=== PATIENT | female | born 1940 | race Caucasian/White ===

== ENCOUNTER 2017-10-04 12:47 | Observation (INO) ==
[2017-10-04] MEDS ORDERED: *HR* Dextrose 50 % in Water (Syg) 50 ML SYRINGE ONE (12:53)
[2017-10-04] MEDS ORDERED: D5% in 0.9% NACL 1,000 ML IVC ONE (13:00)
--- NOTE | 2017-10-04 13:10 | Emergency Department Note ---
Disposition Clinical Impression: Hypoglycemia, Hyponatremia Acute exacerbation of CHF (congestive heart failure) Qualifiers: Congestive heart failure type: unspecified congestive heart failure type Qualified Code(s): I50.9 - Heart failure, unspecified Pneumonia Qualifiers: Pneumonia type: due to unspecified organism Laterality: right Lung location: lower lobe of lung Qualified Code(s): J18.1 - Lobar pneumonia, unspecified organism Disposition: Admitted As Inpatient Condition: Undetermined Time of Disposition: 14:50 Neuro HPI - General Chief Complaint: ED Neuro Symptoms/Deficit Stated Complaint: Neuro Sx Time Seen by Provider: 10/04/17 12:50 Source: EMS Mode of arrival: EMS Limitations: altered mental status Nursing Notes Reviewed: Yes Vital Signs Reviewed: Yes - History of Present Illness HPI Narrative: 77-year-old female with unknown medical history arrives to the emergency department with concern for alteration in mentation and a facial droop. The last known well was 8:30 this morning. The patient was unable to answer any questions. On glucose check from EMS was noted the patient's glucose was 83. In addition the patient was noted to be hypertensive. Upon arrival to the emergency department the patient's glucose was noted to be 32. It was at that time an IV was placed and the patient was given an amp of D50. She immediately woke up and was answer all questions appropriately with a NIH of 0 at that time. The patient denies any complaints at this time and is resting comfortably in the room. Onset of Symptoms Date: 10/04/17 Onset of Symptoms Time: 08:30 Symptom Onset Unknown: No Timing confirmed by: family member Location: right face, altered History of same: No Severity: mild Symptoms Improving: Yes (After D50) Improves with: medication Context: sudden onset On Anticoagulants: No Associated symptoms: Reports: confusion Treatments Prior to Arrival: none - Related Data Home Medications: Home Medications Medication Instructions Recorded Confirmed ALPRAZolam [Xanax 0.25 MG Tablet] 0.25 mg PO TID PRN 10/13/16 10/04/17 Furosemide [Lasix] 40 mg PO DAILY 10/13/16 10/04/17 Glimepiride [Amaryl] 2 mg PO DAILY 10/13/16 10/04/17 Ipratropium/Albuterol Neb [Duoneb] 3 ml PO Q4H PRN 10/13/16 10/04/17 Amlodipine Besylate 10 mg PO DAILY 01/19/17 10/04/17 Fluticasone/Salmeterol [Advair 1 each IH BID 01/19/17 10/04/17 500-50 Diskus] Loratadine [Allergy Relief] 10 mg PO DAILY 01/19/17 10/04/17 Amiodarone [Cordarone] 200 mg PO DAILY 10/04/17 10/04/17 Aspirin [Lo-Dose Aspirin EC] 81 mg PO DAILY 10/04/17 10/04/17 Lisinopril [Zestril] 2.5 mg PO DAILY 10/04/17 10/04/17 Metformin HCl [Metformin HCl ER] 1,000 mg PO BID 10/04/17 10/04/17 Metoprolol XL (24 HR) Succ [Toprol 100 mg PO DAILY 10/04/17 10/04/17 XL] Rivaroxaban [Xarelto] 20 mg PO DAILY 10/04/17 10/04/17 Allergies/Adverse Reactions: Allergies Allergy/AdvReac Type Severity Reaction Status Date / Time No Known Allergies Allergy Verified 01/19/17 09:41 All systems ED: reviewed and negative except as stated. Constitutional: Denies: fever, chills, weakness Eyes: Denies: vision change ENT ED: Denies: dental pain, congestion Cardiovascular: Denies: chest pain Respiratory: Denies: dyspnea Gastrointestinal: Denies: abdominal pain Genitourinary: Denies: urgency Musculoskeletal: Denies: neck pain Integumentary: Denies: rash Neurological: Reports: weakness, confusion (resolved with glucose). Denies: headache, numbness, paresthesias Past Medical History - Past Medical History Attestation: Yes The following information was validated with the patient. Source: patient, old records reviewed, obtained from family Medical history: Reports: asthma, atrial fibrillation, COPD, diabetes, hyperlipidemia, hypertension Surgical history: Reports: hysterectomy Psychiatric history: Reports: anxiety, depression - Social History Smoking Status: Former smoker Smokeless Tobacco Status: No Alcohol use: Reports: none Drug use: Reports: none Physical Exam - General Limitations: altered mental status (initially but resolved) General appearance: alert, in no apparent distress - Head Head exam: atraumatic, normocephalic, normal inspection - Eye Eye exam: Present: normal appearance, PERRL, EOMI - ENT ENT exam: normal exam - Neck Neck exam: Present: normal inspection, full ROM, trachea midline - Chest Chest inspection: Present: normal inspection, symmetric chest wall rise - Respiratory Respiratory exam: Present: normal lung sounds bilaterally - Cardiovascular Cardiovascular exam: Present: regular rate, normal rhythm, normal heart sounds - Abdominal Exam Abdominal exam: Present: soft, Non-Tender. Absent: tenderness, distention, guarding, rebound, rigidity - Extremities Exam Extremities exam: Present: normal inspection, full ROM. Absent: tenderness, pedal edema - Neurological Exam Neurological exam: Present: alert, oriented X3, CN II-XII intact - Expanded Neurological Exam Patient oriented to: Present: person, place Speech: Present: fluid speech Cranial nerves: EOM function (II, III, IV, ): Normal, facial sensation (V): Normal, facial palsy (VII): Normal Motor strength - LUE: 4/5 Motor strength - RUE: 4/5 Motor strength - LLE: 4/5 Motor strength - RLE: 4/5 Sensory exam upper extremity: light touch: Normal Sensory exam lower extremity: light touch: Normal Coma Scale Eye Opening: Spontaneous Coma Scale Motor Response: Obeys Commands Coma Scale Verbal Response: Oriented Coma Scale Total: 15 Course - Reevaluation(s) Reevaluation #1: Patient is eating without difficulty. Denies any complaints at this time. The patient's family states the patient is on Xarelto and she had a fall this morning. The patient was noted to have repeat glucose at 140's. Time: 14:12 Vital Signs Temperature 97.5 F L 10/04/17 12:48 Pulse Rate 66 10/04/17 12:48 Respiratory Rate 26 10/04/17 12:48 Blood Pressure 195/107 10/04/17 12:48 O2 Sat by Pulse Oximetry 91 10/04/17 12:48 Temperature 97.5 F L 10/04/17 12:48 Pulse Rate 68 10/04/17 14:53 Respiratory Rate 20 10/04/17 14:53 Blood Pressure 178/96 10/04/17 14:53 O2 Sat by Pulse Oximetry 98 10/04/17 14:53 Oxygen Delivery Oxygen Delivery Nasal Cannula Neuro Symptoms/Deficit - MDM Narrative Medical decision making narrative: Workup in the emergency department demonstrates multiple findings. The patient was noted to be in a CHF exacerbation. Chest x-ray also demonstrates concern for possible pneumonia. Given the patient's leukocytosis which is likely reactive due to the patient's hypoglycemia, we will go ahead and treat the patient with clindamycin with concern for aspiration pneumonia given the patient 's prolonged downtime. The patient was noted to be hyponatremic most likely associated with the patient's fluid overload. The patient responded to the glucose appropriately and is alert and oriented and answering all questions at this time area the patient was started on a nitroglycerin drip with intention to reduce preload and improve the patient's respiratory status as well as lower her blood pressure. The patient will be admitted to the hospitalist at this time and was accepted by the hospitalist, Dr. Clark. - Lab Data Lab results reviewed: Yes I reviewed the patient's lab results. Result diagrams: 10/04/17 13:49 10/04/17 13:49 Lab Results 10/04/17 10/04/17 10/04/17 Range/Units 13:15 13:25 13:46 WBC (4.3-11.1) K/mcL RBC (3.82-4.97) M/mcL Hgb (11.5-15.4) g/dL Hct (35.3-44.9) % MCV (83.0-100.0) fL MCH (28.0-33.3) pg MCHC (31.6-35.5) g/dL RDW (11.5-14.5) % Plt Count (140-400) K/mcL MPV (9.4-12.4) fL Immature Gran % (0-4) % Seg Neutrophils % % Lymphocytes % % Monocytes % % Eosinophils % % Basophils % % Neutrophils # (1.6-8.9) K/mcL Lymphocytes # (0.6-4.6) K/mcL Monocytes # (0.0-1.3) K/mcL Eosinophils # (0.0-0.6) K/mcL Basophils # (0.0-0.2) K/mcL PT (9.4-12.1) Seconds INR APTT (26.0-36.0) Seconds Sodium (136-145) mEq/L Potassium (3.5-4.5) mEq/L Chloride (98-109) mEq/L Carbon Dioxide (19-29) mEq/L BUN (7-20) mg/dL Creatinine (0.57-1.11) mg/dL Est GFR ( Amer) (> 60) Est GFR (Non-Af Amer) (> 60) BUN/Creatinine Ratio (6-26) Glucose (70-99) mg/dL POC Glucose 121 H 143 H (58-89) Calculated Osmolality (280-300) Calcium (8.6-10.8) mg/dL Troponin I (0-0.03) ng/mL B-Natriuretic Peptide (0-100) pg/mL Urine Color Yellow (Yellow) Urine Clarity Cloudy A (Clear) Urine pH 8.0 (5.0-8.0) pH Units Ur Specific [place] 1.015 (1.010-1.025) Urine Protein 100 H (Neg-Trace) mg/dL Urine Glucose (UA) 100 H (Normal) mg/dL Urine Ketones Negative (Negative) mg/dL Urine Blood Trace H (Negative) Urine Nitrite Negative (Negative) Urine Bilirubin Negative (Negative) Urine Urobilinogen Normal (Normal) mg/dL Ur Leukocyte Esterase Negative (Negative) Urine Microscopic RBC 3-5 H (0-3) per hpf Urine Microscopic WBC 3-5 H (0-3) per hpf Ur Squamous Epith Cells Many H (None-Few) per lpf Urine Bacteria Few (None-Few) per hpf Hyaline Casts None Seen (None-Few) per lpf Ur Culture Indicated? NO (NO) 10/04/17 10/04/17 10/04/17 Range/Units 13:49 13:49 13:49 WBC 22.8 H (4.3-11.1) K/mcL RBC 4.67 (3.82-4.97) M/mcL Hgb 10.7 L (11.5-15.4) g/dL Hct 33.5 L (35.3-44.9) % MCV 71.7 L (83.0-100.0) fL MCH 22.9 L (28.0-33.3) pg MCHC 31.9 (31.6-35.5) g/dL RDW 18.1 H (11.5-14.5) % Plt Count 387 (140-400) K/mcL MPV 9.8 (9.4-12.4) fL Immature Gran % 1.0 (0-4) % Seg Neutrophils % 91.1 % Lymphocytes % 3.3 % Monocytes % 4.4 % Eosinophils % 0.0 % Basophils % 0.2 % Neutrophils # 20.8 H (1.6-8.9) K/mcL Lymphocytes # 0.8 (0.6-4.6) K/mcL Monocytes # 1.0 (0.0-1.3) K/mcL Eosinophils # 0.0 (0.0-0.6) K/mcL Basophils # 0.1 (0.0-0.2) K/mcL PT 13.1 H (9.4-12.1) Seconds INR 1.2 APTT 30.7 (26.0-36.0) Seconds Sodium 126 L (136-145) mEq/L Potassium 3.4 L (3.5-4.5) mEq/L Chloride 88 L (98-109) mEq/L Carbon Dioxide 24 (19-29) mEq/L BUN 11 (7-20) mg/dL Creatinine 0.81 (0.57-1.11) mg/dL Est GFR ( Amer) > 60 (> 60) Est GFR (Non-Af Amer) > 60 (> 60) BUN/Creatinine Ratio 14 (6-26) Glucose 137 H (70-99) mg/dL POC Glucose (58-89) Calculated Osmolality 264 L (280-300) Calcium 9.1 (8.6-10.8) mg/dL Troponin I (0-0.03) ng/mL B-Natriuretic Peptide (0-100) pg/mL Urine Color (Yellow) Urine Clarity (Clear) Urine pH (5.0-8.0) pH Units Ur Specific [place] (1.010-1.025) Urine Protein (Neg-Trace) mg/dL Urine Glucose (UA) (Normal) mg/dL Urine Ketones (Negative) mg/dL Urine Blood (Negative) Urine Nitrite (Negative) Urine Bilirubin (Negative) Urine Urobilinogen (Normal) mg/dL Ur Leukocyte Esterase (Negative) Urine Microscopic RBC (0-3) per hpf Urine Microscopic WBC (0-3) per hpf Ur Squamous Epith Cells (None-Few) per lpf Urine Bacteria (None-Few) per hpf Hyaline Casts (None-Few) per lpf Ur Culture Indicated? (NO) 10/04/17 10/04/1717 Range/Units 13:49 13:49 15:00 WBC (4.3-11.1) K/mcL RBC (3.82-4.97) M/mcL Hgb (11.5-15.4) g/dL Hct (35.3-44.9) % MCV (83.0-100.0) fL MCH (28.0-33.3) pg MCHC (31.6-35.5) g/dL RDW (11.5-14.5) % Plt Count (140-400) K/mcL MPV (9.4-12.4) fL Immature Gran % (0-4) % Seg Neutrophils % % Lymphocytes % % Monocytes % % Eosinophils % % Basophils % % Neutrophils # (1.6-8.9) K/mcL Lymphocytes # (0.6-4.6) K/mcL Monocytes # (0.0-1.3) K/mcL Eosinophils # (0.0-0.6) K/mcL Basophils # (0.0-0.2) K/mcL PT (9.4-12.1) Seconds INR APTT (26.0-36.0) Seconds Sodium (136-145) mEq/L Potassium (3.5-4.5) mEq/L Chloride (98-109) mEq/L Carbon Dioxide (19-29) mEq/L BUN (7-20) mg/dL Creatinine (0.57-1.11) mg/dL Est GFR ( Amer) (> 60) Est GFR (Non-Af Amer) (> 60) BUN/Creatinine Ratio (6-26) Glucose (70-99) mg/dL POC Glucose 134 H (58-89) Calculated Osmolality (280-300) Calcium (8.6-10.8) mg/dL Troponin I 0.02 (0-0.03) ng/mL B-Natriuretic Peptide 995 H (0-100) pg/mL Urine Color (Yellow) Urine Clarity (Clear) Urine pH (5.0-8.0) pH Units Ur Specific [place] (1.010-1.025) Urine Protein (Neg-Trace) mg/dL Urine Glucose (UA) (Normal) mg/dL Urine Ketones (Negative) mg/dL Urine Blood (Negative) Urine Nitrite (Negative) Urine Bilirubin (Negative) Urine Urobilinogen (Normal) mg/dL Ur Leukocyte Esterase (Negative) Urine Microscopic RBC (0-3) per hpf Urine Microscopic WBC (0-3) per hpf Ur Squamous Epith Cells (None-Few) per lpf Urine Bacteria (None-Few) per hpf Hyaline Casts (None-Few) per lpf Ur Culture Indicated? (NO) - Radiology Data Radiology results reviewed: Yes I reviewed the patient's radiology results. - EKG Data EKG attestation: Yes I reviewed and interpreted this EKG. EKG results narrative: Heart rate 63 bpm. A LA interval 211 ms. QTc 445 ms. Electronic ventricular pacemaker. No ST elevation or ST depression noted. Attestation Statement - Attestation Attestation: I examined this patient and my medical decision-making was reviewed with the Resident Physician, Dr. Leroy. I agree with the documented findings, disposition and treatment plan as described except to the extent set forth below. Patient is a 77-year-old white female who is brought to us by EMS and they had called ahead indicating she was a stroke alert. Patient apparently lives at home with family and after breakfast this morning at approximately 8 AM she had sudden alteration of consciousness and was having decreased responsiveness facial droop and slurred speech. On arrival by EMS patient was confused, mumbling her words and no focal deficits appreciated just decreased level of responsiveness. She was quite hypertensive on arrival. Medics had reported an Accu-Chek in the 80s. We repeated that on arrival and patient's Accu-Chek rest was 32. Initially a stroke alert had been called on her arrival and initial assessment. We held off on taking the patient CT given an amp of D50. Patient immediately came more responsive, conversant and was quickly up talking with no slurred speech, no facial droop, no focal neurologic deficits. Patient returned to baseline. Family upon arrival did say that she is on Xarelto and had fallen and they thought she hit her head. We proceeded with ongoing evaluation. I agree with patient's physical exam findings as documented. Patient was hypertensive on arrival. Patient's EKG shows paced rhythm. Patient had a chest x-ray which showed pulmonary edema versus pneumonia with prominence of pulmonary changes on the right side. Patient's room air sats were stable. No increased work of breathing. Unclear if since she had been down for such a long period of time that this could be secondary to an aspiration versus infection versus exacerbation of her CHF. Patient did have significant lower extremity edema on arrival. We are going to cover the patient for both at this time and started on her on antibiotics as well as nitroglycerin and Lasix. Patient with an elevated white count at 22.8 with a left shift. Which points more towards an infectious etiology. Patient's head CT was unremarkable. Patient's blood sugar has stabilized and she is currently on a D5 0.9 normal saline. Case was discussed with the hospitalist who accepted the patient for admission for further evaluation and management.
[2017-10-04 13:31] LABS: Bilirubin,Urine Negative (Negative); Blood,Urine Trace (Negative); Clarity,Urine Cloudy (Clear); Color,Urine Yellow (Yellow); Glucose,Urine (UA) 100 mg/dL (Normal); Ketones,Urine Negative (Negative); Leukocyte Esterase,Urine Negative (Negative); Nitrite,Urine Negative (Negative); Protein,Urine 100 mg/dL (Neg-Trace); Specific Gravity,Urine 1.015 (1.010-1.025); Urobilinogen,Urine Normal (Normal)
[2017-10-04 13:34] LABS: Bacteria,Urine Few per hpf (None-Few); Hyaline Casts,Urine None Seen per lpf (None-Few); Squamous Epithelial Cell,Urine Many per lpf (None-Few)
[2017-10-04 14:02] LABS: Basophils % 0.2 %; Hematocrit 33.5 % (35.3-44.9); Hemoglobin 10.7 g/dL (11.5-15.4); Lymphocytes # 0.8 K/mcL (0.6-4.6); Lymphocytes % 3.3 %; Mean Corpuscular HGB Conc 31.9 g/dL (31.6-35.5); Mean Corpuscular Hemoglobin 22.9 pg (28.0-33.3); Mean Corpuscular Volume 71.7 fL (83.0-100.0); Mean Platelet Volume 9.8 fL (9.4-12.4); Monocytes % 4.4 %; Neutrophils # 20.8 K/mcL (1.6-8.9); Platelet Count 387 K/mcL (140-400); Red Blood Count 4.67 M/mcL (3.82-4.97); Red Cell Distribution Width 18.1 % (11.5-14.5); Segmented Neutrophils % 91.1 %
[2017-10-04 14:06] LABS: INR 1.2; Prothrombin Time 13.1 Seconds (9.4-12.1)
[2017-10-04 14:09] LABS: Activated Partial Thrombo Time 30.7 Seconds (26.0-36.0)
[2017-10-04 14:10] LABS: Basophils # 0.1 K/mcL (0.0-0.2)
[2017-10-04 14:20] LABS: BUN/Creatinine Ratio 14 (6-26); Blood Urea Nitrogen 11 mg/dL (7-20); Calcium 9.1 mg/dL (8.6-10.8); Carbon Dioxide 24 mEq/L (19-29); Chloride 88 mEq/L (98-109); Glucose 137 mg/dL (70-99); Osmolality,Calculated 264 (280-300); Potassium 3.4 mEq/L (3.5-4.5); Sodium 126 mEq/L (136-145); eGFR For African Americans > 60 (> 60); eGFR For Non-African Americans > 60 (> 60)
[2017-10-04] MEDS ORDERED: Levofloxacin 750 MG/150 ML 750 MG/150 ML BAG IVPB ONE (14:24)
[2017-10-04] MEDS ORDERED: Clindamycin 600 MG/50 ML 600 MG/50 ML IV.SOLN IVPB ONE (14:34)
[2017-10-04] MEDS ORDERED: *HR* Labetalol 20 MG/4 ML SYRINGE IVP ONE (14:35)
[2017-10-04] MEDS ORDERED: Nitroglycerin 25 MG/250 ML INFUS..BTL IVC SCH (14:45)
--- NOTE | 2017-10-04 15:24 | Internal Med History&Physical ---
Date of Encounter: 10/04/17 Time of Encounter: 15:17 Assessment and Plan (1) COPD (chronic obstructive pulmonary disease) Current visit: Yes Status: Chronic Acute exacerbation due to pneumonia was started on Solu-Medrol and DuoNeb Qualifiers: COPD type: COPD with acute exacerbation Qualified Code(s): J44.1 - Chronic obstructive pulmonary disease with (acute) exacerbation (2) Diabetes Current visit: Yes Status: Chronic Chronic resume home medication and place on sliding scale Qualifiers: Diabetes mellitus type: type 2 Diabetes mellitus complication status: with unspecified complications Diabetes mellitus detention insulin use: unspecified detention insulin use status Qualified Code(s): E11.8 - Type 2 diabetes mellitus with unspecified complications (3) Hyperlipidemia Current visit: Yes Status: Chronic Chronic check profile and a Qualifiers: Hyperlipidemia type: pure hypercholesterolemia Qualified Code(s): E78.00 - Pure hypercholesterolemia, unspecified; E78.0 - Pure hypercholesterolemia (4) HTN (hypertension) Current visit: Yes Status: Chronic Hypertensive urgency with contribution to her congestive heart failure Qualifiers: Hypertension type: essential hypertension Qualified Code(s): I10 - Essential (primary) hypertension (5) Atrial fibrillation Current visit: Yes Status: Acute Patient currently in sinus rhythm with left bundle branch block Qualifiers: Atrial fibrillation type: unspecified Qualified Code(s): I48.91 - Unspecified atrial fibrillation (6) Acute exacerbation of CHF (congestive heart failure) Current visit: Yes Status: Acute Most recent echocardiogram in December EF was 60% likely diastolic heart failure will obtain echo to reassess LV function and aortic valve Qualifiers: Congestive heart failure type: unspecified congestive heart failure type Qualified Code(s): I50.9 - Heart failure, unspecified (7) Hypoglycemia Current visit: Yes Status: Acute Patient was given D amp of D50 with resolution monitor glucose and place on sliding scale with hypoglycemic protocol (8) Hyponatremia Current visit: Yes Status: Acute (9) Pneumonia Current visit: Yes Status: Acute Community-acquired pneumonia start on Zithromax and Rocephin Qualifiers: Pneumonia type: due to unspecified organism Laterality: right Lung location: lower lobe of lung Qualified Code(s): J18.1 - Lobar pneumonia, unspecified organism Internal Medicine - H&P: HPI Chief complaint: transient facial droop, sob Admitted From: Emergency Dept Plans for Post Hospital Care: Home History of present illness: Ms. Esteves is a 77 year old female Patient with history of hypertension, COPD, atrial fibrillation , diabetes, high cholesterol, left bundle branch block, patient had aortic valve replacement at [facility] also has a pacemaker. Patient had developed a right sided facial droop and confusion and brought in by family In the ER noted to have glucose of 32 given amp of D50 and she woke up and returned back to normal mentally and facial droop resolved as well On exam she was obviously short of breath . family and patient noted patient had been very short of breath within not able to give me how long she has been short of breath says she is always sob but worse today and denies any chest pain, no palpitatio n further evaluation shows congestive heart failure right lower lobe pneumonia with a white count of 22, 000 bnp 995 . Presented being admitted have been given IV Lasix in the ER and antibiotic for pneumonia.. ekg shows sinus with LBBB Past Med Surg Social Fam HX - Past Medical History Medical history: asthma, atrial fibrillation, COPD, diabetes, hyperlipidemia, hypertension Psychiatric history: anxiety, depression - Past Surgical History Surgical History: heart valve replacement, hysterectomy - Social History Smoking Status: Former smoker Smokeless Tobacco Status: No Alcohol use: none Drug use: none Internal Medicine - H&P: Meds ALPRAZolam [Xanax 0.25 MG Tablet] 0.25 mg PO TID PRN 10/13/16 [History] Furosemide [Lasix] 40 mg PO DAILY 10/13/16 [History] Glimepiride [Amaryl] 2 mg PO DAILY 10/13/16 [History] Ipratropium/Albuterol Neb [Duoneb] 3 ml PO Q4H PRN 10/13/16 [History] Amlodipine Besylate 10 mg PO DAILY 01/19/17 [History] Fluticasone/Salmeterol [Advair 500-50 Diskus] 1 each IH BID 01/19/17 [History] Loratadine [Allergy Relief] 10 mg PO DAILY 01/19/17 [History] Amiodarone [Cordarone] 200 mg PO DAILY 10/04/17 [History] Aspirin [Lo-Dose Aspirin EC] 81 mg PO DAILY 10/04/17 [History] Lisinopril [Zestril] 2.5 mg PO DAILY 10/04/17 [History] Metformin HCl [Metformin HCl ER] 1,000 mg PO BID 10/04/17 [History] Metoprolol XL (24 HR) Succ [Toprol XL] 100 mg PO DAILY 10/04/17 [History] Rivaroxaban [Xarelto] 20 mg PO DAILY 10/04/17 [History] 3 Allergy/AdvReac Type Severity Reaction Status Date / Time No Known Allergies Allergy Verified 01/19/17 09:41 All Systems PM: A 10-system review of systems was performed and is negative for pertinent findings except as documented above in the HPI. - Constitutional Constitutional: fatigue, weakness - EENT Eyes: no change in vision, no discharge, no pain, no photophobia Ears: no ear discharge, no ear pain, no tinnitus Nose, mouth and throat: no dysphagia, no nasal discharge, no neck pain, no sore throat - Cardiovascular Cardiovascular ROS IM: dyspnea, dyspnea on exertion - Respiratory Respiratory: dyspnea, dyspnea on exertion, chest congestion - Gastrointestinal Gastrointestinal: no abdominal pain, no diarrhea, no hematemesis, no hematochezia, no melena, no nausea, no vomiting - Genitourinary Genitourinary: no change in urinary stream, no dysuria, no flank pain, no hematuria - Constitutional Vitals: Temp Pulse Resp BP Pulse Ox 97.5 F L 68 20 178/96 98 10/04/17 12:48 10/04/17 14:53 10/04/17 14:53 10/04/17 14:53 10/04/17 14:53 Internal Med - H&P Results - Labs CBC & Chem 7: 10/04/17 13:49 10/04/17 13:49 Labs: Short CBC 10/04/17 Range/Units 13:49 WBC 22.8 H (4.3-11.1) K/mcL Hgb 10.7 L (11.5-15.4) g/dL Hct 33.5 L (35.3-44.9) % Plt Count 387 (140-400) K/mcL Neutrophils # 20.8 H (1.6-8.9) K/mcL BMP 10/04/17 13:49 Sodium 126 L Potassium 3.4 L Chloride 88 L Carbon Dioxide 24 BUN 11 Creatinine 0.81 Glucose 137 H Calcium 9.1 Cardiac Enzymes 12/17/17 Range/Units 13:49 Troponin I 0.02 (0-0.03) ng/mL Urine 10/04/17 Range/Units 13:15 Urine Color Yellow (Yellow) Urine Clarity Cloudy A (Clear) Urine pH 8.0 (5.0-8.0) pH Units Ur Specific [place] 1.015 (1.010-1.025) Urine Protein 100 H (Neg-Trace) mg/dL Urine Glucose (UA) 100 H (Normal) mg/dL - Impressions ITS Impressions Chest X-Ray 10/04/17 13:02 IMPRESSION: 1. New bilateral airspace disease. Considerations include pneumonia and edema. Radiographic follow-up is suggested. 2. A pacemaker and aortic valve replacement are new since the prior exam. D/ / 10/04/2017 14:01:02 Gerson Parr MD / johnson Interpreting Provider: Gerson Parr MD Head CT 10/04/17 13:03 IMPRESSION: No acute intracranial abnormality. D/ / Tanya Bryant Cha, MD / Tanya Bryant Cha, MD Interpreting Provider: Tanya Bryant Cha, MD
[2017-10-04] MEDS ORDERED: Naloxone 0.4 MG/ML INJ IVP PRN (15:31)
[2017-10-04] MEDS ORDERED: Acetaminophen 325 MG TABLET PO PRN (15:31)
[2017-10-04] MEDS ORDERED: Mag Hydrox/Al Hydrox/Simeth 30 ML UDC PO PRN (15:31)
[2017-10-04] MEDS ORDERED: Ondansetron 4 MG/2 ML VIAL IVP PRN (15:31)
[2017-10-04] MEDS ORDERED: Dextrose Gel 15 GM PO PRN ×2 (15:40)
[2017-10-04] MEDS ORDERED: *HR* Dextrose 50 % in Water (Syg) 50 ML SYRINGE IVP PRN (15:40)
[2017-10-04] MEDS ORDERED: D5% in Water 1,000 ML IVC PRN (15:40)
[2017-10-04] MEDS ORDERED: Ipratropium/Albuterol Neb 3 ML IH ONE (16:14)
[2017-10-04] MEDS ORDERED: Bumetanide 1 MG/4 ML VIAL IVP ONE (16:37)
[2017-10-04] MEDS: Furosemide 40 MG/4 ML VIAL IVP SCH (17:05)
[2017-10-04] MEDS: Metoprolol XL (24 HR) Succ 50 MG TAB.ER.24H PO SCH (18:20)
[2017-10-04] MEDS: Lisinopril 20 MG TABLET PO SCH (18:20)
[2017-10-04] MEDS: Azithromycin 500 MG in D5% in Water 250 ML IVPB SCH (18:20)
[2017-10-04] MEDS: Insulin LISPRO 300 UNITS/3 ML VIAL SQ SCH ×2 (18:21→21:15)
[2017-10-04] MEDS: MethylPREDNISolone 40 MG/ML VIAL IVP SCH (18:21)
[2017-10-04] MEDS ORDERED: Ipratropium/Albuterol Neb 3 ML IH PRN (20:02)
[2017-10-04] MEDS ORDERED: *HR* Heparin 5,000 UNIT/ML VIAL IVP PRN ×2 (20:14)
[2017-10-04] MEDS ORDERED: *HR* Heparin 5,000 UNIT/ML VIAL IVP ONE (20:14)
[2017-10-04] MEDS ORDERED: Heparin 25,000 UNIT/500 ML D5W 25,000 UNIT/500 ML BAG IVC SCH (20:15)
[2017-10-04] MEDS: ALPRAZolam 0.25 MG TABLET PO PRN (20:17)
[2017-10-04 20:41] LABS: Hematocrit 30.8 % (35.3-44.9); Hemoglobin 9.6 g/dL (11.5-15.4); Mean Corpuscular HGB Conc 31.2 g/dL (31.6-35.5); Mean Corpuscular Hemoglobin 23.1 pg (28.0-33.3); Mean Platelet Volume 9.5 fL (9.4-12.4); Platelet Count 371 K/mcL (140-400); Red Blood Count 4.16 M/mcL (3.82-4.97); Red Cell Distribution Width 17.8 % (11.5-14.5)
[2017-10-04 20:47] LABS: INR 1.3; Prothrombin Time 13.7 Seconds (9.4-12.1)
[2017-10-04 20:50] LABS: Activated Partial Thrombo Time 29.2 Seconds (26.0-36.0)
[2017-10-05] MEDS: MethylPREDNISolone 40 MG/ML VIAL IVP SCH ×3 (00:16→16:24)
[2017-10-05 04:15] LABS: Hematocrit 32.5 % (35.3-44.9); Hemoglobin 9.7 g/dL (11.5-15.4); Mean Corpuscular HGB Conc 29.8 g/dL (31.6-35.5); Mean Corpuscular Hemoglobin 22.8 pg (28.0-33.3); Mean Corpuscular Volume 76.5 fL (83.0-100.0); Mean Platelet Volume 11.1 fL (9.4-12.4); Platelet Count 252 K/mcL (140-400); Red Blood Count 4.25 M/mcL (3.82-4.97); Red Cell Distribution Width 18.4 % (11.5-14.5)
[2017-10-05 04:27] LABS: Alanine Aminotransferase 14 Units/L (0-55); Albumin/Globulin Ratio 0.7 (1.1-2.2); Alkaline Phosphatase 64 Units/L (38-126); Aspartate Amino Transferase 17 Units/L (5-34); BUN/Creatinine Ratio 10 (6-26); Bilirubin,Total 0.7 mg/dL (0.2-1.2); Blood Urea Nitrogen 8 mg/dL (7-20); Calcium 8.6 mg/dL (8.6-10.8); Carbon Dioxide 28 mEq/L (19-29); Chloride 89 mEq/L (98-109); Chol/HDL Ratio 3.8 (0-4.9); Cholesterol 135 mg/dL (< 200); Globulin 4.2 g/dL (2.4-3.5); Glucose 251 mg/dL (70-99); HDL Cholesterol 36 mg/dL (40-59); LDL Cholesterol,Calculated 85 mg/dL (0-99); Magnesium 1.6 mg/dL (1.6-2.6); Osmolality,Calculated 271 (280-300); Potassium 3.2 mEq/L (3.5-4.5); Sodium 127 mEq/L (136-145); Total Protein 7.2 g/dL (6.0-8.3); Triglycerides 71 mg/dL (< 150); eGFR For African Americans > 60 (> 60); eGFR For Non-African Americans > 60 (> 60)
[2017-10-05] MEDS ORDERED: *HR* Enoxaparin 40 MG/0.4 ML SYRINGE SQ SCH (06:00)
--- NOTE | 2017-10-05 07:57 | Internal Med Progress Note ---
<Winston Scott - Last Filed: 10/05/17 11:13> Date of Encounter: 10/05/17 Time of Encounter: 07:55 - Assessment and plan (1) Acute on chronic respiratory failure with hypoxemia Current Visit: Yes Status: Acute (2) Pulmonary edema with congestive heart failure with preserved left ventricular function Current Visit: Yes Status: Acute Assessment and plan: Continue lasix (3) Dyspnea Current Visit: Yes Status: Chronic Assessment and plan: CHF vs COPD vs PNA vs pulmonary edema Patient states that she is at baseline dyspnea at this point. Qualifiers: Dyspnea type: shortness of breath Qualified Code(s): R06.02 - Shortness of breath; R06.00 - Dyspnea, unspecified; R06.01 - Orthopnea (4) Acute exacerbation of CHF (congestive heart failure) Current Visit: Yes Status: Acute Assessment and plan: Echo ordered BNP 995 on admission Qualifiers: Congestive heart failure type: unspecified congestive heart failure type Qualified Code(s): I50.9 - Heart failure, unspecified (5) Pneumonia Current Visit: Yes Status: Acute Assessment and plan: CAP WBC decreased 22.8 > 16.5 > 11.5 Continue zithromax and rocephin Qualifiers: Pneumonia type: due to unspecified organism Laterality: right Lung location: lower lobe of lung Qualified Code(s): J18.1 - Lobar pneumonia, unspecified organism (6) COPD (chronic obstructive pulmonary disease) Current Visit: Yes Status: Chronic Assessment and plan: Exacerbation secondary to pneumonia Continue duoneb and solumedrol Qualifiers: COPD type: COPD with acute exacerbation Qualified Code(s): J44.1 - Chronic obstructive pulmonary disease with (acute) exacerbation (7) Diabetes Current Visit: Yes Status: Chronic Assessment and plan: Continue home medications and sliding scale Qualifiers: Diabetes mellitus type: type 2 Diabetes mellitus complication status: with unspecified complications Diabetes mellitus snf insulin use: unspecified snf insulin use status Qualified Code(s): E11.8 - Type 2 diabetes mellitus with unspecified complications (8) Hyperlipidemia Current Visit: Yes Status: Chronic Assessment and plan: HDL 36, otherwise good control Qualifiers: Hyperlipidemia type: pure hypercholesterolemia Qualified Code(s): E78.00 - Pure hypercholesterolemia, unspecified; E78.0 - Pure hypercholesterolemia (9) HTN (hypertension) Current Visit: Yes Status: Chronic Assessment and plan: Pressures improved into the 140s-150s/70s-80s Continue metoprolol 100 mg daily, lisinopril 20 mg daily, lasix 40 mg, and amlodipine 10 mg Qualifiers: Hypertension type: essential hypertension Qualified Code(s): I10 - Essential (primary) hypertension (10) Atrial fibrillation Current Visit: Yes Status: Chronic Assessment and plan: Rate controlled, Bigeminy Qualifiers: Atrial fibrillation type: persistent Qualified Code(s): I48.1 - Persistent atrial fibrillation (11) Hypoglycemia Current Visit: Yes Status: Acute Assessment and plan: Glucose at 251 this morning Continue trending Continue low dose ISS (12) Hyponatremia Current Visit: Yes Status: Acute (13) DVT prophylaxis Current Visit: Yes Status: Acute Assessment and plan: Continue heparin - Subjective Interval history: Patient reports feeling better. SHortness of breath has improved since admission. - Constitutional Vitals: Temp Pulse Resp BP Pulse Ox 97.9 F 60 15 158/80 99 10/05/17 04:35 10/05/17 04:35 10/05/17 04:35 10/05/17 04:35 10/05/17 04:35 General appearance: Present: pleasant, answers questions appropriately - Head Head exam: Present: atraumatic, normal inspection, normocephalic - ENT ENT exam: Present: mucous membranes moist - Respiratory Respiratory exam: Present: decreased breath sounds - Cardiovascular Cardiovascular exam: Present: +S1, +S2 Additional comments: Bigeminy - GI/Abdominal GI/Abdominal exam: Present: normal bowel sounds, soft. Absent: tenderness - Neurological Exam Neurological exam: Present: alert. Absent: facial droop - Psychiatric Psychiatric exam: Present: normal affect, normal mood - Skin Skin exam: Present: dry, warm Internal Medicine: Result - Labs CBC & Chem 7: 10/05/17 03:38 10/05/17 03:38 Labs: Short CBC 10/04/17 10/05/17 Range/Units 20:31 03:38 WBC 16.5 H 11.5 H (4.3-11.1) K/mcL Hgb 9.6 L 9.7 L (11.5-15.4) g/dL Hct 30.8 L 32.5 L (35.3-44.9) % Plt Count 371 252 (140-400) K/mcL BMP 10/05/17 03:38 Sodium 127 L Potassium 3.2 L Chloride 89 L Carbon Dioxide 28 BUN 8 Creatinine 0.84 Glucose 251 H Calcium 8.6 Cardiac Enzymes 10/04/17 10/04/17 10/05/17 Range/Units 19:27 20:21 03:38 Troponin I 0.16 H* 0.15 H* 0.10 H* (0-0.03) ng/mL Liver Function 10/05/17 Range/Units 03:38 Total Bilirubin 0.7 (0.2-1.2) mg/dL AST 17 (5-34) Units/L ALT 14 (0-55) Units/L Alkaline Phosphatase 64 (38-126) Units/L Albumin 3.0 L (3.5-5.0) g/dL - ABG Interpretation ABG results: PT/INR, D-dimer PT 13.7 Seconds (9.4-12.1) H 10/04/17 20:31 Consult Discharge Plan - Plan Referrals: Casandra Evans MD [Primary Care Provider] - 10/15/17 10:00 am <Shahzad Alicea H - Last Filed: 10/05/17 11:21> Date of Encounter: 10/05/17 - Constitutional Vitals: Temp Pulse Resp BP Pulse Ox 98.0 F 68 16 151/81 98 10/05/17 07:56 10/05/17 07:56 10/05/17 10:48 10/05/17 07:56 10/05/17 10:48 Internal Medicine: Result - Labs CBC & Chem 7: 10/05/17 03:38 10/05/17 03:38 Labs: Short CBC 10/04/17 10/05/17 Range/Units 20:31 03:38 WBC 16.5 H 11.5 H (4.3-11.1) K/mcL Hgb 9.6 L 9.7 L (11.5-15.4) g/dL Hct 30.8 L 32.5 L (35.3-44.9) % Plt Count 371 252 (140-400) K/mcL [facility] 10/05/17 03:38 Sodium 127 L Potassium 3.2 L Chloride 89 L Carbon Dioxide 28 BUN 8 Creatinine 0.84 Glucose 251 H Calcium 8.6 Cardiac Enzymes 10/04/17 10/04/17 10/05/17 Range/Units 19:27 20:21 03:38 Troponin I 0.16 H* 0.15 H* 0.10 H* (0-0.03) ng/mL Liver Function 10/05/17 Range/Units 03:38 Total Bilirubin 0.7 (0.2-1.2) mg/dL AST 17 (5-34) Units/L ALT 14 (0-55) Units/L Alkaline Phosphatase 64 (38-126) Units/L Albumin 3.0 L (3.5-5.0) g/dL - ABG Interpretation ABG results: PT/INR, D-dimer PT 13.7 Seconds (9.4-12.1) H 10/04/17 20:31 - Attending Attestation Acute on chronic hypoxic respiratory failure secondary to the combination of acute COPD exacerbation due to community-acquired pneumonia, unknown agent in combination with acute diastolic CHF exacerbation/acute pulmonary edema Continue IV Lasix, Solu-Medrol, Rocephin and azithromycin Oxygen therapy Elevated troponins likely secondary to demand ischemia Continue Xarelto I examined this patient and my medical decision-making was reviewed with the Resident Physician. I agree with the documented findings, disposition and treatment plan as described except to the extent set forth below.
[2017-10-05] MEDS: Aspirin Enteric Coated 81 MG Tablet PO SCH (08:43)
[2017-10-05] MEDS: amLODIPine 5 MG TABLET PO SCH (08:43)
[2017-10-05] MEDS: Loratadine 10 MG TABLET PO SCH (08:43)
[2017-10-05] MEDS: Metoprolol XL (24 HR) Succ 50 MG TAB.ER.24H PO SCH (08:44)
[2017-10-05] MEDS: *HR* Amiodarone 200 MG TABLET PO SCH (08:44)
[2017-10-05] MEDS: Furosemide 40 MG/4 ML VIAL IVP SCH ×2 (08:44→16:24)
[2017-10-05] MEDS: Lisinopril 20 MG TABLET PO SCH (08:44)
[2017-10-05] MEDS: cefTRIAXone 1,000 MG in Water for inj. (sterile) 10 ML IVP SCH (08:44)
[2017-10-05] MEDS: Insulin LISPRO 300 UNITS/3 ML VIAL SQ SCH ×4 (08:57→21:20)
[2017-10-05] MEDS ORDERED: Lisinopril 20 MG TABLET PO SCH (09:00)
[2017-10-05] MEDS ORDERED: Metoprolol XL (24 HR) Succ 50 MG TAB.ER.24H PO SCH (09:00)
--- NOTE | 2017-10-05 09:43 | Cardiology Consult Note ---
<Jami Braga - Last Filed: 10/05/17 09:59> Date of Encounter: 10/05/17 Time of Encounter: 08:45 Assessment and Plan (1) Elevated troponin Current Visit: Yes Status: Acute Mild troponin elevation in the setting of hypoglycemia, acute PNA, and severely elevated BP. This likely represents demand ischemia. Patient denies chest pain or discomfort. ECG shows paced rhythm. [facility] [place] January 2017 demonstrated non-obstructive CAD. TTE ordered per primary team and results are pending. Most recent TTE shows preserved LVEF (completed prior to TAVR). Continue asa, statin, and betablocker. If no significant findings on TTE, anticipate sign-off. (2) HTN (hypertension) Current Visit: Yes Status: Chronic Poorly controlled upon admission. Wean off NTG gtt, blood pressure improved. Continue norvasc, lisinopril, and toprol XL. May need to increase [id number], will continue to monitor for now. Qualifiers: Hypertension type: essential hypertension Qualified Code(s): I10 - Essential (primary) hypertension (3) Atrial fibrillation Current Visit: Yes Status: Chronic Hx of persistent atrial fibrillation on amiodarone & betablockade for rate control. Avg HR=77 paced, continue current medications. Anticoagulated on Xarelto. Stop heparin gtt. Qualifiers: Atrial fibrillation type: persistent Qualified Code(s): I48.1 - Persistent atrial fibrillation (4) Dyspnea Current Visit: Yes Status: Chronic Likely secondary to COPD exacerbation and PNA. Patient/family report hypoxia at home >1 month prior to admit. Hx of TAVR March 2017. Most recent TTE shows preserved LVEF. Echo pending. Qualifiers: Dyspnea type: shortness of breath Qualified Code(s): R06.02 - Shortness of breath; R06.00 - Dyspnea, unspecified; R06.01 - Orthopnea Discussion w patient/family: The assessment and plan as outlined above was discussed with the patient and/or family members who expressed understanding and agreement. All questions were answered. Thank you for involving us in the care of your patient. Please call with any questions. The patient will be discussed and reviewed with Dr. Shultz; changes to be made accordingly. History of Present Illness Consult date: 10/05/17 Requesting physician: Janneth Clark Consult reason: Elevated troponin Chief complaint: AMS History of present illness: Ms. Esteves is a 77 year old female with PMHx significant for DMII, HTN, s/p AVR, Afib (Xarelto), COPD on home O2, and PPM who presented to the ED via EMS due to AMS. Family states patient was disoriented yesterday morning with noticeable facial droop which prompted them to call EMS. Upon arrival to the ED , blood glucose was noted to be 32 and blood pressure was severely elevated. Patient denies cough, fever, chills, or flu-like symptoms. Her daughter states that patient has01/2017: had difficulty maintaining oxygen >92% over the past month with readings as low as 79% at times. Upon exam today patient states symptoms have improved, however remains fatigued. TAVR/PPM this past summer (2016) at [facility]. Prior CV testing includes: [facility] [place] 02/15/17: EF 55%, moderate non-obstructive CAD. Past Med Surg Social Fam HX - Past Medical History Attestation: Yes The following information was validated with the patient. Source: patient, old records reviewed Medical history: asthma, atrial fibrillation, COPD, diabetes, hyperlipidemia, hypertension Psychiatric history: anxiety, depression - Past Surgical History Surgical History: heart valve replacement, hysterectomy, pacemaker - Social History Smoking Status: Former smoker Smokeless Tobacco Status: No Alcohol use: none Drug use: none - Family History Mother Hx Family Endocrine Disorder: Yes Father Hx Family Cardiac Disorders: Yes Hx Family Respiratory Disorders: Yes Medications and Allergies ALPRAZolam [Xanax 0.25 MG Tablet] 0.25 mg PO TID PRN 10/13/16 [History] Furosemide [Lasix] 40 mg PO DAILY 10/13/16 [History] Glimepiride [Amaryl] 2 mg PO DAILY 10/13/16 [History] Ipratropium/Albuterol Neb [Duoneb] 3 ml PO Q4H PRN 10/13/16 [History] Amlodipine Besylate 10 mg PO DAILY 01/19/17 [History] Fluticasone/Salmeterol [Advair 500-50 Diskus] 1 each IH BID 01/19/17 [History] Loratadine [Allergy Relief] 10 mg PO DAILY 01/19/17 [History] Amiodarone [Cordarone] 200 mg PO DAILY 10/04/17 [History] Aspirin [Lo-Dose Aspirin EC] 81 mg PO DAILY 10/04/17 [History] Lisinopril [Zestril] 2.5 mg PO DAILY 10/04/17 [History] Metformin HCl [Metformin HCl ER] 1,000 mg PO BID 10/04/17 [History] Metoprolol XL (24 HR) Succ [Toprol XL] 100 mg PO DAILY 10/04/17 [History] Rivaroxaban [Xarelto] 20 mg PO DAILY 10/04/17 [History] 3 Allergy/AdvReac Type Severity Reaction Status Date / Time No Known Allergies Allergy Verified 01/19/17 09:41 All Systems Review: A 10-system review of systems was performed and is negative for pertinent findings except as documented above in the HPI. - Cardiovascular Cardiovascular: as per HPI Physical Examination Vital Signs, Last 4 Hours Temp Pulse Resp BP Pulse Ox 10/05/17 07:56 98.0 F 68 15 151/81 98 General: Conversant, No Apparent Distress HEENT: Atraumatic, Normocephaly, Mucus Membranes Moist Cardiac: Other (irregularly irregular) Lungs: Other (diminshed, coarse breath sounds bilaterally) Neuro: Alert and responsive Abdomen: Soft Skin: No rashes noted on visualized skin Extremities: Other (+1 BLE pitting edema. ) Results 10/05/17 03:38 10/05/17 03:38 Lab Results 10/04/17 10/04/17 10/04/17 19:27 20:21 20:31 WBC 16.5 H Hgb 9.6 L Hct 30.8 L Plt Count 371 INR APTT Sodium Potassium Chloride Carbon Dioxide BUN Creatinine Glucose Calcium Magnesium Total Bilirubin AST ALT Alkaline Phosphatase Troponin I 0.16 H* 0.15 H* 10/04/17 10/05/17 10/05/17 20:31 03:38 03:38 WBC 11.5 H Hgb 9.7 L Hct 32.5 L Plt Count 252 INR 1.3 APTT 29.2 Sodium Potassium Chloride Carbon Dioxide BUN Creatinine Glucose Calcium Magnesium Total Bilirubin AST ALT Alkaline Phosphatase Troponin I 0.10 H* 10/05/17 10/05/17 03:38 03:38 WBC Hgb Hct Plt Count INR APTT 78.5 H D Sodium 127 L Potassium 3.2 L Chloride 89 L Carbon Dioxide 28 BUN 8 Creatinine 0.84 Glucose 251 H Calcium 8.6 Magnesium 1.6 Total Bilirubin 0.7 AST 17 ALT 14 Alkaline Phosphatase 64 Troponin I Active Medications Acetaminophen (Tylenol) 650 mg PO Q6HR PRN PRN Reason: Mild Pain (1-3) Stop: 04/05/18 15:32 Al Hydrox/Mg Hydrox/Simethicone (Maalox) 15 ml PO Q6HR PRN PRN Reason: Dyspepsia Stop: 04/05/18 15:32 Albuterol/Ipratropium (Duoneb) 3 ml IH [id number] ITZEL Stop: 04/06/18 10:01 Alprazolam (Xanax) 0.25 mg PO TID PRN; Protocol PRN Reason: Anxiety Stop: 04/05/18 15:36 Last Admin: 10/04/17 20:17 Dose: 0.25 mg Amiodarone HCl (Cordarone) 200 mg PO DAILY ITZEL Stop: 04/06/18 09:01 Last Admin: 10/05/17 08:44 Dose: 200 mg Amlodipine Besylate (Norvasc) 10 mg PO DAILY ITZEL Stop: 04/06/18 09:01 Last Admin: 10/05/17 08:43 Dose: 10 mg Aspirin (Aspirin Ec) 81 mg PO DAILY ITZEL Stop: 04/06/18 09:01 Last Admin: 10/05/17 08:43 Dose: 81 mg Dextrose/Water (Dextrose 50% (Syg)) 25 ml IVP AD PRN PRN Reason: Hypoglycemia Stop: 04/05/18 15:41 Docusate Sodium (Colace) 100 mg PO BID PRN PRN Reason: Constipation Stop: 04/05/18 15:32 Furosemide (Lasix) 40 mg IVP BIDDIURETIC ITZEL Stop: 04/05/18 17:01 Last Admin: 10/05/17 08:44 Dose: 40 mg Nitroglycerin (Nitroglycerin Premix 25 Mg/250 Ml) 25 mg in 250 mls @ 6 mls/hr IVC .Q24H ITZEL; 10 MCG/MIN PRN Reason: Protocol Stop: 04/05/18 14:46 Last Titration: 10/05/17 04:55 Dose: 7 mcg/min, 4.2 mls/hr Azithromycin 500 mg/ Dextrose 250 mls @ 252 mls/hr IVPB Q24H ITZEL Stop: 04/05/18 16:01 Last Admin: 10/04/17 18:20 Dose: 252 mls/hr Dextrose (Dextrose 5%) 1,000 mls @ 100 mls/hr IVC .Q10H PRN PRN Reason: HYPOGLYCEMIA Stop: 04/05/18 15:41 Ceftriaxone Sodium 1,000 mg/ (Sterile Water) 10 mls @ 300 mls/hr IVP DAILY ITZEL Stop: 04/06/18 09:01 Last Admin: 10/05/17 08:44 Dose: 300 mls/hr Heparin Sodium/Dextrose (Heparin 25,000 Unit/500 Ml D5w) 25,000 unit in 500 mls @ 20.715 mls/hr IVC .Q24H ITZEL; 14 UNIT/KG/HR PRN Reason: Protocol Stop: 04/05/18 20:16 Last Titration: 10/05/17 04:57 Dose: 14 unit/kg/hr, 20.715 mls/hr Insulin Human Lispro (Humalog) 0 units SQ TIDAC ITZEL PRN Reason: Protocol Stop: 04/05/18 16:31 Last Admin: 10/05/17 08:57 Dose: 8 units Insulin Human Lispro (Humalog) 0 units SQ HS ITZEL PRN Reason: Protocol Stop: 04/05/18 21:01 Last Admin: 10/04/17 21:15 Dose: Not Given Lisinopril (Zestril) 20 mg PO DAILY ITZEL PRN Reason: Protocol Stop: 04/05/18 16:16 Last Admin: 10/05/17 08:44 Dose: 20 mg Loratadine (Claritin) 10 mg PO DAILY ITZEL PRN Reason: Protocol Stop: 04/06/18 09:01 Last Admin: 10/05/17 08:43 Dose: 10 mg Methylprednisolone (Solu-Medrol) 40 mg IVP Q8HR [facility] Stop: 04/05/18 16:01 Last Admin: 10/05/17 08:44 Dose: 40 mg Metoprolol Succinate (Toprol Xl) 100 mg PO DAILY [facility] Stop: 04/05/18 16:18 Last Admin: 10/05/17 08:44 Dose: 100 mg Naloxone HCl (Narcan) 0.4 mg IVP Q2MIN PRN PRN Reason: Opioid Reversal Stop: 04/05/18 15:32 Ondansetron HCl (Zofran) 4 mg IVP Q8HR PRN PRN Reason: Nausea And Vomiting Stop: 04/05/18 15:32 - Imaging and Cardiology Echo: pending Cardiac cath: report reviewed Other Results: 12 hour tele: avg HR=71 paced. - EKG Interpretation EKG results cardiology: personally reviewed Consult Discharge Plan - Plan Referrals: Casandra Evans MD [Primary Care Provider] - 10/15/17 10:00 am <Marcia Shultz - Last Filed: 10/05/17 11:31> Date of Encounter: 10/05/17 - Attending Attestation I have personally performed a face to face evaluation on this patient. I have reviewed and agree with the history, exam and care plan done by WORK ORDER DETAILER. Ms. Esteves has mild troponin elevation in setting of developing pneumonia and significantly elevated blood pressure. [facility] in January 2017 demonstrated non- obstructive CAD. Suspect presenting symptoms are from demand ischemia. TTE ordered by primary team is pending - will review when resulted. Continue asa, statin, BB. She is on xarelto for atrial fibrillation. Recommend blood pressure management. Agree with diuresis. Assessment and Plan Discussion w patient/family: The assessment and plan as outlined above was discussed with the patient and/or family members who expressed understanding and agreement. All questions were answered. Thank you for involving us in the care of your patient. Please call with any questions. History of Present Illness History of present illness: Ms. Esteves is a 77 year old female All Systems Review: A 10-system review of systems was performed and is negative for pertinent findings except as documented above in the HPI. Physical Examination Vital Signs, Last 4 Hours Temp Pulse Resp BP Pulse Ox 10/05/17 10:48 16 98 10/05/17 07:56 98.0 F 68 15 151/81 98 Results 10/05/17 03:38 10/05/17 03:38 Lab Results 10/04/17 10/04/17 10/04/17 19:27 20:21 20:31 WBC 16.5 H Hgb 9.6 L Hct 30.8 L Plt Count 371 INR APTT Sodium Potassium Chloride Carbon Dioxide BUN Creatinine Glucose Calcium Magnesium Total Bilirubin AST ALT Alkaline Phosphatase Troponin I 0.16 H* 0.15 H* 10/04/17 10/05/17 10/05/17 20:31 03:38 03:38 WBC 11.5 H Hgb 9.7 L Hct 32.5 L Plt Count 252 INR 1.3 APTT 29.2 Sodium Potassium Chloride Carbon Dioxide BUN Creatinine Glucose Calcium Magnesium Total Bilirubin AST ALT Alkaline Phosphatase Troponin I 0.10 H* 10/05/17 10/05/17 10/05/17 03:38 03:38 10:46 WBC Hgb Hct Plt Count INR APTT 78.5 H D 39.0 H D Sodium 127 L Potassium 3.2 L Chloride 89 L Carbon Dioxide 28 BUN 8 Creatinine 0.84 Glucose 251 H Calcium 8.6 Magnesium 1.6 Total Bilirubin 0.7 AST 17 ALT 14 Alkaline Phosphatase 64 Troponin I
[2017-10-05] MEDS: Ipratropium/Albuterol Neb 3 ML IH SCH ×3 (10:48→22:23)
--- NOTE | 2017-10-05 15:12 | Event Note ---
Date of Encounter: 10/05/17 Time of Encounter: 15:00 - Cardiology Event Note Reviewed results of TTE with patient and family, EF 45% with wall motion abnormality. Previous TTE in December 2016 shows preserved LVEF and normal wall motion. Peak troponin 0.16 with downward trend in the setting of severely elevated BP, hypoglycemia, and PNA. Given reduced LVEF and wall motion abnormality, ischemic evaluation can be considered. Will start long-acting nitrate. Continue supportive care for PNA and diuresis. Discussed with patient who elects to proceed with a trial of medical management with close outpatient follow-up with Dr. Aponte. Continue asa, statin, betablocker. Cardiology will sign-off, please call with questions. Echocardiogram 10/05/17 16:37 Impressions: LVEF 45%. Mild concentric left ventricular hypertrophy. Atypical septal motion consistent with paced rhythm. Normal right ventricular structure and function. Bioprosthetic aortic valve appears well seated. Leaflets not well visualized. No aortic regurgitation. No aortic stenosis. Mean gradient 12 mmHg. Moderate mitral stenosis. Mean gradient 7 mmHg. Mild tricuspid regurgitation. Moderate pulmonary hypertension. Estimated RVSP is 50 mmHg. A device lead was visualized in the right atrium and right ventricle. Left Ventricular Wall Motion: Rest Echo Findings The apex, apical anterior and apical septal frausto were hypokinetic. All other wall segments showed normal motion.
[2017-10-05] MEDS: Isosorbide MONOnitrate (24 HR) 30 MG TAB.ER.24H PO SCH (16:23)
[2017-10-05] MEDS: Azithromycin 500 MG in D5% in Water 250 ML IVPB SCH (16:24)
[2017-10-05] MEDS: *HR* Rivaroxaban 15 MG TABLET PO SCH (16:24)
[2017-10-05] MEDS ORDERED: *HR* Rivaroxaban 10 MG TABLET PO SCH (17:00)
--- NOTE | 2017-10-05 17:34 | Electrocardiograph Report ---
[address] [place] [address] Test Date: 2017-10-05 Pat Name: Umm Esteves Department: 112 Room: 2A26 Gender: F Laboratory Chemical Assistant: SHAYY : 1940 Requested By: Shahzad Alicea Order Number: [id number] Reading MD: Marcia Shultz Measurements Intervals [place] Rate: 74 P: WI: 0 QRS: 263 QRSD: 170 T: -25 QT: 496 QTc: 523 Interpretive Statements ELECTRONIC VENTRICULAR PACEMAKER ELECTRONIC ATRIAL PACEMAKER VENTRICULAR PREMATURE COMPLEXES INFERIOR MYOCARDIAL INFARCTION, INDETERMINATE AGE ANTEROLATERAL MYOCARDIAL INFARCTION, MAY BE RECENT Electronically Signed On 10-05-2017 17:32:13 EST by Marcia Shultz
[2017-10-06] MEDS: MethylPREDNISolone 40 MG/ML VIAL IVP SCH ×4 (00:45→23:44)
[2017-10-06 03:41] LABS: Hematocrit 28.8 % (35.3-44.9); Mean Corpuscular HGB Conc 31.3 g/dL (31.6-35.5); Mean Corpuscular Hemoglobin 23.1 pg (28.0-33.3); Mean Corpuscular Volume 73.8 fL (83.0-100.0); Mean Platelet Volume 9.6 fL (9.4-12.4); Platelet Count 372 K/mcL (140-400); Red Cell Distribution Width 17.9 % (11.5-14.5)
[2017-10-06 03:55] LABS: BUN/Creatinine Ratio 18 (6-26); Calcium 9.2 mg/dL (8.6-10.8); Carbon Dioxide 25 mEq/L (19-29); Chloride 92 mEq/L (98-109); Glucose 210 mg/dL (70-99); Osmolality,Calculated 274 (280-300); Sodium 128 mEq/L (136-145); eGFR For African Americans > 60 (> 60); eGFR For Non-African Americans 51 (> 60)
[2017-10-06] MEDS: ALPRAZolam 0.25 MG TABLET PO PRN ×2 (03:56→23:44)
[2017-10-06 04:02] LABS: Blood Urea Nitrogen 19 mg/dL (7-20); Potassium 4.5 mEq/L (3.5-4.5)
[2017-10-06] MEDS: Ipratropium/Albuterol Neb 3 ML IH SCH ×4 (04:21→22:37)
[2017-10-06] MEDS: Aspirin Enteric Coated 81 MG Tablet PO SCH (08:29)
[2017-10-06] MEDS: amLODIPine 5 MG TABLET PO SCH (08:29)
[2017-10-06] MEDS: Lisinopril 20 MG TABLET PO SCH (08:29)
[2017-10-06] MEDS: *HR* Amiodarone 200 MG TABLET PO SCH (08:29)
[2017-10-06] MEDS: Metoprolol XL (24 HR) Succ 50 MG TAB.ER.24H PO SCH (08:29)
[2017-10-06] MEDS: Loratadine 10 MG TABLET PO SCH (08:29)
[2017-10-06] MEDS: Isosorbide MONOnitrate (24 HR) 30 MG TAB.ER.24H PO SCH (08:29)
[2017-10-06] MEDS: Furosemide 40 MG/4 ML VIAL IVP SCH ×2 (08:30→16:49)
[2017-10-06] MEDS: cefTRIAXone 1,000 MG in Water for inj. (sterile) 10 ML IVP SCH (08:30)
[2017-10-06] MEDS: Insulin LISPRO 300 UNITS/3 ML VIAL SQ SCH ×4 (08:31→22:01)
--- NOTE | 2017-10-06 10:03 | Electrocardiograph Report ---
[place] [address] Test Date: 2017-10-04 Pat Name: Umm Esteves Department: 104 Room: 2A26 Gender: F Biological Science Technician: VERITO : 1940 Requested By: Shahzad Alicea Order Number: [id number] Reading MD: David Serna DO Measurements Intervals [place] Rate: 63 P: 84 ID: [id number] QRS: -81 QRSD: 176 T: 91 QT: 437 QTc: 445 Interpretive Statements ELECTRONIC ATRIAL PACEMAKER ELECTRONIC VENTRICULAR PACEMAKER ABNORMAL RHYTHM ECG Electronically Signed On 10-06-2017 10:01:58 EST by David Serna DO
--- NOTE | 2017-10-06 13:58 | Internal Med Progress Note ---
<Winston Scott - Last Filed: 10/06/17 13:52> Date of Encounter: 10/06/17 Time of Encounter: 08:00 - Assessment and plan (1) Acute on chronic respiratory failure with hypoxemia Current Visit: Yes Status: Acute Assessment and plan: Multifactorial - CHF, COPD, PNA, pulm edema Currently saturating well on 2 L of O2, which is her home dose If she continues to do well, anticipate discharge tomorrow. (2) Pulmonary edema with congestive heart failure with preserved left ventricular function Current Visit: Yes Status: Acute Assessment and plan: Continue lasix (3) Acute exacerbation of CHF (congestive heart failure) Current Visit: Yes Status: Acute Assessment and plan: Echo showed EF of 45%, down from 55%. Continue lasix. Qualifiers: Congestive heart failure type: unspecified congestive heart failure type Qualified Code(s): I50.9 - Heart failure, unspecified (4) Pneumonia Current Visit: Yes Status: Acute Assessment and plan: CAP WBC 14.1 Continue zithromax and rocephin Qualifiers: Pneumonia type: due to unspecified organism Laterality: right Lung location: lower lobe of lung Qualified Code(s): J18.1 - Lobar pneumonia, unspecified organism (5) COPD (chronic obstructive pulmonary disease) Current Visit: Yes Status: Chronic Assessment and plan: Exacerbation secondary to pneumonia Continue duoneb and solumedrol Plan to switch solumedrol to prednisone tomorrow Qualifiers: COPD type: COPD with acute exacerbation Qualified Code(s): J44.1 - Chronic obstructive pulmonary disease with (acute) exacerbation (6) Elevated troponin Current Visit: Yes Status: Acute Assessment and plan: LVEF dcreased from 55 to 45% between december 2016 and now, also new wall motion abnormality Plan per cardiology is for medical management and close outpatient follow up with Dr. Aponte Long acting nitrate started Continue asa, and beta danii. Started lipitor 40 mg. (7) Diabetes Current Visit: Yes Status: Chronic Assessment and plan: Continue home medications and sliding scale Qualifiers: Diabetes mellitus type: type 2 Diabetes mellitus complication status: with unspecified complications Diabetes mellitus care home insulin use: unspecified emt intermediate insulin use status Qualified Code(s): E11.8 - Type 2 diabetes mellitus with unspecified complications (8) Hyperlipidemia Current Visit: Yes Status: Chronic Assessment and plan: Started lipitor 40 mg Qualifiers: Hyperlipidemia type: pure hypercholesterolemia Qualified Code(s): E78.00 - Pure hypercholesterolemia, unspecified; E78.0 - Pure hypercholesterolemia (9) HTN (hypertension) Current Visit: Yes Status: Chronic Assessment and plan: Pressures improved into the 140s-150s/70s-80s Continue metoprolol 100 mg daily, lisinopril 20 mg daily, lasix 40 mg, and amlodipine 10 mg Qualifiers: Hypertension type: essential hypertension Qualified Code(s): I10 - Essential (primary) hypertension (10) Atrial fibrillation Current Visit: Yes Status: Chronic Assessment and plan: Rate controlled, anticoagulation with xarelto Qualifiers: Atrial fibrillation type: persistent Qualified Code(s): I48.1 - Persistent atrial fibrillation (11) Hypoglycemia Current Visit: Yes Status: Acute Assessment and plan: Glucose at 210 Continue trending Continue low dose ISS (12) Hyponatremia Current Visit: Yes Status: Acute Assessment and plan: Slowly improving (13) DVT prophylaxis Current Visit: Yes Status: Acute Assessment and plan: Continue xarelto - Subjective Interval history: Patient continues to improve. SOB has decreased, as have oxygen requirements Denies CP, nausea, abdominal pain. - Constitutional Vitals: Temp Pulse Resp BP Pulse Ox 97.5 F L 60 16 134/75 96 10/06/17 11:19 10/06/17 11:19 10/06/17 11:19 10/06/17 11:19 10/06/17 11:19 General appearance: Present: cooperative, A&O X 3, pleasant, answers questions appropriately - Head Head exam: Present: atraumatic, normal inspection, normocephalic - ENT ENT exam: Present: mucous membranes moist - Neck Neck exam general surgery: Present: trachea midline - Respiratory Respiratory exam: Present: CTAB. Absent: accessory muscle use, respiratory distress - Cardiovascular Cardiovascular exam: Present: RRR, +S1, +S2 - GI/Abdominal GI/Abdominal exam: Present: normal bowel sounds, soft, no peritoneal signs. Absent: tenderness - Neurological Exam Neurological exam: Present: alert, oriented X3 - Psychiatric Psychiatric exam: Present: normal affect, normal mood - Skin Skin exam: Present: dry, warm Internal Medicine: Result - Labs CBC & Chem 7: 10/06/17 03:30 10/06/17 03:30 Labs: Short CBC 12/19/17 Range/Units 03:30 WBC 14.1 H (4.3-11.1) K/mcL Hgb 9.0 L (11.5-15.4) g/dL Hct 28.8 L (35.3-44.9) % Plt Count 372 (140-400) K/mcL [facility] 10/06/17 03:30 Sodium 128 L Potassium 4.5 D Chloride 92 L Carbon Dioxide 25 BUN 19 D Creatinine 1.05 Glucose 210 H Calcium 9.2 - ABG Interpretation ABG results: PT/INR, D-dimer PT 13.7 Seconds (9.4-12.1) H 10/04/17 20:31 - Impressions Impressions Echocardiogram 10/05/17 16:37 Impressions: LVEF 45%. Mild concentric left ventricular hypertrophy. Atypical septal motion consistent with paced rhythm. Normal right ventricular structure and function. Bioprosthetic aortic valve appears well seated. Leaflets not well visualized. No aortic regurgitation. No aortic stenosis. Mean gradient 12 mmHg. Moderate mitral stenosis. Mean gradient 7 mmHg. Mild tricuspid regurgitation. Moderate pulmonary hypertension. Estimated RVSP is 50 mmHg. A device lead was visualized in the right atrium and right ventricle. Left Ventricular Wall Motion: Rest Echo Findings The apex, apical anterior and apical septal frausto were hypokinetic. All other wall segments showed normal motion. Findings: Study Quality * Technically adequate exam. ECG Findings * Paced rhythm. Left Ventricle * LVEF 45%. * Normal LV chamber size. * Mild concentric left ventricular hypertrophy. * Atypical septal motion consistent with paced rhythm. Right Ventricle * Normal right ventricular structure and function. Left Atrium * Severely dilated left atrium. Right Atrium * Severely dilated right atrium. Interatrial Septum * Interatrial septum not well evaluated. Aortic Valve * Bioprosthetic aortic valve appears well seated. Leaflets not well visualized. * No aortic regurgitation. * No aortic stenosis. Mean gradient 12 mmHg. Mitral Valve * Mild mitral annular calcification. Thickened mitral valve leaflets. * Trace mitral regurgitation. * Moderate mitral stenosis. Mean gradient 7 mmHg. Tricuspid Valve * Normal tricuspid valve structure. * Mild tricuspid regurgitation. * Moderate pulmonary hypertension. * Estimated RVSP is 50 mmHg. * Estimated RA pressure is 5 mmHg. Pulmonic Valve * Pulmonic valve is not well visualized. Aorta * Normally sized aortic root. Pericardium * The pericardium appears normal. IVC * Normal IVC dimensions and inspiratory collapse. Pulmonary Artery * Normal visualized portions of the main pulmonary artery. Device lead * A device lead was visualized in the right atrium and right ventricle. Consult Discharge Plan - Plan Referrals: Casandra Evans MD [Primary Care Provider] - 10/15/17 10:00 am <Ponce-Maurice Weeks - Last Filed: 10/06/17 15:29> Date of Encounter: 10/06/17 - Constitutional Vitals: Temp Pulse Resp BP Pulse Ox 98.1 F 61 16 133/67 98 10/06/17 15:07 10/06/17 15:07 10/06/17 15:07 10/06/17 15:07 10/06/17 15:07 Internal Medicine: Result - Labs CBC & Chem 7: 10/06/17 03:30 10/06/17 03:30 Labs: Short CBC 10/06/17 Range/Units 03:30 WBC 14.1 H (4.3-11.1) K/mcL Hgb 9.0 L (11.5-15.4) g/dL Hct 28.8 L (35.3-44.9) % Plt Count 372 (140-400) K/mcL [facility] 10/06/17 03:30 Sodium 128 L Potassium 4.5 D Chloride 92 L Carbon Dioxide 25 BUN 19 D Creatinine 1.05 Glucose 210 H Calcium 9.2 - ABG Interpretation ABG results: PT/INR, D-dimer PT 13.7 Seconds (9.4-12.1) H 10/04/17 20:31 - Attending Attestation I examined this patient and my medical decision-making was reviewed with the Resident Physician. I agree with the documented findings, disposition and treatment plan as described except to the extent set forth below. I have seen and examined the patient. Patient is a 77-year-old female with past medical history of COPD, diabetes, hyperlipidemia, hypertension, atrial fibrillation and CHF. Admitted for CHF exacerbation and pneumonia. Patient is currently on azithromycin and Rocephin. She is also on IV Lasix. No acute events or complaints.
[2017-10-06] MEDS: *HR* Rivaroxaban 15 MG TABLET PO SCH (16:48)
[2017-10-06] MEDS: Azithromycin 500 MG in D5% in Water 250 ML IVPB SCH (16:50)
[2017-10-07] MEDS: Ipratropium/Albuterol Neb 3 ML IH SCH ×2 (03:31→10:49)
[2017-10-07 04:16] LABS: Basophils % 0.1 %; Hematocrit 27.3 % (35.3-44.9); Hemoglobin 8.4 g/dL (11.5-15.4); Immature Granulocytes % 1.2 % (0-4); Lymphocytes # 0.6 K/mcL (0.6-4.6); Lymphocytes % 5.4 %; Mean Corpuscular HGB Conc 30.8 g/dL (31.6-35.5); Mean Corpuscular Hemoglobin 22.9 pg (28.0-33.3); Mean Corpuscular Volume 74.4 fL (83.0-100.0); Mean Platelet Volume 9.6 fL (9.4-12.4); Monocytes # 0.3 K/mcL (0.0-1.3); Monocytes % 2.3 %; Neutrophils # 10.6 K/mcL (1.6-8.9); Platelet Count 345 K/mcL (140-400); Red Blood Count 3.67 M/mcL (3.82-4.97); Red Cell Distribution Width 17.8 % (11.5-14.5)
[2017-10-07 04:36] LABS: BUN/Creatinine Ratio 25 (6-26); Blood Urea Nitrogen 25 mg/dL (8-23); Calcium 8.9 mg/dL (8.6-10.3); Carbon Dioxide 33 mEq/L (23-29); Chloride 88 mEq/L (98-107); Glucose 254 mg/dL (70-105); Osmolality,Calculated 279 (280-300); Potassium 3.9 mEq/L (3.5-5.1); Sodium 128 mEq/L (136-145); eGFR For African Americans > 60 (> 60); eGFR For Non-African Americans 54 (> 60)
[2017-10-07 07:45] VITALS: BP 159/75
[2017-10-07] MEDS ORDERED: predniSONE 20 MG TABLET PO SCH (08:00)
[2017-10-07] MEDS: *HR* Amiodarone 200 MG TABLET PO SCH (08:29)
[2017-10-07] MEDS: Aspirin Enteric Coated 81 MG Tablet PO SCH (08:29)
[2017-10-07] MEDS: Insulin LISPRO 300 UNITS/3 ML VIAL SQ SCH ×2 (08:29→12:12)
[2017-10-07] MEDS: Isosorbide MONOnitrate (24 HR) 30 MG TAB.ER.24H PO SCH (08:29)
[2017-10-07] MEDS: Lisinopril 20 MG TABLET PO SCH (08:29)
[2017-10-07] MEDS: amLODIPine 5 MG TABLET PO SCH (08:29)
[2017-10-07] MEDS: Metoprolol XL (24 HR) Succ 50 MG TAB.ER.24H PO SCH (08:29)
[2017-10-07] MEDS: Loratadine 10 MG TABLET PO SCH (08:30)
[2017-10-07] MEDS: cefTRIAXone 1,000 MG in Water for inj. (sterile) 10 ML IVP SCH (08:30)
[2017-10-07] MEDS: Furosemide 40 MG/4 ML VIAL IVP SCH (08:30)
--- NOTE | 2017-10-07 08:58 | Discharge Summary ---
<Sonia,Winston - Last Filed: 10/07/17 08:55> Date of Encounter: 10/07/17 Time of Encounter: 08:56 - Discharge Diagnosis (1) Acute on chronic respiratory failure with hypoxemia Priority: Primary Status: Resolved Comments: Patient's breathing has returned to baseline. (2) Pulmonary edema with congestive heart failure with preserved left ventricular function Priority: Primary Status: Resolved Comments: Resolved. Continue home lasix. (3) Acute exacerbation of CHF (congestive heart failure) Priority: Primary Status: Resolved Comments: Resolved. Continue home lasix. Qualifiers: Congestive heart failure type: unspecified congestive heart failure type Qualified Code(s): I50.9 - Heart failure, unspecified (4) Pneumonia Priority: Primary Status: Acute Comments: Transition Rocephin to cefdinir 300 BID x 4 days (7 days of therapy total) Continue zithromax 500 mg x 2 days (5 days of therapy total) Qualifiers: Pneumonia type: due to unspecified organism Laterality: right Lung location: lower lobe of lung Qualified Code(s): J18.1 - Lobar pneumonia, unspecified organism (5) COPD (chronic obstructive pulmonary disease) Priority: Primary Status: Chronic Comments: Solumedrol transitioned to prednisone taper Qualifiers: COPD type: COPD with acute exacerbation Qualified Code(s): J44.1 - Chronic obstructive pulmonary disease with (acute) exacerbation (6) Elevated troponin Priority: Primary Status: Acute Comments: Close outpatient follow up with Dr Aponte. Continue lipitor, asa, metoprolol (7) Diabetes Priority: Secondary Status: Chronic Comments: Elevation in blood glucose secondary to steroids Continue metformin Qualifiers: Diabetes mellitus type: type 2 Diabetes mellitus complication status: with unspecified complications Diabetes mellitus intermediate insulin use: unspecified intermediate insulin use status Qualified Code(s): E11.8 - Type 2 diabetes mellitus with unspecified complications (8) Hyperlipidemia Priority: Secondary Status: Chronic Comments: Continue lipitor Qualifiers: Hyperlipidemia type: pure hypercholesterolemia Qualified Code(s): E78.00 - Pure hypercholesterolemia, unspecified; E78.0 - Pure hypercholesterolemia (9) HTN (hypertension) Priority: Secondary Status: Chronic Comments: Continue home antihypertensives Qualifiers: Hypertension type: essential hypertension Qualified Code(s): I10 - Essential (primary) hypertension (10) Atrial fibrillation Priority: Secondary Status: Chronic Comments: Continue xarelto Qualifiers: Atrial fibrillation type: persistent Qualified Code(s): I48.1 - Persistent atrial fibrillation (11) Hypoglycemia Priority: Primary Status: Acute Comments: Resolved. (12) Hyponatremia Priority: Secondary Status: Acute Comments: Continues to improve - Discharge Medications Prescriptions: Atorvastatin [Lipitor] 40 mg PO HS #90 tablet Azithromycin [Zithromax] 500 mg PO Q24H 2 Days #4 tablet Cefdinir [Omnicef] 300 mg PO DAILY 4 Days #4 capsule Isosorbide MONOnitrate (24 HR) [Imdur] 30 mg PO DAILY #30 tab.er.24h predniSONE [PredniSONE] See Taper PO DAILY@0800 #13 tablet Home Medications: ALPRAZolam [Xanax 0.25 MG Tablet] 0.25 mg PO TID PRN 10/13/16 [History] Furosemide [Lasix] 40 mg PO DAILY 10/13/16 [History] Glimepiride [Amaryl] 2 mg PO DAILY 10/13/16 [History] Ipratropium/Albuterol Neb [Duoneb] 3 ml PO Q4H PRN 10/13/16 [History] Amlodipine Besylate 10 mg PO DAILY 01/19/17 [History] Fluticasone/Salmeterol [Advair 500-50 Diskus] 1 each IH BID 01/19/17 [History] Loratadine [Allergy Relief] 10 mg PO DAILY 01/19/17 [History] Amiodarone [Cordarone] 200 mg PO DAILY 10/04/17 [History] Aspirin [Lo-Dose Aspirin EC] 81 mg PO DAILY 10/04/17 [History] Lisinopril [Zestril] 2.5 mg PO DAILY 10/04/17 [History] Metformin HCl [Metformin HCl ER] 1,000 mg PO BID 10/04/17 [History] Metoprolol XL (24 HR) Succ [Toprol Xl] 100 mg PO DAILY 10/04/17 [History] Rivaroxaban [Xarelto] 20 mg PO DAILY 10/04/17 [History] Atorvastatin [Lipitor] 40 mg PO HS #90 tablet 10/07/17 [Rx] Azithromycin [Zithromax] 500 mg PO Q24H 2 Days #4 tablet 10/07/17 [Rx] Cefdinir [Omnicef] 300 mg PO DAILY 4 Days #4 capsule 10/07/17 [Rx] Isosorbide MONOnitrate (24 HR) [Imdur] 30 mg PO DAILY #30 tab.er.24h 10/07/17 [ Rx] predniSONE [PredniSONE] See Taper PO DAILY@0800 #13 tablet 10/07/17 [Rx] Allergies/Adverse Reactions: 3 Allergy/AdvReac Type Severity Reaction Status Date / Time No Known Allergies Allergy Verified 01/19/17 09:41 Procedures/tests Complete & Pending: Procedures Performed prior 72 hours Category Date Time Status ECG 12 lead ECG [ECG] Routine Y 10/04/17 13:04 Completed ECG 12 lead ECG [ECG] Routine Y 10/05/17 05:32 Completed EV echocardiogram Routine Y 10/05/17 16:37 Completed Date of admission: 10/04/17 15:11 Primary care physician: Casandra Evans MD Consults: 10/04/17 15:34 Consult to Physician [CONS] Routine Consulting Provider: David Serna Reason for Consult: chf recent avr Time Notified: 15:34 Call Completed: No 10/04/17 18:50 Consult to Nutrition [CONS] Routine Comment: Consulting Provider: NUTRITION Reason for Dietary Consult: MST Score Discharging clinician: Winston Scott Anticipated date of discharge: 10/07/17 - Patient Status Disposition: Home, Self-Care Condition: Fair Functional capacity at discharge: uses cane/walker Overall status at discharge: patient is progressing back to baseline - Discharge Instructions Instructions: Heart Failure (GEN), Chronic Hypertension (DC), Diabetic Hyperglycemia (GEN) Follow Up With: Casandra Evans MD [Primary Care Provider] - 10/15/17 10:00 am - Diet and Activity Activity: increase activity as tolerated, resume usual activities as tolerated Diet: advance to your usual diet Hospital course: Ms. Esteves is a 77 year old female who presented with confusion which resolved with glucose administration when glucose was found to be 32. She additionally complained of shortness of breath, which was found to be multifactorial. She was in acute on chronic respiratory failure. CXR showed pulmonary edema and pneumonia. The pneumonia was treated with rocephin and azithromax and was on treatment day 3 on discharge. The pulmonary edema, secondary to CHF, was treated with lasix. Echo showed new hypokinesis at the apex, with EF decreased from 55 to 45% since December 2016. Cardiology evaluated the patient and decided on medical management with close follow up with Dr. Aponte. She was started on lipitor. Her COPD exacerbation was treated wth duonebs and solumedrol, transitioned to prednisone taper for discharge. Overall, the patient feels that she is back at baseline, and she is using her home O2 dose of 2 LPM and is saturating well. - Time Spent with Patient Total time spent providing and/or coordinating discharge services: - Constitutional Vitals: Temp Pulse Resp BP Pulse Ox 97.7 F 66 17 159/75 99 10/07/17 07:43 10/07/17 07:43 10/07/17 07:43 10/07/17 07:43 10/07/17 07:43 General appearance: Present: cooperative, A&O X 3, pleasant, answers questions appropriately - Head Head exam: Present: atraumatic, normal inspection, normocephalic - Neck Neck exam general surgery: Present: trachea midline - Respiratory Respiratory exam: Present: wheezes (rare). Absent: accessory muscle use, rales , respiratory distress, rhonchi, stridor - Cardiovascular Cardiovascular exam: Present: RRR, +S1, +S2 - GI/Abdominal GI/Abdominal exam: Present: normal bowel sounds, soft, no peritoneal signs. Absent: tenderness - Psychiatric Psychiatric exam: Present: normal affect, normal mood - Skin Skin exam: Present: dry, warm <Serra-Bezwada,Maurice - Last Filed: 10/07/17 13:43> Date of Encounter: 10/07/17 Procedures/tests Complete & Pending: Procedures Performed prior 72 hours Category Date Time Status ECG 12 lead ECG [ECG] Routine Y 10/04/17 13:04 Completed ECG 12 lead ECG [ECG] Routine Y 10/05/17 05:32 Completed EV echocardiogram Routine Y 10/05/17 16:37 Completed Date of admission: 10/04/17 15:11 Primary care physician: Casandra Evans MD Consults: 10/04/17 15:34 Consult to Physician [CONS] Routine Consulting Provider: David Serna Reason for Consult: chf recent avr Time Notified: 15:34 Call Completed: No 10/04/17 18:50 Consult to Nutrition [CONS] Routine Comment: Consulting Provider: NUTRITION Reason for Dietary Consult: MST Score Hospital course: Ms. Esteves is a 77 year old female - Time Spent with Patient Total time spent providing and/or coordinating discharge services: - Constitutional Vitals: Temp Pulse Resp BP Pulse Ox 97.7 F 66 17 159/75 99 10/07/17 07:43 10/07/17 07:43 10/07/17 10:49 10/07/17 07:43 10/07/17 10:49 - Attending Attestation I examined this patient and my medical decision-making was reviewed with the Resident Physician. I agree with the documented findings, disposition and treatment plan as described except to the extent set forth below.
[2017-10-07] MEDS ORDERED: FLUARIX QUAD 2017-18 36MOS UP/PF 0.5 ML SYRINGE IM ONE (13:08)
[2017-10-07] MEDS ORDERED: Azithromycin 250 MG TABLET PO SCH (16:00)
== END 2017-10-07 14:26 | disposition home or self-care (01) ==
LOC: 2ANU 12:47 → EMEROO 12:47 → 2ANU 16:01
PROVIDERS: ADMIT Internal Medicine Cardiovascular Disease; ATTEND Internal Medicine

== ENCOUNTER 2017-10-20 14:00 | Observation (INO) ==
--- NOTE | 2017-10-20 15:28 | Emergency Department Note ---
START Narrative - START START: I examined this patient and my medical decision-making was reviewed with the Resident Physician. I agree with the documented findings, disposition and treatment plan as described except to the extent set forth below. Patient presents to the ED with a chief complaint of leg pain. Patient has had increasing knee pain since a fall a few days ago. She is now unable to walk. Is taking 2 people to assist her to transfer to the restroom. No fever. No shortness of breath. She did not hit her head when she fell. On examination she is in no acute distress. Awake alert. Oriented. She is ecchymotic areas to both anterior knees. Symmetric pitting edema to the lower legs. Plan. Altered mental status workup with imaging of her legs. Patient with leukocytosis, hypokalemia, generalized weakness. Her potassium is replaced and she is admitted to medicine. Aspirin for elevated troponin.
--- NOTE | 2017-10-20 15:36 | Emergency Department Note ---
Disposition Clinical Impression: Weakness, Frequent falls, Hypokalemia Disposition: Admitted As Inpatient Condition: Good Time of Disposition: 17:30 General Adult HPI - General Chief complaint: ED Fall Stated complaint: Fall Time Seen by Provider: 10/20/17 14:08 Source: patient, EMS Mode of arrival: EMS Limitations: no limitations Nursing Notes Reviewed: Yes Vital Signs Reviewed: Yes - History of Present Illness HPI Narrative: Patient is a 77-year-old female with a past medical history A. fib currently on Coumadin presenting to the emergency department for a fall that occurred 3 days ago. The patient states that she was at home and she fell for a reason that she does not remember, however she states that she did not lose consciousness and she had no symptoms of lightheadedness, dizziness or chest pain prior to the fall. She states the only pain she has is in her bilateral lower legs otherwise she states that she feels fine. Eventually the patient's family arrived including her 2 daughters and granddaughter and they state that they are concerned with the patient's ability to ambulate recently. They state that initially was thought that she is going hypoglycemic considering on her fall on Thursday she was registered to have a glucose of 40 in which the family physician recommended stopping her metformin and has been in the 100s to 200 since then. They state that the patient has not been able to and doing well on her own and this morning she was a difficult time even getting out of bed and they are concerned that she may have injured herself in the think that it is time that the patient has more help at home or placement for more help. Pain Scale: 5 - Related Data Home Medications Medication Instructions Recorded Confirmed ALPRAZolam [Xanax 0.25 MG Tablet] 0.25 mg PO TID PRN 10/13/16 10/20/17 Furosemide [Lasix] 40 mg PO DAILY 10/13/16 10/20/17 Glimepiride [Amaryl] 2 mg PO DAILY 10/13/16 10/20/17 Ipratropium/Albuterol Neb [Duoneb] 3 ml PO Q4H PRN 10/13/16 10/20/17 Amlodipine Besylate 10 mg PO DAILY 01/19/17 10/20/17 Fluticasone/Salmeterol [Advair 1 each IH BID 01/19/17 10/20/17 500-50 Diskus] Loratadine [Allergy Relief] 10 mg PO DAILY 01/19/17 10/20/17 Amiodarone [Cordarone] 200 mg PO DAILY 10/04/17 10/20/17 Lisinopril [Zestril] 2.5 mg PO DAILY 10/04/17 10/20/17 Metoprolol XL (24 HR) Succ [Toprol 100 mg PO DAILY 10/04/17 10/20/17 Xl] Rivaroxaban [Xarelto] 20 mg PO DAILY 10/04/17 10/20/17 Previous Rx's Medication Instructions Recorded Atorvastatin [Lipitor] 40 mg PO HS #90 tablet 10/07/17 Isosorbide MONOnitrate (24 HR) 30 mg PO DAILY #30 tab.er.24h 10/07/17 [Imdur] Allergies Allergy/AdvReac Type Severity Reaction Status Date / Time No Known Allergies Allergy Verified 10/20/17 17:50 All systems ED: reviewed and negative except as stated. Review of Systems: As Per HPI Constitutional: Denies: fever, chills ENT ED: Denies: ear pain, dental pain, hearing loss, congestion Cardiovascular: Reports: edema. Denies: chest pain, palpitations, dyspnea on exertion, syncope, paroxysmal nocturnal dyspnea Respiratory: Denies: cough, dyspnea, wheezes, hemoptysis Gastrointestinal: Denies: abdominal pain, nausea, vomiting, diarrhea Genitourinary: Denies: dysuria Musculoskeletal: Reports: arthralgia (bilateral knees and ankles ). Denies: back pain, neck pain Integumentary: Reports: abrasion (left knee and left right lateral eye socket). Denies: rash Neurological: Denies: headache, weakness, numbness, paresthesias Past Medical History - Past Medical History Attestation: Yes The following information was validated with the patient. Medical history: Reports: asthma, atrial fibrillation, COPD, diabetes, hyperlipidemia, hypertension Surgical history: Reports: heart valve replacement, hysterectomy, pacemaker Psychiatric history: Reports: anxiety, depression - Social History Smoking Status: Former smoker Smokeless Tobacco Status: No Alcohol use: Reports: none Drug use: Reports: none Physical Exam - General Limitations: no limitations General appearance: alert, other (Patient is alert and she answers my questions for the most part, however she is only oriented 2. She thinks the month is March in reality it is October.) - Head Head exam: other (Patient has an area of ecchymosis over the right lateral orbit of her right eye with no crepitance and no involvement of the globe.) - Eye Eye exam: Present: PERRL, EOMI, other (Patient's left eye is closed however she states that she does this cousin helps her vision is normal for her. Family states this is normal as well.) - ENT ENT exam: normal exam, normal oropharynx, mucous membranes moist, TM's normal bilaterally - Neck Neck exam: Present: normal inspection, full ROM, trachea midline, other ( Patient has no cervical tenderness, no midline cervical tenderness and no spinal tenderness in the cervicals.). Absent: tenderness - Chest Chest inspection: Present: normal inspection, symmetric chest wall rise. Absent : tenderness, rash - Respiratory Respiratory exam: Present: normal lung sounds bilaterally. Absent: respiratory distress, wheezes - Cardiovascular Cardiovascular exam: Present: regular rate, normal rhythm, normal heart sounds, +S1, +S2 - Abdominal Exam Abdominal exam: Present: soft, Non-Tender, normal bowel sounds. Absent: guarding, rebound - Extremities Exam Extremities exam: Present: normal inspection, full ROM, normal capillary refill , pedal edema (Bilateral 1+ pitting edema.). Absent: tenderness - Expanded Lower Extremity Exam Hip/Pelvis exam: Present: normal inspection, full ROM. Absent: tenderness Upper leg exam: Present: normal inspection, full ROM. Absent: tenderness Knee exam: Present: tenderness (Tenderness over palpation mostly with range of motion of both knees bilaterally.), ecchymosis (Area of ecchymosis over the left anterior knee.). Absent: erythema, effusion, anterior drawer sign, posterior draw sign Lower leg exam: Present: normal inspection, full ROM. Absent: tenderness Ankle exam: Present: tenderness (Tenderness to the lower external raise bilaterally is difficult to localize this tenderness could be due to R Li arthritic changes or could be due to the patient's fall.) Neurovascular/Tendon exam: Present: normal capillary refill. Absent: pulse deficit, motor deficit - Back Exam Back exam: Present: normal inspection, full ROM. Absent: tenderness, CVA tenderness (L), paraspinal tenderness, vertebral tenderness - Neurological Exam Neurological exam: Present: alert, oriented X3, CN II-XII intact - Expanded Neurological Exam Patient oriented to: Present: person, place Speech: Present: fluid speech Cranial nerves: EOM function (II, III, IV, ): Normal, facial sensation (V): Normal, facial palsy (VII): Normal, gag reflex (IX): Normal, spinal accessory function (XI): Normal, tongue deviation (XII): Normal Cerebellar function: finger to nose: Normal, heel to jesus: Normal Motor strength - LUE: 5/5 Motor strength - RUE: 5/5 Motor strength - LLE: 5/5 Motor strength - RLE: 5/5 Sensory exam upper extremity: light touch: Normal Sensory exam lower extremity: light touch: Normal Coma Scale Eye Opening: Spontaneous Coma Scale Motor Response: Obeys Commands Coma Scale Verbal Response: Oriented Coma Scale Total: 15 - Psychiatric Psychiatric exam: Present: normal affect, normal mood - Skin Skin exam: Present: warm, dry, intact, normal color (Except as noted in exam) Course Course Narrative: Patient is a 77-year-old female presenting from home for a fall that occurred 3 days ago at the request of the family. The family states that she is unsteady at home and I do not feel she is safe in her residence that also like to have her evaluated for her frequent falls and she is also had this recent decrease in blood sugar and she is not as sharp as she used to be. Let us do an altered mental status workup of the patient. Patient is complaining of pain in her bilateral lower extremities and she also has ecchymosis over her right eye so plan is order imaging of her head and neck and her lower extremities and will also check labs on the patient agrees with this plan. - Reevaluation(s) Reevaluation #1: Patient does have a mild leukocytosis with neutrophils however according to her other labs and imaging such as her x-rayed her urine I do not see obvious sign of infection at this time. Patient's metabolic panel came back with a critical potassium of 2.5. Oral and IV potassium supplementation was ordered immediately. The patient's imaging was unremarkable for any intracranial process or acute fractures. Patient's troponin was elevated at 0.05 however this is improved compared to her troponin in mid September 2017 which was 0.1. Plan is to admit the patient to the hospital for weakness, frequent falls and her hyperkalemia. I discussed this with Dr. Forrester, he agrees to accept the patient at this time. Time: 17:40 Vital Signs Temperature 98.0 F 10/20/17 14:02 Pulse Rate 90 10/20/17 14:02 Respiratory Rate 14 10/20/17 14:02 Blood Pressure 125/72 10/20/17 14:02 O2 Sat by Pulse Oximetry 93 10/20/17 14:02 Temperature 97.2 F L 10/22/17 10:22 Pulse Rate 65 10/22/17 10:22 Respiratory Rate 16 10/22/17 10:43 Blood Pressure 118/69 10/22/17 10:22 O2 Sat by Pulse Oximetry 99 10/22/17 10:43 Oxygen Delivery Oxygen Delivery Room Air Medical Decision Making - Medical Records Medical records reviewed: Yes I reviewed the patient's medical records. - Lab Data Lab results reviewed: Yes I reviewed the patient's lab results. Result diagrams: 10/22/17 05:08 10/22/17 05:08 Lab Results 10/20/17 10/20/17 10/20/17 Range/Units 16:12 16:12 16:12 WBC 15.7 H (4.3-11.1) K/mcL RBC 4.91 (3.82-4.97) M/mcL Hgb 11.3 L (11.5-15.4) g/dL Hct 35.8 (35.3-44.9) % MCV 72.9 L (83.0-100.0) fL MCH 23.0 L (28.0-33.3) pg MCHC 31.6 (31.6-35.5) g/dL RDW 18.6 H (11.5-14.5) % Plt Count 244 (140-400) K/mcL MPV 9.8 (9.4-12.4) fL Immature Gran % 0.7 (0-4) % Seg Neutrophils % 82.9 % Lymphocytes % 6.6 % Monocytes % 9.6 % Eosinophils % 0.1 % Basophils % 0.1 % Neutrophils # 13.0 H (1.6-8.9) K/mcL Lymphocytes # 1.0 (0.6-4.6) K/mcL Monocytes # 1.5 H (0.0-1.3) K/mcL Eosinophils # 0.0 (0.0-0.6) K/mcL Basophils # 0.0 (0.0-0.2) K/mcL PT 17.7 H (9.4-12.1) Seconds INR 1.6 APTT 30.8 (26.0-36.0) Seconds Sodium 126 L (136-145) mEq/L Potassium 2.5 L* (3.5-5.1) mEq/L Chloride 85 L (98-107) mEq/L Carbon Dioxide 32 H (23-29) mEq/L BUN 9 (8-23) mg/dL Creatinine 0.90 (0.60-1.20) mg/dL Est GFR ( Amer) > 60 (> 60) Est GFR (Non-Af Amer) > 60 (> 60) BUN/Creatinine Ratio 10 (6-26) Glucose 146 H (70-105) mg/dL Calculated Osmolality 263 L (280-300) Calcium 9.0 (8.6-10.3) mg/dL Total Bilirubin 1.2 H (0.3-1.0) mg/dL Direct Bilirubin 0.4 H (0.0-0.2) mg/dL Indirect Bilirubin 0.8 (0.0-1.2) mg/dL AST 21 (13-39) Units/L ALT 19 (7-52) Units/L Alkaline Phosphatase 85 (34-104) Units/L Creatine Kinase 112 (30-223) Units/L Troponin I (< 0.04) ng/mL Serum Total Protein 7.1 (6.4-8.9) g/dL Albumin 3.7 (3.5-5.7) g/dL Globulin 3.4 (2.4-3.5) g/dL Albumin/Globulin Ratio 1.1 (1.1-2.2) TSH 1.482 (0.340-5.600) mcIU/mL Urine Color (Yellow) Urine Clarity (Clear) Urine pH (5.0-8.0) pH Units Ur Specific [place] (1.010-1.025) Urine Protein (Neg-Trace) mg/dL Urine Glucose (UA) (Normal) mg/dL Urine Ketones (Negative) mg/dL Urine Blood (Negative) Urine Nitrite (Negative) Urine Bilirubin (Negative) Urine Urobilinogen (Normal) mg/dL Ur Leukocyte Esterase (Negative) Urine Microscopic RBC (0-3) per hpf Urine Microscopic WBC (0-3) per hpf Ur Squamous Epith Cells (None-Few) per lpf Urine Bacteria (None-Few) per hpf Hyaline Casts (None-Few) per lpf Ur Culture Indicated? (NO) 10/20/17 10/20/17 Range/Units 16:12 16:30 WBC (4.3-11.1) K/mcL RBC (3.82-4.97) M/mcL Hgb (11.5-15.4) g/dL Hct (35.3-44.9) % MCV (83.0-100.0) fL MCH (28.0-33.3) pg MCHC (31.6-35.5) g/dL RDW (11.5-14.5) % Plt Count (140-400) K/mcL MPV (9.4-12.4) fL Immature Gran % (0-4) % Seg Neutrophils % % Lymphocytes % % Monocytes % % Eosinophils % % Basophils % % Neutrophils # (1.6-8.9) K/mcL Lymphocytes # (0.6-4.6) K/mcL Monocytes # (0.0-1.3) K/mcL Eosinophils # (0.0-0.6) K/mcL Basophils # (0.0-0.2) K/mcL PT (9.4-12.1) Seconds INR APTT (26.0-36.0) Seconds Sodium (136-145) mEq/L Potassium (3.5-5.1) mEq/L Chloride (98-107) mEq/L Carbon Dioxide (23-29) mEq/L BUN (8-23) mg/dL Creatinine (0.60-1.20) mg/dL Est GFR ( Amer) (> 60) Est GFR (Non-Af Amer) (> 60) BUN/Creatinine Ratio (6-26) Glucose (70-105) mg/dL Calculated Osmolality (280-300) Calcium (8.6-10.3) mg/dL Total Bilirubin (0.3-1.0) mg/dL Direct Bilirubin (0.0-0.2) mg/dL Indirect Bilirubin (0.0-1.2) mg/dL AST (13-39) Units/L ALT (7-52) Units/L Alkaline Phosphatase (34-104) Units/L Creatine Kinase (30-223) Units/L Troponin I 0.05 H* (< 0.04) ng/mL Serum Total Protein (6.4-8.9) g/dL Albumin (3.5-5.7) g/dL Globulin (2.4-3.5) g/dL Albumin/Globulin Ratio (1.1-2.2) TSH (0.340-5.600) mcIU/mL Urine Color Yellow (Yellow) Urine Clarity Clear (Clear) Urine pH 7.0 (5.0-8.0) pH Units Ur Specific [place] 1.012 (1.010-1.025) Urine Protein Trace (Neg-Trace) mg/dL Urine Glucose (UA) Normal (Normal) mg/dL Urine Ketones Negative (Negative) mg/dL Urine Blood Trace H (Negative) Urine Nitrite Negative (Negative) Urine Bilirubin Negative (Negative) Urine Urobilinogen Normal (Normal) mg/dL Ur Leukocyte Esterase Negative (Negative) Urine Microscopic RBC 0-3 (0-3) per hpf Urine Microscopic WBC 0-3 (0-3) per hpf Ur Squamous Epith Cells Moderate H (None-Few) per lpf Urine Bacteria None Seen (None-Few) per hpf Hyaline Casts None Seen (None-Few) per lpf Ur Culture Indicated? NO (NO) - Radiology Data Radiology results reviewed: Yes I reviewed the patient's radiology results. Chest X-Ray 10/20/17 14:31 IMPRESSION: Significant decrease in bilateral airspace disease. Otherwise, stable chest D/ / Srini Neal MD / Srini Neal MD Interpreting Provider: Srini Neal MD Head CT 10/20/17 14:31 IMPRESSION: 1. No acute intracranial abnormality. 2. Diffuse parenchymal volume loss with mild chronic white matter microvascular ischemic changes. D/ / Andrew Mcguire / Andrew Mcguire Interpreting Provider: Andrew Mcguire Ankle X-Ray 10/20/17 14:32 IMPRESSION: Diffuse osteopenia limits detection of subtle abnormalities. No definite acute displaced fracture noted. D/ / 10/20/2017 16:13:15 Josh Kirkland MD / earnold Interpreting Provider: Josh Kirkland MD Hip/Pelvis X-Ray 10/20/17 14:32 IMPRESSION: No acute osseous abnormality in the pelvis or hips bilaterally. Osteopenia. D/ / Larry Villa MD / Larry Villa MD Interpreting Provider: Larry Villa MD Knee X-Ray 10/20/17 14:32 IMPRESSION: Moderate medial compartment osteoarthrosis and mild lateral/patellofemoral compartment osteoarthrosis bilaterally. Small left patellofemoral joint effusion. No acute fracture or dislocation. D/ / Tyrell Bonilla MD / Tyrell Bonilla MD Interpreting Provider: Tyrell Bonilla MD Cervical Spine CT 10/20/17 14:34 IMPRESSION: No acute abnormality of the cervical spine. D/ / Magan Wheeler / Magan Wheeler Interpreting Provider: Magan Wheeler - EKG Data EKG #1 EKG attestation: Yes I reviewed and interpreted this EKG. EKG results narrative: EKG done at 15:08 shows A. fib at a rate of 89 bpm. QRS is 154, QT is 354 and QTC is 411 these are within normal limits. Left axis deviation. No signs of ST elevation, depression or q-waves present. EKG overall is abnormal.
[2017-10-20 16:25] LABS: Basophils % 0.1 %; Eosinophils % 0.1 %; Hematocrit 35.8 % (35.3-44.9); Hemoglobin 11.3 g/dL (11.5-15.4); Immature Granulocytes % 0.7 % (0-4); Lymphocytes % 6.6 %; Mean Corpuscular HGB Conc 31.6 g/dL (31.6-35.5); Mean Corpuscular Volume 72.9 fL (83.0-100.0); Mean Platelet Volume 9.8 fL (9.4-12.4); Monocytes # 1.5 K/mcL (0.0-1.3); Monocytes % 9.6 %; Platelet Count 244 K/mcL (140-400); Red Blood Count 4.91 M/mcL (3.82-4.97); Red Cell Distribution Width 18.6 % (11.5-14.5); Segmented Neutrophils % 82.9 %
[2017-10-20 16:32] LABS: INR 1.6; Prothrombin Time 17.7 Seconds (9.4-12.1)
[2017-10-20 16:34] LABS: Activated Partial Thrombo Time 30.8 Seconds (26.0-36.0)
[2017-10-20 16:55] LABS: Bilirubin,Urine Negative (Negative); Blood,Urine Trace (Negative); Clarity,Urine Clear (Clear); Color,Urine Yellow (Yellow); Glucose,Urine (UA) Normal (Normal); Ketones,Urine Negative (Negative); Leukocyte Esterase,Urine Negative (Negative); Nitrite,Urine Negative (Negative); Protein,Urine Trace mg/dL (Neg-Trace); Specific Gravity,Urine 1.012 (1.010-1.025); Urobilinogen,Urine Normal (Normal)
[2017-10-20 16:57] LABS: Bacteria,Urine None Seen per hpf (None-Few); Hyaline Casts,Urine None Seen per lpf (None-Few); RBC,Urine 0-3 per hpf (0-3); Squamous Epithelial Cell,Urine Moderate per lpf (None-Few); WBC,Urine 0-3 per hpf (0-3)
[2017-10-20 17:23] LABS: Alanine Aminotransferase 19 Units/L (7-52); Albumin 3.7 g/dL (3.5-5.7); Albumin/Globulin Ratio 1.1 (1.1-2.2); Alkaline Phosphatase 85 Units/L (34-104); Aspartate Amino Transferase 21 Units/L (13-39); BUN/Creatinine Ratio 10 (6-26); Bilirubin,Direct 0.4 mg/dL (0.0-0.2); Bilirubin,Indirect 0.8 mg/dL (0.0-1.2); Bilirubin,Total 1.2 mg/dL (0.3-1.0); Blood Urea Nitrogen 9 mg/dL (8-23); Carbon Dioxide 32 mEq/L (23-29); Chloride 85 mEq/L (98-107); Creatine Kinase 112 Units/L (30-223); Globulin 3.4 g/dL (2.4-3.5); Glucose 146 mg/dL (70-105); Osmolality,Calculated 263 (280-300); Potassium 2.5 mEq/L (3.5-5.1); Sodium 126 mEq/L (136-145); Thyroid Stimulating Hormone 1.482 mcIU/mL (0.340-5.600); Total Protein 7.1 g/dL (6.4-8.9); eGFR For African Americans > 60 (> 60); eGFR For Non-African Americans > 60 (> 60)
[2017-10-20] MEDS ORDERED: Aspirin 325 MG TABLET PO ONE (18:28)
[2017-10-20] MEDS ORDERED: 0.9 % Sodium Chloride 250 ML ONE (19:44)
[2017-10-20] MEDS ORDERED: *HR* HYDROcodone/Acet 5/325 mg TABLET PO ONE (20:40)
[2017-10-20] MEDS ORDERED: Ipratropium/Albuterol Neb 3 ML IH PRN (21:03)
[2017-10-20] MEDS ORDERED: ALPRAZolam 0.25 MG TABLET PO PRN (21:03)
[2017-10-20] MEDS ORDERED: Acetaminophen 325 MG TABLET PO PRN (21:06)
[2017-10-20] MEDS ORDERED: *HR* HYDROcodone/Acet 5/325 mg TABLET PO PRN (21:06)
[2017-10-20] MEDS ORDERED: Ondansetron 4 MG/2 ML VIAL IVP PRN (21:06)
[2017-10-20] MEDS ORDERED: Naloxone 0.4 MG/ML INJ IVP PRN (21:06)
[2017-10-20] MEDS ORDERED: D5% in Water 1,000 ML IVC PRN (21:17)
[2017-10-20] MEDS ORDERED: *HR* Dextrose 50 % in Water (Syg) 50 ML SYRINGE IVP PRN (21:17)
[2017-10-20] MEDS ORDERED: Dextrose Gel 15 GM/37.5 ML TUBE PO PRN ×2 (21:17)
--- NOTE | 2017-10-20 21:28 | Internal Med History&Physical ---
<Jerman Rowley - Last Filed: 10/20/17 22:10> Date of Encounter: 10/20/17 Time of Encounter: 20:00 Assessment and Plan (1) Frequent falls Current visit: Yes Status: Acute Acute on chronic falls. Hx of chronic falls at home with most recent 3 days ago. Pt. reports use of walker at home. Falls/safety precautions. PT/OT consults ordered to assess patient's ambulation strength, stability, and safety. Pt. reports bilateral pain in LEs. Head CT shows no acute intracranial abnormality. Left and right ankle x-rays show no acute displaced fractures. Hip/pelvis x-ray shows no acute osseous abnormalities pelvis or hips bilaterally. Bilateral knee x-rays show moderate medial compartment are seen or necrosis and mild lateral/patellofemoral compartment osteoarthrosis bilaterally. Small left patellofemoral joint effusion. No acute fracture or dislocation. Cervical spine CT shows no acute abnormality of the cervical spine. Stair-step pain medications for pain management. Pt. discussed w/Dr. Hall who is in agreement w/plan of care. Pt. is high risk for further morbidity and decline based on mild confusion, hx of acute on chronic falls, current sx, hx, and risk factors. Observation. (2) Leukocytosis Current visit: Yes Status: Acute Acute leukocytosis w/WBC of 15.7 on admission. Pt. has hx of chronically elevated WBC. Pt. is currently afebrile and asymptomatic for infection. Initial U/A not indicative for UTI. Blood cultures x 2 ordered. Will monitor pt. and f/ u labs. Qualifiers: Leukocytosis type: unspecified Qualified Code(s): D72.829 - Elevated white blood cell count, unspecified (3) Hyponatremia Current visit: Yes Status: Acute Acute hyponatremia w/sodium level of 126 on admission. 1 gm of PO sodium BID ordered. Monitor pt. and f/u labs. Continuous cardiac telemetry. (4) Weakness Current visit: Yes Status: Acute Acute weakness in bilateral LEs. Pt. reports pain and pedal edema in LEs w/ difficulty in ambulation. Falls/safety precautions. PT/OT consults ordered to assess pt. for ambulation strength, safety, and stability. (5) Hypokalemia Current visit: Yes Status: Acute Acute hypokalemia on admission w/potassium level of 2.5. Pt. received 10 mEq IVPB of potassium and 40 mEq PO in ED. Timed potassiums ordered. Continuous cardiac telemetry. (6) HTN (hypertension) Current visit: Yes Status: Chronic Hx of chronic HTN. Monitor pt. and VS. Continue pts. Amlodipine, Imdur, lisinopril, and metoprolol. Qualifiers: Hypertension type: essential hypertension Qualified Code(s): I10 - Essential (primary) hypertension (7) HLD (hyperlipidemia) Current visit: Yes Status: Chronic Hx of chronic HLD. Lipid panel in a.m. labs. Continue pts. Lipitor. Qualifiers: Hyperlipidemia type: pure hypercholesterolemia Qualified Code(s): E78.00 - Pure hypercholesterolemia, unspecified; E78.0 - Pure hypercholesterolemia (8) Elevated troponin Current visit: Yes Status: Chronic Hx of chronically elevated troponin. Initial troponin 0.05 on admission. Pt. denies chest pain or cardiac sx on exam. Will trend x2. Continuous cardiac telemetry. (9) Atrial fibrillation Current visit: Yes Status: Chronic Hx of chronic atrial fibrillation. Continue patient's Xarelto and amiodarone. Continuous cardiac telemetry. Qualifiers: Atrial fibrillation type: chronic Qualified Code(s): I48.2 - Chronic atrial fibrillation (10) COPD (chronic obstructive pulmonary disease) Current visit: Yes Status: Chronic Hx of chronic COPD. Stable. Supplemental O2 w/titration and SpO2 monitoring. Continue pts. DuoNebs. Qualifiers: COPD type: COPD with acute exacerbation Qualified Code(s): J44.1 - Chronic obstructive pulmonary disease with (acute) exacerbation (11) Diabetes Current visit: Yes Status: Chronic Hx of chronic diabetes controlled by oral anti-hyperglycemic medications. Will hold oral meds and administer low-dose correction insulin sliding scale w/ hypoglycemic protocol. A1c in a.m. labs. BG checks ACHS. 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 Xarelto for DVT prophylaxis. Monitor patient for signs of bleeding. Internal Medicine - H&P: HPI Chief complaint: Fall/Weakness Admitted From: Emergency Dept Plans for Post Hospital Care: Home History of present illness: Ms. Esteves is a 77 year old female with medical hx of asthma, atrial fibrillation , COPD, diabetes controlled with insulin, HLD, and HTN presents from the ED with chief complaint of fall that occurred 3 days ago while at home. She does not remember the fall but states she did not lose consciousness and had no sx of dizziness, lightheadedness, or chest pain. Patient states she has pain in bilateral lower extremities. Patient states she has history of falls at home. Patient is alert and oriented 2. Pt. reports hx of atrial fibrillation but denies recent illness, fever, chills, nausea, vomiting, headache, change in vision, chest pain, palpitations, numbness, tingling, SOB, cough, abdominal pain , diarrhea, constipation, dizziness, lightheadedness, pre-syncope, or syncope. Past Med Surg Social Fam HX - Past Medical History Source: patient, old records reviewed Medical history: asthma, atrial fibrillation, COPD, diabetes, hyperlipidemia, hypertension Psychiatric history: anxiety, depression - Past Surgical History Surgical History: heart valve replacement, hysterectomy (Total), pacemaker - Social History Smoking Status: Former smoker Packs per day: 2 PPD - Reports quitting >20 years ago Smokeless Tobacco Status: No Alcohol use: none Drug use: none Current living situation: Home Activity Level: Uses cane/walker Recent Out of Country Travel Within the Last 8 Weeks: No Exposure or Possible Exposure to Illness During Travel: No - Family History Mother Race: Family Member Ethnicity: Non- Living Status: Age at : 80 Cause of : Old age Father Race: Family Member Ethnicity: Non- Living Status: Age at : 70 Cause of : CHF Hx Family Cardiac Disorders: Yes (CHF) Hx Family Respiratory Disorders: Yes (Emphysema) Brother Race: Family Member Ethnicity: Non- Living Status: Cause of : Unknown Hx Family Respiratory Disorders: Yes (COPD, Emphysema) Sister Race: Family Member Ethnicity: Non- Living Status: Still Living Hx Family Medical Disorders: No Internal Medicine - H&P: Meds ALPRAZolam [Xanax 0.25 MG Tablet] 0.25 mg PO TID PRN 10/13/16 [History] Furosemide [Lasix] 40 mg PO DAILY 10/13/16 [History] Glimepiride [Amaryl] 2 mg PO DAILY 10/13/16 [History] Ipratropium/Albuterol Neb [Duoneb] 3 ml PO Q4H PRN 10/13/16 [History] Amlodipine Besylate 10 mg PO DAILY 01/19/17 [History] Fluticasone/Salmeterol [Advair 500-50 Diskus] 1 each IH BID 01/19/17 [History] Loratadine [Allergy Relief] 10 mg PO DAILY 01/19/17 [History] Amiodarone [Cordarone] 200 mg PO DAILY 10/04/17 [History] Lisinopril [Zestril] 2.5 mg PO DAILY 10/04/17 [History] Metoprolol XL (24 HR) Succ [Toprol Xl] 100 mg PO DAILY 10/04/17 [History] Rivaroxaban [Xarelto] 20 mg PO DAILY 10/04/17 [History] Atorvastatin [Lipitor] 40 mg PO HS #90 tablet 10/07/17 [Rx] Isosorbide MONOnitrate (24 HR) [Imdur] 30 mg PO DAILY #30 tab.er.24h 10/07/17 [ Rx] 3 Allergy/AdvReac Type Severity Reaction Status Date / Time No Known Allergies Allergy Verified 10/20/17 17:50 All Systems PM: A 10-system review of systems was performed and is negative for pertinent findings except as documented above in the HPI. - Constitutional Constitutional: as per HPI, falls, weakness, no chills, no fever(s), no night sweats - EENT Eyes: no change in vision, no discharge, no pain, no photophobia Ears: no ear discharge, no ear pain, no tinnitus Nose, mouth and throat: no dysphagia, no nasal discharge, no neck pain, no sore throat - Breasts Breasts: as per HPI - Cardiovascular Cardiovascular ROS IM: as per HPI, edema (Bilateral 1+ pitting of LEs), irregular heart rhythm (Atrial fibrillation), no chest pain, no diaphoresis, no dyspnea, no lightheadedness, no palpitations, no syncope - Respiratory Respiratory: no cough, no dyspnea, no wheezing, no excessive phlegm production - Gastrointestinal Gastrointestinal: no abdominal pain, no diarrhea, no hematemesis, no hematochezia, no melena, no nausea, no vomiting - Genitourinary Genitourinary: no change in urinary stream, no dysuria, no flank pain, no hematuria Menstruation: as per HPI, post hysterectomy - Musculoskeletal Musculoskeletal ROS IM: no numbness, no tingling - Integumentary Integumentary IM: no rash, no unusual bruising - Neurological Neurological ROS: as per HPI, confusion (Mild), frequent falls, weakness, no convulsions, no focal weakness, no numbness, no tingling, no tremor(s) - Psychiatric Psychiatric: as per HPI, anxiety, depression - Endocrine Endocrine IM: as per HPI - Hematologic/Lymphatic Hematologic/Lymphatic: no easy bruising - Allergic/Immunologic Allergic/Immunologic: as per HPI - Constitutional Vitals: Temp Pulse Resp BP Pulse Ox 98.9 F 79 16 136/73 93 10/20/17 18:59 10/20/17 18:59 10/20/17 18:59 10/20/17 18:59 10/20/17 20:29 General appearance: Present: cooperative, A&O X 2 (Name and address/), mild distress (D/t pain in bilateral LEs), A&O X 3, pleasant, obese - Head Head exam: Present: normocephalic Additional comments: Area above right eyelid hurts according to pt. on exam. Possible contact point during fall. - Eye Eye exam: Present: PERRL, conjuntiva pink, sclera anicteric Pupils: Present: PERRL - ENT ENT exam: Present: normal exam - Neck Neck exam general surgery: Present: normal inspection - Respiratory Respiratory exam: Present: CTAB. Absent: accessory muscle use, rales, rhonchi, wheezes - Cardiovascular Cardiovascular exam: Present: irregular rhythm - GI/Abdominal GI/Abdominal exam: Present: normal bowel sounds, soft, no peritoneal signs. Absent: distended, tenderness - Rectal Rectal exam: Present: deferred - Additional comments: exam deferred. - Extremities Exam Extremities exam: Present: pedal edema (1+ bilateral pitting in LEs), warm, radial pulses palpable and symmetrical. Absent: calf tenderness, cyanotic - Back Exam Back exam: Present: normal inspection - Neurological Exam Neurological exam: Present: altered (Mildly confused), CN II-XII intact, no focal deficits. Absent: pronater drift, facial droop, speech deficit - Psychiatric Psychiatric exam: Present: normal affect, normal mood - Skin Skin exam: Present: dry, intact Internal Med - H&P Results - Labs CBC & Chem 7: 10/20/17 16:12 10/20/17 16:12 - EKG Data Prior EKG available for review: yes EKG comments: 10/20/17 21:38 EKG dated 10/05/17 shows electronic ventricular pacemaker, electronic atrial pacemaker, ventricular premature complexes, inferior myocardial infarction of indeterminate age, and anterolateral myocardial infarction which may be recent. EKG dated 10/20/17 shows atrial fibrillation with marked left axis deviation and intraventricular conduction delay. - Diagnostic Studies Chest x-ray Additional comments: Impressions Chest X-Ray 10/20/17 14:31 IMPRESSION: Significant decrease in bilateral airspace disease. Otherwise, stable chest D/ / Srini Neal MD / Srini Neal MD Interpreting Provider: Srini Neal MD CT scan - head Additional comments: Impressions Head CT 10/20/17 14:31 IMPRESSION: 1. No acute intracranial abnormality. 2. Diffuse parenchymal volume loss with mild chronic white matter microvascular ischemic changes. D/ / Andrew Mcguire / Andrew Mcguire Interpreting Provider: Andrew Mcguire Other Images Additional comments: Impressions Ankle X-Ray 10/20/17 14:32 IMPRESSION: Diffuse osteopenia limits detection of subtle abnormalities. No definite acute displaced fracture noted. D/ / 10/20/2017 16:13:15 Josh Kirkland MD / earnold Interpreting Provider: Josh Kirkland MD Ankle X-Ray 10/20/17 14:32 IMPRESSION: Negative D/ / Tray Jacobs MD / Tray Jacobs MD Interpreting Provider: Tray Jacobs MD Hip/Pelvis X-Ray 10/20/17 14:32 IMPRESSION: No acute osseous abnormality in the pelvis or hips bilaterally. Osteopenia. D/ / Larry Villa MD / Larry Villa MD Interpreting Provider: Larry Villa MD Knee X-Ray 10/20/17 14:32 IMPRESSION: Moderate medial compartment osteoarthrosis and mild lateral/patellofemoral compartment osteoarthrosis bilaterally. Small left patellofemoral joint effusion. No acute fracture or dislocation. D/ / Tyrell Bonilla MD / Tyrell Bonilla MD Interpreting Provider: Tyrell Bonilla MD Cervical Spine CT 10/20/17 14:34 IMPRESSION: No acute abnormality of the cervical spine. D/ / Magan Wheeler / Magan Wheeler Interpreting Provider: Magan Wheeler <Ravindra Hall - Last Filed: 10/21/17 03:08> Date of Encounter: 10/21/17 Internal Medicine - H&P: HPI History of present illness: Ms. Esteves is a 77 year old female All Systems PM: A 10-system review of systems was performed and is negative for pertinent findings except as documented above in the HPI. - Constitutional Vitals: Temp Pulse Resp BP Pulse Ox 98.2 F 71 17 115/71 93 10/20/17 22:53 10/20/17 22:53 10/20/17 22:53 10/20/17 22:53 10/20/17 22:53 Internal Med - H&P Results - Labs CBC & Chem 7: 10/20/17 16:12 10/20/17 21:51 Labs: BMP 10/20/17 21:51 Potassium 2.8 L Cardiac Enzymes 10/20/17 Range/Units 21:51 Troponin I 0.06 H* (< 0.04) ng/mL - Attending Attestation I have seen and examined pt independently. I have discussed with [facility] Mr Rowley regarding the management plan. Agree with the documentation.
[2017-10-20] MEDS: Insulin LISPRO 300 UNITS/3 ML VIAL SQ SCH (21:50)
[2017-10-21 05:52] LABS: Basophils % 0.1 %; Eosinophils % 0.2 %; Hematocrit 28.1 % (35.3-44.9); Immature Granulocytes % 0.6 % (0-4); Lymphocytes % 8.2 %; Mean Corpuscular Hemoglobin 23.3 pg (28.0-33.3); Mean Corpuscular Volume 72.8 fL (83.0-100.0); Mean Platelet Volume 10.3 fL (9.4-12.4); Monocytes # 1.6 K/mcL (0.0-1.3); Monocytes % 12.7 %; Neutrophils # 9.8 K/mcL (1.6-8.9); Platelet Count 220 K/mcL (140-400); Red Blood Count 3.86 M/mcL (3.82-4.97); Red Cell Distribution Width 18.5 % (11.5-14.5); Segmented Neutrophils % 78.2 %
[2017-10-21 05:57] LABS: Activated Partial Thrombo Time 30.8 Seconds (26.0-36.0)
[2017-10-21 06:03] LABS: Hemoglobin A1C 5.4 %
[2017-10-21 06:04] LABS: Alanine Aminotransferase 18 Units/L (7-52); Albumin 2.9 g/dL (3.5-5.7); Alkaline Phosphatase 72 Units/L (34-104); Aspartate Amino Transferase 17 Units/L (13-39); BUN/Creatinine Ratio 13 (6-26); Blood Urea Nitrogen 11 mg/dL (8-23); Calcium 8.6 mg/dL (8.6-10.3); Carbon Dioxide 31 mEq/L (23-29); Chloride 91 mEq/L (98-107); Cholesterol 107 mg/dL (< 200); Glucose 97 mg/dL (70-105); HDL Cholesterol 36 mg/dL (40-59); LDL Cholesterol,Calculated 59 mg/dL (0-99); Magnesium 1.9 mg/dL (1.6-2.6); Osmolality,Calculated 269 (280-300); Sodium 130 mEq/L (136-145); Total Protein 5.9 g/dL (6.4-8.9); Triglycerides 60 mg/dL (< 150); eGFR For African Americans > 60 (> 60); eGFR For Non-African Americans > 60 (> 60)
[2017-10-21 06:05] LABS: INR 1.6; Prothrombin Time 17.3 Seconds (9.4-12.1)
[2017-10-21] MEDS: Budesonide/Formoterol 160/4.5 MDI IH SCH ×3 (07:34→20:09)
[2017-10-21] MEDS ORDERED: Potassium Chloride 40 MEQ, Lidocaine 1% 2 ML in D5% in Water 500 ML IVPB ONE (07:48)
[2017-10-21] MEDS: Metoprolol XL (24 HR) Succ 50 MG TAB.ER.24H PO SCH (08:41)
[2017-10-21] MEDS: *HR* Amiodarone 200 MG TABLET PO SCH (08:41)
[2017-10-21] MEDS: Isosorbide MONOnitrate (24 HR) 30 MG TAB.ER.24H PO SCH (08:41)
[2017-10-21] MEDS: amLODIPine 5 MG TABLET PO SCH (08:41)
[2017-10-21] MEDS: Furosemide 40 MG TABLET PO SCH (08:41)
[2017-10-21] MEDS: Loratadine 10 MG TABLET PO SCH (08:41)
[2017-10-21] MEDS: Insulin LISPRO 300 UNITS/3 ML VIAL SQ SCH ×4 (08:54→20:28)
[2017-10-21] MEDS ORDERED: *HR* Rivaroxaban 10 MG TABLET PO SCH (09:00)
--- NOTE | 2017-10-21 09:19 | Internal Med Progress Note ---
Date of Encounter: 10/21/17 Time of Encounter: 09:01 - Assessment and plan (1) Electrolyte abnormality Current Visit: Yes Status: Acute Assessment and plan: Hypokalemia, Hyponatremia Improved from previous day K supplemented continue Nacl tabs will closely monitor electrolytes and replace as needed (2) Weakness Current Visit: Yes Status: Acute Assessment and plan: PT/OT evaluation requested Fall precautions (3) Leukocytosis Current Visit: Yes Status: Acute Assessment and plan: likely reactive secondary to the fall improving from previous day no clinical signs of infectious etiology present,will continue to closely monitor Qualifiers: Leukocytosis type: unspecified Qualified Code(s): D72.829 - Elevated white blood cell count, unspecified (4) HTN (hypertension) Current Visit: No Status: Chronic Assessment and plan: BP within acceptable range continue home meds Qualifiers: Hypertension type: essential hypertension Qualified Code(s): I10 - Essential (primary) hypertension (5) Frequent falls Current Visit: Yes Status: Acute Assessment and plan: PT/OT evaluation requested (6) DVT prophylaxis Current Visit: Yes Status: Acute Assessment and plan: On Xarelto (7) Diabetes Current Visit: Yes Status: Chronic Assessment and plan: Sliding scale insulin algorithm monitor FS And BG ADA diet Qualifiers: Diabetes mellitus type: type 2 Diabetes mellitus complication status: with unspecified complications Diabetes mellitus switcher insulin use: without shelter use Qualified Code(s): E11.8 - Type 2 diabetes mellitus with unspecified complications (8) COPD (chronic obstructive pulmonary disease) Current Visit: Yes Status: Chronic Assessment and plan: not in exacerbation continue home meds Qualifiers: COPD type: COPD with acute exacerbation Qualified Code(s): J44.1 - Chronic obstructive pulmonary disease with (acute) exacerbation (9) Atrial fibrillation Current Visit: Yes Status: Chronic Assessment and plan: rate controlled with Metoprolol anticoagulated with Xarelto Qualifiers: Atrial fibrillation type: chronic Qualified Code(s): I48.2 - Chronic atrial fibrillation (10) Hematuria Current Visit: Yes Status: Acute Assessment and plan: noted to have hematuria after movement with the louis cath discontinue louis will closely monitor H&H Qualifiers: Hematuria type: unspecified type Qualified Code(s): R31.9 - Hematuria, unspecified - Subjective Interval history: Patient seen and examined with family present at bedside. Pt reports of having multiple falls in the last few weeks. Does not recall the preceding events prior to the falls, however daughter states that there were no syncopal episodes or LOC prior or after the falls. Her current presentation appears to be consistent with mechanical falls. Pt denies any other symptoms other than the weakness secondary to the fall. reports of b/l LE pain. She is noted to have straw color urine which was noted shortly after she moved with the louis catheter. Will d/c louis catheter PT/OT evaluation requested. - Constitutional Vitals: Temp Pulse Resp BP Pulse Ox 98.3 F 87 16 144/75 98 10/21/17 07:19 10/21/17 07:19 10/21/17 07:35 10/21/17 07:19 10/21/17 07:35 General appearance: Present: cooperative, A&O X 3 (frail appearing elderly female), pleasant, no acute distress - Head Head exam: Present: atraumatic, normocephalic - Eye Eye exam: Present: conjuntiva pink, sclera anicteric - Respiratory Respiratory exam: Present: CTAB. Absent: accessory muscle use, rales, rhonchi, wheezes - Cardiovascular Cardiovascular exam: Present: RRR, +S1, +S2. Absent: diastolic murmur, gallop, rubs, systolic murmur - GI/Abdominal GI/Abdominal exam: Present: normal bowel sounds, soft, no peritoneal signs. Absent: distended, tenderness - Extremities Exam Extremities exam: Present: pedal edema (trace pedal edema bilaterally), warm, radial pulses palpable and symmetrical. Absent: calf tenderness - Neurological Exam Neurological exam: Present: alert, oriented X3 Internal Medicine: Result - Labs CBC & Chem 7: 10/21/17 04:34 10/21/17 04:34 Labs: Short CBC 10/21/17 Range/Units 04:34 WBC 12.5 H (4.3-11.1) K/mcL Hgb 9.0 L D (11.5-15.4) g/dL Hct 28.1 L (35.3-44.9) % Plt Count 220 (140-400) K/mcL Neutrophils # 9.8 H (1.6-8.9) K/mcL BMP 10/20/17 10/21/17 21:51 04:34 Sodium 130 L Potassium 2.8 L 3.0 L Chloride 91 L Carbon Dioxide 31 H BUN 11 Creatinine 0.88 Glucose 97 Calcium 8.6 Cardiac Enzymes 10/20/17 10/21/17 Range/Units 21:51 04:34 Troponin I 0.06 H* 0.05 H* (< 0.04) ng/mL Liver Function 10/21/17 Range/Units 04:34 Total Bilirubin 1.0 (0.3-1.0) mg/dL AST 17 (13-39) Units/L ALT 18 (7-52) Units/L Alkaline Phosphatase 72 (34-104) Units/L Albumin 2.9 L (3.5-5.7) g/dL - ABG Interpretation ABG results: PT/INR, D-dimer PT 17.3 Seconds (9.4-12.1) H 10/21/17 04:34 Consult Discharge Plan - Plan Referrals: Casandra Evans MD [Primary Care Provider] -
[2017-10-21] MEDS ORDERED: *HR* HYDROcodone/Acet 5/325 mg TABLET PO PRN (09:28)
--- NOTE | 2017-10-21 16:37 | Electrocardiograph Report ---
[place] [id number] Test Date: 2017-10-20 Pat Name: Umm Esteves Department: [id number] Room: 3B21 Gender: F Eligibility Counselor: NOEMÍ : 1940 Requested By: Minor Chapa Order Number: [id number] Reading MD: Marcia Shultz Measurements Intervals [place] Rate: 89 P: DE: 0 QRS: -72 QRSD: 154 T: 219 QT: 354 QTc: 401 Interpretive Statements POSSIBLY SINUS RHYTHM WITH FIRST DEGREE AVB MARKED LEFT AXIS DEVIATION [QRS AXIS < -30] INTRAVENTRICULAR CONDUCTION DELAY [130+ ms QRS DURATION] Electronically Signed On 10-21-2017 16:35:06 EST by Marcia Shultz
[2017-10-21 18:17] LABS: Hematocrit 26.1 % (35.3-44.9); Hemoglobin 8.3 g/dL (11.5-15.4)
[2017-10-22 05:39] LABS: Magnesium 1.8 mg/dL (1.6-2.6); Phosphorous 3.1 mg/dL (2.7-4.5)
[2017-10-22 05:40] LABS: Alanine Aminotransferase 23 Units/L (7-52); Albumin 2.9 g/dL (3.5-5.7); Alkaline Phosphatase 89 Units/L (34-104); Aspartate Amino Transferase 21 Units/L (13-39); BUN/Creatinine Ratio 17 (6-26); Bilirubin,Total 0.9 mg/dL (0.3-1.0); Blood Urea Nitrogen 18 mg/dL (8-23); Calcium 8.7 mg/dL (8.6-10.3); Carbon Dioxide 30 mEq/L (23-29); Chloride 93 mEq/L (98-107); Globulin 2.8 g/dL (2.4-3.5); Glucose 112 mg/dL (70-105); Osmolality,Calculated 273 (280-300); Potassium 3.6 mEq/L (3.5-5.1); Sodium 130 mEq/L (136-145); Total Protein 5.7 g/dL (6.4-8.9); eGFR For African Americans > 60 (> 60); eGFR For Non-African Americans 50 (> 60)
[2017-10-22 05:41] LABS: Basophils % 0.1 %; Eosinophils # 0.1 K/mcL (0.0-0.6); Eosinophils % 0.6 %; Hematocrit 29.4 % (35.3-44.9); Hemoglobin 9.2 g/dL (11.5-15.4); Immature Granulocytes % 0.3 % (0-4); Lymphocytes # 0.6 K/mcL (0.6-4.6); Lymphocytes % 6.1 %; Mean Corpuscular HGB Conc 31.3 g/dL (31.6-35.5); Mean Corpuscular Hemoglobin 23.2 pg (28.0-33.3); Mean Corpuscular Volume 74.2 fL (83.0-100.0); Mean Platelet Volume 10.2 fL (9.4-12.4); Monocytes % 9.7 %; Neutrophils # 8.7 K/mcL (1.6-8.9); Platelet Count 244 K/mcL (140-400); Red Blood Count 3.96 M/mcL (3.82-4.97); Red Cell Distribution Width 18.5 % (11.5-14.5); Segmented Neutrophils % 83.2 %
--- NOTE | 2017-10-22 08:06 | Pain Management Consultation ---
Date of Encounter: 10/22/17 Time of Encounter: 16:30 Assessment and Plan (1) Compression fracture of L3 lumbar vertebra Current Visit: Yes Status: Acute Acute L3 compression fracture. 1. recommend oral pain medication; stop any IV pain medication. 2. Recommend course of conservative care involving LSO bracing, physical therapy, and rehabilitation. If the patient is able to undergo rehabilitation and physical therapy and do basic movements such as sitting, standing, and walking, no need for advanced therapy. 3. Patient should follow up with me in the clinic in approximately 10-14 days to make sure that she is doing well. If the patient is having intractable pain or unable to participate in physical therapy, kyphoplasty repair is an option. 4. Recommend planning for discharge to inpatient rehabilitation facility as long as any other medical issues are not keeping her in the hospital. Agree with lower extremity Doppler examination to rule out DVT given the fact that physical exam findings of sensitivity and pain in the lower limbs is not attributable to L3 fracture. I discussed the risks and benefits of kyphoplasty repair with both the patient and her daughter and other family members in the room. Patient and family are on board with undergoing conservative care at this point. The assessment and plan as outlined above was discussed with the patient and/or family members who expressed understanding and agreement. All questions were answered. Qualifiers: Encounter type: initial encounter Fracture type: closed Qualified Code(s) : S32.030A - Wedge compression fracture of third lumbar vertebra, initial encounter for closed fracture History of Present Illness Chief complaint: back pain HPI: Ms. Esteves is a 77 year old female who expressed a fall on Thursday which was 5 days ago. She has had chronic back pain for many years, but the pain became more severe after a fall 5 days ago. Pain is located in the center of her lower back. She denies pain radiating into her legs. Pain is tolerable when she is lying down or sitting, but the pain increases with any movement or sitting up or walking. Pain is described as a sharp aching and stabbing sensation. Typical pain score now is 10/10. The patient was recently placed on anticoagulation therapy for a heart issue. She does not have much more information other than this. Past Med Surg Social Fam HX - Past Medical History Medical history: asthma, atrial fibrillation, COPD, diabetes, hyperlipidemia, hypertension Psychiatric history: anxiety, depression - Past Surgical History Surgical History: heart valve replacement, hysterectomy, pacemaker - Social History Smoking Status: Former smoker Packs per day: 2 PPD - Reports quitting >20 years ago Smokeless Tobacco Status: No Alcohol use: none Drug use: none - Family History Mother Race: Family Member Ethnicity: Non- Living Status: Age at : 80 Cause of : Old age Hx Family Endocrine Disorder: Yes Father Race: Family Member Ethnicity: Non- Living Status: Age at : 70 Cause of : CHF Hx Family Cardiac Disorders: Yes (CHF) Hx Family Respiratory Disorders: Yes (Emphysema) Brother Race: Family Member Ethnicity: Non- Living Status: Cause of : Unknown Hx Family Respiratory Disorders: Yes (COPD, Emphysema) Sister Race: Family Member Ethnicity: Non- Living Status: Still Living Hx Family Medical Disorders: No Medications and Allergies ALPRAZolam [Xanax 0.25 MG Tablet] 0.25 mg PO TID PRN 10/13/16 [History] Furosemide [Lasix] 40 mg PO DAILY 10/13/16 [History] Glimepiride [Amaryl] 2 mg PO DAILY 10/13/16 [History] Ipratropium/Albuterol Neb [Duoneb] 3 ml PO Q4H PRN 10/13/16 [History] Amlodipine Besylate 10 mg PO DAILY 01/19/17 [History] Fluticasone/Salmeterol [Advair 500-50 Diskus] 1 each IH BID 01/19/17 [History] Loratadine [Allergy Relief] 10 mg PO DAILY 01/19/17 [History] Amiodarone [Cordarone] 200 mg PO DAILY 10/04/17 [History] Lisinopril [Zestril] 2.5 mg PO DAILY 10/04/17 [History] Metoprolol XL (24 HR) Succ [Toprol Xl] 100 mg PO DAILY 10/04/17 [History] Rivaroxaban [Xarelto] 20 mg PO DAILY 10/04/17 [History] Atorvastatin [Lipitor] 40 mg PO HS #90 tablet 10/07/17 [Rx] Isosorbide MONOnitrate (24 HR) [Imdur] 30 mg PO DAILY #30 tab.er.24h 10/07/17 [ Rx] 3 Allergy/AdvReac Type Severity Reaction Status Date / Time No Known Allergies Allergy Verified 10/20/17 17:50 Review of Systems - Constitutional Constitutional ROS IM: no photophobia, no phonophobia, no daytime sleepiness, no fever(s), no stops breathing during sleep - EENT Nose, mouth and throat: no headache(s), no neck pain, no neck trauma - Cardiovascular Cardiovascular ROS: no chest pain, no leg edema, no lightheadedness - Respiratory Respiratory: no pain on inspiration, no pain with cough - Gastrointestinal Gastrointestinal: no abdominal pain, no constipation, no diarrhea, no heartburn - Genitourinary Genitourinary ROS: no difficulty urinating, no flank pain, no urinary hesitancy - Musculoskeletal Musculoskeletal ROS: as per HPI, no muscle weakness, no numbness, no radiating pain into limb, no tingling - Integumentary Integumentary: no erythema, no lesions, no swelling - Neurological Neurological ROS: no abnormal gait, no behavioral changes, no focal weakness, no radicular pain - Psychiatric Psychiatric general: no anxiety, no confusion, no depression - Hematologic/Lymphatic Hematologic/Lymphatic pediatric: no easy bleeding, no easy bruising Physical Exam Initial Vital Signs Temp Pulse Resp BP Pulse Ox 98.0 F 90 14 125/72 93 10/20/17 14:02 10/20/17 14:02 10/20/17 14:02 10/20/17 14:02 10/20/17 14:02 - Additional Findings EYES:: pupils equal and round, no myosis. SKIN:: no areas of echymoses or petechiae CARDIOVASCULAR:: regular rate and rhythm PULMONARY:: Quiet, normal respiratory pattern. GASTROINTESTINAL:: nontender abdomen MUSCULOSKELETAL INSPECTION:: no surgical scarring in lumbar spine PALPATION:: There is tenderness elicited over the entire thoracic and lumbar neuraxis that is most severe at L3. Spinous process tenderness noted at L3. Palpation of calf musculature left and right is tender. Tops of feet are tender both left and right. Posterior thighs tender. ROM:: Active flexion and extension are reduced in the lumbar area. Active Rotation is reduced in the lumbar area. STRENGTH:: RIGHT hip flexors: 5/5 :: LEFT hip flexors: 5/5 RIGHT hip adduction 5/5 :: LEFT hip adduction 5/5 RIGHT hip abduction 5/5 :: LEFT hip abduction 5/5 RIGHT knee extension 5/5 :: LEFT knee extension 5/5 RIGHT knee flexion 5/5 :: LEFT knee flexion 5/5 RIGHT ankle dorsiflexion 5/5 :: LEFT ankle dorsiflexion 5/5 RIGHT ankle plantarflexion 5/5 :: LEFT ankle plantarflexion 5/5 STRAIGHT LEG RAISE:: LLE is negative at 80 degrees. RLE is negative at 80 degrees. NEUROLOGIC SENSATION:: hypesthesia is not noted in lower extremity dermatomes. SIGNS OF NEUROVASCULAR COMPRESSION Spasticity:: none Atrophy:: not present in UE or LE musculature Fasciculation:: not present in UE or LE musculature PSYCHIATRIC:: ORIENTATION:: awake and alert. INSIGHT:: good awareness of illness. AFFECT:: pleasant. Radiology Images Viewed By Me:: CT scan of lumbar spine from a few days ago shows an L3 compression fracture with anterior wedging. I have reviewed and agree with information documented in the scribed documentation, ROS, patient medications, allergies, medical history, surgical history, social history, and family history. Results - Labs 10/22/17 05:08 10/22/17 05:08 Abnormal lab results Hgb 9.2 g/dL (11.5-15.4) L 10/22/17 05:08 Hct 29.4 % (35.3-44.9) L 10/22/17 05:08 MCV 74.2 fL (83.0-100.0) L 10/22/17 05:08 MCH 23.2 pg (28.0-33.3) L 10/22/17 05:08 MCHC 31.3 g/dL (31.6-35.5) L 10/22/17 05:08 RDW 18.5 % (11.5-14.5) H 10/22/17 05:08 PT 17.3 Seconds (9.4-12.1) H 10/21/17 04:34 Sodium 130 mEq/L (136-145) L 10/22/17 05:08 Chloride 93 mEq/L (98-107) L 10/22/17 05:08 Carbon Dioxide 30 mEq/L (23-29) H 10/22/17 05:08 Est GFR (Non-Af Amer) 50 (> 60) L 10/22/17 05:08 Glucose 112 mg/dL (70-105) H 10/22/17 05:08 POC Glucose 172 (58-89) H 10/21/17 20:25 Calculated Osmolality 273 (280-300) L 10/22/17 05:08 Direct Bilirubin 0.4 mg/dL (0.0-0.2) H 10/20/17 16:12 Troponin I 0.05 ng/mL (< 0.04) H* 10/21/17 04:34 Serum Total Protein 5.7 g/dL (6.4-8.9) L 10/22/17 05:08 Albumin 2.9 g/dL (3.5-5.7) L 10/22/17 05:08 Albumin/Globulin Ratio 1.0 (1.1-2.2) L 10/22/17 05:08 HDL Cholesterol 36 mg/dL (40-59) L 10/21/17 04:34 Urine Blood Trace (Negative) H 10/20/17 16:30 Ur Squamous Epith Cells Moderate per lpf (None-Few) H 10/20/17 16:30 Diabetes panel 10/22/17 Range/Units 05:08 Sodium 130 L (136-145) mEq/L Potassium 3.6 (3.5-5.1) mEq/L Chloride 93 L (98-107) mEq/L Carbon Dioxide 30 H (23-29) mEq/L BUN 18 (8-23) mg/dL Creatinine 1.06 (0.60-1.20) mg/dL Glucose 112 H (70-105) mg/dL Calcium 8.7 (8.6-10.3) mg/dL AST 21 (13-39) Units/L ALT 23 (7-52) Units/L Alkaline Phosphatase 89 (34-104) Units/L Albumin 2.9 L (3.5-5.7) g/dL Calcium panel 10/22/17 10/22/17 Range/Units 05:08 05:08 Calcium 8.7 (8.6-10.3) mg/dL Phosphorus 3.1 (2.7-4.5) mg/dL Albumin 2.9 L (3.5-5.7) g/dL Pituitary panel 10/22/17 Range/Units 05:08 Sodium 130 L (136-145) mEq/L Potassium 3.6 (3.5-5.1) mEq/L Chloride 93 L (98-107) mEq/L Carbon Dioxide 30 H (23-29) mEq/L BUN 18 (8-23) mg/dL Creatinine 1.06 (0.60-1.20) mg/dL Glucose 112 H (70-105) mg/dL Calcium 8.7 (8.6-10.3) mg/dL Adrenal panel 10/22/17 Range/Units 05:08 Sodium 130 L (136-145) mEq/L Potassium 3.6 (3.5-5.1) mEq/L Chloride 93 L (98-107) mEq/L Carbon Dioxide 30 H (23-29) mEq/L BUN 18 (8-23) mg/dL Creatinine 1.06 (0.60-1.20) mg/dL Glucose 112 H (70-105) mg/dL Calcium 8.7 (8.6-10.3) mg/dL Total Bilirubin 0.9 (0.3-1.0) mg/dL AST 21 (13-39) Units/L ALT 23 (7-52) Units/L Alkaline Phosphatase 89 (34-104) Units/L Albumin 2.9 L (3.5-5.7) g/dL All other labs normal. Consult Discharge Plan - Plan Referrals: Casandra Evans MD [Primary Care Provider] -
[2017-10-22] MEDS: Metoprolol XL (24 HR) Succ 50 MG TAB.ER.24H PO SCH (08:37)
[2017-10-22] MEDS: amLODIPine 5 MG TABLET PO SCH (08:37)
[2017-10-22] MEDS: *HR* Amiodarone 200 MG TABLET PO SCH (08:38)
[2017-10-22] MEDS: Isosorbide MONOnitrate (24 HR) 30 MG TAB.ER.24H PO SCH (08:38)
[2017-10-22] MEDS: Insulin LISPRO 300 UNITS/3 ML VIAL SQ SCH ×4 (08:38→20:39)
[2017-10-22] MEDS: Loratadine 10 MG TABLET PO SCH (08:38)
--- NOTE | 2017-10-22 10:15 | Internal Med Progress Note ---
Date of Encounter: 10/22/17 Time of Encounter: 09:15 - Assessment and plan (1) Compression fracture of L3 lumbar vertebra Current Visit: Yes Status: Acute Assessment and plan: CT L spine reported L3 compression fracture Spinal surgery consulted for evaluation aggressive pain control supportive care Qualifiers: Encounter type: initial encounter Fracture type: closed Qualified Code(s) : S32.030A - Wedge compression fracture of third lumbar vertebra, initial encounter for closed fracture (2) Electrolyte abnormality Current Visit: Yes Status: Acute Assessment and plan: Hyponatremia Improved from previous day continue Nacl tabs will closely monitor electrolytes and replace as needed (3) Weakness Current Visit: Yes Status: Acute Assessment and plan: PT/OT evaluation recommended ECF placement Fall precautions (4) Leukocytosis Current Visit: Yes Status: Resolved Assessment and plan: likely reactive secondary to the fall Resolved no clinical signs of infectious etiology present,will continue to closely monitor Qualifiers: Leukocytosis type: unspecified Qualified Code(s): D72.829 - Elevated white blood cell count, unspecified (5) HTN (hypertension) Current Visit: No Status: Chronic Assessment and plan: Noted to be hypertensive this morning, likely secondary to the pain continue home meds added Hydralazine 10mg IV q6h prn SBP>160 closely monitor BP pain control Qualifiers: Hypertension type: essential hypertension Qualified Code(s): I10 - Essential (primary) hypertension (6) Frequent falls Current Visit: Yes Status: Acute Assessment and plan: PT/OT evaluation recommended ECF (7) DVT prophylaxis Current Visit: Yes Status: Acute Assessment and plan: On Xarelto (8) Diabetes Current Visit: Yes Status: Chronic Assessment and plan: Sliding scale insulin algorithm monitor FS And BG ADA diet Qualifiers: Diabetes mellitus type: type 2 Diabetes mellitus complication status: with unspecified complications Diabetes mellitus shelter insulin use: without intermodal dispatcher use Qualified Code(s): E11.8 - Type 2 diabetes mellitus with unspecified complications (9) COPD (chronic obstructive pulmonary disease) Current Visit: Yes Status: Chronic Assessment and plan: not in exacerbation continue home meds Qualifiers: COPD type: COPD with acute exacerbation Qualified Code(s): J44.1 - Chronic obstructive pulmonary disease with (acute) exacerbation (10) Atrial fibrillation Current Visit: Yes Status: Chronic Assessment and plan: rate controlled with Metoprolol anticoagulated with Xarelto Qualifiers: Atrial fibrillation type: chronic Qualified Code(s): I48.2 - Chronic atrial fibrillation (11) Hematuria Current Visit: Yes Status: Resolved Qualifiers: Hematuria type: unspecified type Qualified Code(s): R31.9 - Hematuria, unspecified - Subjective Interval history: Pt seen and examined with family present at bedside. Pt reports of having severe lower extremity pain and lower back pain. As per daughter, pt has had chronic b/l LE pain however it has progressively worsened since the last few months. CT L spine showed acute L3 compression fracture. Spinal surgery consulted for evaluation Pt's pain medications adjusted Pt was evaluated by physical therapy, ECF was recommended - Constitutional Vitals: Temp Pulse Resp BP Pulse Ox 97.9 F 71 16 192/75 98 10/22/17 07:53 10/22/17 07:53 10/22/17 07:53 10/22/17 07:53 10/22/17 07:53 General appearance: Present: cooperative, A&O X 3 (frail appearing elderly female), pleasant, no acute distress - Head Head exam: Present: atraumatic, normocephalic - Eye Eye exam: Present: conjuntiva pink, sclera anicteric - Respiratory Respiratory exam: Present: CTAB. Absent: accessory muscle use, rales, rhonchi, wheezes - Cardiovascular Cardiovascular exam: Present: RRR, +S1, +S2. Absent: diastolic murmur, gallop, rubs, systolic murmur - GI/Abdominal GI/Abdominal exam: Present: normal bowel sounds, soft, no peritoneal signs. Absent: distended, tenderness - Extremities Exam Extremities exam: Present: tenderness (bilateral LE tenderness), warm, radial pulses palpable and symmetrical. Absent: calf tenderness, cyanotic, pedal edema - Neurological Exam Neurological exam: Present: alert, oriented X3 - Psychiatric Psychiatric exam: Present: normal affect, normal mood Internal Medicine: Result - Labs CBC & Chem 7: 10/22/17 05:08 10/22/17 05:08 Labs: Short CBC 10/21/17 10/22/17 Range/Units 17:54 05:08 WBC 10.5 (4.3-11.1) K/mcL Hgb 8.3 L 9.2 L (11.5-15.4) g/dL Hct 26.1 L 29.4 L (35.3-44.9) % Plt Count 244 (140-400) K/mcL Neutrophils # 8.7 (1.6-8.9) K/mcL BMP 10/22/17 05:08 Sodium 130 L Potassium 3.6 Chloride 93 L Carbon Dioxide 30 H BUN 18 Creatinine 1.06 Glucose 112 H Calcium 8.7 Liver Function 10/22/17 Range/Units 05:08 Total Bilirubin 0.9 (0.3-1.0) mg/dL AST 21 (13-39) Units/L ALT 23 (7-52) Units/L Alkaline Phosphatase 89 (34-104) Units/L Albumin 2.9 L (3.5-5.7) g/dL - ABG Interpretation ABG results: PT/INR, D-dimer PT 17.3 Seconds (9.4-12.1) H 10/21/17 04:34 - Impressions Impressions Lumbar Spine CT 10/21/17 15:36 IMPRESSION: 1. Acute L3 superior endplate compression fracture with 10% vertebral body height loss but no posterior cortex retropulsion. 2. Asil-er-[id number] multilevel degenerative changes. 3. Lumbar levoscoliosis. D/ / Andrew Mcguire / Andrew Mcguire Interpreting Provider: Andrew Mcguire Consult Discharge Plan - Plan Referrals: Casandra Evans MD [Primary Care Provider] -
[2017-10-22] MEDS: Budesonide/Formoterol 160/4.5 MDI IH SCH ×2 (10:41→19:55)
[2017-10-22] MEDS: *HR* HYDROcodone/Acet 7.5/325 mg TABLET PO PRN (11:06)
[2017-10-22] MEDS ORDERED: *HR* Rivaroxaban 15 MG TABLET PO SCH (17:00)
[2017-10-22] MEDS ORDERED: *HR* Heparin 5,000 UNIT/ML VIAL IVP ONE (19:08)
[2017-10-22] MEDS ORDERED: *HR* Heparin 5,000 UNIT/ML VIAL IVP PRN (19:08)
[2017-10-22] MEDS: Acetaminophen 325 MG TABLET PO PRN (20:15)
[2017-10-22] MEDS: Heparin 25,000 UNIT/500 ML D5W 25,000 UNIT/500 ML BAG IVC SCH (20:25)
[2017-10-23 03:18] LABS: Basophils % 0.1 %; Eosinophils # 0.1 K/mcL (0.0-0.6); Eosinophils % 1.7 %; Hematocrit 25.7 % (35.3-44.9); Immature Granulocytes % 0.4 % (0-4); Lymphocytes # 0.9 K/mcL (0.6-4.6); Lymphocytes % 11.8 %; Mean Corpuscular HGB Conc 31.1 g/dL (31.6-35.5); Mean Corpuscular Volume 73.9 fL (83.0-100.0); Mean Platelet Volume 10.1 fL (9.4-12.4); Monocytes # 0.8 K/mcL (0.0-1.3); Monocytes % 10.1 %; Neutrophils # 5.9 K/mcL (1.6-8.9); Platelet Count 233 K/mcL (140-400); Red Blood Count 3.48 M/mcL (3.82-4.97); Red Cell Distribution Width 18.4 % (11.5-14.5); Segmented Neutrophils % 75.9 %
[2017-10-23 03:41] LABS: Alanine Aminotransferase 28 Units/L (7-52); Albumin 2.8 g/dL (3.5-5.7); Alkaline Phosphatase 98 Units/L (34-104); Aspartate Amino Transferase 35 Units/L (13-39); BUN/Creatinine Ratio 19 (6-26); Bilirubin,Total 0.7 mg/dL (0.3-1.0); Blood Urea Nitrogen 18 mg/dL (8-23); Calcium 8.4 mg/dL (8.6-10.3); Carbon Dioxide 26 mEq/L (23-29); Chloride 94 mEq/L (98-107); Globulin 2.9 g/dL (2.4-3.5); Glucose 116 mg/dL (70-105); Osmolality,Calculated 271 (280-300); Potassium 3.7 mEq/L (3.5-5.1); Sodium 129 mEq/L (136-145); Total Protein 5.7 g/dL (6.4-8.9); eGFR For African Americans > 60 (> 60); eGFR For Non-African Americans 56 (> 60)
[2017-10-23 03:43] LABS: Magnesium 1.9 mg/dL (1.6-2.6)
[2017-10-23 04:36] LABS: Phosphorous 3.9 mg/dL (2.7-4.5)
[2017-10-23] MEDS: Budesonide/Formoterol 160/4.5 MDI IH SCH ×2 (08:09→22:14)
[2017-10-23] MEDS: Insulin LISPRO 300 UNITS/3 ML VIAL SQ SCH ×4 (09:31→20:03)
[2017-10-23] MEDS: Isosorbide MONOnitrate (24 HR) 30 MG TAB.ER.24H PO SCH (09:33)
[2017-10-23] MEDS: Metoprolol XL (24 HR) Succ 50 MG TAB.ER.24H PO SCH (09:33)
[2017-10-23] MEDS: *HR* HYDROcodone/Acet 7.5/325 mg TABLET PO PRN ×2 (09:34→15:26)
[2017-10-23] MEDS: *HR* Amiodarone 200 MG TABLET PO SCH (09:34)
[2017-10-23] MEDS: amLODIPine 5 MG TABLET PO SCH (09:34)
[2017-10-23] MEDS: Loratadine 10 MG TABLET PO SCH (09:35)
--- NOTE | 2017-10-23 10:01 | Internal Med Progress Note ---
Date of Encounter: 10/23/17 Time of Encounter: 09:10 - Assessment and plan (1) DVT (deep venous thrombosis) Current Visit: Yes Status: Acute Assessment and plan: Bilateral peroneal vein acute thrombus pt started on Heparin gtt yesterday evening(10/22/17) d/c xarelto (it is unclear if the patient failed xarelto therapy vs. non compliance, family to provide information about the number of Xarelto pills she has taken in the last month from her prescription bottle) hematology consultation requested for fpc anticoagulation management Qualifiers: DVT location: lower extremity Affected thrombotic vein of extremity: other lower extremity vein Chronicity: acute Laterality: bilateral Qualified Code(s): I82.493 - Acute embolism and thrombosis of other specified deep vein of lower extremity, bilateral (2) Compression fracture of L3 lumbar vertebra Current Visit: Yes Status: Acute Assessment and plan: CT L spine reported L3 compression fracture Spinal surgery consultation appreciated aggressive pain control supportive care LSO brace to be provided today increase activity as tolerated Qualifiers: Encounter type: initial encounter Fracture type: closed Qualified Code(s) : S32.030A - Wedge compression fracture of third lumbar vertebra, initial encounter for closed fracture (3) Electrolyte abnormality Current Visit: Yes Status: Acute Assessment and plan: Hyponatremia history of chronic hyponatremia, levels around baseline, clinically asymptomatic continue Nacl tabs will closely monitor electrolytes and replace as needed (4) Weakness Current Visit: Yes Status: Acute Assessment and plan: PT/OT evaluation recommended ECF placement Fall precautions (5) Leukocytosis Current Visit: Yes Status: Resolved Qualifiers: Leukocytosis type: unspecified Qualified Code(s): D72.829 - Elevated white blood cell count, unspecified (6) HTN (hypertension) Current Visit: No Status: Chronic Assessment and plan: BP within acceptable range continue home meds Hydralazine 10mg IV q6h prn SBP>160 closely monitor BP Qualifiers: Hypertension type: essential hypertension Qualified Code(s): I10 - Essential (primary) hypertension (7) Frequent falls Current Visit: Yes Status: Acute Assessment and plan: PT/OT evaluation recommended ECF (8) DVT prophylaxis Current Visit: Yes Status: Acute Assessment and plan: on heparin gtt (9) Diabetes Current Visit: Yes Status: Chronic Assessment and plan: Sliding scale insulin algorithm monitor FS And BG ADA diet Qualifiers: Diabetes mellitus type: type 2 Diabetes mellitus complication status: with unspecified complications Diabetes mellitus termite renewal inspector insulin use: without termite renewal inspector use Qualified Code(s): E11.8 - Type 2 diabetes mellitus with unspecified complications (10) COPD (chronic obstructive pulmonary disease) Current Visit: Yes Status: Chronic Assessment and plan: not in exacerbation continue home meds Qualifiers: COPD type: COPD with acute exacerbation Qualified Code(s): J44.1 - Chronic obstructive pulmonary disease with (acute) exacerbation (11) Atrial fibrillation Current Visit: Yes Status: Chronic Assessment and plan: rate controlled with Metoprolol on heparin gtt at this time Qualifiers: Atrial fibrillation type: chronic Qualified Code(s): I48.2 - Chronic atrial fibrillation (12) Hematuria Current Visit: Yes Status: Resolved Qualifiers: Hematuria type: unspecified type Qualified Code(s): R31.9 - Hematuria, unspecified - Subjective Interval history: Pt seen and examined with family present at bedside. Pt reports of pain being appropriately controlled with the pain medications. She was evaluated by spinal surgery and supportive care is recommended. Pt is found to have b/l LE DVT and is currently on heparin gtt. As per daughter, pt is not compliant with her home medications and is unsure about the number of days of Xarelto she may have missed. Daughter is concerned about patient being on coumadin as it is difficult to get the patient out for routine INR check up Hematology consultation requested for termite renewal inspector anticoagulation management. Will continue heparin gtt at this time. Pt was evaluated by physical therapy, ECF was recommended Pt to receive a LSO brace, she is encouraged to get out of bed to chair with assistance and increase activity as tolerated - Constitutional Vitals: Temp Pulse Resp BP Pulse Ox 98.1 F 80 16 149/71 99 10/23/17 07:08 10/23/17 07:08 10/23/17 08:46 10/23/17 08:46 10/23/17 08:46 General appearance: Present: cooperative, A&O X 3 (frail appearing elderly female), pleasant, no acute distress, obese - Head Head exam: Present: atraumatic, normocephalic - Eye Eye exam: Present: conjuntiva pink, sclera anicteric - Respiratory Respiratory exam: Present: CTAB. Absent: accessory muscle use, rales, rhonchi, wheezes - Cardiovascular Cardiovascular exam: Present: RRR, +S1, +S2. Absent: diastolic murmur, gallop, rubs, systolic murmur - GI/Abdominal GI/Abdominal exam: Present: normal bowel sounds, soft, no peritoneal signs. Absent: distended, tenderness - Extremities Exam Extremities exam: Present: warm (bilateral distal LE tenderness to palpation ), radial pulses palpable and symmetrical - Neurological Exam Neurological exam: Present: alert, oriented X3 - Psychiatric Psychiatric exam: Present: normal affect, normal mood Internal Medicine: Result - Labs CBC & Chem 7: 10/23/17 02:32 10/23/17 02:32 Labs: Short CBC 10/23/17 Range/Units 02:32 WBC 7.7 (4.3-11.1) K/mcL Hgb 8.0 L (11.5-15.4) g/dL Hct 25.7 L (35.3-44.9) % Plt Count 233 (140-400) K/mcL Neutrophils # 5.9 (1.6-8.9) K/mcL BMP 10/23/17 02:32 Sodium 129 L Potassium 3.7 Chloride 94 L Carbon Dioxide 26 BUN 18 Creatinine 0.96 Glucose 116 H Calcium 8.4 L Liver Function 10/23/17 Range/Units 02:32 Total Bilirubin 0.7 (0.3-1.0) mg/dL AST 35 (13-39) Units/L ALT 28 (7-52) Units/L Alkaline Phosphatase 98 (34-104) Units/L Albumin 2.8 L (3.5-5.7) g/dL - ABG Interpretation ABG results: PT/INR, D-dimer PT 17.3 Seconds (9.4-12.1) H 10/21/17 04:34 Consult Discharge Plan - Plan Referrals: Casandra Evans MD [Primary Care Provider] -
[2017-10-23] MEDS: *HR* Heparin 5,000 UNIT/ML VIAL IVP PRN (12:46)
[2017-10-23] MEDS ORDERED: Iron Sucrose Complex 250 MG in 0.9 % Sodium Chloride 250 ML IVPB ONE (14:00)
[2017-10-23] MEDS: Acetaminophen 325 MG TABLET PO PRN (14:03)
[2017-10-23 15:50] LABS: Ferritin 189 ng/ml (10-120); Iron < 10 mcg/dL (50-170); Lactate Dehydrogenase 206 Units/L (140-271); Transferrin 159 mg/dL (203-362)
[2017-10-23 16:04] LABS: Thyroid Stimulating Hormone 2.085 mcIU/mL (0.340-5.600)
--- NOTE | 2017-10-23 16:09 | Oncology Inp Consult Note ---
<Laina Becker - Last Filed: 10/23/17 18:14> Date of Encounter: 10/23/17 Time of Encounter: 15:30 Assessment and Plan (1) DVT (deep venous thrombosis) Status: Acute Assessment and plan: Acute bilateral DVT. Discussed doppler findings with patient and patients family. Currently on heparin gtt managed per hospitalist. DVT developed while on Xarelto therapy. She is at high risk for bleed for frequent falls at home. Agree with PT/OT consult. Family do not wish for patient to be placed on coumadin due to multiple lab work and appointments/transportation issues. Recommend Pradaxa 150 mg twice a day for 2 weeks and subsequently may reduce the dose to 75 mg twice a day given her age. Continue Fall precautions. Kidney function normal at this time, continue to monitor Patient and patients family understand main risk with blood thinners is bleeding and that patient is at high risk given her hx falls/age Hgb 8, Microcytic hypochromic iron deficiency anemia with serum iron <10, ferritin 189 which could be elevated due to reactive process and is not highly specific unless low, she is currently receiving Venofer. TSH normal. Awaiting other anemia lab workup. Will need outpatient hematology follow up. May consider GI consult/EGD/Colonoscopy, can be done on outpatient basis following resolution of acute issues Qualifiers: DVT location: lower extremity Affected thrombotic vein of extremity: other lower extremity vein Chronicity: acute Laterality: bilateral Qualified Code(s): I82.493 - Acute embolism and thrombosis of other specified deep vein of lower extremity, bilateral - Data of Consult Requesting Physician: Sandra Lai CNP Primary Care Provider: Casandra Evans MD - Consult Narrative History of present illness: Ms. Esteves is a 77 year old female asthma, atrial fibrillation, COPD, diabetes controlled with insulin, HLD, and HTN and admitted for fall at home with resultant lower extremity pain. She was started on Eliquis following a valve replacement and diagnosis of a-fib in March 2017. She was on Eliquis for an unclear amount of time prior to changing to Xarelto for cost reasoning. The family report that she has not been taking the Xarelto on a regular basis making it difficult to establish whether she has failed Xarelto or not. Following a recent fall on Thursday, she developed BLE pain which prompted her trip to the ER. She denies edema, erythema, SOB or chest pain. Venous doppler reveals bilateral peroneal acute thrombosis. She has no history of prior PE/ DVT. Past Med Surg Social Fam HX - Past Medical History Medical history: asthma, atrial fibrillation, COPD, diabetes, hyperlipidemia, hypertension Psychiatric history: anxiety, depression - Past Surgical History Surgical History: heart valve replacement, hysterectomy, pacemaker - Social History Smoking Status: Former smoker Packs per day: 2 PPD - Reports quitting >20 years ago Smokeless Tobacco Status: No Alcohol use: none Drug use: none - Family History Mother Race: Family Member Ethnicity: Non- Living Status: Age at : 80 Cause of : Old age Hx Family Endocrine Disorder: Yes Father Race: Family Member Ethnicity: Non- Living Status: Age at : 70 Cause of : CHF Hx Family Cardiac Disorders: Yes (CHF) Hx Family Respiratory Disorders: Yes (Emphysema) Brother Race: Family Member Ethnicity: Non- Living Status: Cause of : Unknown Hx Family Respiratory Disorders: Yes (COPD, Emphysema) Sister Race: Family Member Ethnicity: Non- Living Status: Still Living Hx Family Medical Disorders: No Medications and Allergies Furosemide [Lasix] 40 mg PO DAILY 10/13/16 [History] Glimepiride [Amaryl] 2 mg PO DAILY 10/13/16 [History] Ipratropium/Albuterol Neb [Duoneb] 3 ml PO Q4H PRN 10/13/16 [History] Amlodipine Besylate 10 mg PO DAILY 01/19/17 [History] Fluticasone/Salmeterol [Advair 500-50 Diskus] 1 each IH BID 01/19/17 [History] Loratadine [Allergy Relief] 10 mg PO DAILY 01/19/17 [History] Amiodarone [Cordarone] 200 mg PO DAILY 10/04/17 [History] Lisinopril [Zestril] 2.5 mg PO DAILY 10/04/17 [History] Metoprolol XL (24 HR) Succ [Toprol Xl] 100 mg PO DAILY 10/04/17 [History] Atorvastatin [Lipitor] 40 mg PO HS #90 tablet 10/07/17 [Rx] Isosorbide MONOnitrate (24 HR) [Imdur] 30 mg PO DAILY #30 tab.er.24h 10/07/17 [ Rx] ALPRAZolam [Xanax 0.25 MG Tablet] 0.25 mg PO BID PRN #10 tablet 10/24/17 [Rx] Acetaminophen 625 mg PO Q8H PRN #20 capsule 10/24/17 [Rx] Dabigatran [Pradaxa] 150 mg PO BID capsule 10/24/17 [Rx] HYDROcodone/Acet 5/325 mg [[place] 5-325 mg] 1 tab PO Q8H PRN #10 tab 10/24/17 [Rx ] Sodium Chloride 1 gm PO BID #10 tablet 10/24/17 [Rx] 3 Allergy/AdvReac Type Severity Reaction Status Date / Time No Known Allergies Allergy Verified 10/20/17 17:50 Constitutional: Present: fatigue, frequent falls, weakness. Absent: weight loss Cardiovascular: Absent: chest pain, edema, palpitations Respiratory: Absent: cough, dyspnea, pain on inspiration Gastrointestinal: Present: diarrhea, nausea, vomiting. Absent: constipation, hematemesis, hematochezia Genitourinary: Absent: difficulty urinating, hematuria Musculoskeletal: Present: muscle weakness. Absent: numbness, tingling Integumentary: Absent: wounds Neurological: Present: weakness. Absent: dizziness, focal weakness, syncope Additional comments: occasionally forgetful/confused Hematologic/Lymphatic: Present: easy bruising. Absent: lymphadenopathy Oncology - Exam - Constitutional Vitals: Temp Pulse Resp BP Pulse Ox 98.3 F 76 17 133/59 99 10/23/17 10:34 10/23/17 10:34 10/23/17 10:34 10/23/17 10:34 10/23/17 08:46 General appearance: cooperative, no acute distress, no febrile - Head Head exam: Present: atraumatic - Respiratory Respiratory exam: Present: CTAB. Absent: respiratory distress - Cardiovascular Cardiovascular exam: Present: RRR, +S1, +S2 - GI/Abdominal GI/Abdominal exam: Present: normal bowel sounds, soft. Absent: guarding, tenderness - Extremities Exam Extremities exam: Present: calf tenderness, pedal edema, tenderness - Expanded Lower Extremity Exam Lower Leg exam: Present: swelling, tenderness. Absent: erythema - Neurological Exam Neurological exam: Present: alert, oriented X3, strengths equal and symetr throughout. Absent: no focal deficits - Psychiatric Psychiatric exam: Present: normal affect, normal mood - Skin Skin exam: Present: pallor Oncology - Results Labs: Short CBC 10/23/17 Range/Units 02:32 WBC 7.7 (4.3-11.1) K/mcL Hgb 8.0 L (11.5-15.4) g/dL Hct 25.7 L (35.3-44.9) % Plt Count 233 (140-400) K/mcL Neutrophils # 5.9 (1.6-8.9) K/mcL BMP 10/23/17 02:32 Sodium 129 L Potassium 3.7 Chloride 94 L Carbon Dioxide 26 BUN 18 Creatinine 0.96 Glucose 116 H Calcium 8.4 L Liver Function 10/23/17 Range/Units 02:32 Total Bilirubin 0.7 (0.3-1.0) mg/dL AST 35 (13-39) Units/L ALT 28 (7-52) Units/L Alkaline Phosphatase 98 (34-104) Units/L Albumin 2.8 L (3.5-5.7) g/dL Consult Discharge Plan - Plan Additional Instructions: Please follow up with primary care physician within five days after your discharge from the hospital. Please follow up with hematology within five days after your dsicharge from the hospital. Please follow up with Dr. Latham(spinal surgery) within ten days after your discharge from the hospital. Your home dose of Xarelto has been discontinued. Pradaxa 150mg twice a day has been added for two weeks, followed by 75mg twice a day (start date: 10/24/17). Resume all other home medications as prescribed by your primary care physician. You were noted to have low levels of sodium, due to which you were started on sodium chloride 1gm twice a day. Please obtain the prescribed lab work prior to your follow up with your primary care physician and ask your primary care physician about continuation of this medication. Your risk of bleeding increases while on Pradaxa, please seek medical help if you sustain a fall or have an acute bleed. Referrals: Andrew Latham DO [Partnered Physician] - 11/04/17 2:50 pm Favian Erwin Jr, [employer]W TENDER [Advanced Practice Nurse] - (We have requested an appointment with [facility]. Office will call on Thursday10/26/17. ) Casandra Evans MD [Primary Care Provider] - Prescriptions: Acetaminophen 625 mg PO Q8H PRN #20 capsule PRN Reason: Mild To Moderate Pain ALPRAZolam [Xanax 0.25 MG Tablet] 0.25 mg PO BID PRN #10 tablet PRN Reason: Anxiety HYDROcodone/Acet 5/325 mg [[place] 5-325 mg] 1 tab PO Q8H PRN #10 tab PRN Reason: moderate to severe pain <Jessica Mata - Last Filed: 10/26/17 08:36> Date of Encounter: 10/26/17 - Data of Consult Requesting Physician: Sandra Lai CNP Primary Care Provider: Casandra Evans MD - Consult Narrative History of present illness: Ms. Esteves is a 77 year old female Oncology - Exam - Constitutional Vitals: Temp Pulse Resp BP Pulse Ox 97.5 F L 62 17 107/64 98 10/23/17 16:20 10/23/17 16:20 10/23/17 16:20 10/23/17 16:20 10/23/17 16:20 Oncology - Results Labs: Short CBC 10/23/17 Range/Units 02:32 WBC 7.7 (4.3-11.1) K/mcL Hgb 8.0 L (11.5-15.4) g/dL Hct 25.7 L (35.3-44.9) % Plt Count 233 (140-400) K/mcL Neutrophils # 5.9 (1.6-8.9) K/mcL BMP 10/23/17 02:32 Sodium 129 L Potassium 3.7 Chloride 94 L Carbon Dioxide 26 BUN 18 Creatinine 0.96 Glucose 116 H Calcium 8.4 L Liver Function 10/23/17 Range/Units 02:32 Total Bilirubin 0.7 (0.3-1.0) mg/dL AST 35 (13-39) Units/L ALT 28 (7-52) Units/L Alkaline Phosphatase 98 (34-104) Units/L Albumin 2.8 L (3.5-5.7) g/dL - Attending Attestation Examined the patient independently. 1. Acute bilateral lower extremity DVT when she was on Xarelto Patient and family does not prefer Coumadin due to logistical issues Recommend Pradaxa 150 mg twice a day for 2 weeks and subsequently may reduce the dose to 75 mg twice a day given her age. Fall precautions. Current creatinine around 0.96 with creatinine clearance of around 56. We will continue to watch that closely as this is cleared renally Further discussion with her daughter indicated that the patient may have missed more than 2 days of Xarelto and technically may not be Xarelto failure. May consider that also in the future if necessary. 2. She has bioprosthetic aortic valve. Also mild mitral stenosis and atrial fibrillation. She needs anticoagulation for that as well. At this time this is not considered valvular A. fib 3. Iron deficiency anemia. Hemoglobin 8 MCV 73 add Venofer 250 mg IV one dose. Workup showed low iron of 11. Total folate TSH normal. Etiology of iron deficiency not clear. She may benefit from colonoscopy as an outpatient
[2017-10-23 17:34] LABS: Folate 11.5 ng/mL (3.0-16.0)
[2017-10-23 19:40] LABS: Activated Partial Thrombo Time 128.9 Seconds (26.0-36.0)
[2017-10-23 19:58] LABS: Heparin anti-factor XA UFH 0.76 IU/mL (0.30-0.70)
[2017-10-24] MEDS: Heparin 25,000 UNIT/500 ML D5W 25,000 UNIT/500 ML BAG IVC SCH (02:05)
[2017-10-24] MEDS: Acetaminophen 325 MG TABLET PO PRN (05:28)
[2017-10-24] MEDS: *HR* Heparin 5,000 UNIT/ML VIAL IVP PRN (07:10)
[2017-10-24 07:30] VITALS: BP 143/70
[2017-10-24] MEDS: Insulin LISPRO 300 UNITS/3 ML VIAL SQ SCH (08:14)
[2017-10-24] MEDS ORDERED: *HR* Dabigatran 150 MG CAPSULE PO SCH (09:00)
[2017-10-24] MEDS: *HR* Amiodarone 200 MG TABLET PO SCH (09:24)
[2017-10-24] MEDS: Isosorbide MONOnitrate (24 HR) 30 MG TAB.ER.24H PO SCH (09:24)
[2017-10-24] MEDS: Metoprolol XL (24 HR) Succ 50 MG TAB.ER.24H PO SCH (09:24)
[2017-10-24] MEDS: Loratadine 10 MG TABLET PO SCH (09:24)
[2017-10-24] MEDS: amLODIPine 5 MG TABLET PO SCH (09:24)
[2017-10-24] MEDS: Furosemide 40 MG TABLET PO SCH (09:24)
[2017-10-24 09:28] LABS: Basophils % 0.2 %; Eosinophils # 0.1 K/mcL (0.0-0.6); Eosinophils % 1.9 %; Hematocrit 26.6 % (35.3-44.9); Hemoglobin 8.3 g/dL (11.5-15.4); Immature Granulocytes % 0.5 % (0-4); Lymphocytes # 0.9 K/mcL (0.6-4.6); Lymphocytes % 14.6 %; Mean Corpuscular HGB Conc 31.2 g/dL (31.6-35.5); Mean Corpuscular Hemoglobin 23.4 pg (28.0-33.3); Mean Corpuscular Volume 74.9 fL (83.0-100.0); Mean Platelet Volume 9.7 fL (9.4-12.4); Monocytes # 0.5 K/mcL (0.0-1.3); Monocytes % 8.3 %; Neutrophils # 4.7 K/mcL (1.6-8.9); Platelet Count 240 K/mcL (140-400); Red Blood Count 3.55 M/mcL (3.82-4.97); Red Cell Distribution Width 18.1 % (11.5-14.5); Segmented Neutrophils % 74.5 %
[2017-10-24 09:34] LABS: Calcium 8.2 mg/dL (8.6-10.3); Carbon Dioxide 28 mEq/L (23-29); Chloride 94 mEq/L (98-107); Magnesium 1.9 mg/dL (1.6-2.6); Potassium 3.8 mEq/L (3.5-5.1); Sodium 131 mEq/L (136-145)
--- NOTE | 2017-10-24 09:36 | Discharge Summary ---
Date of Encounter: 10/24/17 Time of Encounter: 09:01 - Discharge Diagnosis (1) DVT (deep venous thrombosis) Priority: Secondary Status: Acute Qualifiers: DVT location: lower extremity Affected thrombotic vein of extremity: other lower extremity vein Chronicity: acute Laterality: bilateral Qualified Code(s): I82.493 - Acute embolism and thrombosis of other specified deep vein of lower extremity, bilateral (2) Compression fracture of L3 lumbar vertebra Priority: Primary Status: Acute Qualifiers: Encounter type: initial encounter Fracture type: closed Qualified Code(s) : S32.030A - Wedge compression fracture of third lumbar vertebra, initial encounter for closed fracture (3) Electrolyte abnormality Priority: Secondary Status: Acute (4) Weakness Priority: Primary Status: Acute (5) Leukocytosis Priority: Secondary Status: Resolved Qualifiers: Leukocytosis type: unspecified Qualified Code(s): D72.829 - Elevated white blood cell count, unspecified (6) HTN (hypertension) Priority: Secondary Status: Chronic Qualifiers: Hypertension type: essential hypertension Qualified Code(s): I10 - Essential (primary) hypertension (7) Frequent falls Priority: Secondary Status: Acute (8) DVT prophylaxis Priority: Secondary Status: Acute (9) Diabetes Priority: Secondary Status: Chronic Qualifiers: Diabetes mellitus type: type 2 Diabetes mellitus complication status: with unspecified complications Diabetes mellitus oil heaterman insulin use: without intermediate use Qualified Code(s): E11.8 - Type 2 diabetes mellitus with unspecified complications (10) COPD (chronic obstructive pulmonary disease) Priority: Secondary Status: Chronic Qualifiers: COPD type: COPD with acute exacerbation Qualified Code(s): J44.1 - Chronic obstructive pulmonary disease with (acute) exacerbation (11) Atrial fibrillation Priority: Secondary Status: Chronic Qualifiers: Atrial fibrillation type: chronic Qualified Code(s): I48.2 - Chronic atrial fibrillation (12) Hematuria Priority: Secondary Status: Resolved Qualifiers: Hematuria type: unspecified type Qualified Code(s): R31.9 - Hematuria, unspecified - Discharge Medications Prescriptions: Acetaminophen 625 mg PO Q8H PRN #20 capsule PRN Reason: Mild To Moderate Pain ALPRAZolam [Xanax 0.25 MG Tablet] 0.25 mg PO BID PRN #10 tablet PRN Reason: Anxiety HYDROcodone/Acet 5/325 mg [[place] 5-325 mg] 1 tab PO Q8H PRN #10 tab PRN Reason: moderate to severe pain Home Medications: Furosemide [Lasix] 40 mg PO DAILY 10/13/16 [History] Glimepiride [Amaryl] 2 mg PO DAILY 10/13/16 [History] Ipratropium/Albuterol Neb [Duoneb] 3 ml PO Q4H PRN 10/13/16 [History] Amlodipine Besylate 10 mg PO DAILY 01/19/17 [History] Fluticasone/Salmeterol [Advair 500-50 Diskus] 1 each IH BID 01/19/17 [History] Loratadine [Allergy Relief] 10 mg PO DAILY 01/19/17 [History] Amiodarone [Cordarone] 200 mg PO DAILY 10/04/17 [History] Lisinopril [Zestril] 2.5 mg PO DAILY 10/04/17 [History] Metoprolol XL (24 HR) Succ [Toprol Xl] 100 mg PO DAILY 10/04/17 [History] Atorvastatin [Lipitor] 40 mg PO HS #90 tablet 10/07/17 [Rx] Isosorbide MONOnitrate (24 HR) [Imdur] 30 mg PO DAILY #30 tab.er.24h 10/07/17 [ Rx] ALPRAZolam [Xanax 0.25 MG Tablet] 0.25 mg PO BID PRN #10 tablet 10/24/17 [Rx] Acetaminophen 625 mg PO Q8H PRN #20 capsule 10/24/17 [Rx] Dabigatran [Pradaxa] 150 mg PO BID capsule 10/24/17 [Rx] HYDROcodone/Acet 5/325 mg [[place] 5-325 mg] 1 tab PO Q8H PRN #10 tab 10/24/17 [Rx ] Sodium Chloride 1 gm PO BID #10 tablet 10/24/17 [Rx] Allergies/Adverse Reactions: 3 Allergy/AdvReac Type Severity Reaction Status Date / Time No Known Allergies Allergy Verified 10/20/17 17:50 Procedures/tests Complete & Pending: Procedures Performed prior 72 hours Category Date Time Status CT lumbar spine wo con [CT] Stat Cat Scan 10/21/17 15:36 Completed Venous Doppler [EV venous imaging LE BI] Stat Y 10/22/17 10:15 Completed Date of admission: 10/20/17 17:49 Primary care physician: Casandra Evans MD Consults: 10/20/17 19:11 Consult to Nutrition [CONS] Routine Comment: Consulting Provider: NUTRITION Reason for Dietary Consult: MST Score 10/20/17 21:10 Consult to Occupational Therapy [CONS] Routine Comment: Evaluate, develop and implement POC Reason for Consult: Patient has hx of falls at home and is unsure of the cause d/t mild confusion. Please assess patient for ambulation strength, stability, safety, and possible home assistive needs for post-discharge planning. Consult to Athletic Monitor [CONS] Routine Reason for SW Consult: Please assess pt. for possible home needs for post- discharge planning. 10/20/17 21:11 Consult to Physical Therapy [CONS] Routine Comment: Evaluate, develop and implement POC Reason for Consult: Patient has hx of falls at home and is unsure of the cause d/t mild confusion. Please assess patient for ambulation strength, stability, safety, and possible home assistive needs for post-discharge planning. 10/22/17 07:36 Consult to Physician [CONS] Routine Consulting Provider: Magan Lozano Jr Reason for Consult: acute L3 compression fracture Call Completed: Yes 10/23/17 09:06 Consult to Oncology Hematology [CONS] Routine Consulting Provider: Laina Becker Reason for Consult: bilateral DVT while being on Xarelto Call Completed: Yes Discharging clinician: Ana Muir Anticipated date of discharge: 10/24/17 - Patient Status Disposition: Transfer SNF Condition: Good Functional capacity at discharge: uses cane/walker Overall status at discharge: patient is progressing back to baseline - Ambulatory Orders Ambulatory Orders: Basic Metabolic Panel [CHEM] Time Frame: 1 Week, Facility: [facility], Location: Lab - Discharge Instructions Follow Up With: Andrew Latham DO [Partnered Physician] - 11/04/17 2:50 pm Casandra Evans MD [Primary Care Provider] - Additional Instructions: Please follow up with primary care physician within five days after your discharge from the hospital. Please follow up with hematology within five days after your dsicharge from the hospital. Please follow up with Dr. Latham(spinal surgery) within ten days after your discharge from the hospital. Your home dose of Xarelto has been discontinued. Pradaxa 150mg twice a day has been added for two weeks, followed by 75mg twice a day (start date: 10/24/17). Resume all other home medications as prescribed by your primary care physician. You were noted to have low levels of sodium, due to which you were started on sodium chloride 1gm twice a day. Please obtain the prescribed lab work prior to your follow up with your primary care physician and ask your primary care physician about continuation of this medication. Your risk of bleeding increases while on Pradaxa, please seek medical help if you sustain a fall or have an acute bleed. - Diet and Activity Activity: as per physical therapy Diet: diabetic diet (advanced soft diet chopped meat), low fat, low cholesterol , low salt diet Hospital course: Ms. Esteves is a 77 year old female with PMH of Afib, COPD on LTOT, DM, HLD, HTN, asthma who was admitted for generalized weakness s/p fall. She was found to have acute L3 compression fracture and bilateral lower extremity DVT. She was started on heparin gtt and xarelto was discontinued. It was unclear if patient had failed Xarelto therapy or was non compliant with it. She was evaluated by hematology(Dr. Mata) and was started on Pradaxa 150mg twice a day for two weeks followed by 75mg twice a day. She was evaluated by Dr. Latham(spinal surgery) and conservative treatment was recommended. She was evaluated by physical therapy and ECF placement was recommended. At this time pt is stable for discharge to ECF. Pt and family in agreement to discharge care and plan. - Time Spent with Patient Total time spent providing and/or coordinating discharge services: Greater than 30 minutes - Constitutional Vitals: Temp Pulse Resp BP Pulse Ox 97.6 F 63 15 143/70 98 10/24/17 07:29 10/24/17 07:29 10/24/17 07:29 10/24/17 07:29 10/24/17 07:29 General appearance: Present: cooperative, A&O X 3 (frail appearing elderly female), pleasant, no acute distress, obese - Head Head exam: Present: atraumatic, normocephalic - Eye Eye exam: Present: conjuntiva pink, sclera anicteric - Respiratory Respiratory exam: Present: CTAB. Absent: accessory muscle use, rales, rhonchi, wheezes - Cardiovascular Cardiovascular exam: Present: RRR, +S1, +S2. Absent: diastolic murmur, gallop, rubs, systolic murmur - GI/Abdominal GI/Abdominal exam: Present: normal bowel sounds, soft, no peritoneal signs. Absent: distended, tenderness - Extremities Exam Extremities exam: Present: warm, radial pulses palpable and symmetrical. Absent : calf tenderness
[2017-10-24 09:40] LABS: BUN/Creatinine Ratio 15 (6-26); Blood Urea Nitrogen 12 mg/dL (8-23); Glucose 145 mg/dL (70-105); Osmolality,Calculated 274 (280-300); Phosphorous 3.6 mg/dL (2.7-4.5); eGFR For African Americans > 60 (> 60); eGFR For Non-African Americans > 60 (> 60)
--- NOTE | 2017-10-24 09:48 | Physician Discharge Referral ---
ExtendedCare Referral Info Transfer To: ECF Provider in Charge after Transfer: PCP Institutional Level of Care: Skilled - Diagnosis (1) DVT (deep venous thrombosis) Priority: Secondary Status: Acute (2) Compression fracture of L3 lumbar vertebra Priority: Primary Status: Acute (3) Electrolyte abnormality Priority: Secondary Status: Acute (4) Weakness Priority: Primary Status: Acute (5) Leukocytosis Priority: Secondary Status: Resolved (6) HTN (hypertension) Priority: Secondary Status: Chronic (7) Frequent falls Priority: Secondary Status: Acute (8) DVT prophylaxis Priority: Secondary Status: Acute (9) Diabetes Priority: Secondary Status: Chronic (10) COPD (chronic obstructive pulmonary disease) Priority: Secondary Status: Chronic (11) Atrial fibrillation Priority: Secondary Status: Chronic (12) Hematuria Priority: Secondary Status: Resolved - Transfer Medications Prescriptions: Acetaminophen 625 mg PO Q8H PRN #20 capsule PRN Reason: Mild To Moderate Pain ALPRAZolam [Xanax 0.25 MG Tablet] 0.25 mg PO BID PRN #10 tablet PRN Reason: Anxiety HYDROcodone/Acet 5/325 mg [[place] 5-325 mg] 1 tab PO Q8H PRN #10 tab PRN Reason: moderate to severe pain Home Medications: Furosemide [Lasix] 40 mg PO DAILY 10/13/16 [History] Glimepiride [Amaryl] 2 mg PO DAILY 10/13/16 [History] Ipratropium/Albuterol Neb [Duoneb] 3 ml PO Q4H PRN 10/13/16 [History] Amlodipine Besylate 10 mg PO DAILY 01/19/17 [History] Fluticasone/Salmeterol [Advair 500-50 Diskus] 1 each IH BID 01/19/17 [History] Loratadine [Allergy Relief] 10 mg PO DAILY 01/19/17 [History] Amiodarone [Cordarone] 200 mg PO DAILY 10/04/17 [History] Lisinopril [Zestril] 2.5 mg PO DAILY 10/04/17 [History] Metoprolol XL (24 HR) Succ [Toprol Xl] 100 mg PO DAILY 10/04/17 [History] Atorvastatin [Lipitor] 40 mg PO HS #90 tablet 10/07/17 [Rx] Isosorbide MONOnitrate (24 HR) [Imdur] 30 mg PO DAILY #30 tab.er.24h 10/07/17 [ Rx] ALPRAZolam [Xanax 0.25 MG Tablet] 0.25 mg PO BID PRN #10 tablet 10/24/17 [Rx] Acetaminophen 625 mg PO Q8H PRN #20 capsule 10/24/17 [Rx] Dabigatran [Pradaxa] 150 mg PO BID capsule 10/24/17 [Rx] HYDROcodone/Acet 5/325 mg [[place] 5-325 mg] 1 tab PO Q8H PRN #10 tab 10/24/17 [Rx ] Sodium Chloride 1 gm PO BID #10 tablet 10/24/17 [Rx] Allergies/Adverse Reactions: 3 Allergy/AdvReac Type Severity Reaction Status Date / Time No Known Allergies Allergy Verified 10/20/17 17:50 - Respiratory Orders Smoking Cessation: Smoking cessation has been advised. For more information, call the [employer] Quit Line at 0-512-QPAV-NOW. - Lab Orders Lab Orders: Other (include drug levels w/frequency) (bmp q weekly to monitor Na levels) - Treatments List/Other: Please follow up with primary care physician within five days after your discharge from the hospital. Please follow up with hematology within five days after your dsicharge from the hospital. Please follow up with Dr. Latham(spinal surgery) within ten days after your discharge from the hospital. Your home dose of Xarelto has been discontinued. Pradaxa 150mg twice a day has been added for two weeks, followed by 75mg twice a day (start date: 10/24/17). Resume all other home medications as prescribed by your primary care physician. You were noted to have low levels of sodium, due to which you were started on sodium chloride 1gm twice a day. Please obtain the prescribed lab work prior to your follow up with your primary care physician and ask your primary care physician about continuation of this medication. Your risk of bleeding increases while on Pradaxa, please seek medical help if you sustain a fall or have an acute bleed. CERTIFICATION: I certify that the transfer of the above named patient to an Extended Care Facility is necessary for the continuing treatment of the diagnosis listed. The above information is true and accurate reflection of patient's current condition. Confidential - Redisclosure prohibited without a patient's written consent.
[2017-10-24] MEDS: Budesonide/Formoterol 160/4.5 MDI IH SCH (11:03)
[2017-10-24] MEDS: *HR* HYDROcodone/Acet 7.5/325 mg TABLET PO PRN (11:29)
[2017-10-26 01:27] LABS: Kappa Qnt Free Light Chains 4.41 mg/dL (0.33-1.94); Lambda Qnt Free Light Chains 3.07 mg/dL (0.57-2.63)
[2017-10-26 15:17] LABS: Alpha 2 Globulin (PEP) 0.84 g/dL (0.48-1.05); Beta Globulin (PEP) 0.64 g/dL (0.48-1.10)
[2017-10-27 07:16] LABS: IFE Reflexed NOT DONE
== END 2017-10-24 12:46 ==
LOC: 3BNU 14:00 → EMEROO 14:00 → SUATTDRO 17:49 → 3BNU 18:29
PROVIDERS: ADMIT Internal Medicine; ATTEND Internal Medicine

== ENCOUNTER 2018-01-27 16:10 | Inpatient (IN) ==
[2018-01-27] MEDS ORDERED: Aspirin 81 MG TAB.CHEW PO STA (16:50)
--- NOTE | 2018-01-27 16:54 | Emergency Department Note ---
Disposition Clinical Impression: COPD exacerbation, Elevated troponin I level, NSTEMI (non-ST elevated myocardial infarction) Acute exacerbation of CHF (congestive heart failure) Qualifiers: Heart failure type: unspecified Qualified Code(s): I50.9 - Heart failure, unspecified Disposition: Admitted As Inpatient Condition: Good Referrals: Casandra Evans MD [Primary Care Provider] - Forms: ED Satisfaction Letter, Work/School Release General Adult HPI - General Chief complaint: ED General Medical Stated complaint: swelling in legs Time Seen by Provider: 01/27/18 16:36 Source: patient, family Limitations: no limitations Nursing Notes Reviewed: Yes Vital Signs Reviewed: Yes - History of Present Illness Pain Scale: 6 - Related Data Home Medications Medication Instructions Recorded Confirmed Furosemide [Lasix] 40 mg PO BID 10/13/16 01/27/18 Ipratropium/Albuterol Neb [Duoneb] 3 ml PO Q4H PRN 10/13/16 01/27/18 Amlodipine Besylate 10 mg PO DAILY 01/19/17 01/27/18 Fluticasone/Salmeterol [Advair 1 each IH BID 01/19/17 01/27/18 500-50 Diskus] Loratadine [Allergy Relief] 10 mg PO DAILY PRN 01/19/17 01/27/18 Amiodarone [Cordarone] 200 mg PO DAILY 10/04/17 01/27/18 Lisinopril [Zestril] 5 mg PO DAILY 10/04/17 01/27/18 Acetaminophen 650 mg PO Q8H PRN 01/27/18 01/27/18 Dabigatran Etexilate Mesylate 110 mg PO BID 01/27/18 01/27/18 [Pradaxa] Fluticasone/Vilanterol [Breo 1 each IH DAILY 01/27/18 01/27/18 Ellipta 200-25 Mcg INH] Metoprolol Succinate [Toprol Xl] 100 mg PO DAILY 01/27/18 01/27/18 Previous Rx's Medication Instructions Recorded Atorvastatin [Lipitor] 40 mg PO HS #90 tablet 10/07/17 Isosorbide MONOnitrate (24 HR) 30 mg PO DAILY #30 tab.er.24h 10/07/17 [Imdur] Allergies Allergy/AdvReac Type Severity Reaction Status Date / Time No Known Allergies Allergy Verified 01/20/18 09:48 Past Medical History - Past Medical History Medical history: Reports: asthma, atrial fibrillation, CHF, COPD, diabetes, hyperlipidemia, hypertension Surgical history: Reports: heart valve replacement, hysterectomy, pacemaker Psychiatric history: Reports: anxiety, depression - Social History Smoking Status: Former smoker Smokeless Tobacco Status: No Alcohol use: Reports: none Drug use: Reports: none Physical Exam - General Limitations: no limitations General appearance: alert Course Vital Signs Temperature 97.7 F 01/27/18 16:11 Pulse Rate 61 01/27/18 16:11 Respiratory Rate 16 01/27/18 16:11 Blood Pressure 121/62 01/27/18 16:11 O2 Sat by Pulse Oximetry 95 01/27/18 16:11 Temperature 97.7 F 01/27/18 16:11 Pulse Rate 59 01/27/18 18:16 Respiratory Rate 20 01/27/18 18:16 Blood Pressure 126/59 01/27/18 18:16 O2 Sat by Pulse Oximetry 98 01/27/18 18:16 Oxygen Delivery Oxygen Delivery Nasal Cannula Medical Decision Making - [facility] Narrative Medical decision making narrative: This documentation is done with the assistance of Dragon dictation. Despite efforts made to ensure accuracy, there may be inaccuracies in cigar inspector or spelling and typographical errors. Patient comes in today with increased weight gain and history of CHF. She has had a history of DVT in her lower extremities. Had a vascular study done on the eighth of this month showing chronic DVT. She is on anticoagulants this time. Rented a cardiac workup on her she may need admission. She is in agreement with this plan. 1722 hrs.: Spoke with the patient's family. Since November she is gain 27 pounds measured at her office visits that they have with oncology. Chest X-Ray 01/27/18 16:41 IMPRESSION: Cardiomegaly and mild vascular congestion, more prominent compared to the 10/20/2017 evaluation. D/ / Fred Subramanian / Fred Subramanian Interpreting Provider: Fred Subramanian 1810 hrs.: Patient has CHF on chest x-ray. She did a nitroglycerin trial to decrease preload. She is done well with that. Her troponins elevated that may be due to ischemia, however she is not a chest pain, does not have any changes in her EKG, she does have a paced EKG sits more difficult to tell. She does have CHF and that may because elevation in her troponin also. She is pain-free in agreement with admission. She also has chronic anemia. She sees hematology for that. - Lab Data Result diagrams: 01/27/18 17:05 01/27/18 17:05 Lab Results 01/27/18 01/27/18 01/27/18 Range/Units 17:05 17:05 17:05 WBC 10.3 (4.3-11.1) K/mcL RBC 2.56 L (3.82-4.97) M/mcL Hgb 7.4 L (11.5-15.4) g/dL Hct 22.5 L (35.3-44.9) % MCV 87.9 (83.0-100.0) fL MCH 28.9 (28.0-33.3) pg MCHC 32.9 (31.6-35.5) g/dL RDW 14.6 H (11.5-14.5) % Plt Count 301 (140-400) K/mcL MPV 9.5 (9.4-12.4) fL Immature Gran % 0.7 (0-4) % Seg Neutrophils % 74.5 % Lymphocytes % 15.0 % Monocytes % 7.4 % Eosinophils % 2.1 % Basophils % 0.3 % Neutrophils # 7.6 (1.6-8.9) K/mcL Lymphocytes # 1.5 (0.6-4.6) K/mcL Monocytes # 0.8 (0.0-1.3) K/mcL Eosinophils # 0.2 (0.0-0.6) K/mcL Basophils # 0.0 (0.0-0.2) K/mcL Sodium 124 L (136-145) mEq/L Potassium 4.3 (3.5-5.1) mEq/L Chloride 89 L (98-107) mEq/L Carbon Dioxide 28 (23-29) mEq/L BUN 31 H (8-23) mg/dL Creatinine 1.03 (0.60-1.20) mg/dL Est GFR ( Amer) > 60 (> 60) Est GFR (Non-Af Amer) 52 L (> 60) BUN/Creatinine Ratio 30 H (6-26) Glucose 134 H (70-105) mg/dL Calculated Osmolality 267 L (280-300) Calcium 9.1 (8.6-10.3) mg/dL Troponin I 0.06 H* (< 0.04) ng/mL B-Natriuretic Peptide 557 H (Less than 100) pg/mL Attestation Statement - Attestation Attestation: I examined this patient and my medical decision-making was reviewed with the Resident Physician. I agree with the documented findings, disposition and treatment plan as described except to the extent set forth below. Patient seen and evaluated by Dr. Alvarez and myself, I agree with his evaluation management plan, I supervised the care of the patient's stay.
[2018-01-27] MEDS ORDERED: Furosemide 40 MG/4 ML VIAL IVP ONE (17:13)
--- NOTE | 2018-01-27 17:13 | Emergency Department Note ---
Disposition Clinical Impression: COPD exacerbation, Elevated troponin I level, NSTEMI (non-ST elevated myocardial infarction) Acute exacerbation of CHF (congestive heart failure) Qualifiers: Heart failure type: unspecified Qualified Code(s): I50.9 - Heart failure, unspecified Disposition: Admitted As Inpatient Condition: Good Referrals: Casandra Evans MD [Primary Care Provider] - Forms: ED Satisfaction Letter, Work/School Release Time of Disposition: 18:36 SOB HPI - General Chief Complaint: ED General Medical Stated Complaint: swelling in legs Time Seen by Provider: 01/27/18 16:36 Source: patient, family Limitations: no limitations Nursing Notes Reviewed: Yes Vital Signs Reviewed: Yes - History of Present Illness Patient is a 77-year-old female complains of shortness of breath has been worsening over the past few weeks. Patient has a history of COPD and CHF and is on the Pradaxa for heart valve replacement, patient also has a history of bilateral lower extremity DVTs. No history of PE. Patient states he is also had weight gain. Patient's family at bedside states that she has had about 30 pounds weight gain over the past several weeks as well. Patient's noticed increased swelling of bilateral lower extremities. Patient denies any chest pain but states she feels very congested. Patient denies any fevers chills or any sick contacts. - Related Data Home Medications Medication Instructions Recorded Confirmed Furosemide [Lasix] 40 mg PO BID 10/13/16 01/27/18 Ipratropium/Albuterol Neb [Duoneb] 3 ml PO Q4H PRN 10/13/16 01/27/18 Amlodipine Besylate 10 mg PO DAILY 01/19/17 01/27/18 Fluticasone/Salmeterol [Advair 1 each IH BID 01/19/17 01/27/18 500-50 Diskus] Loratadine [Allergy Relief] 10 mg PO DAILY PRN 01/19/17 01/27/18 Amiodarone [Cordarone] 200 mg PO DAILY 10/04/17 01/27/18 Lisinopril [Zestril] 5 mg PO DAILY 10/04/17 01/27/18 Acetaminophen 650 mg PO Q8H PRN 01/27/18 01/27/18 Dabigatran Etexilate Mesylate 110 mg PO BID 01/27/18 01/27/18 [Pradaxa] Fluticasone/Vilanterol [Breo 1 each IH DAILY 01/27/18 01/27/18 Ellipta 200-25 Mcg INH] Metoprolol Succinate [Toprol Xl] 100 mg PO DAILY 01/27/18 01/27/18 Previous Rx's Medication Instructions Recorded Atorvastatin [Lipitor] 40 mg PO HS #90 tablet 10/07/17 Isosorbide MONOnitrate (24 HR) 30 mg PO DAILY #30 tab.er.24h 10/07/17 [Imdur] Allergies Allergy/AdvReac Type Severity Reaction Status Date / Time No Known Allergies Allergy Verified 01/20/18 09:48 All systems ED: reviewed and negative except as stated. Review of Systems: As Per HPI Constitutional: Denies: fever, chills, weakness ENT ED: Reports: congestion Cardiovascular: Denies: chest pain, palpitations Respiratory: Reports: cough, dyspnea, wheezes Gastrointestinal: Denies: abdominal pain, nausea, vomiting, diarrhea Musculoskeletal: Denies: back pain Neurological: Denies: headache Endocrine: Reports: fatigue Past Medical History - Past Medical History Attestation: Yes The following information was validated with the patient. Source: patient, nursing notes reviewed Medical history: Reports: asthma, atrial fibrillation, CHF, COPD, diabetes, hyperlipidemia, hypertension Surgical history: Reports: heart valve replacement, hysterectomy, pacemaker Psychiatric history: Reports: anxiety, depression - Social History Smoking Status: Former smoker Smokeless Tobacco Status: No Alcohol use: Reports: none Drug use: Reports: none Physical Exam Vital Signs Temperature 97.7 F 01/27/18 16:11 Pulse Rate 61 01/27/18 16:11 Respiratory Rate 16 01/27/18 16:11 Blood Pressure 121/62 01/27/18 16:11 O2 Sat by Pulse Oximetry 95 01/27/18 16:11 Temperature 97.7 F 01/27/18 16:11 Pulse Rate 61 01/27/18 16:11 Respiratory Rate 16 01/27/18 16:11 Blood Pressure 121/62 01/27/18 16:11 O2 Sat by Pulse Oximetry 96 01/27/18 16:45 Oxygen Delivery Oxygen Delivery Room Air CONSTITUTIONAL: The patient appears very fatigued, she is alert and oriented 3. Currently not having any conversational dyspnea. As an active nonproductive cough. HEAD: Normocephalic; atraumatic EYES: PERRL, no scleral icterus NOSE: The nose is normal in appearance without rhinorrhea NECK: No JVD or distended neck veins RESP: Normal chest excursion with respiration; bilateral lower lung canales have wheezing present. No rhonchi, positive mild rales CARD: Regular rhythm, without murmurs, rub or gallop ABD: Non-distended; non-tender, soft, without rigidity, rebound or guarding,no pulsatile mass CHEST: No pain with palpation SKIN: Normal for age and race; warm and dry without diaphoresis ; no apparent lesions EXTREMITIES: Pulses are 2 plus and equal times bilateral upper extremities, bilateral lower extremities with 1+ pitting edema but very swollen. - General Limitations: no limitations General appearance: alert Course - Reevaluation(s) Reevaluation #1: Troponin is a critical high at 0.06, but records show that patient has been having chronically high troponins since 10/04/2017. Chest x-ray shows worsening pulmonary vascular congestion from previous study Time: 17:45 Reevaluation #2: Patient is receiving her nitro drip now. Blood pressure currently 138/68. Blood pressure will be watched closely. Patient's condition is improved. Lung sounds still without wheezing after DuoNeb therapy. Time: 18:36 - Consultations Consultation #1: Dr. Forrester the hospitalist as accepted patient for admission to a telemetry bed Time: 18:33 Vital Signs Temperature 97.7 F 01/27/18 16:11 Pulse Rate 61 01/27/18 16:11 Respiratory Rate 16 01/27/18 16:11 Blood Pressure 121/62 01/27/18 16:11 O2 Sat by Pulse Oximetry 95 01/27/18 16:11 Temperature 97.7 F 01/27/18 16:11 Pulse Rate 59 01/27/18 18:16 Respiratory Rate 20 01/27/18 18:16 Blood Pressure 126/59 01/27/18 18:16 O2 Sat by Pulse Oximetry 98 01/27/18 18:16 Oxygen Delivery Oxygen Delivery Nasal Cannula Shortness of Breath/Dyspnea - MDM Narrative Medical decision making narrative: COPD and CHF exacerbation. Patient has bilateral lung field wheezing and crackles. Patient does not have any chest pain but will be assessed for ACS/IN. Bedside Cardiac ultrasound: Impression: Read by myself: Heart pericardium has no fluid collection for pericardial effusion, there is no right atrial or ventricular collapse as seen in parasternal long axis and subxiphoid days. Patient's troponin is elevated at 0.06 but has been elevated around this number since September. Patient has not elevated BNP which is not the highest it spin but patient is symptomatic. Chest x-ray shows worsening picture of pulmonary vascular congestion. EKG does not show any signs of ischemia or ST elevations or depressions. Patient received DuoNeb 2, 125 mg of Solu-Medrol IV, 3 rounds of 0.4 mg of nitroglycerin sublingually. Patient has improved breathing. Nitroglycerin drip has been ordered to start at 80 mcg/min. Current plan is for admission for continuation and treatment for her COPD and CHF exacerbation, and NSTEMI, but patient is currently on Pradaxa. Cannot tell if patient's troponin is newly elevated. Patient is still hyponatremic at 124 from January 20 2018. Patient understands and agrees to treatment plan for admission. Dr. Forrester the hospitalist as accepted patient for admission to a telemetry bed. Patient has no pain. - Lab Data Lab results reviewed: Yes I reviewed the patient's lab results. Lab results narrative: Short CBC 01/27/18 Range/Units 17:05 WBC 10.3 (4.3-11.1) K/mcL Hgb 7.4 L (11.5-15.4) g/dL Hct 22.5 L (35.3-44.9) % Plt Count 301 (140-400) K/mcL Neutrophils # 7.6 (1.6-8.9) K/mcL BMP 01/27/18 Range/Units 17:05 Sodium 124 L (136-145) mEq/L Potassium 4.3 (3.5-5.1) mEq/L Chloride 89 L (98-107) mEq/L Carbon Dioxide 28 (23-29) mEq/L BUN 31 H (8-23) mg/dL Creatinine 1.03 (0.60-1.20) mg/dL Glucose 134 H (70-105) mg/dL Calcium 9.1 (8.6-10.3) mg/dL Cardiac Enzymes 01/27/18 Range/Units 17:05 Troponin I 0.06 H* (< 0.04) ng/mL Result diagrams: 01/27/18 17:05 01/27/18 17:05 Lab Results 01/27/18 01/27/18 01/27/18 Range/Units 17:05 17:05 17:05 WBC 10.3 (4.3-11.1) K/mcL RBC 2.56 L (3.82-4.97) M/mcL Hgb 7.4 L (11.5-15.4) g/dL Hct 22.5 L (35.3-44.9) % MCV 87.9 (83.0-100.0) fL MCH 28.9 (28.0-33.3) pg MCHC 32.9 (31.6-35.5) g/dL RDW 14.6 H (11.5-14.5) % Plt Count 301 (140-400) K/mcL MPV 9.5 (9.4-12.4) fL Immature Gran % 0.7 (0-4) % Seg Neutrophils % 74.5 % Lymphocytes % 15.0 % Monocytes % 7.4 % Eosinophils % 2.1 % Basophils % 0.3 % Neutrophils # 7.6 (1.6-8.9) K/mcL Lymphocytes # 1.5 (0.6-4.6) K/mcL Monocytes # 0.8 (0.0-1.3) K/mcL Eosinophils # 0.2 (0.0-0.6) K/mcL Basophils # 0.0 (0.0-0.2) K/mcL Sodium 124 L (136-145) mEq/L Potassium 4.3 (3.5-5.1) mEq/L Chloride 89 L (98-107) mEq/L Carbon Dioxide 28 (23-29) mEq/L BUN 31 H (8-23) mg/dL Creatinine 1.03 (0.60-1.20) mg/dL Est GFR ( Amer) > 60 (> 60) Est GFR (Non-Af Amer) 52 L (> 60) BUN/Creatinine Ratio 30 H (6-26) Glucose 134 H (70-105) mg/dL Calculated Osmolality 267 L (280-300) Calcium 9.1 (8.6-10.3) mg/dL Troponin I 0.06 H* (< 0.04) ng/mL B-Natriuretic Peptide 557 H (Less than 100) pg/mL - Radiology Data Radiology results reviewed: Yes I reviewed the patient's radiology results. Chest X-Ray 01/27/18 16:41 IMPRESSION: Cardiomegaly and mild vascular congestion, more prominent compared to the 10/20/2017 evaluation. D/ / Fred Subramanian / Fred Subramanian Interpreting Provider: Fred Subramanian - EKG Data EKG attestation: Yes I reviewed and interpreted this EKG. EKG results narrative: EKG taken 01/27/2018 at 1645 hrs. shows a paced rhythm at a rate of 65 beats per minute, no acute ST elevations or depressions any leads, no QRS widening or QT prolongation. No change from previous EKG taken 10/20/2017. Repeat EKG EKG #2 shows no change from first EKG for waveform morphology
[2018-01-27] MEDS ORDERED: Ipratropium/Albuterol Neb 3 ML IH ONE (17:14)
[2018-01-27 17:20] LABS: Basophils % 0.3 %; Eosinophils # 0.2 K/mcL (0.0-0.6); Eosinophils % 2.1 %; Hematocrit 22.5 % (35.3-44.9); Hemoglobin 7.4 g/dL (11.5-15.4); Immature Granulocytes % 0.7 % (0-4); Lymphocytes # 1.5 K/mcL (0.6-4.6); Mean Corpuscular HGB Conc 32.9 g/dL (31.6-35.5); Mean Corpuscular Hemoglobin 28.9 pg (28.0-33.3); Mean Corpuscular Volume 87.9 fL (83.0-100.0); Mean Platelet Volume 9.5 fL (9.4-12.4); Monocytes # 0.8 K/mcL (0.0-1.3); Monocytes % 7.4 %; Neutrophils # 7.6 K/mcL (1.6-8.9); Platelet Count 301 K/mcL (140-400); Red Blood Count 2.56 M/mcL (3.82-4.97); Red Cell Distribution Width 14.6 % (11.5-14.5); Segmented Neutrophils % 74.5 %
[2018-01-27] MEDS: Nitroglycerin 0.4 MG TAB.SUBL SL PRN ×3 (17:29→17:56)
[2018-01-27 17:43] LABS: BUN/Creatinine Ratio 30 (6-26); Blood Urea Nitrogen 31 mg/dL (8-23); Calcium 9.1 mg/dL (8.6-10.3); Carbon Dioxide 28 mEq/L (23-29); Chloride 89 mEq/L (98-107); Glucose 134 mg/dL (70-105); Osmolality,Calculated 267 (280-300); Potassium 4.3 mEq/L (3.5-5.1); Sodium 124 mEq/L (136-145); eGFR For African Americans > 60 (> 60); eGFR For Non-African Americans 52 (> 60)
[2018-01-27 17:45] LABS: Troponin I 0.06 ng/mL (< 0.04)
[2018-01-27] MEDS ORDERED: methylPREDNISolone 125 MG/2 ML VIAL IVP ONE (17:50)
[2018-01-27] MEDS ORDERED: Nitroglycerin 25 MG/250 ML INFUS..BTL IVC SCH (18:15)
[2018-01-27] MEDS ORDERED: Nitroglycerin 1 INCH/GM PACKET TP ONE (19:02)
[2018-01-27] MEDS ORDERED: Loratadine 10 MG TABLET PO PRN (23:29)
[2018-01-27] MEDS ORDERED: Naloxone 0.4 MG/ML INJ IVP PRN (23:30)
--- NOTE | 2018-01-27 23:54 | Internal Med History&Physical ---
Date of Encounter: 01/27/18 Time of Encounter: 23:39 Internal Medicine - H&P: HPI Chief complaint: shortness of breath Admitted From: Emergency Dept Plans for Post Hospital Care: Home History of present illness: Ms. Esteves is a 77 year old female who has a background history of diabetes, hypertension, COPD, atrial fibrillation, systolic congestive heart failure, previous replacement of heart valve, insertion of AICD/pacemaker. Patient was recently admitted for recurrent fall. Patient was experiencing progressively worsening shortness of breath, worsening cough along with change in the color of sputum and bilateral lower extremity worsening edema. This was the reason patient came to emergency room for further evaluation. Patient denies chest pain, nausea, vomiting, dizziness, diarrhea. Workup in the emergency room: Patient was evaluated in the emergency room. Basic labs were drawn. Noted that patient's hemoglobin is 7.4. Her baseline hemoglobin is around 8.2. Patient has elevated troponin 0.06. This is not the highest troponin what she has in the past. BNP is 557. Reason for admission: CHF exacerbation with positive troponin Past Med Surg Social Fam HX - Past Medical History Medical history: asthma, atrial fibrillation, CHF, COPD, diabetes, hyperlipidemia, hypertension Psychiatric history: anxiety, depression - Past Surgical History Surgical History: heart valve replacement, hysterectomy, pacemaker - Social History Smoking Status: Former smoker Smokeless Tobacco Status: No Alcohol use: none Drug use: none - Family History Mother Family Member Ethnicity: Non- Living Status: Hx Family Endocrine Disorder: Yes Father Family Member Ethnicity: Non- Living Status: Hx Family Cardiac Disorders: Yes (CHF) Hx Family Respiratory Disorders: Yes (Emphysema) Brother Family Member Ethnicity: Non- Living Status: Hx Family Respiratory Disorders: Yes (COPD, Emphysema) Sister Family Member Ethnicity: Non- Living Status: Still Living Hx Family Cardiac Disorders: Yes Hx Family Respiratory Disorders: Yes Hx Family Endocrine Disorder: Yes Internal Medicine - H&P: Meds Furosemide [Lasix] 40 mg PO BID 10/13/16 [History] Ipratropium/Albuterol Neb [Duoneb] 3 ml PO Q4H PRN 10/13/16 [History] Amlodipine Besylate 10 mg PO DAILY 01/19/17 [History] Fluticasone/Salmeterol [Advair 500-50 Diskus] 1 each IH BID 01/19/17 [History] Loratadine [Allergy Relief] 10 mg PO DAILY PRN 01/19/17 [History] Amiodarone [Cordarone] 200 mg PO DAILY 10/04/17 [History] Lisinopril [Zestril] 5 mg PO DAILY 10/04/17 [History] Atorvastatin [Lipitor] 40 mg PO HS #90 tablet 10/07/17 [Rx] Isosorbide MONOnitrate (24 HR) [Imdur] 30 mg PO DAILY #30 tab.er.24h 10/07/17 [ Rx] Acetaminophen 650 mg PO Q8H PRN 01/27/18 [History] Dabigatran Etexilate Mesylate [Pradaxa] 110 mg PO BID 01/27/18 [History] Fluticasone/Vilanterol [Breo Ellipta 200-25 Mcg INH] 1 each IH DAILY 01/27/18 [ History] Metoprolol Succinate [Toprol Xl] 100 mg PO DAILY 01/27/18 [History] 3 Allergy/AdvReac Type Severity Reaction Status Date / Time No Known Allergies Allergy Verified 01/20/18 09:48 All Systems PM: A 10-system review of systems was performed and is negative for pertinent findings except as documented above in the HPI. - Constitutional Constitutional: no chills, no fever(s), no night sweats - EENT Eyes: no change in vision, no discharge, no pain, no photophobia Ears: no ear discharge, no ear pain, no tinnitus Nose, mouth and throat: no dysphagia, no nasal discharge, no neck pain, no sore throat - Cardiovascular Cardiovascular ROS IM: diaphoresis, dyspnea, lightheadedness, palpitations, no chest pain, no syncope - Respiratory Respiratory: dyspnea, wheezing, excessive phlegm production, change in phlegm color, no cough - Gastrointestinal Gastrointestinal: no abdominal pain, no diarrhea, no hematemesis, no hematochezia, no melena, no nausea, no vomiting - Genitourinary Genitourinary: no change in urinary stream, no dysuria, no flank pain, no hematuria - Musculoskeletal Musculoskeletal ROS IM: no numbness, no tingling - Integumentary Integumentary IM: no rash, no unusual bruising - Neurological Neurological ROS: no confusion, no convulsions, no focal weakness, no numbness, no tingling, no tremor(s) - Hematologic/Lymphatic Hematologic/Lymphatic: no easy bruising - Constitutional Vitals: Temp Pulse Resp BP Pulse Ox 98.1 F 60 18 131/75 96 01/27/18 20:20 01/27/18 20:20 01/27/18 20:20 01/27/18 20:20 01/27/18 22:38 General appearance: Present: A&O X 3, pleasant, no acute distress, answers questions appropriately - Head Head exam: Present: atraumatic, normocephalic - Eye Eye exam: Present: PERRL, conjuntiva pink, sclera anicteric Pupils: Present: PERRL - Neck Neck exam general surgery: Present: supple, trachea midline. Absent: lymphadenopathy - Respiratory Respiratory exam: Present: CTAB. Absent: accessory muscle use, rales, rhonchi, wheezes - Cardiovascular Cardiovascular exam: Present: RRR, +S1, +S2. Absent: diastolic murmur, gallop, rubs, systolic murmur - GI/Abdominal GI/Abdominal exam: Present: normal bowel sounds, soft, no peritoneal signs. Absent: distended, tenderness - Extremities Exam Extremities exam: Present: warm, radial pulses palpable and symmetrical. Absent : calf tenderness, cyanotic, pedal edema - Neurological Exam Neurological exam: Present: CN II-XII intact, oriented X3, no focal deficits. Absent: pronater drift, facial droop, speech deficit - Skin Skin exam: Present: dry, intact Internal Med - H&P Results - Labs CBC & Chem 7: 01/27/18 17:05 01/27/18 17:05 - Assessment and plan (1) Acute exacerbation of CHF (congestive heart failure) Current Visit: Yes Status: Acute Assessment and plan: Patient is known to have a congestive heart failure: Systolic in nature. Last echocardiogram September 2017: EF 45%. Worsening pedal edema. Home dose Lasix: 40 mg twice a day by mouth. Received 80 mg Lasix in the emergency room. We will continue 40 mg intravenous Lasix twice a day. Close monitoring of intake/output. Monitor lites. Supplement potassium. Patient is not keen for any rehabilitation program. She prefers to go home and follow up with the home health. I examined this patient in the emergency room #5. patient's daughters were at bedside. Plan of care explained to the family and patient. Verbalized Understanding Qualifiers: Heart failure type: systolic Qualified Code(s): I50.23 - Acute on chronic systolic (congestive) heart failure (2) COPD exacerbation Current Visit: Yes Status: Acute Assessment and plan: Likely COPD exacerbation. IV Solu-Medrol 40 mg every 8 hours. Intravenous ceftriaxone 1 g every 24 hour. Patient is on amiodarone and hence quinolone/macrolide has a drug drug interaction. If patient's volume status get better then he will be appropriate to add macrolide tomorrow. Continue inhaleds bronchodilator (3) Elevated troponin I level Current Visit: Yes Status: Acute Assessment and plan: Patient is elevated troponin level 0.06. Radiology for an elevated troponin can be multifactorial. Likely demand ischemia. We trained her troponin back and this is not the maximum troponin from the previous one. Cycle troponin. If troponin trending upwards or further evaluation: Call cardiology please (4) Atrial fibrillation Current Visit: No Status: Chronic Assessment and plan: atol[place] is known to have a chronic atrial fibrillation. Rate control: Amiodarone Anticoagulation: pradaxa Qualifiers: Atrial fibrillation type: chronic Qualified Code(s): I48.2 - Chronic atrial fibrillation (5) Diabetes Current Visit: No Status: Chronic Assessment and plan: Patient is known to have a diabetes mellitus. We will follow the recommendations from subacute in his insulin order set. 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 At this point we will continue the same medication. Close monitoring of the blood pressure. Qualifiers: Hypertension type: essential hypertension Qualified Code(s): I10 - Essential (primary) hypertension (7) Hyperlipidemia Current Visit: No Status: Chronic Assessment and plan: Statin and we will continue the same. On Lipitor 40 mg. Qualifiers: Hyperlipidemia type: pure hypercholesterolemia Qualified Code(s): E78.00 - Pure hypercholesterolemia, unspecified; E78.0 - Pure hypercholesterolemia (8) DVT prophylaxis Current Visit: No Status: Acute Assessment and plan: patient is on pradaxa Medical decision making: This patient has a moderate to severe risk of worsening in spite of being on appropriate medication due to the underlying complex comorbid conditions. - Time Spent With Patient Total time spent is greater than 50% in coordination of care (as documented) at patient's floor/unit and/or counseling patient:
[2018-01-28] MEDS ORDERED: Dextrose Gel 15 GM/37.5 ML TUBE PO PRN ×2 (00:03)
[2018-01-28] MEDS ORDERED: D5% in Water 1,000 ML IVC PRN (00:03)
[2018-01-28] MEDS ORDERED: *HR* Dextrose 50 % in Water (Syg) 50 ML SYRINGE IVP PRN (00:03)
[2018-01-28 00:21] LABS: Basophils % 0.1 %; Eosinophils % 0.1 %; Hematocrit 21.5 % (35.3-44.9); Hemoglobin 7.2 g/dL (11.5-15.4); Immature Granulocytes % 1.1 % (0-4); Lymphocytes # 0.5 K/mcL (0.6-4.6); Lymphocytes % 5.1 %; Mean Corpuscular HGB Conc 33.5 g/dL (31.6-35.5); Mean Corpuscular Hemoglobin 29.3 pg (28.0-33.3); Mean Corpuscular Volume 87.4 fL (83.0-100.0); Mean Platelet Volume 9.8 fL (9.4-12.4); Monocytes # 0.1 K/mcL (0.0-1.3); Platelet Count 288 K/mcL (140-400); Red Blood Count 2.46 M/mcL (3.82-4.97); Red Cell Distribution Width 14.5 % (11.5-14.5); Segmented Neutrophils % 92.6 %
[2018-01-28] MEDS: MethylPREDNISolone 40 MG/ML VIAL IVP SCH ×2 (00:27→08:11)
[2018-01-28] MEDS: cefTRIAXone 1,000 MG in Water for inj. (sterile) 20 ML 10 ML IVPB SCH ×2 (00:27→23:40)
[2018-01-28 00:34] LABS: INR 1.5; Prothrombin Time 16.1 Seconds (9.4-12.1)
[2018-01-28 00:37] LABS: Activated Partial Thrombo Time 55.4 Seconds (26.0-36.0)
[2018-01-28 00:50] LABS: Albumin 3.9 g/dL (3.5-5.7); Albumin/Globulin Ratio 1.3 (1.1-2.2); Bilirubin,Total 0.5 mg/dL (0.3-1.0); Calcium 9.1 mg/dL (8.6-10.3); Chol/HDL Ratio 1.9 (0-4.9); Globulin 2.9 g/dL (2.4-3.5); Phosphorous 4.6 mg/dL (2.7-4.5); Potassium 4.1 mEq/L (3.5-5.1); Total Protein 6.8 g/dL (6.4-8.9)
[2018-01-28] MEDS ORDERED: Insulin LISPRO 300 UNITS/3 ML VIAL SQ ONE (01:50)
[2018-01-28] MEDS: Ipratropium/Albuterol Neb 3 ML IH PRN ×3 (02:38→18:13)
[2018-01-28] MEDS: Acetaminophen 325 MG TABLET PO PRN ×2 (04:08→17:13)
[2018-01-28] MEDS ORDERED: Insulin LISPRO 300 UNITS/3 ML VIAL SQ SCH ×3 (06:00→21:00)
[2018-01-28] MEDS: Isosorbide MONOnitrate (24 HR) 30 MG TAB.ER.24H PO SCH (08:11)
[2018-01-28] MEDS: Metoprolol XL (24 HR) Succ 50 MG TAB.ER.24H PO SCH (08:11)
[2018-01-28] MEDS: Furosemide 40 MG/4 ML VIAL IVP SCH ×2 (08:11→17:05)
[2018-01-28] MEDS: *HR* Amiodarone 200 MG TABLET PO SCH (08:11)
[2018-01-28] MEDS: amLODIPine 5 MG TABLET PO SCH (08:11)
[2018-01-28] MEDS: Insulin LISPRO 300 UNITS/3 ML VIAL SQ SCH ×4 (08:12→20:26)
[2018-01-28 08:59] LABS: Hematocrit 21.7 % (35.3-44.9); Hemoglobin 7.1 g/dL (11.5-15.4)
[2018-01-28] MEDS ORDERED: Furosemide 40 MG/4 ML VIAL IVP SCH (09:00)
[2018-01-28] MEDS ORDERED: PRADAXA PO SCH (09:00)
[2018-01-28] MEDS: Budesonide/Formoterol 160/4.5 MDI IH SCH ×2 (09:43→20:32)
--- NOTE | 2018-01-28 12:26 | Internal Med Progress Note ---
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 insulin use: without watermelon inspector use Diabetes mellitus complication status: with unspecified complications Qualified Code(s): E11.8 - Type 2 diabetes mellitus with unspecified complications (2) Hyperlipidemia Current Visit: No Status: Chronic Assessment and plan: continue home dose of statin Qualifiers: Hyperlipidemia type: pure hypercholesterolemia Qualified Code(s): E78.00 - Pure hypercholesterolemia, unspecified; E78.0 - Pure hypercholesterolemia (3) Atrial fibrillation Current Visit: No Status: Chronic Assessment and plan: rate controlled with Amiodarone anticoagulated with Pradaxa pradaxa dose adjusted as per renal function will continue at this time, will hold anticoagulation if Hgb<7 or stool occult positive Qualifiers: Atrial fibrillation type: chronic Qualified Code(s): I48.2 - Chronic atrial fibrillation (4) DVT prophylaxis Current Visit: No Status: Acute Assessment and plan: anticoagulated with Pradaxa (5) HTN (hypertension) Current Visit: No Status: Chronic Assessment and plan: BP within acceptable range continue home meds Qualifiers: Hypertension type: essential hypertension Qualified Code(s): I10 - Essential (primary) hypertension (6) COPD exacerbation Current Visit: Yes Status: Acute Assessment and plan: Likely COPD exacerbation. will start Prednisone 40mg PO qd Intravenous ceftriaxone 1 g every 24 hour. Patient is on amiodarone and hence quinolone/macrolide has a drug drug interaction. continue O2 supplementation monitor O2 sat, goal O2 sat: 88-92% (7) Acute exacerbation of CHF (congestive heart failure) Current Visit: Yes Status: Acute Assessment and plan: continue Lasix 40mg IV BID monitor daily weights, strict I/Os fluid restriction diet continue to monitor Qualifiers: Heart failure type: systolic Qualified Code(s): I50.23 - Acute on chronic systolic (congestive) heart failure (8) Elevated troponin I level Current Visit: Yes Status: Acute Assessment and plan: Likely demand ischemia in the setting of CHF decompensation no chest pain reported TNI downtrending will continue to monitor (9) Anemia Current Visit: Yes Status: Acute Assessment and plan: drop in H&H noted no acute bleeding reported Iron studies consistent with anemia of chronic disease awaiting stool occult will dose Pradaxa according to her renal function will repeat H&H this evening and transfuse for Hgb<7, will continue pradaxa at this time. Qualifiers: Anemia type: unspecified type Qualified Code(s): D64.9 - Anemia, unspecified (10) Obesity (BMI 30-39.9) Current Visit: Yes Status: Chronic (11) Hyponatremia Current Visit: Yes Status: Chronic Assessment and plan: Pt has history of chronic hyponatremia clinically asymptomatic will closely monitor Na levels as pt is on diuretic therapy - Time Spent With Patient Total time spent is greater than 50% in coordination of care (as documented) at patient's floor/unit and/or counseling patient: - Subjective Interval history: Patient seen and examined with present at bedside. Pt reports of improvement in her breathing compared to previous day. Pt noted to have a drop in H&H, pt denies any dark stools, or any acute bleeding at home. She has been on Pradaxa 110mg twice a day at home, however that is high dose when adjusted to her renal function Iron studies consistent with anemia of chronic disease awaiting stool occult will dose Pradaxa according to her renal function will repeat H&H this evening and transfuse for Hgb<7, will continue pradaxa at this time. - Constitutional Vitals: Temp Pulse Resp BP Pulse Ox 98.0 F 59 16 135/68 96 01/28/18 10:44 01/28/18 10:44 01/28/18 10:44 01/28/18 10:44 01/28/18 10:44 General appearance: Present: A&O X 3, pleasant, no acute distress, answers questions appropriately - Head Head exam: Present: atraumatic, normocephalic - Eye Eye exam: Present: conjuntiva pink, sclera anicteric - Respiratory Respiratory exam: Absent: respiratory distress, wheezes (scattered rales, decreased breath sounds) - Cardiovascular Cardiovascular exam: Present: RRR, +S1, +S2. Absent: diastolic murmur, gallop, rubs, systolic murmur - GI/Abdominal GI/Abdominal exam: Present: normal bowel sounds, soft. Absent: distended, tenderness - Extremities Exam Extremities exam: Present: pedal edema, warm, radial pulses palpable and symmetrical. Absent: calf tenderness - Neurological Exam Neurological exam: Present: oriented X3 Internal Medicine: Result - Labs CBC & Chem 7: 01/28/18 08:36 01/28/18 00:09 Labs: Short CBC 01/28/18 01/28/18 Range/Units 00:09 08:36 WBC 9.7 (4.3-11.1) K/mcL Hgb 7.2 L 7.1 L (11.5-15.4) g/dL Hct 21.5 L 21.7 L (35.3-44.9) % Plt Count 288 (140-400) K/mcL Neutrophils # 9.0 H (1.6-8.9) K/mcL BMP 01/28/18 00:09 Sodium 125 L Potassium 4.1 Chloride 90 L Carbon Dioxide 26 BUN 34 H Creatinine 1.16 Glucose 299 H Calcium 9.1 Cardiac Enzymes 01/28/18 01/28/18 Range/Units 00:09 05:54 Troponin I 0.04 H* 0.04 H* (< 0.04) ng/mL Liver Function 01/28/18 Range/Units 00:09 Total Bilirubin 0.5 (0.3-1.0) mg/dL AST 26 (13-39) Units/L ALT 33 (7-52) Units/L Alkaline Phosphatase 77 (34-104) Units/L Albumin 3.9 (3.5-5.7) g/dL - ABG Interpretation ABG results: PT/INR, D-dimer PT 16.1 Seconds (9.4-12.1) H 01/28/18 00:09 Consult Discharge Plan - Plan Referrals: Casandra Evans MD [Primary Care Provider] -
--- NOTE | 2018-01-28 17:09 | Electrocardiograph Report ---
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
[2018-01-28] MEDS ORDERED: MethylPREDNISolone 40 MG/ML VIAL IVP SCH (18:00)
[2018-01-28 19:20] LABS: Basophils % 0.1 %; Hematocrit 20.3 % (35.3-44.9); Hemoglobin 6.6 g/dL (11.5-15.4); Lymphocytes % 6.1 %; Mean Corpuscular HGB Conc 32.5 g/dL (31.6-35.5); Mean Corpuscular Hemoglobin 28.8 pg (28.0-33.3); Mean Corpuscular Volume 88.6 fL (83.0-100.0); Mean Platelet Volume 10.4 fL (9.4-12.4); Monocytes # 0.5 K/mcL (0.0-1.3); Monocytes % 3.1 %; Platelet Count 291 K/mcL (140-400); Red Blood Count 2.29 M/mcL (3.82-4.97); Red Cell Distribution Width 14.9 % (11.5-14.5); Segmented Neutrophils % 89.7 %
[2018-01-28 19:37] LABS: BUN/Creatinine Ratio 33 (6-26); Blood Urea Nitrogen 35 mg/dL (8-23); Calcium 8.9 mg/dL (8.6-10.3); Carbon Dioxide 24 mEq/L (23-29); Chloride 91 mEq/L (98-107); Glucose 320 mg/dL (70-105); Osmolality,Calculated 278 (280-300); Sodium 124 mEq/L (136-145); eGFR For African Americans > 60 (> 60); eGFR For Non-African Americans 50 (> 60)
[2018-01-28] MEDS ORDERED: *HR* Dabigatran 75 MG CAPSULE PO SCH (21:00)
[2018-01-29] MEDS: cefTRIAXone 1,000 MG in Water for inj. (sterile) 20 ML 10 ML IVPB SCH (01:52)
[2018-01-29] MEDS: Ipratropium/Albuterol Neb 3 ML IH PRN ×3 (02:02→18:13)
[2018-01-29 05:33] LABS: Basophils % 0.1 %; Hematocrit 19.9 % (35.3-44.9); Hemoglobin 6.7 g/dL (11.5-15.4); Immature Granulocytes % 1.7 % (0-4); Lymphocytes % 5.6 %; Mean Corpuscular HGB Conc 33.7 g/dL (31.6-35.5); Mean Corpuscular Hemoglobin 29.6 pg (28.0-33.3); Mean Corpuscular Volume 88.1 fL (83.0-100.0); Mean Platelet Volume 10.1 fL (9.4-12.4); Monocytes # 0.6 K/mcL (0.0-1.3); Monocytes % 3.6 %; Neutrophils # 15.5 K/mcL (1.6-8.9); Platelet Count 296 K/mcL (140-400); Red Blood Count 2.26 M/mcL (3.82-4.97); Red Cell Distribution Width 14.9 % (11.5-14.5)
[2018-01-29 06:00] LABS: BUN/Creatinine Ratio 37 (6-26); Blood Urea Nitrogen 35 mg/dL (8-23); Carbon Dioxide 27 mEq/L (23-29); Chloride 93 mEq/L (98-107); Glucose 242 mg/dL (70-105); Magnesium 1.9 mg/dL (1.6-2.6); Osmolality,Calculated 282 (280-300); Phosphorous 3.8 mg/dL (2.7-4.5); Potassium 3.9 mEq/L (3.5-5.1); Sodium 128 mEq/L (136-145); eGFR For African Americans > 60 (> 60); eGFR For Non-African Americans 57 (> 60)
--- NOTE | 2018-01-29 08:45 | Internal Med Progress Note ---
Date of Encounter: 01/29/18 Time of Encounter: 08:43 - Assessment and plan (1) Anemia Current Visit: Yes Status: Acute Assessment and plan: drop in H&H noted. Transfused 1 unit for hemoglobin of 6.7. No signs of bleeding. Awaiting FOBT. If not able to give us a stool sample we will have to do a rectal exam. We will try with stool softeners today. May need a consult to GI. Iron studies noted consistent with anemia of chronic disease. Hold Pradaxa for now. Qualifiers: Anemia type: unspecified type Qualified Code(s): D64.9 - Anemia, unspecified (2) Acute exacerbation of CHF (congestive heart failure) Current Visit: Yes Status: Acute Assessment and plan: Likely an exacerbation of systolic heart failure. Last echo in September 2017 showed an EF 45%. No need to repeat. continue Lasix 40mg IV BID. Monitor I&O' s. Fluid restriction. O2 support and wean as tolerated. Qualifiers: Heart failure type: systolic Qualified Code(s): I50.23 - Acute on chronic systolic (congestive) heart failure (3) Elevated troponin I level Current Visit: Yes Status: Acute Assessment and plan: Likely demand ischemia. Initially elevated at 0.06 but is down to 0.03. No ischemic changes on EKG. Chest pain. (4) COPD exacerbation Current Visit: Yes Status: Acute Assessment and plan: Likely COPD exacerbation. Continue prednisone. Switch ceftriaxone IV to oral doxycycline for now. O2 support as needed. Wean down as tolerated. Continue nebs. (5) Hyponatremia Current Visit: Yes Status: Chronic Assessment and plan: Likely hypervolemic hyponatremia. This is improving with diuresis. We will continue to monitor. (6) Diabetes Current Visit: No Status: Chronic Assessment and plan: Glucose is elevated in the 200s. Patient is on steroids. Continue sliding scale and add 15 units of Levemir this morning. 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 Hold Pradaxa this morning given drop in her hemoglobin. Qualifiers: Atrial fibrillation type: chronic Qualified Code(s): I48.2 - Chronic atrial fibrillation (9) HTN (hypertension) Current Visit: No Status: Chronic Assessment and plan: BP within acceptable range continue home meds Qualifiers: Hypertension type: essential hypertension Qualified Code(s): I10 - Essential (primary) hypertension (10) Obesity (BMI 30-39.9) Current Visit: Yes Status: Chronic Assessment and plan: Counseled (11) DVT prophylaxis Current Visit: No Status: Acute Assessment and plan: Stop her DEXA for now till drop in her hemoglobin is figured out. Place SCDs - Time Spent With Patient Total time spent is greater than 50% in coordination of care (as documented) at patient's floor/unit and/or counseling patient: - Subjective Interval history: Patient was seen and examined. No acute events. She is admitted with CHF exacerbation, COPD exacerbation, and hyponatremia. Noted to have a hemoglobin of 7.4 on admission that has been slowly dropping. It is at 6.7 this morning. No signs of obvious bleeding. Patient remains on 2 L nasal cannula oxygen. Patient is on chronic 2 L at home. - Constitutional Vitals: Temp Pulse Resp BP Pulse Ox 98.0 F 82 16 126/66 90 01/29/18 07:04 01/29/18 07:04 01/29/18 07:04 01/29/18 07:04 01/29/18 07:04 General appearance: Present: A&O X 3, pleasant, no acute distress, answers questions appropriately Exam: GEN: NAD CVS: irregular. S1, S2, No m/r/g RESP: CTAB ABD: Soft, NT, ND, +BS EXT: No edema. 2+ DP. No rashes NEURO: Nonfocal Internal Medicine: Result - Labs CBC & Chem 7: 01/29/18 05:00 01/29/18 05:00 Labs: Short CBC 01/28/18 01/28/18 01/29/18 Range/Units 08:36 18:53 05:00 WBC 15.6 H D 17.4 H (4.3-11.1) K/mcL Hgb 7.1 L 6.6 L 6.7 L (11.5-15.4) g/dL Hct 21.7 L 20.3 L 19.9 L (35.3-44.9) % Plt Count 291 296 (140-400) K/mcL Neutrophils # 14.0 H 15.5 H (1.6-8.9) K/mcL BMP 01/28/18 01/28/18 01/29/18 00:09 18:53 05:00 Sodium 125 L 124 L 128 L Potassium 4.1 4.0 3.9 Chloride 90 L 91 L 93 L Carbon Dioxide 26 24 27 BUN 34 H 35 H 35 H Creatinine 1.16 1.07 0.95 Glucose 299 H 320 H 242 H Calcium 9.1 8.9 9.0 Cardiac Enzymes 01/28/18 Range/Units 12:07 Troponin I 0.03 (< 0.04) ng/mL Liver Function 01/28/18 Range/Units 00:09 Total Bilirubin 0.5 (0.3-1.0) mg/dL AST 26 (13-39) Units/L ALT 33 (7-52) Units/L Alkaline Phosphatase 77 (34-104) Units/L Albumin 3.9 (3.5-5.7) g/dL - ABG Interpretation ABG results: PT/INR, D-dimer PT 16.1 Seconds (9.4-12.1) H 01/28/18 00:09 Consult Discharge Plan - Plan Referrals: Casandra Evans MD [Primary Care Provider] -
[2018-01-29] MEDS ORDERED: Insulin DETEMIR 100 UNIT/ML X5UNITS SQ ONE (08:47)
[2018-01-29] MEDS: Furosemide 40 MG/4 ML VIAL IVP SCH ×2 (09:03→16:39)
[2018-01-29] MEDS: amLODIPine 5 MG TABLET PO SCH (09:03)
[2018-01-29] MEDS: Metoprolol XL (24 HR) Succ 50 MG TAB.ER.24H PO SCH (09:03)
[2018-01-29] MEDS: Isosorbide MONOnitrate (24 HR) 30 MG TAB.ER.24H PO SCH (09:03)
[2018-01-29] MEDS: predniSONE 20 MG TABLET PO SCH (09:03)
[2018-01-29] MEDS: Doxycycline 100 MG CAPSULE PO SCH ×2 (09:04→19:48)
[2018-01-29] MEDS: Insulin LISPRO 300 UNITS/3 ML VIAL SQ SCH ×4 (09:04→22:39)
[2018-01-29] MEDS: *HR* Amiodarone 200 MG TABLET PO SCH (09:04)
[2018-01-29] MEDS: Budesonide/Formoterol 160/4.5 MDI IH SCH ×2 (10:12→20:07)
[2018-01-29] MEDS ORDERED: 0.9 % Sodium Chloride 250 ML ONE (11:00)
[2018-01-29] MEDS ORDERED: Furosemide 20 MG/2 ML VIAL IVP ONE (12:00)
[2018-01-29] MEDS: Acetaminophen 325 MG TABLET PO PRN (18:06)
[2018-01-29] MEDS: ALPRAZolam 0.25 MG TABLET PO PRN (19:48)
[2018-01-30] MEDS: Ipratropium/Albuterol Neb 3 ML IH PRN ×3 (00:31→20:57)
--- NOTE | 2018-01-30 06:48 | Electrocardiograph Report ---
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
[2018-01-30 06:54] LABS: BUN/Creatinine Ratio 34 (6-26); Blood Urea Nitrogen 32 mg/dL (8-23); Calcium 9.4 mg/dL (8.6-10.3); Carbon Dioxide 28 mEq/L (23-29); Chloride 95 mEq/L (98-107); Glucose 165 mg/dL (70-105); Magnesium 1.9 mg/dL (1.6-2.6); Osmolality,Calculated 287 (280-300); Potassium 3.8 mEq/L (3.5-5.1); Sodium 133 mEq/L (136-145); eGFR For African Americans > 60 (> 60); eGFR For Non-African Americans 57 (> 60)
[2018-01-30 06:57] LABS: Basophils % 0.1 %; Hematocrit 27.5 % (35.3-44.9); Immature Granulocytes % 1.7 % (0-4); Lymphocytes # 1.8 K/mcL (0.6-4.6); Lymphocytes % 8.9 %; Mean Corpuscular HGB Conc 32.4 g/dL (31.6-35.5); Mean Corpuscular Hemoglobin 29.3 pg (28.0-33.3); Mean Corpuscular Volume 90.5 fL (83.0-100.0); Mean Platelet Volume 9.9 fL (9.4-12.4); Monocytes # 1.2 K/mcL (0.0-1.3); Monocytes % 5.7 %; Neutrophils # 16.9 K/mcL (1.6-8.9); Nucleated Red Blood Cells 0.1 /100 WBC (0); Platelet Count 345 K/mcL (140-400); Red Blood Count 3.04 M/mcL (3.82-4.97); Red Cell Distribution Width 15.2 % (11.5-14.5); Segmented Neutrophils % 83.6 %
[2018-01-30 06:59] LABS: Hemoglobin 8.9 g/dL (11.5-15.4)
[2018-01-30] MEDS: Budesonide/Formoterol 160/4.5 MDI IH SCH ×2 (07:10→20:56)
[2018-01-30] MEDS: Insulin LISPRO 300 UNITS/3 ML VIAL SQ SCH ×4 (07:53→20:39)
[2018-01-30] MEDS: Furosemide 40 MG/4 ML VIAL IVP SCH ×2 (07:54→17:09)
[2018-01-30] MEDS: predniSONE 20 MG TABLET PO SCH ×2 (07:54→08:07)
[2018-01-30] MEDS: Metoprolol XL (24 HR) Succ 50 MG TAB.ER.24H PO SCH (07:55)
[2018-01-30] MEDS: Isosorbide MONOnitrate (24 HR) 30 MG TAB.ER.24H PO SCH (07:55)
[2018-01-30] MEDS: Doxycycline 100 MG CAPSULE PO SCH ×2 (07:55→20:39)
[2018-01-30] MEDS: *HR* Amiodarone 200 MG TABLET PO SCH (07:55)
[2018-01-30] MEDS: amLODIPine 5 MG TABLET PO SCH (07:55)
--- NOTE | 2018-01-30 10:08 | General Surgery Consult Note ---
<June Kirkland - Last Filed: 01/30/18 10:46> Date of Encounter: 01/30/18 Time of Encounter: 10:46 Assessment and Plan (1) Anemia Current Visit: Yes Status: Acute Qualifiers: Anemia type: unspecified type Qualified Code(s): D64.9 - Anemia, unspecified (2) Leukocytosis Current Visit: No Status: Resolved Qualifiers: Leukocytosis type: unspecified Qualified Code(s): D72.829 - Elevated white blood cell count, unspecified (3) DVT (deep venous thrombosis) Current Visit: No Status: Acute Qualifiers: DVT location: lower extremity Affected thrombotic vein of extremity: other lower extremity vein Chronicity: acute Laterality: bilateral Qualified Code(s): I82.493 - Acute embolism and thrombosis of other specified deep vein of lower extremity, bilateral History of Present Illness Consult date: 01/30/18 Requesting physician: Marcello Zhang History of present illness: Patient is a 77 yo female with no previously colonoscopy. She has been seeing hematology for anemia. She is on pradaxa for afib, heart valve replacement and dvt's. She had an appointment with me for consult for egd/colonoscopy coming up in february. She presented to ED for progressively worsening shortness of breath, worsening cough and leg edema. She was found to be in CHF exaccerbation and Hb 7.9. Patient has been off her pradaxa for 2 days now. She states she has noted some dark stools recently, no obvious bright red rectal bleeding. She denies abdominal pain, nausea or emesis. She has had no recent weight loss. She has no diarrhea or constipation that is continuous. She denies issues with Gerd or dysphagia. She does get "choked on food" once in a while. No [facility] colon or rectal cancer. Past Med Surg Social Fam HX - Past Medical History Source: patient Medical history: other (DVT) - Past Surgical History Surgical History: heart valve replacement, CATHERINE/BSO, pacemaker Medications and Allergies Furosemide [Lasix] 40 mg PO BID 10/13/16 [History] Ipratropium/Albuterol Neb [Duoneb] 3 ml PO Q4H PRN 10/13/16 [History] Amlodipine Besylate 10 mg PO DAILY 01/19/17 [History] Fluticasone/Salmeterol [Advair 500-50 Diskus] 1 each IH BID 01/19/17 [History] Loratadine [Allergy Relief] 10 mg PO DAILY PRN 01/19/17 [History] Amiodarone [Cordarone] 200 mg PO DAILY 10/04/17 [History] Lisinopril [Zestril] 5 mg PO DAILY 10/04/17 [History] Atorvastatin [Lipitor] 40 mg PO HS #90 tablet 10/07/17 [Rx] Isosorbide MONOnitrate (24 HR) [Imdur] 30 mg PO DAILY #30 tab.er.24h 10/07/17 [ Rx] Acetaminophen 650 mg PO Q8H PRN 01/27/18 [History] Dabigatran Etexilate Mesylate [Pradaxa] 110 mg PO BID 01/27/18 [History] Fluticasone/Vilanterol [Breo Ellipta 200-25 Mcg INH] 1 each IH DAILY 01/27/18 [ History] Metoprolol Succinate [Toprol Xl] 100 mg PO DAILY 01/27/18 [History] 3 Allergy/AdvReac Type Severity Reaction Status Date / Time No Known Allergies Allergy Verified 01/20/18 09:48 Review of Systems All systems PM: reviewed and no additional remarkable complaints except as stated All systems PM: The remainder of the systems were reviewed and are negative General Surgery Exam Initial Vital Signs Temp Pulse Resp BP Pulse Ox 97.7 F 61 16 121/62 95 01/27/18 16:11 01/27/18 16:11 01/27/18 16:11 01/27/18 16:11 01/27/18 16:11 - General physical appearance well developed, well nourished, no distress - Eyes PERRL, normal ocular movement - ENT normal mucosa, normocephalic - Neck trachea midline - Respiratory normal expansion, normal respiratory effort - Cardiovascular Cardiovascular exam: Present: irregular rhythm - Abdomen Abdomen general surgery: Present: soft, non tender. Absent: distended, tender, guarding, rebound - Integumentary Integumentary general surgery: Present: warm and dry, no abnormal pigmentation, other (pale) - Neurologic Present: CN 2-12 grossly intact - Musculoskeletal Present: normal posture - Psychiatric Psychiatric general surgery: Present: A&Ox3, speech is normal Exam Initial Vital Signs Temp Pulse Resp BP Pulse Ox 97.7 F 61 16 121/62 95 01/27/18 16:11 01/27/18 16:11 01/27/18 16:11 01/27/18 16:11 01/27/18 16:11 Results - Labs 01/30/18 05:45 01/30/18 05:45 Abnormal lab results WBC 20.2 K/mcL (4.3-11.1) H 01/30/18 05:45 RBC 3.04 M/mcL (3.82-4.97) L 01/30/18 05:45 Hgb 8.9 g/dL (11.5-15.4) L D 01/30/18 05:45 Hct 27.5 % (35.3-44.9) L 01/30/18 05:45 RDW 15.2 % (11.5-14.5) H 01/30/18 05:45 Neutrophils # 16.9 K/mcL (1.6-8.9) H 01/30/18 05:45 Nucleated RBCs/100 WBC 0.1 /100 WBC (0) H 01/30/18 05:45 PT 16.1 Seconds (9.4-12.1) H 01/28/18 00:09 APTT 55.4 Seconds (26.0-36.0) H 01/28/18 00:09 Sodium 133 mEq/L (136-145) L 01/30/18 05:45 Chloride 95 mEq/L (98-107) L 01/30/18 05:45 BUN 32 mg/dL (8-23) H 01/30/18 05:45 Est GFR (Non-Af Amer) 57 (> 60) L 01/30/18 05:45 BUN/Creatinine Ratio 34 (6-26) H 01/30/18 05:45 Glucose 165 mg/dL (70-105) H 01/30/18 05:45 POC Glucose 202 mg/dL (70-99) H 01/29/18 21:48 Iron 489 mcg/dL (50-170) H 01/28/18 00:09 % Saturation 112 % (15-50) H 01/28/18 00:09 B-Natriuretic Peptide 745 pg/mL (Less than 100) H 01/28/18 00:09 Stool Occult Blood Positive (Negative) A 01/29/18 21:54 Diabetes panel 01/30/18 Range/Units 05:45 Sodium 133 L (136-145) mEq/L Potassium 3.8 (3.5-5.1) mEq/L Chloride 95 L (98-107) mEq/L Carbon Dioxide 28 (23-29) mEq/L BUN 32 H (8-23) mg/dL Creatinine 0.95 (0.60-1.20) mg/dL Glucose 165 H (70-105) mg/dL Calcium 9.4 (8.6-10.3) mg/dL Calcium panel 01/30/18 Range/Units 05:45 Calcium 9.4 (8.6-10.3) mg/dL Pituitary panel 01/30/18 Range/Units 05:45 Sodium 133 L (136-145) mEq/L Potassium 3.8 (3.5-5.1) mEq/L Chloride 95 L (98-107) mEq/L Carbon Dioxide 28 (23-29) mEq/L BUN 32 H (8-23) mg/dL Creatinine 0.95 (0.60-1.20) mg/dL Glucose 165 H (70-105) mg/dL Calcium 9.4 (8.6-10.3) mg/dL Adrenal panel 01/30/18 Range/Units 05:45 Sodium 133 L (136-145) mEq/L Potassium 3.8 (3.5-5.1) mEq/L Chloride 95 L (98-107) mEq/L Carbon Dioxide 28 (23-29) mEq/L BUN 32 H (8-23) mg/dL Creatinine 0.95 (0.60-1.20) mg/dL Glucose 165 H (70-105) mg/dL Calcium 9.4 (8.6-10.3) mg/dL All other labs normal. Consult Discharge Plan - Plan Referrals: Casandra Evans MD [Primary Care Provider] - - Attending Attestation I examined this patient and my medical decision-making was reviewed with the Resident Physician. I agree with the documented findings, disposition and treatment plan as described except to the extent set forth below. <Josh Dominguez - Last Filed: 01/30/18 13:04> Date of Encounter: 01/30/18 Assessment and Plan (1) Anemia Current Visit: Yes Status: Acute Hx melanotic stool Hgb 8.9 (6.7) s/p 1U transfusion Pt has never had a colonoscopy She is off her Pradaxa Plan Continue to hold Pradaxa EGD/Colonoscopy planned for tomorrow 01/[address] Kirkland Patient to have clear liquid diet and undergo bowel prep today Qualifiers: Anemia type: unspecified type Qualified Code(s): D64.9 - Anemia, unspecified Past Med Surg Social Fam HX - Past Medical History Medical history: asthma, atrial fibrillation, CHF, COPD, diabetes, hyperlipidemia, hypertension Psychiatric history: anxiety, depression - Past Surgical History Surgical History: heart valve replacement, hysterectomy, pacemaker - Social History Smoking Status: Former smoker Smokeless Tobacco Status: No Alcohol use: none Drug use: none - Family History Mother Family Member Ethnicity: Non- Living Status: Hx Family Endocrine Disorder: Yes Father Family Member Ethnicity: Non- Living Status: Hx Family Cardiac Disorders: Yes (CHF) Hx Family Respiratory Disorders: Yes (Emphysema) Brother Family Member Ethnicity: Non- Living Status: Hx Family Respiratory Disorders: Yes (COPD, Emphysema) Sister Family Member Ethnicity: Non- Living Status: Still Living Hx Family Cardiac Disorders: Yes Hx Family Respiratory Disorders: Yes Hx Family Endocrine Disorder: Yes Review of Systems All systems PM: The remainder of the systems were reviewed and are negative - EENT Nose, mouth and throat: no neck pain - Respiratory no cough, no dyspnea - Gastrointestinal no abdominal pain, no bloating, no loose stools General Surgery Exam Initial Vital Signs Temp Pulse Resp BP Pulse Ox 97.7 F 61 16 121/62 95 01/27/18 16:11 01/27/18 16:11 01/27/18 16:11 01/27/18 16:11 01/27/18 16:11 - General physical appearance well developed, well nourished, no distress - ENT normal mucosa, normocephalic - Neck trachea midline - Respiratory normal respiratory effort - Cardiovascular Cardiovascular exam: Present: RRR, irregular rhythm - Abdomen Abdomen general surgery: Present: soft, non tender. Absent: guarding, rebound - Neurologic Present: CN 2-12 grossly intact, normal coordination, normal sensation - Musculoskeletal Present: normal posture - Psychiatric Psychiatric general surgery: Present: speech is normal Exam Initial Vital Signs Temp Pulse Resp BP Pulse Ox 97.7 F 61 16 121/62 95 01/27/18 16:11 01/27/18 16:11 01/27/18 16:11 01/27/18 16:11 01/27/18 16:11 Results - Labs 01/30/18 05:45 01/30/18 05:45 Abnormal lab results WBC 20.2 K/mcL (4.3-11.1) H 01/30/18 05:45 RBC 3.04 M/mcL (3.82-4.97) L 01/30/18 05:45 Hgb 8.9 g/dL (11.5-15.4) L D 01/30/18 05:45 Hct 27.5 % (35.3-44.9) L 01/30/18 05:45 RDW 15.2 % (11.5-14.5) H 01/30/18 05:45 Neutrophils # 16.9 K/mcL (1.6-8.9) H 01/30/18 05:45 Nucleated RBCs/100 WBC 0.1 /100 WBC (0) H 01/30/18 05:45 PT 16.1 Seconds (9.4-12.1) H 01/28/18 00:09 APTT 55.4 Seconds (26.0-36.0) H 01/28/18 00:09 Sodium 133 mEq/L (136-145) L 01/30/18 05:45 Chloride 95 mEq/L (98-107) L 01/30/18 05:45 BUN 32 mg/dL (8-23) H 01/30/18 05:45 Est GFR (Non-Af Amer) 57 (> 60) L 01/30/18 05:45 BUN/Creatinine Ratio 34 (6-26) H 01/30/18 05:45 Glucose 165 mg/dL (70-105) H 01/30/18 05:45 POC Glucose 202 mg/dL (70-99) H 01/29/18 21:48 Iron 489 mcg/dL (50-170) H 01/28/18 00:09 % Saturation 112 % (15-50) H 01/28/18 00:09 B-Natriuretic Peptide 745 pg/mL (Less than 100) H 01/28/18 00:09 Stool Occult Blood Positive (Negative) A 01/29/18 21:54 Diabetes panel 01/30/18 Range/Units 05:45 Sodium 133 L (136-145) mEq/L Potassium 3.8 (3.5-5.1) mEq/L Chloride 95 L (98-107) mEq/L Carbon Dioxide 28 (23-29) mEq/L BUN 32 H (8-23) mg/dL Creatinine 0.95 (0.60-1.20) mg/dL Glucose 165 H (70-105) mg/dL Calcium 9.4 (8.6-10.3) mg/dL Calcium panel 01/30/18 Range/Units 05:45 Calcium 9.4 (8.6-10.3) mg/dL Pituitary panel 01/30/18 Range/Units 05:45 Sodium 133 L (136-145) mEq/L Potassium 3.8 (3.5-5.1) mEq/L Chloride 95 L (98-107) mEq/L Carbon Dioxide 28 (23-29) mEq/L BUN 32 H (8-23) mg/dL Creatinine 0.95 (0.60-1.20) mg/dL Glucose 165 H (70-105) mg/dL Calcium 9.4 (8.6-10.3) mg/dL Adrenal panel 01/30/18 Range/Units 05:45 Sodium 133 L (136-145) mEq/L Potassium 3.8 (3.5-5.1) mEq/L Chloride 95 L (98-107) mEq/L Carbon Dioxide 28 (23-29) mEq/L BUN 32 H (8-23) mg/dL Creatinine 0.95 (0.60-1.20) mg/dL Glucose 165 H (70-105) mg/dL Calcium 9.4 (8.6-10.3) mg/dL All other labs normal.
[2018-01-30] MEDS ORDERED: Polyethylene Glycol 3350 255 GM POWDER PO ONE (10:26)
--- NOTE | 2018-01-30 13:22 | Internal Med Progress Note ---
Date of Encounter: 01/30/18 Time of Encounter: 13:20 - Assessment and plan (1) Anemia Current Visit: Yes Status: Acute Assessment and plan: Hg 8.9. s/p 1 unit PRBCs 01/29. +FOBT. c/s gen surg. Hemodynamically stable. Iron studies noted consistent with anemia of chronic disease. Hold Pradaxa for now. Qualifiers: Anemia type: unspecified type Qualified Code(s): D64.9 - Anemia, unspecified (2) Acute exacerbation of CHF (congestive heart failure) Current Visit: Yes Status: Acute Assessment and plan: Likely an exacerbation of systolic heart failure. Last echo in September 2017 showed an EF 45%. No need to repeat. continue Lasix 40mg IV BID. Monitor I&O' s. Fluid restriction. O2 support and wean as tolerated. Qualifiers: Heart failure type: systolic Qualified Code(s): I50.23 - Acute on chronic systolic (congestive) heart failure (3) Elevated troponin I level Current Visit: Yes Status: Acute Assessment and plan: Likely demand ischemia. Initially elevated at 0.06 but is down to 0.03. No ischemic changes on EKG. Chest pain. (4) COPD exacerbation Current Visit: Yes Status: Acute Assessment and plan: Likely COPD exacerbation. Continue prednisone. Switch ceftriaxone IV to oral doxycycline for now. O2 support as needed. Wean down as tolerated. Continue nebs. (5) Hyponatremia Current Visit: Yes Status: Chronic Assessment and plan: Likely hypervolemic hyponatremia. This is improving with diuresis. We will continue to monitor. (6) Diabetes Current Visit: No Status: Chronic Assessment and plan: Glucose is elevated in the 200s. Patient is on steroids. Continue sliding scale and add 15 units of Levemir this morning. Qualifiers: Diabetes mellitus type: type 2 Diabetes mellitus mcc insulin use: without buttermaker continuous churn use Diabetes mellitus complication status: with unspecified complications Qualified Code(s): E11.8 - Type 2 diabetes mellitus with unspecified complications (7) Hyperlipidemia Current Visit: No Status: Chronic Assessment and plan: continue home dose of statin Qualifiers: Hyperlipidemia type: pure hypercholesterolemia Qualified Code(s): E78.00 - Pure hypercholesterolemia, unspecified; E78.0 - Pure hypercholesterolemia (8) Atrial fibrillation Current Visit: No Status: Chronic Assessment and plan: rate controlled with Amiodarone. Hold Pradaxa this morning given drop in her hemoglobin. Qualifiers: Atrial fibrillation type: chronic Qualified Code(s): I48.2 - Chronic atrial fibrillation (9) HTN (hypertension) Current Visit: No Status: Chronic Assessment and plan: BP within acceptable range continue home meds Qualifiers: Hypertension type: essential hypertension Qualified Code(s): I10 - Essential (primary) hypertension (10) Obesity (BMI 30-39.9) Current Visit: Yes Status: Chronic Assessment and plan: Counseled (11) DVT prophylaxis Current Visit: No Status: Acute Assessment and plan: SCDs - Time Spent With Patient Total time spent is greater than 50% in coordination of care (as documented) at patient's floor/unit and/or counseling patient: - Subjective Interval history: Patient was seen and examined. No acute events. s/p 1 unit PRBCs yesterday. Hgb up to 8.9 this am. + FOBT. She is admitted with CHF exacerbation, COPD exacerbation, and hyponatremia. Noted to have a hemoglobin of 7.4 on admission that has been slowly dropping. No signs of obvious bleeding. Patient remains on 2 L nasal cannula oxygen. Patient is on chronic 2 L at home. - Constitutional Vitals: Temp Pulse Resp BP Pulse Ox 97.7 F 61 18 134/60 97 01/30/18 11:03 01/30/18 11:03 01/30/18 11:03 01/30/18 11:03 01/30/18 11:03 General appearance: Present: A&O X 3, pleasant, no acute distress, answers questions appropriately Exam: GEN: NAD CVS: irregular. S1, S2, No m/r/g RESP: CTAB ABD: Soft, NT, ND, +BS EXT: No edema. 2+ DP. No rashes NEURO: Nonfocal Internal Medicine: Result - Labs CBC & Chem 7: 01/30/18 05:45 01/30/18 05:45 Labs: Short CBC 01/30/18 Range/Units 05:45 WBC 20.2 H (4.3-11.1) K/mcL Hgb 8.9 L D (11.5-15.4) g/dL Hct 27.5 L (35.3-44.9) % Plt Count 345 (140-400) K/mcL Neutrophils # 16.9 H (1.6-8.9) K/mcL BMP 04/14/18 05:45 Sodium 133 L Potassium 3.8 Chloride 95 L Carbon Dioxide 28 BUN 32 H Creatinine 0.95 Glucose 165 H Calcium 9.4 - ABG Interpretation ABG results: PT/INR, D-dimer PT 16.1 Seconds (9.4-12.1) H 01/28/18 00:09 - VTE Documentation of Mechanical Device: Graduated compression elastic hosiery Consult Discharge Plan - Plan Referrals: Casandra Evans MD [Primary Care Provider] -
[2018-01-30] MEDS: Acetaminophen 325 MG TABLET PO PRN (14:08)
[2018-01-30] MEDS: ALPRAZolam 0.25 MG TABLET PO PRN (15:52)
[2018-01-31] MEDS: ALPRAZolam 0.25 MG TABLET PO PRN (00:01)
[2018-01-31 04:51] LABS: Basophils % 0.1 %; Eosinophils % 0.1 %; Hematocrit 27.6 % (35.3-44.9); Hemoglobin 8.9 g/dL (11.5-15.4); Immature Granulocytes % 1.5 % (0-4); Lymphocytes # 2.3 K/mcL (0.6-4.6); Lymphocytes % 14.5 %; Mean Corpuscular HGB Conc 32.2 g/dL (31.6-35.5); Mean Corpuscular Hemoglobin 29.2 pg (28.0-33.3); Mean Corpuscular Volume 90.5 fL (83.0-100.0); Mean Platelet Volume 9.4 fL (9.4-12.4); Monocytes # 1.4 K/mcL (0.0-1.3); Nucleated Red Blood Cells 0.2 /100 WBC (0); Platelet Count 334 K/mcL (140-400); Red Blood Count 3.05 M/mcL (3.82-4.97); Red Cell Distribution Width 15.2 % (11.5-14.5); Segmented Neutrophils % 74.8 %
[2018-01-31 05:13] LABS: BUN/Creatinine Ratio 29 (6-26); Blood Urea Nitrogen 22 mg/dL (8-23); Carbon Dioxide 30 mEq/L (23-29); Chloride 94 mEq/L (98-107); Glucose 138 mg/dL (70-105); Magnesium 1.6 mg/dL (1.6-2.6); Osmolality,Calculated 280 (280-300); Potassium 3.3 mEq/L (3.5-5.1); Sodium 132 mEq/L (136-145); eGFR For African Americans > 60 (> 60); eGFR For Non-African Americans > 60 (> 60)
[2018-01-31] MEDS: Acetaminophen 325 MG TABLET PO PRN (05:28)
[2018-01-31] MEDS: Insulin LISPRO 300 UNITS/3 ML VIAL SQ SCH ×3 (07:25→16:21)
[2018-01-31] MEDS: Ipratropium/Albuterol Neb 3 ML IH PRN (07:32)
[2018-01-31] MEDS: Budesonide/Formoterol 160/4.5 MDI IH SCH ×2 (07:33→20:04)
[2018-01-31] MEDS: predniSONE 20 MG TABLET PO SCH (08:14)
[2018-01-31] MEDS: *HR* Amiodarone 200 MG TABLET PO SCH (08:14)
[2018-01-31] MEDS: Isosorbide MONOnitrate (24 HR) 30 MG TAB.ER.24H PO SCH (08:15)
[2018-01-31] MEDS: amLODIPine 5 MG TABLET PO SCH (08:15)
[2018-01-31] MEDS: Metoprolol XL (24 HR) Succ 50 MG TAB.ER.24H PO SCH (08:15)
[2018-01-31] MEDS: Doxycycline 100 MG CAPSULE PO SCH ×2 (08:15→20:59)
[2018-01-31] MEDS: Furosemide 40 MG/4 ML VIAL IVP SCH ×2 (08:15→19:17)
--- NOTE | 2018-01-31 08:25 | Internal Med Progress Note ---
Date of Encounter: 01/31/18 Time of Encounter: 08:22 - Assessment and plan (1) Anemia Current Visit: Yes Status: Acute Assessment and plan: Hg 8.9. s/p 1 unit PRBCs 01/29. +FOBT. General surgery to scope today. Hemodynamically stable. Iron studies noted consistent with anemia of chronic disease. Hold Pradaxa for now. Qualifiers: Anemia type: unspecified type Qualified Code(s): D64.9 - Anemia, unspecified (2) Acute exacerbation of CHF (congestive heart failure) Current Visit: Yes Status: Acute Assessment and plan: Likely an exacerbation of systolic heart failure. Last echo in September 2017 showed an EF 45%. No need to repeat. continue Lasix 40mg IV BID. Monitor I&O' s. Unlikely to be accurate I&O as she is net positive 745 cc despite significant diuresis. Fluid restriction. O2 support and wean as tolerated. Qualifiers: Heart failure type: systolic Qualified Code(s): I50.23 - Acute on chronic systolic (congestive) heart failure (3) Elevated troponin I level Current Visit: Yes Status: Acute Assessment and plan: Likely demand ischemia. Initially elevated at 0.06 but is down to 0.03. No ischemic changes on EKG. Chest pain. (4) COPD exacerbation Current Visit: Yes Status: Acute Assessment and plan: Likely COPD exacerbation. Continue prednisone. Switched ceftriaxone IV to oral doxycycline. stop abx after today. O2 support as needed. Wean down as tolerated. Continue nebs. (5) Hyponatremia Current Visit: Yes Status: Chronic Assessment and plan: Likely hypervolemic hyponatremia. This is improving with diuresis. We will continue to monitor. (6) Diabetes Current Visit: No Status: Chronic Assessment and plan: Glucose is bettr. 138 on BMP this morning. Continue sliding scale and add 15 units of Levemir this morning. 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 Hold Pradaxa this morning given drop in her hemoglobin. Qualifiers: Atrial fibrillation type: chronic Qualified Code(s): I48.2 - Chronic atrial fibrillation (9) HTN (hypertension) Current Visit: No Status: Chronic Assessment and plan: BP within acceptable range continue home meds Qualifiers: Hypertension type: essential hypertension Qualified Code(s): I10 - Essential (primary) hypertension (10) Obesity (BMI 30-39.9) Current Visit: Yes Status: Chronic Assessment and plan: Counseled (11) DVT prophylaxis Current Visit: No Status: Acute Assessment and plan: SCDs - Time Spent With Patient Total time spent is greater than 50% in coordination of care (as documented) at patient's floor/unit and/or counseling patient: - Subjective Interval history: Patient was seen and examined. No acute events. s/p 1 unit PRBCs /. H/H remains stable. + FOBT. seen by general surg with plans for scopes today. She is admitted with CHF exacerbation, COPD exacerbation, and hyponatremia. Noted to have a hemoglobin of 7.4 on admission that has been slowly dropping. No signs of obvious bleeding. Patient remains on 2 L nasal cannula oxygen. Patient is on chronic 2 L at home. - Constitutional Vitals: Temp Pulse Resp BP Pulse Ox 98.1 F 61 17 159/75 98 01/31/18 07:16 01/31/18 07:16 01/31/18 07:16 01/31/18 07:16 01/31/18 07:16 General appearance: Present: A&O X 3, pleasant, no acute distress, answers questions appropriately Exam: GEN: NAD CVS: irregular. S1, S2, No m/r/g RESP: CTAB ABD: Soft, NT, ND, +BS EXT: No edema. 2+ DP. No rashes NEURO: Nonfocal Internal Medicine: Result - Labs CBC & Chem 7: 01/31/18 04:39 01/31/18 04:39 Labs: Short CBC 01/31/18 Range/Units 04:39 WBC 16.0 H (4.3-11.1) K/mcL Hgb 8.9 L (11.5-15.4) g/dL Hct 27.6 L (35.3-44.9) % Plt Count 334 (140-400) K/mcL Neutrophils # 12.0 H (1.6-8.9) K/mcL BMP 01/31/18 04:39 Sodium 132 L Potassium 3.3 L Chloride 94 L Carbon Dioxide 30 H BUN 22 Creatinine 0.77 Glucose 138 H Calcium 9.0 - ABG Interpretation ABG results: PT/INR, D-dimer PT 16.1 Seconds (9.4-12.1) H 01/28/18 00:09 - VTE Documentation of Mechanical Device: Intermittent pneumatic compression device Consult Discharge Plan - Plan Referrals: Casandra Evans MD [Primary Care Provider] -
[2018-01-31] MEDS ORDERED: Potassium Chloride 40 MEQ, Lidocaine 1% 2 ML in D5% in Water 500 ML IVPB ONE (08:26)
[2018-01-31] MEDS ORDERED: Magnesium Oxide 400 MG TABLET PO ONE (08:27)
--- NOTE | 2018-01-31 14:03 | Anesthesia Evaluation PreOp ---
Date of Encounter: 01/31/18 Time of Encounter: 14:01 - Past History Planned Operation: EGD/Colonoscopy Cardiac History: CHF, HTN, Hyperlipidemia, Arrhythmia (AF), Cardiac Surgery ( AVR within 2 years), Pacemaker/ICD (Interogated 01/31/2018 - Pacer dependent), Other (Hx) Pulmonary History: Former smoker, Asthma, COPD ACADEMIC INTERN History: Denies Any Significant HX, Other (D/A) Other Medical History: Denies Any Significant HX : No Alcohol Use: none Drug use: none Medications and Allergies Furosemide [Lasix] 40 mg PO BID 10/13/16 [History] Ipratropium/Albuterol Neb [Duoneb] 3 ml PO Q4H PRN 10/13/16 [History] Amlodipine Besylate 10 mg PO DAILY 01/19/17 [History] Fluticasone/Salmeterol [Advair 500-50 Diskus] 1 each IH BID 01/19/17 [History] Loratadine [Allergy Relief] 10 mg PO DAILY PRN 01/19/17 [History] Amiodarone [Cordarone] 200 mg PO DAILY 10/04/17 [History] Lisinopril [Zestril] 5 mg PO DAILY 10/04/17 [History] Atorvastatin [Lipitor] 40 mg PO HS #90 tablet 10/07/17 [Rx] Isosorbide MONOnitrate (24 HR) [Imdur] 30 mg PO DAILY #30 tab.er.24h 10/07/17 [ Rx] Acetaminophen 650 mg PO Q8H PRN 01/27/18 [History] Dabigatran Etexilate Mesylate [Pradaxa] 110 mg PO BID 01/27/18 [History] Fluticasone/Vilanterol [Breo Ellipta 200-25 Mcg INH] 1 each IH DAILY 01/27/18 [ History] Metoprolol Succinate [Toprol Xl] 100 mg PO DAILY 01/27/18 [History] predniSONE [PredniSONE] 10 mg PO DAILY #3 tablet 02/01/18 [Rx] 3 Allergy/AdvReac Type Severity Reaction Status Date / Time No Known Allergies Allergy Verified 01/20/18 09:48 - Meds/Allergy Pre-op Review Medications Reviewed: Yes Allergies Reviewed: Yes Beta Blockers on Current Med List: Yes If Beta Blockers taken, Date/Time (Last Dose taken): 08:15 on 01/31/18 Anesthesia Results - Labs 02/01/18 04:47 02/01/18 04:47 Date of Study: 10/05/2017 alve History Hypertension Diabetes Hypercholesteremia Family History of CAD Pacer/ICD Implant Valvular Disease Valve Replacement AV Prosthesis Biologic 01/05/17 a Previous Echo was performed. EV/EV echocardiogram Impressions: LVEF 45%. Mild concentric left ventricular hypertrophy. Atypical septal motion consistent with paced rhythm. Normal right ventricular structure and function. Bioprosthetic aortic valve appears well seated. Leaflets not well visualized. No aortic regurgitation. No aortic stenosis. Mean gradient 12 mmHg. Moderate mitral stenosis. Mean gradient 7 mmHg. Mild tricuspid regurgitation. Moderate pulmonary hypertension. Estimated RVSP is 50 mmHg. A device lead was visualized in the right atrium and right ventricle. Anesthesia Exam O2 Sat Weight 75.863 kg O2 Sat by Pulse Oximetry 97 O2 Sat by Pulse Oximetry 100 O2 Sat by Pulse Oximetry 95 O2 Sat by Pulse Oximetry 98 O2 Sat by Pulse Oximetry 98 O2 Sat by Pulse Oximetry 98 O2 Sat by Pulse Oximetry 91 O2 Sat by Pulse Oximetry 97 O2 Sat by Pulse Oximetry 98 O2 Sat by Pulse Oximetry 99 Vital Signs Temp Pulse Resp BP Pulse Ox 97.7 F 61 16 121/62 95 01/27/18 16:11 01/27/18 16:11 01/27/18 16:11 01/27/18 16:11 01/27/18 16:11 Vital Signs/O2 Sat, Most Current Temp Pulse Resp BP Pulse Ox 97.9 F 66 18 144/57 97 01/31/18 11:27 01/31/18 15:54 01/31/18 15:54 01/31/18 15:54 01/31/18 15:54 NPO (# of Hours): > 8 hrs Pain Scale: 0 Pain Scale Used: Numeric (1 - 10) - HEENT Pupil (Motor): Pupils equal, EOMI Mallampati: II Teeth: Edentulous Oral Opening: Greater than 3 - ACADEMIC INTERN LOC: Oriented ACADEMIC INTERN Motor: Normal RUE, Normal LUE, Normal RLE, Normal LLE, Normal Face ACADEMIC INTERN Sensory: Normal: RUE, LUE, RLE, LLE, Face - Cardiac Rhythm: Regular Murmur: None JVD: No Carotid Bruit: No - Pulmonary Breath Sounds: bilateral Clear Respiratory Effort: Symmetrical Anesthesia Assess/Plan ASA Score: 3, 4 Modified [place] Scale for Level of Consciousness: Cooperative, oriented, and tranquil Anesthetic Plan: MAC Autologous Blood: Yes Monitoring Plan: Standard Monitors Recovery Plan: Other
[2018-01-31] MEDS ORDERED: Propofol 500 MG/50 ML INFUS..BTL ONE (17:23)
[2018-01-31] MEDS ORDERED: Lidocaine -MPF 2% 2 ML VIAL ONE (17:24)
[2018-01-31] MEDS ORDERED: Dexamethasone 4 MG/ML VIAL ONE (17:24)
[2018-01-31] MEDS ORDERED: Ondansetron 4 MG/2 ML VIAL ONE (17:24)
[2018-01-31] MEDS ORDERED: *HR* Midazolam HCl 2 MG/2 ML VIAL ONE (17:26)
--- NOTE | 2018-01-31 18:44 | Event Note ---
Date of Encounter: 01/31/18 Time of Encounter: 18:43 EGD ; small sliding hiatal hernia, no gastritis or ulcers, no signs of bleeding colonoscopy: diverticulosis, anal papilla and internal hemorrhoids, liquid in colon was black with lots of small food particles, no signs of obvious bleeding recommend GI consult for capsule endoscopy, likely as outpatient
[2018-01-31] MEDS ORDERED: Ipratropium/Albuterol Neb 3 ML IH PRN (19:05)
[2018-01-31] MEDS ORDERED: Loratadine 10 MG TABLET PO PRN (19:05)
[2018-01-31] MEDS ORDERED: ALPRAZolam 0.25 MG TABLET PO PRN (19:05)
[2018-01-31] MEDS ORDERED: Acetaminophen 325 MG TABLET PO PRN (19:05)
[2018-01-31] MEDS ORDERED: D5% in Water 1,000 ML IVC PRN (19:05)
[2018-01-31] MEDS ORDERED: Nitroglycerin 0.4 MG TAB.SUBL SL PRN (19:05)
[2018-01-31] MEDS ORDERED: Dextrose Gel 15 GM/37.5 ML TUBE PO PRN ×2 (19:05)
[2018-01-31] MEDS ORDERED: Naloxone 0.4 MG/ML INJ IVP PRN (19:05)
[2018-01-31] MEDS ORDERED: *HR* Dextrose 50 % in Water (Syg) 50 ML SYRINGE IVP PRN (19:05)
--- NOTE | 2018-01-31 19:12 | Anesthesia Evaluation Post Op ---
Date of Encounter: 01/31/18 Time of Encounter: 19:12 - Vital Signs Vital Signs: Vital Signs/O2 Sat, Most Current Temp Pulse Resp BP Pulse Ox 97.9 F 66 18 144/57 97 01/31/18 11:27 01/31/18 15:54 01/31/18 15:54 01/31/18 15:54 01/31/18 15:54 - Lungs Lungs: Clear Ascult./Percussion - Airway Airway: Non-obstructed - Cardiovascular Regular Rate - Mental Status Mental Status: Alert & Oriented, Answers Appropriately - Pain Pain Scale: 0 Pain Scale used: Numeric (1 - 10) - Nausea Vomiting Nausea Vomiting: Not Present - Hydration Hydration: NPO, Has not voided - Discharge PostOp Status: Transfer Patient to floor
[2018-01-31] MEDS ORDERED: Furosemide 40 MG/4 ML VIAL ONE (19:15)
[2018-01-31] MEDS ORDERED: Insulin LISPRO 300 UNITS/3 ML VIAL SQ SCH (21:00)
[2018-02-01 05:17] LABS: Basophils % 0.1 %; Hemoglobin 8.9 g/dL (11.5-15.4); Immature Granulocytes % 1.6 % (0-4); Lymphocytes # 0.9 K/mcL (0.6-4.6); Mean Corpuscular HGB Conc 31.8 g/dL (31.6-35.5); Mean Corpuscular Hemoglobin 29.2 pg (28.0-33.3); Mean Corpuscular Volume 91.8 fL (83.0-100.0); Mean Platelet Volume 9.4 fL (9.4-12.4); Monocytes # 0.4 K/mcL (0.0-1.3); Monocytes % 4.3 %; Neutrophils # 7.9 K/mcL (1.6-8.9); Nucleated Red Blood Cells 0.3 /100 WBC (0); Platelet Count 321 K/mcL (140-400); Red Blood Count 3.05 M/mcL (3.82-4.97); Red Cell Distribution Width 16.1 % (11.5-14.5)
[2018-02-01 05:34] LABS: BUN/Creatinine Ratio 23 (6-26); Blood Urea Nitrogen 23 mg/dL (8-23); Carbon Dioxide 32 mEq/L (23-29); Chloride 95 mEq/L (98-107); Glucose 204 mg/dL (70-105); Osmolality,Calculated 286 (280-300); Potassium 3.9 mEq/L (3.5-5.1); Sodium 133 mEq/L (136-145); eGFR For African Americans > 60 (> 60); eGFR For Non-African Americans 53 (> 60)
[2018-02-01] MEDS: Budesonide/Formoterol 160/4.5 MDI IH SCH (07:27)
[2018-02-01] MEDS: Doxycycline 100 MG CAPSULE PO SCH (07:36)
[2018-02-01] MEDS: Furosemide 40 MG/4 ML VIAL IVP SCH ×2 (07:37→10:13)
[2018-02-01] MEDS: Insulin LISPRO 300 UNITS/3 ML VIAL SQ SCH ×2 (07:38→11:10)
--- NOTE | 2018-02-01 08:58 | Discharge Summary ---
- NOTES TO OUTPATIENT PROVIDER Notes to Outpatient Provider: Patient is on Pradaxa and had low H/H. We held her pradaxa and she needed transfusion. No bleed seen on EGD/colonoscopy. H/H was stable for last 3 days. We had the dilemma of restarting her pradaxa or not. She has a recent TAVR, h/o afib, diabetes, CHF, HTN. Due to all these risk factors, I have elected to restart pradaxa and have an H/H recheck in 3 days. If she continues to drop H/H, she will need to have a discussion about ?? stopping anticoagulation Orders not resulted at time of discharge: Pending orders 01/27/18 23:38 Culture,Blood [BC] Routine Culture,Blood,Additional [BC] Routine 01/28/18 08:28 Occult Blood,Stool [BF] Stat Date of Encounter: 02/01/18 Time of Encounter: 08:54 - Discharge Diagnosis (1) Anemia Priority: Primary Status: Acute Qualifiers: Anemia type: unspecified type Qualified Code(s): D64.9 - Anemia, unspecified (2) Acute exacerbation of CHF (congestive heart failure) Priority: Primary Status: Acute Qualifiers: Heart failure type: systolic Qualified Code(s): I50.23 - Acute on chronic systolic (congestive) heart failure (3) Elevated troponin I level Priority: Primary Status: Acute (4) COPD exacerbation Priority: Primary Status: Acute (5) Hyponatremia Priority: Primary Status: Chronic (6) Diabetes Priority: Secondary Status: Chronic Qualifiers: Diabetes mellitus type: type 2 Diabetes mellitus halfway insulin use: without manager intermediate use Diabetes mellitus complication status: with unspecified complications Qualified Code(s): E11.8 - Type 2 diabetes mellitus with unspecified complications (7) Hyperlipidemia Priority: Secondary Status: Chronic Qualifiers: Hyperlipidemia type: pure hypercholesterolemia Qualified Code(s): E78.00 - Pure hypercholesterolemia, unspecified; E78.0 - Pure hypercholesterolemia (8) Atrial fibrillation Priority: Secondary Status: Chronic Qualifiers: Atrial fibrillation type: chronic Qualified Code(s): I48.2 - Chronic atrial fibrillation (9) HTN (hypertension) Priority: Secondary Status: Chronic Qualifiers: Hypertension type: essential hypertension Qualified Code(s): I10 - Essential (primary) hypertension (10) Obesity (BMI 30-39.9) Priority: Secondary Status: Chronic Hospital course: Ms. Esteves is a 77 year old female female who has a background history of diabetes, hypertension, COPD, atrial fibrillation, systolic congestive heart failure, TAVR, insertion of AICD/pacemaker. She has been experiencing progressive shortness of breath with a worsening cough along with change in the color of sputum and bilateral lower extremity worsening edema. In the ED, She was noted that patient's hemoglobin is 7.4 with previous hemoglobin back in 2017 at 10.5. No signs of active bleeding but + FOBT. Hemoglobin dropped to 6.7 and she receieved 1 units PRBCs with more than adequate response in H/H. BNP is 557. She was seen by general surgery and EGD and colonoscopy did not show an active bleed but showed some gastritis/divericulosis/internal hemorrhoids. The patient was on Pradaxa which we held while she was here. Eventually we restarted Pradax as she has multiple risk factors including afib, TAVR, CHF, HTN, DM. The patient had mild vascular congestion and was wheezing as well. She was treated for COPD exacerbation and was diuresed. She was weaned down to previous O2 needs and was dicharged on 02/01. She needs to be referred to GI for a video capsule study. Trops initially were .06 but went down to .03. No chest pain and no acute EKG changes. She was discharged to finish a prednisone taper which we started here and she was down to 20 mg at discharge. - Time Spent with Patient Total time spent providing and/or coordinating discharge services: Greater than 30 minutes - Discharge Medications Prescriptions: predniSONE [PredniSONE] 10 mg PO DAILY #3 tablet Home Medications: Furosemide [Lasix] 40 mg PO BID 10/13/16 [History] Ipratropium/Albuterol Neb [Duoneb] 3 ml PO Q4H PRN 10/13/16 [History] Amlodipine Besylate 10 mg PO DAILY 01/19/17 [History] Fluticasone/Salmeterol [Advair 500-50 Diskus] 1 each IH BID 01/19/17 [History] Loratadine [Allergy Relief] 10 mg PO DAILY PRN 01/19/17 [History] Amiodarone [Cordarone] 200 mg PO DAILY 10/04/17 [History] Lisinopril [Zestril] 5 mg PO DAILY 10/04/17 [History] Atorvastatin [Lipitor] 40 mg PO HS #90 tablet 10/07/17 [Rx] Isosorbide MONOnitrate (24 HR) [Imdur] 30 mg PO DAILY #30 tab.er.24h 10/07/17 [ Rx] Acetaminophen 650 mg PO Q8H PRN 01/27/18 [History] Dabigatran Etexilate Mesylate [Pradaxa] 110 mg PO BID 01/27/18 [History] Fluticasone/Vilanterol [Breo Ellipta 200-25 Mcg INH] 1 each IH DAILY 01/27/18 [ History] Metoprolol Succinate [Toprol Xl] 100 mg PO DAILY 01/27/18 [History] predniSONE [PredniSONE] 10 mg PO DAILY #3 tablet 02/01/18 [Rx] Allergies/Adverse Reactions: 3 Allergy/AdvReac Type Severity Reaction Status Date / Time No Known Allergies Allergy Verified 01/20/18 09:48 Date of admission: 01/27/18 23:30 Primary care physician: Casandra Evans MD Consults: 01/29/18 09:02 Consult to Occupational Therapy [CONS] Routine Comment: Evaluate, develop and implement POC Reason for Consult: therapy/placement needs Does patient have active BEDREST order?: No Is patient medically & hemodynamically stable?: Yes Consult to Physical Therapy [CONS] Routine Comment: Evaluate, develop and implement POC Reason for Consult: PT eval Does patient have active BEDREST order?: No Is patient medically & hemodynamically stable?: Yes 01/30/18 08:08 Consult to Surgery [CONS] Routine Consulting Provider: [facility] Reason for Consult: GI bleed Call Completed: Yes - Constitutional Vitals: Temp Pulse Resp BP Pulse Ox 97.9 F 61 16 140/70 99 02/01/18 06:46 02/01/18 06:46 02/01/18 06:46 02/01/18 06:46 02/01/18 08:25 General appearance: Present: A&O X 3, pleasant, no acute distress, answers questions appropriately - Patient Status Disposition: Home, Self-Care Condition: Fair Overall status at discharge: patient is progressing back to baseline - Ambulatory Orders Ambulatory Orders: Complete Blood Count w/o Diff [HEME] Time Frame: 02/04/18, Facility: [facility], Location: Lab - Discharge Instructions Instructions: Prednisone (By mouth), Heart Failure (DC) Follow Up With: Srini Pal CNP [Advanced Practice Nurse] - 02/05/18 10:30 am (Please follow up as schedule...) Casandra Evans MD [Primary Care Provider] - 02/08/18 9:00 am (Please follow up as schedule...) Additional Instructions: check labs on 02/04 - Diet and Activity Activity: increase activity as tolerated Diet: diabetic diet, low salt diet - VTE Documentation of Mechanical Device: Intermittent pneumatic compression device
[2018-02-01] MEDS ORDERED: Metoprolol XL (24 HR) Succ 50 MG TAB.ER.24H PO SCH (09:00)
[2018-02-01] MEDS ORDERED: *HR* Amiodarone 200 MG TABLET PO SCH (09:00)
[2018-02-01] MEDS ORDERED: predniSONE 20 MG TABLET PO SCH (09:00)
[2018-02-01] MEDS ORDERED: amLODIPine 5 MG TABLET PO SCH (09:00)
[2018-02-01] MEDS ORDERED: Isosorbide MONOnitrate (24 HR) 30 MG TAB.ER.24H PO SCH (09:00)
[2018-02-01 10:20] VITALS: BP 123/63
== END 2018-02-01 13:15 | disposition home or self-care (01) | DRG 292 ==
LOC: 2ANU 16:10 → EMEROO 16:10 → 2ANU 19:58
PROVIDERS: ADMIT Pediatrics; ATTEND Internal Medicine

== ENCOUNTER 2018-03-24 16:34 | Observation (INO) ==
[2018-03-24 17:43] LABS: Basophils % 0.3 %; Eosinophils # 0.5 K/mcL (0.0-0.6); Eosinophils % 4.8 %; Hematocrit 33.8 % (35.3-44.9); Hemoglobin 11.6 g/dL (11.5-15.4); Immature Granulocytes % 0.4 % (0-4); Lymphocytes # 1.4 K/mcL (0.6-4.6); Lymphocytes % 14.8 %; Mean Corpuscular HGB Conc 34.3 g/dL (31.6-35.5); Mean Corpuscular Volume 87.3 fL (83.0-100.0); Mean Platelet Volume 9.7 fL (9.4-12.4); Monocytes # 0.9 K/mcL (0.0-1.3); Monocytes % 9.4 %; Neutrophils # 6.6 K/mcL (1.6-8.9); Platelet Count 246 K/mcL (140-400); Red Blood Count 3.87 M/mcL (3.82-4.97); Red Cell Distribution Width 15.9 % (11.5-14.5); Segmented Neutrophils % 70.3 %
[2018-03-24 17:49] LABS: Alanine Aminotransferase 70 Units/L (7-52); Albumin 4.2 g/dL (3.5-5.7); Albumin/Globulin Ratio 1.4 (1.1-2.2); Alkaline Phosphatase 93 Units/L (34-104); Aspartate Amino Transferase 49 Units/L (13-39); BUN/Creatinine Ratio 25 (6-26); Bilirubin,Total 0.5 mg/dL (0.3-1.0); Blood Urea Nitrogen 25 mg/dL (8-23); Calcium 9.5 mg/dL (8.6-10.3); Carbon Dioxide 27 mEq/L (23-29); Chloride 88 mEq/L (98-107); Globulin 3.1 g/dL (2.4-3.5); Glucose 119 mg/dL (70-105); Osmolality,Calculated 264 (280-300); Potassium 4.8 mEq/L (3.5-5.1); Sodium 124 mEq/L (136-145); Total Protein 7.3 g/dL (6.4-8.9); eGFR For African Americans > 60 (> 60); eGFR For Non-African Americans 53 (> 60)
[2018-03-24] MEDS ORDERED: Furosemide 40 MG/4 ML VIAL IVP ONE (18:19)
[2018-03-24] MEDS ORDERED: Isovue-370 500 ML INFUS..BTL IV ONE (18:19)
--- NOTE | 2018-03-24 18:25 | Emergency Department Note ---
Disposition Clinical Impression: Lower extremity edema, Acute exacerbation of CHF (congestive heart failure) Disposition: Still a Patient Condition: Fair Referrals: Casandra Evans MD [Primary Care Provider] - Forms: ED Satisfaction Letter Extremity Problem HPI - General Chief complaint: ED Extremity Problem,Nontraumatic Stated complaint: BLE swelling & redness/r/o CHF & cellulitis Source: patient Limitations: no limitations Nursing Notes Reviewed: Yes Vital Signs Reviewed: Yes - History of Present Illness HPI Narrative: 77yo female with PMH DVT, A.fib, CHF, COPD, TAVR presented to the ED complaining of lower extremity swelling and increased shortness of breath for about a week. She has been compliant with her Lasix and all medications. She reports that her primary care physician started her on Aldactone over the weekend. She was at the cancer clinic today when her physician recommended she could to the ED due to her lower extremity leg swelling and warmth. She was also given hydrocortisone cream due to a little redness on her lower extremities which actually worsened the redness. She denies chest pain, fever, chills, syncope, abdominal pain, immobilization, trauma, long travels, leg pain. She reports she has been compliant with her Pradaxa and has not missed doses. Of note, she had her aortic valve replaced in March 2017 for which was started on Eliquis, however it was changed to Xarelto due to the miranda. She reports she missed a couple doses and in October 2017 was diagnosed with bilateral lower extremity DVT's and was switched to Pradaxa. She notes that when she had the bilateral DVT's her lower extremities were very painful however they are not at this time. She was last admitted in January 2018 for CHF exacerbation. Her dry weight is 163-165 and her current weight is 173. Pain Scale: 0 - Related Data Home Medications Medication Instructions Recorded Confirmed Furosemide [Lasix] 40 mg PO BID 10/13/16 03/24/18 Ipratropium/Albuterol Neb [Duoneb] 3 ml PO Q4H PRN 10/13/16 03/24/18 Amlodipine Besylate 10 mg PO DAILY 01/19/17 03/24/18 Fluticasone/Salmeterol [Advair 1 each IH BID 01/19/17 03/24/18 500-50 Diskus] Amiodarone [Cordarone] 200 mg PO DAILY 10/04/17 03/24/18 Lisinopril [Zestril] 2.5 mg PO DAILY 10/04/17 03/24/18 Dabigatran Etexilate Mesylate 110 mg PO BID 01/27/18 03/24/18 [Pradaxa] Fluticasone/Vilanterol [Breo 1 each IH DAILY 01/27/18 03/24/18 Ellipta 200-25 Mcg INH] Metoprolol Succinate [Toprol Xl] 100 mg PO DAILY 01/27/18 03/24/18 ALPRAZolam [Xanax 0.25 MG Tablet] 0.25 mg PO DAILY 03/24/18 03/24/18 Betamethasone Dipropionate 1 appl TP DAILY 03/24/18 03/24/18 Spironolactone [Aldactone] 5 mg PO TID 03/24/18 03/24/18 Previous Rx's Medication Instructions Recorded Atorvastatin [Lipitor] 40 mg PO HS #90 tablet 10/07/17 Isosorbide MONOnitrate (24 HR) 30 mg PO DAILY #30 tab.er.24h 10/07/17 [Imdur] Ferrous Sulfate [Iron] 325 mg PO DAILY #30 capsule.er 03/24/18 Allergies Allergy/AdvReac Type Severity Reaction Status Date / Time No Known Allergies Allergy Verified 03/24/18 15:42 All systems ED: reviewed and negative except as stated. Review of Systems: As Per HPI Constitutional: Denies: fever, chills Cardiovascular: Reports: edema. Denies: chest pain, syncope Respiratory: Reports: dyspnea. Denies: cough, wheezes, hemoptysis Gastrointestinal: Denies: abdominal pain, nausea, vomiting Genitourinary: Denies: urgency Musculoskeletal: Denies: back pain Integumentary: Reports: rash Neurological: Denies: headache Past Medical History - Past Medical History Attestation: Yes The following information was validated with the patient. Source: patient, obtained from family Medical history: Reports: asthma, atrial fibrillation, CHF, COPD, diabetes, hyperlipidemia, hypertension, other Surgical history: Reports: heart valve replacement, hysterectomy, pacemaker Psychiatric history: Reports: anxiety, depression - Social History Smoking Status: Former smoker Smokeless Tobacco Status: No Alcohol use: Reports: none Drug use: Reports: none Physical Exam - General Limitations: no limitations General appearance: alert - Head Head exam: atraumatic, normocephalic - Eye Eye exam: Present: normal appearance - ENT ENT exam: mucous membranes moist - Chest Chest inspection: Present: normal inspection - Respiratory Respiratory exam: Present: normal lung sounds bilaterally. Absent: wheezes - Cardiovascular Cardiovascular exam: Present: regular rate, normal rhythm, clicks - Abdominal Exam Abdominal exam: Present: soft, Non-Tender, normal bowel sounds - Expanded Lower Extremity Exam Lower leg exam: Present: swelling, erythema. Absent: tenderness - Neurological Exam Neurological exam: Present: alert, oriented X3 - Psychiatric Psychiatric exam: Present: normal affect, normal mood - Skin Skin exam: Present: dry, intact Course Course Narrative: 77yo female with PMH DVT, A.fib, CHF, COPD, TAVR presented to the ED complaining of lower extremity swelling and increased shortness of breath for about a week. Her PCP had added Aldactone over the weekend however she was at the cancer clinic today and her physician recommended that she go to the ED due to her by bilateral lower extremity leg swelling and warmth. She reports she has been compliant with her Pradaxa and her other home medications. On the differential is DVT, PE, CHF exacerbation, cellulitis. Her CXR demonstrated cardio medley and pulmonary vascular congestion however it looks improved from prior CXR. Currently ordered a CBC, CMP, BNP, EKG, troponin, CTA chest, bilateral lower extremity ultrasound. She has been given a dose of Lasix 40 mg. - Reevaluation(s) Reevaluation #1: Patient and family informed of chronic right DVT lower extremity and no DVT and left lower extremity. Labs demonstrate hyponatremia that is likely hypervolemic hyponatremia secondary to CHF. BNP is improved compared to prior visits. CTA done just awaiting results. Time: 20:00 Vital Signs Temperature 97.9 F 03/24/18 16:39 Pulse Rate 63 03/24/18 16:39 Respiratory Rate 20 03/24/18 16:39 Blood Pressure 128/62 03/24/18 16:39 O2 Sat by Pulse Oximetry 95 03/24/18 16:39 Temperature 97.9 F 03/24/18 16:39 Pulse Rate 65 03/24/18 20:58 Respiratory Rate 16 03/24/18 20:58 Blood Pressure 134/78 03/24/18 20:58 O2 Sat by Pulse Oximetry 98 03/24/18 20:58 Oxygen Delivery Oxygen Delivery Nasal Cannula Extremity Problem, Nontraumati - MDM Narrative Medical decision making narrative: 77yo female with PMH DVT, A.fib, CHF, COPD, TAVR presented to the ED complaining of lower extremity swelling and increased shortness of breath for about a week. She has been compliant with her Lasix and all medications. She reports that her primary care physician started her on Aldactone over the weekend. She was also given hydrocortisone cream due to a little redness on her lower extremities which actually worsened the redness. She denies chest pain, fever, chills, syncope, abdominal pain, immobilization, trauma, long travels, leg pain. She reports she has been compliant with her Pradaxa and has not missed doses. Of note, she had her aortic valve replaced in March 2017 for which was started on Eliquis, however it was changed to Xarelto due to the miranda. She reports she missed a couple doses and in October 2017 was diagnosed with bilateral lower extremity DVT's and was switched to Pradaxa. She notes that when she had the bilateral DVT's her lower extremities were very painful however they are not at this time. Her dry weight is 163-165 and her current weight is 173. CXR demonstrated cardiomedley and pulmonary congestion. Due to concerns for DVT and PE since the patient has developed clots on anticoagulation a lower extremity Doppler ultrasound and CTA were ordered. Lower extremity ultrasound demonstrated chronic rights DVT and no left lower DVT. The bilateral lower extremities are 2+ pitting edema that are nontender. BMP demonstrated hypervolemic hyponatremia likely secondary to CHF. BNP was improved from prior visits. The patient was given 40 mg IV Lasix. The patient is to be admitted for CHF exacerbation. The patient and family at bedside are agreeable to admission and stated a clear understanding of the plan. CTA negative for PE or other acute surgical pathology. - Medical Records Medical records reviewed: Yes I reviewed the patient's medical records. - Lab Data Lab results reviewed: Yes I reviewed the patient's lab results. Result diagrams: 03/24/18 17:11 03/24/18 17:11 Lab Results 03/24/18 03/24/18 03/24/18 Range/Units 17:08 17:11 17:11 WBC 9.4 (4.3-11.1) K/mcL RBC 3.87 (3.82-4.97) M/mcL Hgb 11.6 (11.5-15.4) g/dL Hct 33.8 L (35.3-44.9) % MCV 87.3 (83.0-100.0) fL MCH 30.0 (28.0-33.3) pg MCHC 34.3 (31.6-35.5) g/dL RDW 15.9 H (11.5-14.5) % Plt Count 246 (140-400) K/mcL MPV 9.7 (9.4-12.4) fL Immature Gran % 0.4 (0-4) % Seg Neutrophils % 70.3 % Lymphocytes % 14.8 % Monocytes % 9.4 % Eosinophils % 4.8 % Basophils % 0.3 % Neutrophils # 6.6 (1.6-8.9) K/mcL Lymphocytes # 1.4 (0.6-4.6) K/mcL Monocytes # 0.9 (0.0-1.3) K/mcL Eosinophils # 0.5 (0.0-0.6) K/mcL Basophils # 0.0 (0.0-0.2) K/mcL Sodium 124 L (136-145) mEq/L Potassium 4.8 (3.5-5.1) mEq/L Chloride 88 L (98-107) mEq/L Carbon Dioxide 27 (23-29) mEq/L BUN 25 H (8-23) mg/dL Creatinine 1.02 (0.60-1.20) mg/dL Est GFR ( Amer) > 60 (> 60) Est GFR (Non-Af Amer) 53 L (> 60) BUN/Creatinine Ratio 25 (6-26) Glucose 119 H (70-105) mg/dL Calculated Osmolality 264 L (280-300) Calcium 9.5 (8.6-10.3) mg/dL Total Bilirubin 0.5 (0.3-1.0) mg/dL AST 49 H (13-39) Units/L ALT 70 H (7-52) Units/L Alkaline Phosphatase 93 (34-104) Units/L Troponin I < 0.03 (< 0.04) ng/mL B-Natriuretic Peptide 166 H (Less than 100) pg/mL Serum Total Protein 7.3 (6.4-8.9) g/dL Albumin 4.2 (3.5-5.7) g/dL Globulin 3.1 (2.4-3.5) g/dL Albumin/Globulin Ratio 1.4 (1.1-2.2) - Radiology Data Radiology results reviewed: Yes I reviewed the patient's radiology results. - EKG Data EKG attestation: Yes I reviewed and interpreted this EKG. EKG results narrative: EKG demonstrated HR 60, left axis deviation, ventricular paced, no ST or T wave changes. No ischemia noted. EKG shows normal: sinus rhythm Rhythm: NSR [place]/QRS: left axis deviation
[2018-03-24 18:29] LABS: Troponin I < 0.03 ng/mL (< 0.04)
[2018-03-24] MEDS ORDERED: Ipratropium/Albuterol Neb 3 ML IH ONE (18:35)
--- NOTE | 2018-03-24 20:21 | Emergency Department Note ---
Disposition Clinical Impression: Lower extremity edema, Acute exacerbation of CHF (congestive heart failure) Disposition: Still a Patient Condition: Fair Referrals: Casandra Evans MD [Primary Care Provider] - Forms: ED Satisfaction Letter Time of Disposition: 20:21 General Adult HPI - General Chief complaint: ED Extremity Problem,Nontraumatic Stated complaint: BLE swelling & redness/r/o CHF & cellulitis Time Seen by Provider: 03/24/18 17:28 Source: patient Mode of arrival: ambulatory Limitations: no limitations Nursing Notes Reviewed: Yes Vital Signs Reviewed: Yes - History of Present Illness Pain Scale: 0 - Related Data Home Medications Medication Instructions Recorded Confirmed Furosemide [Lasix] 40 mg PO BID 10/13/16 03/24/18 Ipratropium/Albuterol Neb [Duoneb] 3 ml PO Q4H PRN 10/13/16 03/24/18 Amlodipine Besylate 10 mg PO DAILY 01/19/17 03/24/18 Fluticasone/Salmeterol [Advair 1 each IH BID 01/19/17 03/24/18 500-50 Diskus] Amiodarone [Cordarone] 200 mg PO DAILY 10/04/17 03/24/18 Lisinopril [Zestril] 2.5 mg PO DAILY 10/04/17 03/24/18 Dabigatran Etexilate Mesylate 110 mg PO BID 01/27/18 03/24/18 [Pradaxa] Fluticasone/Vilanterol [Breo 1 each IH DAILY 01/27/18 03/24/18 Ellipta 200-25 Mcg INH] Metoprolol Succinate [Toprol Xl] 100 mg PO DAILY 01/27/18 03/24/18 Spironolactone [Aldactone] 5 mg PO TID 03/24/18 03/24/18 Previous Rx's Medication Instructions Recorded Atorvastatin [Lipitor] 40 mg PO HS #90 tablet 10/07/17 Isosorbide MONOnitrate (24 HR) 30 mg PO DAILY #30 tab.er.24h 10/07/17 [Imdur] Ferrous Sulfate [Iron] 325 mg PO DAILY #30 capsule.er 03/24/18 Allergies Allergy/AdvReac Type Severity Reaction Status Date / Time No Known Allergies Allergy Verified 03/24/18 15:42 Constitutional: Denies: fever, chills Cardiovascular: Reports: edema. Denies: chest pain, syncope Respiratory: Reports: dyspnea. Denies: cough, wheezes, hemoptysis Gastrointestinal: Denies: abdominal pain, nausea, vomiting Genitourinary: Denies: urgency Musculoskeletal: Denies: back pain Integumentary: Reports: rash Neurological: Denies: headache Past Medical History - Past Medical History Medical history: Reports: asthma, atrial fibrillation, CHF, COPD, diabetes, hyperlipidemia, hypertension, other Surgical history: Reports: heart valve replacement, hysterectomy, pacemaker Psychiatric history: Reports: anxiety, depression - Social History Smoking Status: Former smoker Smokeless Tobacco Status: No Alcohol use: Reports: none Drug use: Reports: none Physical Exam - General Limitations: no limitations General appearance: alert Course Vital Signs Temperature 97.9 F 03/24/18 16:39 Pulse Rate 63 03/24/18 16:39 Respiratory Rate 20 03/24/18 16:39 Blood Pressure 128/62 03/24/18 16:39 O2 Sat by Pulse Oximetry 95 03/24/18 16:39 Temperature 97.9 F 03/24/18 16:39 Pulse Rate 61 03/24/18 19:56 Respiratory Rate 16 03/24/18 19:56 Blood Pressure 127/60 03/24/18 19:56 O2 Sat by Pulse Oximetry 99 03/24/18 19:56 Oxygen Delivery Oxygen Delivery Nasal Cannula Medical Decision Making - Lab Data Result diagrams: 03/24/18 17:11 03/24/18 17:11 Lab Results 03/24/18 03/24/18 03/24/18 Range/Units 17:08 17:11 17:11 WBC 9.4 (4.3-11.1) K/mcL RBC 3.87 (3.82-4.97) M/mcL Hgb 11.6 (11.5-15.4) g/dL Hct 33.8 L (35.3-44.9) % MCV 87.3 (83.0-100.0) fL MCH 30.0 (28.0-33.3) pg MCHC 34.3 (31.6-35.5) g/dL RDW 15.9 H (11.5-14.5) % Plt Count 246 (140-400) K/mcL MPV 9.7 (9.4-12.4) fL Immature Gran % 0.4 (0-4) % Seg Neutrophils % 70.3 % Lymphocytes % 14.8 % Monocytes % 9.4 % Eosinophils % 4.8 % Basophils % 0.3 % Neutrophils # 6.6 (1.6-8.9) K/mcL Lymphocytes # 1.4 (0.6-4.6) K/mcL Monocytes # 0.9 (0.0-1.3) K/mcL Eosinophils # 0.5 (0.0-0.6) K/mcL Basophils # 0.0 (0.0-0.2) K/mcL Sodium 124 L (136-145) mEq/L Potassium 4.8 (3.5-5.1) mEq/L Chloride 88 L (98-107) mEq/L Carbon Dioxide 27 (23-29) mEq/L BUN 25 H (8-23) mg/dL Creatinine 1.02 (0.60-1.20) mg/dL Est GFR ( Amer) > 60 (> 60) Est GFR (Non-Af Amer) 53 L (> 60) BUN/Creatinine Ratio 25 (6-26) Glucose 119 H (70-105) mg/dL Calculated Osmolality 264 L (280-300) Calcium 9.5 (8.6-10.3) mg/dL Total Bilirubin 0.5 (0.3-1.0) mg/dL AST 49 H (13-39) Units/L ALT 70 H (7-52) Units/L Alkaline Phosphatase 93 (34-104) Units/L Troponin I < 0.03 (< 0.04) ng/mL B-Natriuretic Peptide 166 H (Less than 100) pg/mL Serum Total Protein 7.3 (6.4-8.9) g/dL Albumin 4.2 (3.5-5.7) g/dL Globulin 3.1 (2.4-3.5) g/dL Albumin/Globulin Ratio 1.4 (1.1-2.2) Attestation Statement - Attestation Attestation: I, Brad Sanchez, examined this patient and my medical decision-making was reviewed with the NEUROSCIENCE SPECIALIST/PA/Advanced Practice Nurse/Resident Physician. I agree with the documented findings, disposition and treatment plan as described except to the extent set forth below. 77-year-old female presents emergency Department with concerns of increased shortness of breath. Patient states that this feels similar to her previous CHF exacerbation. Patient has a history of multiple DVTs and is currently taking Pradaxa. Patient was unable to take Eliquis secondary to cost and failed Xarelto. Patient has noticed swelling of the bilateral lower extremities increasing over the past few days. Patient denies missing any doses of her Lasix or changing her medications. Patient denies changing her diet. No chest pain or nausea, vomiting, diarrhea. No abdominal pain. Patient reports increased shortness of breath with exertion. Ultrasound was performed in the emergency department which showed a chronic right DVT which is unchanged from previous exam. CTA obtained in the emergency department. Image results are pending. Patient will likely be admitted to the hospital for further care and evaluation. No critical care time on this patient.
[2018-03-24] MEDS ORDERED: Acetaminophen 325 MG TABLET PO ONE (21:00)
--- NOTE | 2018-03-24 21:18 | Internal Med History&Physical ---
Date of Encounter: 03/25/18 Time of Encounter: 21:16 Internal Medicine - H&P: HPI Chief complaint: Short of breath Admitted From: Emergency Dept Plans for Post Hospital Care: Home History of present illness: Ms. Esteves is a 77 year old female with past medical history of CHF, hypertension , COPD, AICD/pacemaker, by prostatic heart valve, A. fib on anticoagulation, history of DVT, chronic DVT, iron deficiency anemia who presents to the ED complaining of lower extremity swelling and shortness of breath has been going on for about a week and has worsened for the last couple days. The patient is on Lasix at home and has been compliant. She was also started on Aldactone a few days ago by her primary care physician. She was being evaluated at the cancer center for her anemia and was sent to the ED. The patient reports that her dry weight is about 163 pounds and she is up to 173 pounds. The patient was divided approximately NAD but she was dyspneic and was put on supplemental oxygen for symptomatic relief. The patient underwent laboratory workup showed hyponatremia of 124. Rest of laboratory workup was unremarkable with a BNP of 166. Chest x-ray was done which showed cardiomegaly with vascular congestion. CTA of chest was done which again showed cardiomegaly with signs of congestive heart failure. The patient denies any fevers, chills, nausea, vomiting, chest pain, abdominal pain, diarrhea, constipation, urinary symptoms, or neurological symptoms. Last Echo in September showed EF 45% with mild LVH. Past Med Surg Social Fam HX - Past Medical History Medical history: asthma, atrial fibrillation, CHF, COPD, diabetes, hyperlipidemia, hypertension, other Additional medical history: iron deficiency anemia Psychiatric history: anxiety, depression - Past Surgical History Surgical History: heart valve replacement, hysterectomy, pacemaker - Social History Smoking Status: Former smoker Smokeless Tobacco Status: No Alcohol use: none Drug use: none - Family History Mother Family Member Ethnicity: Non- Living Status: Hx Family Endocrine Disorder: Yes Father Family Member Ethnicity: Non- Living Status: Hx Family Cardiac Disorders: Yes (CHF) Hx Family Respiratory Disorders: Yes (Emphysema) Brother Family Member Ethnicity: Non- Living Status: Hx Family Respiratory Disorders: Yes (COPD, Emphysema) Sister Family Member Ethnicity: Non- Living Status: Still Living Hx Family Cardiac Disorders: Yes Hx Family Respiratory Disorders: Yes Hx Family Endocrine Disorder: Yes Internal Medicine - H&P: Meds Furosemide [Lasix] 40 mg PO BID 10/13/16 [History] Ipratropium/Albuterol Neb [Duoneb] 3 ml PO Q4H PRN 10/13/16 [History] Amlodipine Besylate 10 mg PO DAILY 01/19/17 [History] Fluticasone/Salmeterol [Advair 500-50 Diskus] 1 each IH BID 01/19/17 [History] Amiodarone [Cordarone] 200 mg PO DAILY 10/04/17 [History] Lisinopril [Zestril] 2.5 mg PO DAILY 10/04/17 [History] Atorvastatin [Lipitor] 40 mg PO HS #90 tablet 10/07/17 [Rx] Isosorbide MONOnitrate (24 HR) [Imdur] 30 mg PO DAILY #30 tab.er.24h 10/07/17 [ Rx] Dabigatran Etexilate Mesylate [Pradaxa] 110 mg PO BID 01/27/18 [History] Fluticasone/Vilanterol [Breo Ellipta 200-25 Mcg INH] 1 each IH DAILY 01/27/18 [ History] Metoprolol Succinate [Toprol Xl] 100 mg PO DAILY 01/27/18 [History] ALPRAZolam [Xanax 0.25 MG Tablet] 0.25 mg PO DAILY 03/24/18 [History] Betamethasone Dipropionate 1 appl TP DAILY 03/24/18 [History] Ferrous Sulfate [Iron] 325 mg PO DAILY #30 capsule.er 03/24/18 [Rx] Spironolactone [Aldactone] 5 mg PO TID 03/24/18 [History] 3 Allergy/AdvReac Type Severity Reaction Status Date / Time No Known Allergies Allergy Verified 03/24/18 15:42 All Systems PM: A 10-system review of systems was performed and is negative for pertinent findings except as documented above in the HPI. Review of systems: All systems reviewed are negative except for as mentioned above - Constitutional Vitals: Temp Pulse Resp BP Pulse Ox 97.9 F 65 16 134/78 98 03/24/18 16:39 03/24/18 20:58 03/24/18 20:58 03/24/18 20:58 03/24/18 20:58 Exam: GEN: NAD HEENT: AT, NC, No cyanosis, oral mucosa is moist, No JVD Lymphatics: No lymphadenoapthy Eyes: Extrocular muscles intact, anicteric CVS:RRR. S1, S2, No m/r/g RESP: Diminished with bibasilar crackles ABD: Soft, NT, ND, +BS EXT: 2+ edema, No rashes, 2+ DP NEURO: Nonfocal, CN II-XII intact, No focal motor or sensory deficits Psych: Cooperative, Not anxious or depressed Internal Med - H&P Results - Labs CBC & Chem 7: 03/25/18 05:11 03/25/18 05:11 Labs: Short CBC 03/24/18 Range/Units 17:11 WBC 9.4 (4.3-11.1) K/mcL Hgb 11.6 (11.5-15.4) g/dL Hct 33.8 L (35.3-44.9) % Plt Count 246 (140-400) K/mcL Neutrophils # 6.6 (1.6-8.9) K/mcL BMP 03/24/18 17:11 Sodium 124 L Potassium 4.8 Chloride 88 L Carbon Dioxide 27 BUN 25 H Creatinine 1.02 Glucose 119 H Calcium 9.5 Cardiac Enzymes 03/24/18 Range/Units 17:11 Troponin I < 0.03 (< 0.04) ng/mL Liver Function 03/24/18 Range/Units 17:11 Total Bilirubin 0.5 (0.3-1.0) mg/dL AST 49 H (13-39) Units/L ALT 70 H (7-52) Units/L Alkaline Phosphatase 93 (34-104) Units/L Albumin 4.2 (3.5-5.7) g/dL - Impressions ITS Impressions Chest X-Ray 03/24/18 16:44 IMPRESSION: Cardiomegaly with vascular congestion. D/ 03/24/2018 17:42:51 Marky Cerrato MD / alban Interpreting Provider: Marky Cerrato MD Chest CTA 03/24/18 18:19 IMPRESSION: No evidence of pulmonary embolism. There is some limitation due to respiratory motion obscuring the lower lobe peripheral pulmonary arteries. Cardiomegaly with central and symmetric airspace disease most likely congestive failure. D/ / Brigido Mishra MD / Brigido Mishra MD Interpreting Provider: Brigido Mishra MD - Assessment and plan (1) Acute exacerbation of CHF (congestive heart failure) Current Visit: Yes Status: Acute Assessment and plan: Admit to hospitalist. We will place patient on IV Lasix 40 mg twice a day. Monitor I&O's. Cardiac diet. Check an echocardiogram. Resume cardiac/CHF meds from home. Qualifiers: Heart failure type: unspecified Qualified Code(s): I50.9 - Heart failure, unspecified (2) Hyponatremia Current Visit: No Status: Acute Assessment and plan: Likely from volume overload but also seems to be chronic issue for her. Would expect some improvement with diuresing. (3) Atrial fibrillation Current Visit: No Status: Chronic Assessment and plan: Rate controlled. Continue with beta danii, amiodarone, anticoagulation Qualifiers: Atrial fibrillation type: chronic Qualified Code(s): I48.2 - Chronic atrial fibrillation (4) COPD (chronic obstructive pulmonary disease) Current Visit: No Status: Chronic Assessment and plan: Not in exacerbation. Resume inhalers. Qualifiers: COPD type: COPD with acute exacerbation Qualified Code(s): J44.1 - Chronic obstructive pulmonary disease with (acute) exacerbation (5) HTN (hypertension) Current Visit: No Status: Chronic Assessment and plan: Resume home antihypertensives. Qualifiers: Hypertension type: essential hypertension Qualified Code(s): I10 - Essential (primary) hypertension (6) Hyperlipidemia Current Visit: No Status: Chronic Assessment and plan: Resume statin. Qualifiers: Hyperlipidemia type: pure hypercholesterolemia Qualified Code(s): E78.00 - Pure hypercholesterolemia, unspecified; E78.0 - Pure hypercholesterolemia (7) DVT prophylaxis Current Visit: No Status: Acute Assessment and plan: Patient is on Pradaxa - Time Spent With Patient Total time spent is greater than 50% in coordination of care (as documented) at patient's floor/unit and/or counseling patient:
[2018-03-24] MEDS ORDERED: Naloxone 0.4 MG/ML INJ IVP PRN ×2 (21:19)
[2018-03-24] MEDS: Ipratropium/Albuterol Neb 3 ML IH SCH (22:44)
[2018-03-25] MEDS: Ipratropium/Albuterol Neb 3 ML IH SCH ×4 (03:51→21:08)
[2018-03-25] MEDS: Acetaminophen 325 MG TABLET PO PRN ×2 (05:17→17:09)
[2018-03-25] MEDS ORDERED: *HR* Dextrose 50 % in Water (Syg) 50 ML SYRINGE IVP PRN (05:27)
[2018-03-25] MEDS ORDERED: Dextrose Gel 15 GM/37.5 ML TUBE PO PRN ×2 (05:27)
[2018-03-25] MEDS ORDERED: D5% in Water 1,000 ML IVC PRN (05:27)
[2018-03-25 05:49] LABS: Basophils # 0.1 K/mcL (0.0-0.2); Basophils % 0.6 %; Eosinophils # 0.7 K/mcL (0.0-0.6); Eosinophils % 7.4 %; Hematocrit 36.8 % (35.3-44.9); Hemoglobin 12.4 g/dL (11.5-15.4); Immature Granulocytes % 0.3 % (0-4); Lymphocytes # 1.8 K/mcL (0.6-4.6); Lymphocytes % 20.2 %; Mean Corpuscular HGB Conc 33.7 g/dL (31.6-35.5); Mean Platelet Volume 9.4 fL (9.4-12.4); Monocytes # 1.2 K/mcL (0.0-1.3); Monocytes % 13.2 %; Neutrophils # 5.3 K/mcL (1.6-8.9); Platelet Count 282 K/mcL (140-400); Red Blood Count 4.28 M/mcL (3.82-4.97); Red Cell Distribution Width 16.1 % (11.5-14.5); Segmented Neutrophils % 58.3 %
[2018-03-25 06:01] LABS: BUN/Creatinine Ratio 24 (6-26); Blood Urea Nitrogen 24 mg/dL (8-23); Calcium 10.1 mg/dL (8.6-10.3); Carbon Dioxide 29 mEq/L (23-29); Chloride 89 mEq/L (98-107); Glucose 113 mg/dL (70-105); Magnesium 1.9 mg/dL (1.6-2.6); Osmolality,Calculated 273 (280-300); Potassium 4.3 mEq/L (3.5-5.1); Sodium 129 mEq/L (136-145); eGFR For African Americans > 60 (> 60); eGFR For Non-African Americans 54 (> 60)
[2018-03-25] MEDS: Furosemide 40 MG/4 ML VIAL IVP SCH ×2 (08:16→17:09)
[2018-03-25] MEDS: Metoprolol XL (24 HR) Succ 50 MG TAB.ER.24H PO SCH (08:17)
[2018-03-25] MEDS: ALPRAZolam 0.25 MG TABLET PO SCH (08:17)
[2018-03-25] MEDS: amLODIPine 5 MG TABLET PO SCH (08:17)
[2018-03-25] MEDS: Isosorbide MONOnitrate (24 HR) 30 MG TAB.ER.24H PO SCH (08:17)
[2018-03-25] MEDS: *HR* Amiodarone 200 MG TABLET PO SCH (08:17)
[2018-03-25] MEDS: Insulin LISPRO 300 UNITS/3 ML VIAL SQ SCH ×3 (08:18→17:07)
[2018-03-25] MEDS: FluocinoNIDE 0.05% CRM 15 GM TUBE TP SCH (08:18)
[2018-03-25] MEDS ORDERED: DABIGATRAN ETEXILATE MESYLATE 110 MG PO SCH (09:00)
[2018-03-25] MEDS ORDERED: Spironolactone 25 MG TABLET PO SCH (09:00)
[2018-03-25] MEDS: Spironolactone 25 MG TABLET PO SCH ×2 (09:05→21:03)
[2018-03-25] MEDS ORDERED: Budesonide/Formoterol 160/4.5 MDI IH SCH (10:00)
[2018-03-25] MEDS: Budesonide/Formoterol 160/4.5 MDI IH SCH ×2 (10:07→21:08)
--- NOTE | 2018-03-25 10:16 | Internal Med Progress Note ---
Date of Encounter: 03/25/18 Time of Encounter: 10:15 - Assessment and plan (1) Acute exacerbation of CHF (congestive heart failure) Current Visit: Yes Status: Acute Assessment and plan: We will place patient on IV Lasix 40 mg twice a day. Monitor I&O's. Cardiac diet. Check an echocardiogram. Resume cardiac/CHF meds from home. Qualifiers: Heart failure type: diastolic Qualified Code(s): I50.33 - Acute on chronic diastolic (congestive) heart failure (2) Atrial fibrillation Current Visit: No Status: Chronic Assessment and plan: Rate controlled. Continue with beta danii, amiodarone, anticoagulation with pradaxa Qualifiers: Atrial fibrillation type: chronic Qualified Code(s): I48.2 - Chronic atrial fibrillation (3) Hyponatremia Current Visit: No Status: Acute Assessment and plan: Likely from volume overload but also seems to be chronic issue for her. Would expect some improvement with diuresing. (4) COPD (chronic obstructive pulmonary disease) Current Visit: No Status: Chronic Assessment and plan: Not in exacerbation. Resume inhalers. Qualifiers: COPD type: COPD with acute exacerbation Qualified Code(s): J44.1 - Chronic obstructive pulmonary disease with (acute) exacerbation (5) Hyperlipidemia Current Visit: No Status: Chronic Assessment and plan: Resume statin. Qualifiers: Hyperlipidemia type: pure hypercholesterolemia Qualified Code(s): E78.00 - Pure hypercholesterolemia, unspecified; E78.0 - Pure hypercholesterolemia (6) HTN (hypertension) Current Visit: No Status: Chronic Assessment and plan: Resume home antihypertensives. Qualifiers: Hypertension type: essential hypertension Qualified Code(s): I10 - Essential (primary) hypertension (7) DVT prophylaxis Current Visit: No Status: Acute Assessment and plan: Patient is on Pradaxa - Time Spent With Patient Total time spent is greater than 50% in coordination of care (as documented) at patient's floor/unit and/or counseling patient: - Subjective Interval history: No acute events overnight - Constitutional Vitals: Temp Pulse Resp BP Pulse Ox 97.7 F 60 20 128/71 99 03/25/18 07:38 03/25/18 07:38 03/25/18 07:38 03/25/18 07:38 03/25/18 08:31 - Head Head exam: Present: atraumatic, normocephalic - Eye Eye exam: Present: PERRL, conjuntiva pink, sclera anicteric Pupils: Present: PERRL - Neck Neck exam general surgery: Present: supple, trachea midline. Absent: lymphadenopathy - Respiratory Respiratory exam: Present: CTAB. Absent: accessory muscle use, rales, rhonchi, wheezes - Cardiovascular Cardiovascular exam: Present: RRR, +S1, +S2. Absent: diastolic murmur, gallop, rubs, systolic murmur - GI/Abdominal GI/Abdominal exam: Present: normal bowel sounds, soft, no peritoneal signs. Absent: distended, tenderness - Extremities Exam Extremities exam: Present: joint swelling, warm, radial pulses palpable and symmetrical. Absent: calf tenderness, cyanotic, pedal edema Additional comments: 2+ pitting edema - Neurological Exam Neurological exam: Present: CN II-XII intact, oriented X3, no focal deficits. Absent: pronater drift, facial droop, speech deficit - Skin Skin exam: Present: dry, intact Internal Medicine: Result - Labs CBC & Chem 7: 03/25/18 05:11 03/25/18 05:11 Labs: Short CBC 03/25/18 Range/Units 05:11 WBC 9.0 (4.3-11.1) K/mcL Hgb 12.4 (11.5-15.4) g/dL Hct 36.8 (35.3-44.9) % Plt Count 282 (140-400) K/mcL Neutrophils # 5.3 (1.6-8.9) K/mcL BMP 03/25/18 05:11 Sodium 129 L Potassium 4.3 Chloride 89 L Carbon Dioxide 29 BUN 24 H Creatinine 0.99 Glucose 113 H Calcium 10.1 Consult Discharge Plan - Plan Referrals: Casandra Evans MD [Primary Care Provider] -
[2018-03-25] MEDS ORDERED: Insulin LISPRO 300 UNITS/3 ML VIAL SQ SCH (21:00)
[2018-03-25] MEDS: *HR* Dabigatran 75 MG CAPSULE PO SCH (21:03)
[2018-03-26] MEDS: Acetaminophen 325 MG TABLET PO PRN (03:50)
[2018-03-26] MEDS: Ipratropium/Albuterol Neb 3 ML IH SCH ×2 (03:56→10:34)
[2018-03-26 05:00] LABS: Basophils # 0.1 K/mcL (0.0-0.2); Basophils % 0.6 %; Eosinophils # 0.7 K/mcL (0.0-0.6); Eosinophils % 7.2 %; Hematocrit 36.5 % (35.3-44.9); Hemoglobin 12.1 g/dL (11.5-15.4); Immature Granulocytes % 0.3 % (0-4); Lymphocytes # 1.9 K/mcL (0.6-4.6); Lymphocytes % 19.6 %; Mean Corpuscular HGB Conc 33.2 g/dL (31.6-35.5); Mean Corpuscular Hemoglobin 28.5 pg (28.0-33.3); Mean Corpuscular Volume 86.1 fL (83.0-100.0); Mean Platelet Volume 9.7 fL (9.4-12.4); Monocytes # 1.3 K/mcL (0.0-1.3); Monocytes % 12.9 %; Neutrophils # 5.7 K/mcL (1.6-8.9); Platelet Count 294 K/mcL (140-400); Red Blood Count 4.24 M/mcL (3.82-4.97); Red Cell Distribution Width 16.4 % (11.5-14.5); Segmented Neutrophils % 59.4 %
[2018-03-26 05:19] LABS: Calcium 9.6 mg/dL (8.6-10.3); Potassium 4.5 mEq/L (3.5-5.1)
[2018-03-26] MEDS: Isosorbide MONOnitrate (24 HR) 30 MG TAB.ER.24H PO SCH (07:52)
[2018-03-26] MEDS: Metoprolol XL (24 HR) Succ 50 MG TAB.ER.24H PO SCH (07:52)
[2018-03-26] MEDS: ALPRAZolam 0.25 MG TABLET PO SCH (07:52)
[2018-03-26] MEDS: *HR* Amiodarone 200 MG TABLET PO SCH (07:52)
[2018-03-26] MEDS: amLODIPine 5 MG TABLET PO SCH (07:53)
[2018-03-26] MEDS: Spironolactone 25 MG TABLET PO SCH (07:53)
[2018-03-26] MEDS: Insulin LISPRO 300 UNITS/3 ML VIAL SQ SCH ×2 (07:55→11:56)
[2018-03-26] MEDS: FluocinoNIDE 0.05% CRM 15 GM TUBE TP SCH (07:55)
[2018-03-26] MEDS ORDERED: Furosemide 40 MG/4 ML VIAL IVP SCH (09:00)
[2018-03-26] MEDS: *HR* Dabigatran 75 MG CAPSULE PO SCH (09:28)
--- NOTE | 2018-03-26 09:35 | Electrocardiograph Report ---
[place] [id number] Test Date: 2018-03-24 Pat Name: Umm Esteves Department: 102 Room: 2A Gender: F [employer] Counselor: Tona : 1940 Requested By: Michelle Lagunas Order Number: [id number] Reading MD: Jai Aponte Measurements Intervals [place] Rate: 60 P: 72 DC: 171 QRS: -79 QRSD: 193 T: 85 QT: 522 QTc: 523 Interpretive Statements [employer] Electronically Signed On 03-26-2018 9:33:58 EDT by Jai Aponte
--- NOTE | 2018-03-26 09:59 | Discharge Summary ---
Orders not resulted at time of discharge: Pending orders 03/27/18 04:00 Basic Metabolic Panel AM 0400 CBC [Complete Blood Count] [HEME] AM 0400 03/28/18 04:00 Basic Metabolic Panel AM 0400 CBC [Complete Blood Count] [HEME] AM 0400 03/29/18 04:00 Basic Metabolic Panel AM 0400 CBC [Complete Blood Count] [HEME] AM 0400 03/30/18 04:00 Basic Metabolic Panel AM 0400 CBC [Complete Blood Count] [HEME] AM 0400 03/31/18 04:00 Basic Metabolic Panel AM 0400 CBC [Complete Blood Count] [HEME] AM 0400 Date of Encounter: 03/26/18 Time of Encounter: 10:00 - Discharge Diagnosis (1) Acute exacerbation of CHF (congestive heart failure) Priority: Primary Status: Acute Assessment and Plan: 77 year old female with past medical history of CHF, hypertension, COPD, AICD/ pacemaker, by prostatic heart valve, A. fib on anticoagulation, history of DVT, chronic DVT, iron deficiency anemia who presents to the ED complaining of lower extremity swelling and shortness of breath has been going on for about a week and has worsened for the last couple days. She was assessed with acute worsening of diastolic CHF and started on diuresis with lasix IV BID. She made an improvement with resolution of her swelling and SOb and she was discharged home in a stable condition. 35minutes was spent discharging this patient Qualifiers: Heart failure type: diastolic Qualified Code(s): I50.33 - Acute on chronic diastolic (congestive) heart failure (2) Atrial fibrillation Priority: Secondary Status: Chronic Qualifiers: Atrial fibrillation type: chronic Qualified Code(s): I48.2 - Chronic atrial fibrillation (3) Hyponatremia Priority: Secondary Status: Acute (4) COPD (chronic obstructive pulmonary disease) Priority: Secondary Status: Chronic Qualifiers: COPD type: COPD with acute exacerbation Qualified Code(s): J44.1 - Chronic obstructive pulmonary disease with (acute) exacerbation (5) Hyperlipidemia Priority: Secondary Status: Chronic Qualifiers: Hyperlipidemia type: pure hypercholesterolemia Qualified Code(s): E78.00 - Pure hypercholesterolemia, unspecified; E78.0 - Pure hypercholesterolemia (6) HTN (hypertension) Priority: Secondary Status: Chronic Qualifiers: Hypertension type: essential hypertension Qualified Code(s): I10 - Essential (primary) hypertension (7) DVT prophylaxis Priority: Secondary Status: Acute Hospital course: Ms. Esteves is a 77 year old female - Time Spent with Patient Total time spent providing and/or coordinating discharge services: - Discharge Medications Prescriptions: Dabigatran [Pradaxa] 75 mg PO BID #60 capsule Home Medications: Furosemide [Lasix] 40 mg PO BID 10/13/16 [History] Ipratropium/Albuterol Neb [Duoneb] 3 ml PO Q4H PRN 10/13/16 [History] Amlodipine Besylate 10 mg PO DAILY 01/19/17 [History] Fluticasone/Salmeterol [Advair 500-50 Diskus] 1 each IH BID 01/19/17 [History] Amiodarone [Cordarone] 200 mg PO DAILY 10/04/17 [History] Lisinopril [Zestril] 2.5 mg PO DAILY 10/04/17 [History] Atorvastatin [Lipitor] 40 mg PO HS #90 tablet 10/07/17 [Rx] Isosorbide MONOnitrate (24 HR) [Imdur] 30 mg PO DAILY #30 tab.er.24h 10/07/17 [ Rx] Fluticasone/Vilanterol [Breo Ellipta 200-25 Mcg INH] 1 each IH DAILY 01/27/18 [ History] Metoprolol Succinate [Toprol Xl] 100 mg PO DAILY 01/27/18 [History] ALPRAZolam [Xanax 0.25 MG Tablet] 0.25 mg PO DAILY 03/24/18 [History] Betamethasone Dipropionate 1 appl TP DAILY 03/24/18 [History] Ferrous Sulfate [Iron] 325 mg PO DAILY #30 capsule.er 03/24/18 [Rx] Spironolactone [Aldactone] 25 mg PO TID 03/24/18 [History] Dabigatran [Pradaxa] 75 mg PO BID #60 capsule 03/26/18 [Rx] Allergies/Adverse Reactions: 3 Allergy/AdvReac Type Severity Reaction Status Date / Time No Known Allergies Allergy Verified 03/24/18 15:42 Date of admission: 03/24/18 22:35 Primary care physician: Casandra Evans MD - Constitutional Vitals: Temp Pulse Resp BP Pulse Ox 97.9 F 67 17 104/58 99 03/26/18 07:33 03/26/18 07:33 03/26/18 07:33 03/26/18 07:33 03/26/18 07:50 - Head Head exam: Present: atraumatic, normocephalic - Eye Eye exam: Present: PERRL, conjuntiva pink, sclera anicteric Pupils: Present: PERRL - Neck Neck exam general surgery: Present: supple, trachea midline. Absent: lymphadenopathy - Respiratory Respiratory exam: Present: CTAB. Absent: accessory muscle use, rales, rhonchi, wheezes - Cardiovascular Cardiovascular exam: Present: RRR, +S1, +S2. Absent: diastolic murmur, gallop, rubs, systolic murmur - GI/Abdominal GI/Abdominal exam: Present: normal bowel sounds, soft, no peritoneal signs. Absent: distended, tenderness - Extremities Exam Extremities exam: Present: warm, radial pulses palpable and symmetrical. Absent : calf tenderness, cyanotic, pedal edema - Neurological Exam Neurological exam: Present: CN II-XII intact, oriented X3, no focal deficits. Absent: pronater drift, facial droop, speech deficit - Skin Skin exam: Present: dry, intact - Patient Status Disposition: Home, Self-Care Condition: Fair - Discharge Instructions Instructions: Dabigatran (By mouth) Follow Up With: Casandra Evans MD [Primary Care Provider] - 04/02/18 9:15 am (Please follow up as schedule....)
[2018-03-26] MEDS: Budesonide/Formoterol 160/4.5 MDI IH SCH (10:35)
[2018-03-26 11:31] VITALS: BP 115/60
== END 2018-03-26 12:56 | disposition home or self-care (01) ==
LOC: EMEROO 16:34 → 2ANU 21:59 → INTOOBSV 22:35
PROVIDERS: ADMIT Internal Medicine; ATTEND Internal Medicine

== ENCOUNTER 2018-06-06 10:15 | Inpatient (IN) ==
[2018-06-06] MEDS ORDERED: Furosemide 40 MG in 0.9 % Sodium Chloride 50 ML IV ONE (10:56)
[2018-06-06] MEDS ORDERED: Ipratropium/Albuterol Neb 3 ML IH ONE (10:58)
--- NOTE | 2018-06-06 10:58 | Emergency Department Note ---
Disposition Clinical Impression: SOB (shortness of breath), LUDIN (acute kidney injury) Cellulitis Qualifiers: Site of cellulitis: extremity Site of cellulitis of extremity: lower extremity Laterality: unspecified laterality Qualified Code(s): L03.119 - Cellulitis of unspecified part of limb Acute exacerbation of CHF (congestive heart failure) Qualifiers: Heart failure type: unspecified Qualified Code(s): I50.9 - Heart failure, unspecified Disposition: Admitted As Inpatient Condition: Fair General Adult HPI - General Chief complaint: ED Extremity Problem,Nontraumatic Stated complaint: Bi-lateral LE cellulitis Time Seen by Provider: 06/06/18 10:23 Source: patient, family Limitations: no limitations Nursing Notes Reviewed: Yes Vital Signs Reviewed: Yes - History of Present Illness HPI Narrative: 70-year-old female with significant past medical history of hypertension, hyperlipidemia, CHF and COPD along with history of DVT currently on pradaxa presenting to the emergency department with chief complaint of increased shortness of breath and bilateral lower extremity swelling. According to the patient and family members at bedside patient has had history of bilateral lower extremity worsening over the past 4-5 days. They have been trying Desitin cream on the rash with minimal relief. Then they noticed that the leg started to seep with fluid and thats when they became concerned and wanted to come to the emergency department further evaluation. Patient denies any fevers , dizziness or chest pain. She states over the past 4-5 days she has also had increased shortness of breath. She also has noticed some wheezing. Family members at bedside also stated the patient has been having a red itchy rash to her bilateral upper extremities and chest. She was seen with [place] [facility] once previously and was given a topical cream and oral steroids. Pain Scale: 0 - Related Data Home Medications Medication Instructions Recorded Confirmed Furosemide [Lasix] 40 mg PO TID 10/13/16 06/06/18 Amlodipine Besylate 10 mg PO DAILY 01/19/17 06/06/18 Fluticasone/Salmeterol [Advair 1 each IH BID 01/19/17 06/06/18 500-50 Diskus] Amiodarone [Cordarone] 200 mg PO DAILY 10/04/17 06/06/18 Lisinopril [Zestril] 5 mg PO DAILY 10/04/17 06/06/18 Fluticasone/Vilanterol [Breo 1 each IH DAILY 01/27/18 06/06/18 Ellipta 200-25 Mcg INH] Metoprolol Succinate [Toprol Xl] 50 mg PO DAILY 01/27/18 06/06/18 ALPRAZolam [Xanax 0.25 MG Tablet] 0.25 mg PO DAILY PRN 03/24/18 06/06/18 Dabigatran Etexilate Mesylate 110 mg PO BID 06/06/18 06/06/18 [Pradaxa] Ipratropium/Albuterol Neb [Duoneb] 3 ml IH Q4HR PRN 06/06/18 06/06/18 Potassium Chloride [K-Tab ER] 10 meq PO DAILY 06/06/18 06/06/18 Previous Rx's Medication Instructions Recorded Atorvastatin [Lipitor] 40 mg PO HS #90 tablet 10/07/17 Isosorbide MONOnitrate (24 HR) 30 mg PO DAILY #30 tab.er.24h 10/07/17 [Imdur] Allergies Allergy/AdvReac Type Severity Reaction Status Date / Time No Known Allergies Allergy Verified 06/06/18 10:21 All systems ED: reviewed and negative except as stated. Constitutional: Denies: fever, chills Eyes: Reports: as per HPI ENT ED: Reports: as per HPI Cardiovascular: Denies: chest pain, palpitations Respiratory: Reports: dyspnea, wheezes. Denies: hemoptysis Gastrointestinal: Denies: abdominal pain, nausea, vomiting Genitourinary: Reports: as per HPI Musculoskeletal: Reports: as per HPI Integumentary: Reports: as per HPI Neurological: Denies: weakness, numbness, paresthesias Psychiatric: Reports: as per HPI Endocrine: Reports: as per HPI Hematological/Lymphatic: Reports: as per HPI Allergic/Immunologic: Reports: as per HPI Past Medical History - Past Medical History Attestation: Yes The following information was validated with the patient. Medical history: Reports: asthma, atrial fibrillation, CHF, COPD, diabetes, hyperlipidemia, hypertension, other Surgical history: Reports: heart valve replacement, hysterectomy, pacemaker Psychiatric history: Reports: anxiety, depression - Social History Smoking Status: Former smoker Smokeless Tobacco Status: No Alcohol use: Reports: none Drug use: Reports: none Physical Exam - General Limitations: no limitations General appearance: alert, in no apparent distress - Head Head exam: atraumatic, normocephalic, normal inspection - Eye Eye exam: Present: normal appearance. Absent: scleral icterus, conjunctival injection - ENT ENT exam: normal exam, normal oropharynx, mucous membranes moist - Neck Neck exam: Present: normal inspection, full ROM. Absent: tenderness, meningismus - Chest Chest inspection: Present: normal inspection, symmetric chest wall rise. Absent : tenderness, rash - Respiratory Respiratory exam: Present: other (Expiratory wheezing noted on exam, bilateral rhonchi noted on exam.) - Cardiovascular Cardiovascular exam: Present: regular rate, normal rhythm, normal heart sounds - Abdominal Exam Abdominal exam: Present: soft, Non-Tender. Absent: distention, guarding, rebound - Extremities Exam Extremities exam: Present: other (Bilateral lower extremity 3+ pitting edema with redness and flaking of the skin. Patient has seeping of the bilateral lower extremities as well. Mildly tender to touch.) - Neurological Exam Neurological exam: Present: alert, oriented X3 - Psychiatric Psychiatric exam: Present: normal affect, normal mood - Skin Skin exam: Present: other (red, dry skin noted on the upper extremities and chest wall) Course Course Narrative: 78-year-old male presenting to the emergency department chief with shortness of breath and bilateral lower extremity swelling. On physical exam patient has rhonchi bilaterally and some extremely wheezing on respiratory exam. Bilateral lower extremities 3+ pitting edema with redness, mild tenderness in seeping. Concern for CHF exacerbation versus chronic venous stasis versus cellulitis at this time. Will obtain basic laboratory analysis along with a chest x-ray. We will provide the patient with one DuoNeb, 40 mg of Lasix and start the patient on vancomycin for concern for cellulitis. Patient is alert and oriented 3 in the room stable vital signs. During examination patient was mildly dyspneic. Patient does state she is on 2 L nasal cannula at home as needed for shortness of breath. We will place the patient on oxygen as well. Reassessment will be completed but disposition most likely admission. Patient and family members at bedside agreed this plan. - Reevaluation(s) Reevaluation #1: Patient's laboratory analysis shows chronic anemia and chronic hyponatremia. Elevated creatinine showing acute kidney injury. Mildly elevated BNP. Chest x- ray shows pulmonary edema. Otherwise labs within normal limits. After breathing treatment patient states she is feeling mildly better. We will plan to admit the patient at this time for CHF exacerbation, cellulitis and acute kidney injury. Patient is alert oriented times three with stable vital signs. Patient and family members at bedside agree with this plan. I spoke with the hospitalist superintendent recreation Dr. Hall who agrees to accept the patient at this time. Vital Signs Temperature 97.9 F 06/06/18 10:20 Pulse Rate 68 06/06/18 10:20 Respiratory Rate 16 06/06/18 10:20 Blood Pressure 118/77 06/06/18 10:20 O2 Sat by Pulse Oximetry 94 06/06/18 10:20 Temperature 97.9 F 06/06/18 11:15 Pulse Rate 62 06/06/18 12:58 Respiratory Rate 16 06/06/18 12:58 Blood Pressure 115/69 06/06/18 12:58 O2 Sat by Pulse Oximetry 100 06/06/18 12:58 Oxygen Delivery Oxygen Delivery Nasal Cannula Medical Decision Making - MDM Narrative Medical decision making narrative: Chest X-Ray 06/06/18 10:57 IMPRESSION: Pulmonary vascular congestion without overt pulmonary edema. D/ / Harsha Fitch MD / Harsha Fitch MD Interpreting Provider: Harsha Fitch MD 1220 hrs.: Patient's labs are mostly baseline for her. She does have some pulmonary vascular congestion, and also with this potential cellulitis of her legs with eczema. On admission to hospitalist IV antibiotics and then consider consult to dermatology. Patient's in agreement with the plan. Hospitalist has accepted patient for admission. - Lab Data Result diagrams: 06/06/18 11:04 06/06/18 11:04 Lab Results 06/06/18 06/06/18 06/06/18 Range/Units 11:04 11:04 11:04 WBC 9.5 (4.3-11.1) K/mcL RBC 3.53 L (3.82-4.97) M/mcL Hgb 10.9 L (11.5-15.4) g/dL Hct 31.5 L (35.3-44.9) % MCV 89.2 (83.0-100.0) fL MCH 30.9 (28.0-33.3) pg MCHC 34.6 (31.6-35.5) g/dL RDW 17.6 H (11.5-14.5) % Plt Count 222 (140-400) K/mcL MPV 9.6 (9.4-12.4) fL Immature Gran % 0.6 (0-4) % Seg Neutrophils % 58.5 % Lymphocytes % 13.8 % Monocytes % 10.0 % Eosinophils % 16.8 % Basophils % 0.3 % Neutrophils # 5.5 (1.6-8.9) K/mcL Lymphocytes # 1.3 (0.6-4.6) K/mcL Monocytes # 1.0 (0.0-1.3) K/mcL Eosinophils # 1.6 H (0.0-0.6) K/mcL Basophils # 0.0 (0.0-0.2) K/mcL Sodium 127 L (136-145) mEq/L Potassium 4.3 (3.5-5.1) mEq/L Chloride 93 L (98-107) mEq/L Carbon Dioxide 26 (23-29) mEq/L BUN 31 H (8-23) mg/dL Creatinine 1.39 H (0.60-1.20) mg/dL Est GFR ( Amer) 44 L (> 60) Est GFR (Non-Af Amer) 37 L (> 60) BUN/Creatinine Ratio 22 (6-26) Glucose 160 H (70-105) mg/dL Calculated Osmolality 274 L (280-300) Calcium 8.7 (8.6-10.3) mg/dL Troponin I < 0.03 (< 0.04) ng/mL B-Natriuretic Peptide 392 H (Less than 100) pg/mL - EKG Data EKG #1 EKG attestation: Yes I reviewed and interpreted this EKG. EKG results narrative: Sinus rhythm. 64 bpm. WA interval 72, QRS 166, QTC 493. No sign of acute ST segment elevation or ischemia. LVH. Attestation Statement - Attestation Attestation: This documentation is done with the assistance of Dragon dictation. Despite efforts made to ensure accuracy, there may be inaccuracies in cream ripener or spelling and typographical errors. I examined this patient and my medical decision-making was reviewed with the Resident Physician. I agree with the documented findings, disposition and treatment plan as described except to the extent set forth below. Patient seen and evaluated by Dr. Ann and myself, I agree with her evaluation and management plan, I supervised the care the patient's stay. Patient presents today with dyspnea this been going on for couple days. She has a history of CHF and possible COPD. She is on 2 L oxygen at home. She has also had edema in her lower extremities Are do weep and become warm and red. She is a history what sounds like eczema, but uses the family says that they itch and scale but they do not have redness or weepiness. Son believes she is getting a secondary infection going on at this time. Were going to give her breathing treatment check labs for CHF started on antibiotics and then reassess. Most likely she will need admission. She is in agreement with this plan.
[2018-06-06 11:16] LABS: Basophils % 0.3 %; Eosinophils # 1.6 K/mcL (0.0-0.6); Eosinophils % 16.8 %; Hematocrit 31.5 % (35.3-44.9); Hemoglobin 10.9 g/dL (11.5-15.4); Immature Granulocytes % 0.6 % (0-4); Lymphocytes # 1.3 K/mcL (0.6-4.6); Lymphocytes % 13.8 %; Mean Corpuscular HGB Conc 34.6 g/dL (31.6-35.5); Mean Corpuscular Hemoglobin 30.9 pg (28.0-33.3); Mean Corpuscular Volume 89.2 fL (83.0-100.0); Mean Platelet Volume 9.6 fL (9.4-12.4); Neutrophils # 5.5 K/mcL (1.6-8.9); Platelet Count 222 K/mcL (140-400); Red Blood Count 3.53 M/mcL (3.82-4.97); Red Cell Distribution Width 17.6 % (11.5-14.5); Segmented Neutrophils % 58.5 %
[2018-06-06] MEDS ORDERED: Furosemide 40 MG/4 ML VIAL IVP ONE (11:18)
[2018-06-06 11:40] LABS: BUN/Creatinine Ratio 22 (6-26); Blood Urea Nitrogen 31 mg/dL (8-23); Calcium 8.7 mg/dL (8.6-10.3); Carbon Dioxide 26 mEq/L (23-29); Chloride 93 mEq/L (98-107); Glucose 160 mg/dL (70-105); Osmolality,Calculated 274 (280-300); Potassium 4.3 mEq/L (3.5-5.1); Sodium 127 mEq/L (136-145); Troponin I < 0.03 ng/mL (< 0.04); eGFR For Non-African Americans 37 (> 60)
[2018-06-06] MEDS ORDERED: Naloxone 0.4 MG/ML INJ IVP PRN (14:07)
[2018-06-06] MEDS ORDERED: ALPRAZolam 0.25 MG TABLET PO PRN (14:13)
[2018-06-06] MEDS: cefTRIAXone 1,000 MG in 0.9 % Sodium Chloride Mini Bag 100 ML IVPB SCH (14:54)
[2018-06-06 15:06] LABS: INR 1.4
[2018-06-06 15:27] LABS: Chol/HDL Ratio 2.7 (0-4.9); Magnesium 1.9 mg/dL (1.6-2.6)
--- NOTE | 2018-06-06 15:36 | Internal Med History&Physical ---
Date of Encounter: 06/06/18 Time of Encounter: 15:40 Assessment and Plan (1) Acute exacerbation of CHF (congestive heart failure) Current visit: Yes Status: Acute Acute on chronic CHF with diastolic dysfunction with LVEF 60-65% - associated with shortness of breath and b/l lower leg edema H/o Pacemaker placement, s/p aortic valve replacement Continue IV Lasix, Toprol-XL, Imdur, Pradaxa, Potassium Continue O2 via NC at 2 L/m Hold Zestril due to mild LUDIN BNP - 392 Troponin < 0.03 Chest x-ray - pulmonary vascular congestion Echocardiogram (03/25/2018) - LVEF 60-65%, atypical septal motion, moderate LV diastolic dysfunction, normal RV function Cardiac telemetry, labs in a.m., fluid restriction, strict I/O, daily weight, monitor closely Qualifiers: Heart failure type: unspecified Qualified Code(s): I50.9 - Heart failure, unspecified (2) Cellulitis Current visit: Yes Status: Acute Acute cellulitis of both lower legs and possibly of both forearms Continue IV Rocephin, IV Vancomycin Cultures - pending Ultrasound Doppler - pending Repeat labs in a.m., monitor closely Qualifiers: Site of cellulitis: extremity Site of cellulitis of extremity: lower extremity Laterality: unspecified laterality Qualified Code(s): L03.119 - Cellulitis of unspecified part of limb (3) LUDIN (acute kidney injury) Current visit: Yes Status: Acute Mild LUDIN - possibly due to CHF Continue IV Lasix, avoid nephrotoxic agents, renally adjust meds Hold home dose of Zestril Repeat labs in a.m., monitor closely, strict intake and output Consult nephrology if renal function worsens (4) Atrial fibrillation Current visit: Yes Status: Chronic Chronic A. fib, rate controlled Continue home dose of Pradaxa for anticoagulation Continue home dose of Toprol-XL, Amiodarone Qualifiers: Atrial fibrillation type: chronic Qualified Code(s): I48.2 - Chronic atrial fibrillation (5) COPD (chronic obstructive pulmonary disease) Current visit: Yes Status: Chronic COPD, stable, not in exacerbation - home O2 dependent Continue home dose of Advair, DuoNeb breathing treatment is needed Continue O2 at 2 L/m via NC Qualifiers: COPD type: COPD with acute exacerbation Qualified Code(s): J44.1 - Chronic obstructive pulmonary disease with (acute) exacerbation (6) Diabetes Current visit: Yes Status: Chronic Type 2 diabetes mellitus, [id number], hyperglycemia Continue sliding scale with Humalog, glucose checks Patient is not on any home meds HbA1c - pending Qualifiers: Diabetes mellitus type: type 2 Diabetes mellitus oil heaterman insulin use: without oil heaterman use Diabetes mellitus complication status: with unspecified complications Qualified Code(s): E11.8 - Type 2 diabetes mellitus with unspecified complications (7) HTN (hypertension) Current visit: Yes Status: Chronic Essential hypertension, controlled, monitor closely Continue home dose of Norvasc, Toprol-XL Hold Zestril due to mild LUDIN Qualifiers: Hypertension type: essential hypertension Qualified Code(s): I10 - Essential (primary) hypertension (8) DVT (deep venous thrombosis) Current visit: Yes Status: Chronic H/o DVTs - continue home dose of Pradaxa Qualifiers: DVT location: lower extremity Affected thrombotic vein of extremity: other lower extremity vein Chronicity: acute Laterality: bilateral Qualified Code(s): I82.493 - Acute embolism and thrombosis of other specified deep vein of lower extremity, bilateral Internal Medicine - H&P: HPI Chief complaint: Edema, shortness of breath Admitted From: Emergency Dept Plans for Post Hospital Care: Home History of present illness: Ms. Esteves is a 78 year old female with PMH of HTN, DM, CHF, HLD, A. fib, s/p Valve replacement, s/p Pacemaker, COPD (O2 dependent) and DVT. Patient breast- feeding with complaints of shortness of breath and worsening bilateral leg edema. Also complains of redness over her lower extremities and arms. Examined in the room. Patient is awake and alert. Not in any distress. Able to provide history. Family is at bedside, they provide history as well. Patient complains of worsening bilateral lower leg edema and worsening shortness of breath. Symptoms started a few weeks ago, but seem to be worsening over the past 4-5 days. Patient also complains of worsening redness over both lower legs and also her arms. Shortness of breath seems to be worse with exertion. No alleviating factors. Unclear if patient has been following fluid restriction and salt restriction diet. Patient complains of mild itching over both upper extremities and chest. Patient has seen dermatology and was given topical cream and oral steroids in the past. She denies chest pain or palpitations. Denies headache or dizziness. Denies abdominal pain or vomiting or diarrhea. No fever. No other associated symptoms. No other acute complaints. Initial workup in the ED elevated BNP and mild LUDIN. Chest x-ray reveals pulmonary vascular congestion. Patient is being admitted for acute CHF exacerbation and probable cellulitis. Patient will need IV Lasix and IV antibiotics. Continue all home meds. Monitor closely. Patient and her family have been explained about her condition and plan of care in detail. They understood and agreed. No unanswered questions. CODE STATUS full code. Past Med Surg Social Fam HX - Past Medical History Medical history: asthma, atrial fibrillation, CHF, COPD, diabetes, hyperlipidemia, hypertension, other Additional medical history: iron deficiency anemia Psychiatric history: anxiety, depression - Past Surgical History Surgical History: heart valve replacement, hysterectomy, pacemaker - Social History Smoking Status: Former smoker Smokeless Tobacco Status: No Alcohol use: none Drug use: none - Family History Mother Family Member Ethnicity: Non- Living Status: Hx Family Endocrine Disorder: Yes Father Family Member Ethnicity: Non- Living Status: Hx Family Cardiac Disorders: Yes (CHF) Hx Family Respiratory Disorders: Yes (Emphysema) Brother Family Member Ethnicity: Non- Living Status: Hx Family Respiratory Disorders: Yes (COPD, Emphysema) Sister Family Member Ethnicity: Non- Living Status: Still Living Hx Family Cardiac Disorders: Yes Hx Family Respiratory Disorders: Yes Hx Family Endocrine Disorder: Yes Internal Medicine - H&P: Meds RX: Furosemide [Lasix] 40 mg PO TID 10/13/16 [History] RX: Amlodipine Besylate 10 mg PO DAILY 01/19/17 [History] RX: Fluticasone/Salmeterol [Advair 500-50 Diskus] 1 each IH BID 01/19/17 [ History] RX: Amiodarone [Cordarone] 200 mg PO DAILY 10/04/17 [History] RX: Lisinopril [Zestril] 5 mg PO DAILY 10/04/17 [History] RX: Atorvastatin [Lipitor] 40 mg PO HS #90 tablet 10/07/17 [Rx] RX: Isosorbide MONOnitrate (24 HR) [Imdur] 30 mg PO DAILY #30 tab.er.24h [Rx] RX: Fluticasone/Vilanterol [Breo Ellipta 200-25 Mcg INH] 1 each IH DAILY [History] RX: Metoprolol Succinate [Toprol Xl] 50 mg PO DAILY 01/27/18 [History] RX: ALPRAZolam [Xanax 0.25 MG Tablet] 0.25 mg PO DAILY PRN 03/24/18 [History] Dabigatran Etexilate Mesylate [Pradaxa] 110 mg PO BID 06/06/18 [History] Ipratropium/Albuterol Neb [Duoneb] 3 ml IH Q4HR PRN 06/06/18 [History] Potassium Chloride [K-Tab ER] 10 meq PO DAILY 06/06/18 [History] 3 Allergy/AdvReac Type Severity Reaction Status Date / Time No Known Allergies Allergy Verified 06/06/18 10:21 All Systems PM: A 10-system review of systems was performed and is negative for pertinent findings except as documented above in the HPI. - Constitutional Constitutional: fatigue, no chills, no fever(s), no weakness - EENT Eyes: no blurry vision, no loss of vision - Cardiovascular Cardiovascular ROS IM: dyspnea, dyspnea on exertion, edema, orthopnea, no chest pain, no lightheadedness, no palpitations, no paroxysmal nocturnal dyspnea, no syncope - Respiratory Respiratory: cough, dyspnea, dyspnea on exertion, no wheezing, no chest congestion - Gastrointestinal Gastrointestinal: no belching, no bloating, no diarrhea, no hematemesis, no nausea, no vomiting - Integumentary Integumentary IM: erythema, rash - Neurological Neurological ROS: no abnormal gait, no behavioral changes, no confusion, no dizziness, no focal weakness, no loss of vision, no numbness, no tingling - Psychiatric Psychiatric: no anxiety, no confusion - Constitutional Vitals: Temp Pulse Resp BP Pulse Ox 97.7 F 64 18 138/73 99 06/06/18 14:04 06/06/18 14:04 06/06/18 14:04 06/06/18 14:04 06/06/18 14:04 General appearance: Present: cooperative, A&O X 3, pleasant, no acute distress, obese, answers questions appropriately Exam: Generalized weakness. Able to provide history. - Head Head exam: Present: atraumatic - Eye Eye exam: Present: EOMI - ENT ENT exam: Present: mucous membranes dry - Neck Neck exam general surgery: Present: supple - Respiratory Respiratory exam: Present: CTAB. Absent: respiratory distress, wheezes, tachypnea - Cardiovascular Cardiovascular exam: Present: irregular rhythm, +S1, +S2 - GI/Abdominal GI/Abdominal exam: Present: soft, no peritoneal signs. Absent: distended, firm , guarding, tenderness - Extremities Exam Extremities exam: Present: pedal edema (Bilateral lower leg 3+ pitting edema), radial pulses palpable and symmetrical. Absent: calf tenderness, cyanotic Additional comments: Edema over both forearms. Erythema over forearms. Erythema over both lower legs. Probable cellulitis. - Neurological Exam Neurological exam: Present: alert, oriented X3, no focal deficits. Absent: facial droop, speech deficit - Psychiatric Psychiatric exam: Present: normal mood Internal Med - H&P Results - Labs CBC & Chem 7: 06/06/18 11:04 06/06/18 11:04
[2018-06-06] MEDS ORDERED: *HR* Dextrose 50 % in Water (Syg) 50 ML SYRINGE IVP PRN (16:50)
[2018-06-06] MEDS ORDERED: D5% in Water 1,000 ML IVC PRN (16:50)
[2018-06-06] MEDS ORDERED: Dextrose Gel 15 GM/37.5 ML TUBE PO PRN ×2 (16:50)
[2018-06-06] MEDS: Furosemide 40 MG/4 ML VIAL IVP SCH (17:56)
[2018-06-06] MEDS: Budesonide/Formoterol 160/4.5 1 PUFF INH IH SCH (20:07)
[2018-06-06] MEDS: Ipratropium/Albuterol Neb 3 ML IH PRN (20:07)
[2018-06-06] MEDS: *HR* Dabigatran 75 MG CAPSULE PO SCH (20:19)
[2018-06-06] MEDS: Insulin LISPRO 300 UNITS/3 ML VIAL SQ SCH (20:20)
[2018-06-07 03:41] LABS: Hematocrit 31.6 % (35.3-44.9); Hemoglobin 10.8 g/dL (11.5-15.4); Immature Platelets 2.2 % (1.1-6.1); Mean Corpuscular HGB Conc 34.2 g/dL (31.6-35.5); Mean Corpuscular Hemoglobin 30.2 pg (28.0-33.3); Mean Corpuscular Volume 88.3 fL (83.0-100.0); Mean Platelet Volume 9.6 fL (9.4-12.4); Red Blood Count 3.58 M/mcL (3.82-4.97); Red Cell Distribution Width 17.7 % (11.5-14.5)
[2018-06-07 04:05] LABS: Albumin 3.4 g/dL (3.5-5.7); Albumin/Globulin Ratio 1.1 (1.1-2.2); Bilirubin,Total 0.7 mg/dL (0.3-1.0); Calcium 8.9 mg/dL (8.6-10.3); Globulin 3.1 g/dL (2.4-3.5); Potassium 3.9 mEq/L (3.5-5.1); Total Protein 6.5 g/dL (6.4-8.9)
[2018-06-07 05:20] LABS: Bilirubin,Urine Negative (Negative); Blood,Urine Negative (Negative); Clarity,Urine Clear (Clear); Color,Urine Yellow (Yellow); Glucose,Urine (UA) Normal (Normal); Ketones,Urine Negative (Negative); Leukocyte Esterase,Urine Large (Negative); Nitrite,Urine Negative (Negative); PH,Urine 7.5 pH Units (5.0-8.0); Protein,Urine Negative (Neg-Trace); Urobilinogen,Urine Normal (Normal)
[2018-06-07 05:22] LABS: Bacteria,Urine None Seen per hpf (None-Few); Hyaline Casts,Urine None Seen per lpf (None-Few); RBC,Urine 0-3 per hpf (0-3); Squamous Epithelial Cell,Urine Many per lpf (None-Few); WBC,Urine 15-30 per hpf (0-3)
[2018-06-07] MEDS: Budesonide/Formoterol 160/4.5 1 PUFF INH IH SCH ×2 (07:50→20:03)
[2018-06-07] MEDS: Isosorbide MONOnitrate (24 HR) 30 MG TAB.ER.24H PO SCH (08:11)
[2018-06-07] MEDS: *HR* Dabigatran 75 MG CAPSULE PO SCH (08:11)
[2018-06-07] MEDS: Furosemide 40 MG/4 ML VIAL IVP SCH (08:12)
[2018-06-07] MEDS: *HR* Amiodarone 200 MG TABLET PO SCH (08:12)
[2018-06-07] MEDS: amLODIPine 5 MG TABLET PO SCH (08:12)
[2018-06-07] MEDS: Metoprolol XL (24 HR) Succ 50 MG TAB.ER.24H PO SCH (08:12)
[2018-06-07] MEDS: Insulin LISPRO 300 UNITS/3 ML VIAL SQ SCH ×4 (08:17→21:27)
[2018-06-07] MEDS ORDERED: Aminoglycoside Consult 1 EACH MC ONE (08:51)
[2018-06-07 10:46] LABS: Estimated Average Glucose 146 mg/dl; Hemoglobin A1C 6.7 %
[2018-06-07] MEDS ORDERED: *HR* Heparin 5,000 UNIT/ML VIAL IVP PRN (12:17)
--- NOTE | 2018-06-07 12:26 | Internal Med Progress Note ---
Hospitalist Progress Note - Encounter Date of Encounter: 06/07/18 Time of Encounter: 11:20 - Subjective Interval History: Patient is breathing better today. I was just informed that patient has an acute LLE DVT in the setting of taking Pradaxa 110 mg BID. She also describes abrupt onset of diffuse rash/erythroderma roughly 2 weeks ago in her legs, arms , chest, abdomen all associated with intense pruritus. She denies any new medications, OTC meds, or supplements. She denies any new or exotic foods. - Exam Vitals: Temp Pulse Resp BP Pulse Ox 97.9 F 68 17 127/75 99 06/07/18 12:07 06/07/18 12:07 06/07/18 12:07 06/07/18 12:07 06/07/18 12:07 Exam: General: NAD; resting, breathing comfortably. HEENT: no appreciable soft tissue swelling of lips, tongue, uvula; EOMI, no icterus, nek supple Chest: bibasilar crackles with sparse wheezing; IRR; distant heart sounds Abdomen: soft, NT; ND; no HSMG; no masses; + BS Ext: no appreciable calf tenderness, mild LLE swelling Neuor: A&) x 3; no focal deficits Skin: diffuse erythroderma;/urticarial type process with sparse patches of normal skin -- most prominent in legs, arms, chest, abdomen with some sparing of back - Assessment and Plan (1) Deep vein thrombosis (DVT) of distal vein of left lower extremity Current Visit: Yes Status: Acute Assessment and Plan: 1. Will stop Pradaxa and start heparin drip as discussed with clinical pharmacist. 2. Consult HEM/ONC for guidance on anti-coagulation recommendations upon discharge. (2) Allergic reaction Current Visit: Yes Status: Suspected Assessment and Plan: 1. Will start scheduled Benadryl and Prednisone. 2. I called and discussed with Dr. Tete Torres and requested allergy consultation. 3. Unclear etiology if rash is truly allergic in nature. (3) LUDIN (acute kidney injury) Current Visit: Yes Status: Acute Assessment and Plan: 1. Resolved. 2. Monitor I/O and daily weights. 3. Monitor renal function closely. (4) Acute exacerbation of CHF (congestive heart failure) Current Visit: Yes Status: Acute Assessment and Plan: 1. Improved clinically. 2. Will decrease dose, convert to oral route, and continue Lasix. 3. Monitor fluid balance as above. (5) Cellulitis Current Visit: Yes Status: Acute Assessment and Plan: 1. Continue antibiotics and follow cultures. 2. Suspect allergic reaction over acute cellulitis. DVT Prophylaxis: Heparin gtt as above Plan of Care Discussed with: nurse (patient as well) Internal Medicine: Result - Labs CBC & Chem 7: 06/07/18 03:20 06/07/18 03:20 Labs: Short CBC 06/07/18 Range/Units 03:20 WBC 8.6 (4.3-11.1) K/mcL Hgb 10.8 L (11.5-15.4) g/dL Hct 31.6 L (35.3-44.9) % Plt Count 256 (140-400) K/mcL BMP 06/07/18 03:20 Sodium 129 L Potassium 3.9 Chloride 103 Carbon Dioxide 29 BUN 23 Creatinine 1.15 Glucose 102 Calcium 8.9 Cardiac Enzymes 06/06/18 06/07/18 Range/Units 21:13 03:15 Troponin I < 0.03 < 0.03 (< 0.04) ng/mL Liver Function 06/07/18 Range/Units 03:20 Total Bilirubin 0.7 (0.3-1.0) mg/dL AST 28 (13-39) Units/L ALT 34 (7-52) Units/L Alkaline Phosphatase 79 (34-104) Units/L Albumin 3.4 L (3.5-5.7) g/dL Urine 06/07/18 Range/Units 04:35 Urine Color Yellow (Yellow) Urine Clarity Clear (Clear) Urine pH 7.5 (5.0-8.0) pH Units Ur Specific [place] 1.010 (1.010-1.025) Urine Protein Negative (Neg-Trace) mg/dL Urine Glucose (UA) Normal (Normal) mg/dL - ABG Interpretation ABG results: PT/INR, D-dimer PT 16.0 Seconds (9.4-12.1) H 06/06/18 14:51 Consult Discharge Plan - Plan Referrals: Casandra Evans MD [Primary Care Provider] - (1) Deep vein thrombosis (DVT) of distal vein of left lower extremity Qualifiers: Chronicity: acute Qualified Code(s): I82.4Z2 - Acute embolism and thrombosis of unspecified deep veins of left distal lower extremity (2) Allergic reaction Qualifiers: Encounter type: initial encounter Qualified Code(s): T78.40XA - Allergy, unspecified, initial encounter (4) Acute exacerbation of CHF (congestive heart failure) Qualifiers: Heart failure type: diastolic Qualified Code(s): I50.9 - Heart failure, unspecified (5) Cellulitis Qualifiers: Site of cellulitis: extremity Site of cellulitis of extremity: lower extremity Laterality: unspecified laterality Qualified Code(s): L03.119 - Cellulitis of unspecified part of limb
[2018-06-07 13:10] LABS: Hematocrit 33.8 % (35.3-44.9); Hemoglobin 11.4 g/dL (11.5-15.4); Mean Corpuscular HGB Conc 33.7 g/dL (31.6-35.5); Mean Corpuscular Hemoglobin 30.7 pg (28.0-33.3); Mean Corpuscular Volume 91.1 fL (83.0-100.0); Mean Platelet Volume 9.5 fL (9.4-12.4); Platelet Count 263 K/mcL (140-400); Red Blood Count 3.71 M/mcL (3.82-4.97); Red Cell Distribution Width 17.9 % (11.5-14.5)
[2018-06-07] MEDS: Heparin 25,000 UNIT/500 ML D5W 25,000 UNIT/500 ML BAG IVC SCH (13:23)
[2018-06-07 13:34] LABS: Heparin anti-factor XA UFH 0.03 IU/mL (0.30-0.70)
[2018-06-07 13:35] LABS: INR 1.3; Prothrombin Time 14.7 Seconds (9.4-12.1)
--- NOTE | 2018-06-07 14:15 | Oncology Inp Consult Note ---
<Noe Zhang - Last Filed: 06/07/18 14:12> Date of Encounter: 06/07/18 Time of Encounter: 14:12 Assessment and Plan (1) Left leg DVT Status: Acute Assessment and plan: 78-year-old female admitted for CHF exacerbation found to have new left tibial vein DVT Patient was already on Pradaxa for previous DVT as well as atrial fibrillation Patient has failed Pradaxa Currently she is on heparin drip We will recommend patient be started on Eliquis 5mg BID for 1 week then down to 2.5mg BID. Follow up with Dr. Mata outpatient Qualifiers: Affected thrombotic vein of extremity: tibial Chronicity: acute Qualified Code(s): I82.442 - Acute embolism and thrombosis of left tibial vein (2) LUDIN (acute kidney injury) Status: Resolved Assessment and plan: resolved. (3) Acute exacerbation of CHF (congestive heart failure) Status: Acute Assessment and plan: acute on chronic diastolic HF treatment as per primary Qualifiers: Heart failure type: diastolic Qualified Code(s): I50.9 - Heart failure, unspecified - Data of Consult Patient: known to practice within the last 3 years Consult date: 06/07/18 Requesting Physician: Ravindra Hall MD Primary Care Provider: Casandra Evans MD - Consult Narrative Reason for consult: New DVT History of present illness: Ms. Esteves is a 78 year old female presented to [facility] with chief problems of shortness of breath. Patient reports worsening bilateral pedal edema. Her symptoms had started couple weeks ago but have progressively worsened. She was admitted by the hospitalist team for CHF exacerbation. He was also noticed the patient had bilateral lower extremity erythema and bilateral ultrasound Dopplers were sent which resulted in finding of DVT in the left anterior PTV. Patient has a history of bilateral DVT diagnosed in October 2017. at that time she was started on Pradaxa 150 mg twice a day and that dose was reduced to 75 mg twice a day as she had history of frequent falls and due to her age. 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 Oncology was consulted for recommendations on anticoagulation as patient failed Pradaxa. Past Med Surg Social Fam HX - Past Medical History Medical history: asthma, atrial fibrillation, CHF, COPD, diabetes, hyperlipidemia, hypertension, other Additional medical history: iron deficiency anemia Psychiatric history: anxiety, depression - Past Surgical History Surgical History: heart valve replacement, hysterectomy, pacemaker/AICD, pacemaker - Social History Smoking Status: Former smoker Smokeless Tobacco Status: No Alcohol use: none Drug use: none - Family History Mother Family Member Ethnicity: Non- Living Status: Hx Family Endocrine Disorder: Yes (DM) Father Family Member Ethnicity: Non- Living Status: Hx Family Cardiac Disorders: Yes (enlarged heart) Hx Family Respiratory Disorders: Yes (emphazema) Brother Family Member Ethnicity: Non- Living Status: Hx Family Respiratory Disorders: Yes (COPD, Emphysema) Sister Family Member Ethnicity: Non- Living Status: Still Living Hx Family Cardiac Disorders: Yes Hx Family Respiratory Disorders: Yes Hx Family Endocrine Disorder: Yes Medications and Allergies Furosemide [Lasix] 40 mg PO TID 10/13/16 [History] Amlodipine Besylate 10 mg PO DAILY 01/19/17 [History] Fluticasone/Salmeterol [Advair 500-50 Diskus] 1 each IH BID 01/19/17 [History] Amiodarone [Cordarone] 200 mg PO DAILY 10/04/17 [History] Lisinopril [Zestril] 5 mg PO DAILY 10/04/17 [History] Atorvastatin [Lipitor] 40 mg PO HS #90 tablet 10/07/17 [Rx] Isosorbide MONOnitrate (24 HR) [Imdur] 30 mg PO DAILY #30 tab.er.24h 10/07/17 [ Rx] Fluticasone/Vilanterol [Breo Ellipta 200-25 Mcg INH] 1 each IH DAILY 01/27/18 [ History] Metoprolol Succinate [Toprol Xl] 50 mg PO DAILY 01/27/18 [History] ALPRAZolam [Xanax 0.25 MG Tablet] 0.25 mg PO DAILY PRN 03/24/18 [History] Dabigatran Etexilate Mesylate [Pradaxa] 110 mg PO BID 06/06/18 [History] Ipratropium/Albuterol Neb [Duoneb] 3 ml IH Q4HR PRN 06/06/18 [History] Potassium Chloride [K-Tab ER] 10 meq PO DAILY 06/06/18 [History] 3 Allergy/AdvReac Type Severity Reaction Status Date / Time No Known Allergies Allergy Verified 06/06/18 10:21 Review of systems: Constitutional: Denies fever, chills HEENT: Denies headache, vision changes, neck pain, sore throat, rhinorrhea Heart: Denies chest pain palpitations Lungs: Reports shortness of breath, cough Abdomen: Denies abdominal pain nausea vomiting diarrhea Back: Denies back pain Kidney: Denies dysuria, hematuria Skin: Denies rash, lesions Extremities: Reports lower extremity swelling, pain Neuro: Denies numbness and tingling Oncology - Exam - Constitutional Vitals: Temp Pulse Resp BP Pulse Ox 97.9 F 68 17 127/75 99 06/07/18 12:07 06/07/18 12:07 06/07/18 12:07 06/07/18 12:07 06/07/18 12:07 - Additional findings Additional findings: General: Pleasant without distress, HEENT: Head atraumatic, normocephalic, EOMI, PERRL, neck nontender to palpation , absent lymphadenopathy, Moist Mucous Membranes, Heart: Regular rate and rhythm with no murmur Lungs: Bilateral crackles Abdomen: Soft nontender, nondistended positive bowel sounds Skin: warm and dry, absent rash Extremities: 1+ pedal edema bilaterally Neuro: Alert oriented 3 Vascular: Pedal and radial pulses 2 out of 4 Oncology - Results Labs: 3 06/07/18 06/07/18 06/07/18 12:57 12:57 08:13 WBC 9.4 RBC 3.71 L Hgb 11.4 L Hct 33.8 L MCV 91.1 MCH 30.7 MCHC 33.7 RDW 17.9 H Plt Count 263 MPV 9.5 Immature Plt Fraction PT 14.7 H INR 1.3 Heparin Anti-Xa, Unfract 0.03 L Sodium Potassium Chloride Carbon Dioxide BUN Creatinine Est GFR ( Amer) Est GFR (Non-Af Amer) BUN/Creatinine Ratio Glucose POC Glucose 133 H Calculated Osmolality Calcium Magnesium Total Bilirubin AST ALT Alkaline Phosphatase Troponin I Serum Total Protein Albumin Globulin Albumin/Globulin Ratio Triglycerides Cholesterol LDL Cholesterol, Calc VLDL Cholesterol, Calc HDL Cholesterol Cholesterol/HDL Ratio Urine Color Urine Clarity Urine pH Ur Specific [place] Urine Protein Urine Glucose (UA) Urine Ketones Urine Blood Urine Nitrite Urine Bilirubin Urine Urobilinogen Ur Leukocyte Esterase Urine Microscopic RBC Urine Microscopic WBC Ur Squamous Epith Cells Urine Bacteria Hyaline Casts 3 06/07/18 06/07/18 06/07/18 04:35 03:20 03:20 WBC 8.6 RBC 3.58 L Hgb 10.8 L Hct 31.6 L MCV 88.3 MCH 30.2 MCHC 34.2 RDW 17.7 H Plt Count 256 MPV 9.6 Immature Plt Fraction 2.2 PT INR Heparin Anti-Xa, Unfract Sodium 129 L Potassium 3.9 Chloride 103 Carbon Dioxide 29 BUN 23 Creatinine 1.15 Est GFR ( Amer) 55 L Est GFR (Non-Af Amer) 46 L BUN/Creatinine Ratio 20 Glucose 102 POC Glucose Calculated Osmolality 272 L Calcium 8.9 Magnesium Total Bilirubin 0.7 AST 28 ALT 34 Alkaline Phosphatase 79 Troponin I Serum Total Protein 6.5 Albumin 3.4 L Globulin 3.1 Albumin/Globulin Ratio 1.1 Triglycerides Cholesterol LDL Cholesterol, Calc VLDL Cholesterol, Calc HDL Cholesterol Cholesterol/HDL Ratio Urine Color Yellow Urine Clarity Clear Urine pH 7.5 Ur Specific [place] 1.010 Urine Protein Negative Urine Glucose (UA) Normal Urine Ketones Negative Urine Blood Negative Urine Nitrite Negative Urine Bilirubin Negative Urine Urobilinogen Normal Ur Leukocyte Esterase Large H Urine Microscopic RBC 0-3 Urine Microscopic WBC 15-30 H Ur Squamous Epith Cells Many H Urine Bacteria None Seen Hyaline Casts None Seen 3 06/07/18 06/06/18 06/06/18 03:15 21:13 19:58 WBC RBC Hgb Hct MCV MCH MCHC RDW Plt Count MPV Immature Plt Fraction PT INR Heparin Anti-Xa, Unfract Sodium Potassium Chloride Carbon Dioxide BUN Creatinine Est GFR ( Amer) Est GFR (Non-Af Amer) BUN/Creatinine Ratio Glucose POC Glucose 152 H Calculated Osmolality Calcium Magnesium Total Bilirubin AST ALT Alkaline Phosphatase Troponin I < 0.03 < 0.03 Serum Total Protein Albumin Globulin Albumin/Globulin Ratio Triglycerides Cholesterol LDL Cholesterol, Calc VLDL Cholesterol, Calc HDL Cholesterol Cholesterol/HDL Ratio Urine Color Urine Clarity Urine pH Ur Specific [place] Urine Protein Urine Glucose (UA) Urine Ketones Urine Blood Urine Nitrite Urine Bilirubin Urine Urobilinogen Ur Leukocyte Esterase Urine Microscopic RBC Urine Microscopic WBC Ur Squamous Epith Cells Urine Bacteria Hyaline Casts 3 06/06/18 06/06/18 06/06/18 16:05 14:51 14:51 WBC RBC Hgb Hct MCV MCH MCHC RDW Plt Count MPV Immature Plt Fraction PT 16.0 H INR 1.4 Heparin Anti-Xa, Unfract Sodium Potassium Chloride Carbon Dioxide BUN Creatinine Est GFR ( Amer) Est GFR (Non-Af Amer) BUN/Creatinine Ratio Glucose POC Glucose 97 Calculated Osmolality Calcium Magnesium 1.9 Total Bilirubin AST ALT Alkaline Phosphatase Troponin I Serum Total Protein Albumin Globulin Albumin/Globulin Ratio Triglycerides 66 Cholesterol 80 LDL Cholesterol, Calc 37 VLDL Cholesterol, Calc 13 HDL Cholesterol 30 L Cholesterol/HDL Ratio 2.7 Urine Color Urine Clarity Urine pH Ur Specific [place] Urine Protein Urine Glucose (UA) Urine Ketones Urine Blood Urine Nitrite Urine Bilirubin Urine Urobilinogen Ur Leukocyte Esterase Urine Microscopic RBC Urine Microscopic WBC Ur Squamous Epith Cells Urine Bacteria Hyaline Casts Consult Discharge Plan - Plan Referrals: Casandra Evans MD [Primary Care Provider] - <Jessica Mata S - Last Filed: 06/08/18 08:35> Date of Encounter: 06/07/18 - Data of Consult Requesting Physician: Laury Hsu MD Primary Care Provider: Casandra Evans MD - Consult Narrative History of present illness: Ms. Esteves is a 78 year old female Oncology - Exam - Constitutional Vitals: Temp Pulse Resp BP Pulse Ox 97.3 F L 65 17 136/60 99 06/08/18 07:44 06/08/18 07:44 06/08/18 07:44 06/08/18 07:44 06/08/18 07:44 Oncology - Results Labs: 3 06/08/18 06/08/18 06/07/18 04:31 04:31 21:07 Heparin Anti-Xa, Unfract 0.01 L Sodium 133 L Potassium 4.1 Chloride 101 Carbon Dioxide 25 BUN 24 H Creatinine 1.07 Est GFR ( Amer) > 60 Est GFR (Non-Af Amer) 50 L BUN/Creatinine Ratio 22 Glucose 187 H POC Glucose 207 H Calculated Osmolality 285 Calcium 9.2 Magnesium 2.2 Total Bilirubin 0.5 AST 23 ALT 32 Alkaline Phosphatase 81 Serum Total Protein 6.5 Albumin 3.5 Globulin 3.0 Albumin/Globulin Ratio 1.2 3 06/07/18 20:16 Heparin Anti-Xa, Unfract 0.04 L Sodium Potassium Chloride Carbon Dioxide BUN Creatinine Est GFR ( Amer) Est GFR (Non-Af Amer) BUN/Creatinine Ratio Glucose POC Glucose Calculated Osmolality Calcium Magnesium Total Bilirubin AST ALT Alkaline Phosphatase Serum Total Protein Albumin Globulin Albumin/Globulin Ratio - Attending Attestation 1. History of recurrent DVT. On October 2017 she had acute DVT when she was on Xarelto. Since then she is on Pradaxa dose adjusted for renal insufficiency During this admission 06/07/2018 she developed another acute DVT documented by venous Doppler (left posterior tibial acute DVT) Currently she is on IV heparin On discharge recommend Elequis 5 mg by mouth twice a day Given that she has recurrent DVT would aim for full dose anticoagulation. Eliquis is safe with renal insufficiency and no dose adjustment needed for chronic kidney disease stage III per [employer] labeling Discussed with patient and daughter. She has high co-pay for Eliquis. We will have social service involvement 2. Iron Deficiency anemia. Hemoglobin around 8 2017. He saw her as an outpatient. She received injectafer IV and current hemoglobin improved to 11. 3. Currently patient admitted with CHF improving on conservative management Inpatient Charges Provider: Dr. Shyanne Mata Consult Charges: 33974
[2018-06-07] MEDS: predniSONE 20 MG TABLET PO SCH (15:30)
[2018-06-07] MEDS: cefTRIAXone 1,000 MG in 0.9 % Sodium Chloride Mini Bag 100 ML IVPB SCH (15:30)
--- NOTE | 2018-06-07 15:30 | Electrocardiograph Report ---
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
--- NOTE | 2018-06-07 16:46 | Event Note ---
Date of Encounter: 06/07/18 Time of Encounter: 16:[address] Tete Torres (allergy) -- she agrees with probable drug reaction. She recently restarted oral potassium per pharmacy. Will stop oral potassium for now. Additionally, will stop antibiotics and follow clinically as Dr. Torres does not feel she has cellulitis and, rather, has drug eruption. I agree and have stopped antibiotics for now. Will follow clinically.
--- NOTE | 2018-06-07 19:53 | Allergy Consult Note ---
Date of Encounter: 06/07/18 Time of Encounter: 15:00 Assessment and Plan (1) Urticarial dermatitis Current Visit: Yes Status: Acute 78 year old with diffuse dermatitis x 3 weeks. Patient is vague in her history. Patient had a similar rash 1-2 years ago which was biopsied and thought to be due to a drug. I don't believe patient has cellulitis but is having a drug reaction. Patient denied any new meds but after talking with pharmacist at [facility] she was restarted on her potassium 6 weeks ago and had been off of it for that last year. I believe this could be the offending agent. The seeping on her legs is likely due to the edema and skin break down. Other possibilities are contact dermatitis, insect/mites, or underlying cancer. Patient has an eosinophil count of 1600 and with the restarting of potassium 6 weeks ago I think that could be he cause. Her liver function is normal. 1. Start prednisone 40mg daily with a slow taper over a few weeks 2. Stop potassium if okay from the hospitalist standpoint 3. Start topical 0.1% triamcinalone BID 4. Consider stopping antibiotics as this does not appear infectious and I worry about worsening her kidney function 5. Monitor eosinophil count. 6. Once rash is stable consider discharge and follow up with me as outpatient a week later History of Present Illness Reason for consult: Rash Requesting physician: Caleb Benoit History of present illness: Patient is a 78 year old female with history of hypertension, CHF, diabetes, a fib, COPD and DVTs. Consulation from Dr. Benoit for a severe rash that has been present for roughly 3 weeks. Patient admits that she is having trouble remembering things but believes she has been itching for 3 weeks. She denies any medication, detergent or food changes. The rash is on her arms, legs, neck , breasts and is itchy. She has not tried putting any lotions on. SHe has a history of rash that was biopsied in the past by derm and was urticarial dermatitis. This may have been drug induced at that time but she was lost to follow up and she thinks it resolved. She denies fever. Past Med Surg Social Fam HX - Past Medical History Medical history: asthma, atrial fibrillation, CHF, COPD, diabetes, hyperlipidemia, hypertension, other Additional medical history: iron deficiency anemia Psychiatric history: anxiety, depression - Past Surgical History Surgical History: heart valve replacement, hysterectomy, pacemaker/AICD, pacemaker - Social History Smoking Status: Former smoker Smokeless Tobacco Status: No Alcohol use: none Drug use: none - Family History Mother Family Member Ethnicity: Non- Living Status: Hx Family Endocrine Disorder: Yes (DM) Father Family Member Ethnicity: Non- Living Status: Hx Family Cardiac Disorders: Yes (enlarged heart) Hx Family Respiratory Disorders: Yes (emphazema) Brother Family Member Ethnicity: Non- Living Status: Hx Family Respiratory Disorders: Yes (COPD, Emphysema) Sister Family Member Ethnicity: Non- Living Status: Still Living Hx Family Cardiac Disorders: Yes Hx Family Respiratory Disorders: Yes Hx Family Endocrine Disorder: Yes Medications and Allergies Furosemide [Lasix] 40 mg PO TID 10/13/16 [History] Amlodipine Besylate 10 mg PO DAILY 01/19/17 [History] Fluticasone/Salmeterol [Advair 500-50 Diskus] 1 each IH BID 01/19/17 [History] Amiodarone [Cordarone] 200 mg PO DAILY 10/04/17 [History] Lisinopril [Zestril] 5 mg PO DAILY 10/04/17 [History] Atorvastatin [Lipitor] 40 mg PO HS #90 tablet 10/07/17 [Rx] Isosorbide MONOnitrate (24 HR) [Imdur] 30 mg PO DAILY #30 tab.er.24h 10/07/17 [ Rx] Fluticasone/Vilanterol [Breo Ellipta 200-25 Mcg INH] 1 each IH DAILY 01/27/18 [ History] Metoprolol Succinate [Toprol Xl] 50 mg PO DAILY 01/27/18 [History] ALPRAZolam [Xanax 0.25 MG Tablet] 0.25 mg PO DAILY PRN 03/24/18 [History] Dabigatran Etexilate Mesylate [Pradaxa] 110 mg PO BID 06/06/18 [History] Ipratropium/Albuterol Neb [Duoneb] 3 ml IH Q4HR PRN 06/06/18 [History] Potassium Chloride [K-Tab ER] 10 meq PO DAILY 06/06/18 [History] 3 Allergy/AdvReac Type Severity Reaction Status Date / Time No Known Allergies Allergy Verified 06/06/18 10:21 ROS Allergy All systems PM: reviewed and no additional remarkable complaints except as stated (shortness of breath) Allergy Exam Initial Vital Signs Temp Pulse Resp BP Pulse Ox 97.9 F 68 16 118/77 94 06/06/18 10:20 06/06/18 10:20 06/06/18 10:20 06/06/18 10:20 06/06/18 10:20 - Additional Findings General: resting comfortable, alert and pleasant HEENT: no swelling of lips or tongue, no ulcers of mouth or eyes; EOMI, Chest: intermittent wheezing bilaterally, no distress; IRR; distant heart sounds Abdomen: soft, NTND, +BS Ext: all 4 extremities are mildly edematous Neuor: Alert and oriented Skin: Diffuse plaque erythema of arms, legs, hands, feet, breasts, some sparing on the trunk, face, and flexor surface of forearms. THere are areas of sharp demarcation. Her skin is thin and feels mildly edematous. She has mild seepage of clear/yellow think fluid from shins bilaterally. no induration or fluctuance. Results - Labs 06/07/18 12:57 06/07/18 03:20 Abnormal lab results RBC 3.71 M/mcL (3.82-4.97) L 06/07/18 12:57 Hgb 11.4 g/dL (11.5-15.4) L 06/07/18 12:57 Hct 33.8 % (35.3-44.9) L 06/07/18 12:57 RDW 17.9 % (11.5-14.5) H 06/07/18 12:57 Eosinophils # 1.6 K/mcL (0.0-0.6) H 06/06/18 11:04 PT 14.7 Seconds (9.4-12.1) H 06/07/18 12:57 Heparin Anti-Xa, Unfract 0.03 IU/mL (0.30-0.70) L 06/07/18 12:57 Sodium 129 mEq/L (136-145) L 06/07/18 03:20 Est GFR ( Amer) 55 (> 60) L 06/07/18 03:20 Est GFR (Non-Af Amer) 46 (> 60) L 06/07/18 03:20 POC Glucose 131 mg/dL (70-99) H 06/07/18 16:52 Hemoglobin A1c 6.7 % (-5.6) H 06/06/18 11:04 Calculated Osmolality 272 (280-300) L 06/07/18 03:20 B-Natriuretic Peptide 392 pg/mL (Less than 100) H 06/06/18 11:04 Albumin 3.4 g/dL (3.5-5.7) L 06/07/18 03:20 HDL Cholesterol 30 mg/dL (40-59) L 06/06/18 14:51 Ur Leukocyte Esterase Large (Negative) H 06/07/18 04:35 Urine Microscopic WBC 15-30 per hpf (0-3) H 06/07/18 04:35 Ur Squamous Epith Cells Many per lpf (None-Few) H 06/07/18 04:35 All other labs normal. Consult Discharge Plan - Plan Referrals: Casandra Evans MD [Primary Care Provider] -
[2018-06-07] MEDS: Ipratropium/Albuterol Neb 3 ML IH PRN (20:05)
[2018-06-07] MEDS: *HR* Heparin 5,000 UNIT/ML VIAL IVP PRN (20:50)
[2018-06-08] MEDS ORDERED: Acetaminophen 325 MG TABLET PO PRN (05:00)
[2018-06-08 05:08] LABS: Alanine Aminotransferase 32 Units/L (7-52); Albumin 3.5 g/dL (3.5-5.7); Albumin/Globulin Ratio 1.2 (1.1-2.2); Alkaline Phosphatase 81 Units/L (34-104); Aspartate Amino Transferase 23 Units/L (13-39); BUN/Creatinine Ratio 22 (6-26); Bilirubin,Total 0.5 mg/dL (0.3-1.0); Blood Urea Nitrogen 24 mg/dL (8-23); Calcium 9.2 mg/dL (8.6-10.3); Carbon Dioxide 25 mEq/L (23-29); Chloride 101 mEq/L (98-107); Glucose 187 mg/dL (70-105); Magnesium 2.2 mg/dL (1.6-2.6); Osmolality,Calculated 285 (280-300); Potassium 4.1 mEq/L (3.5-5.1); Sodium 133 mEq/L (136-145); Total Protein 6.5 g/dL (6.4-8.9); eGFR For Non-African Americans 50 (> 60)
[2018-06-08] MEDS: *HR* Heparin 5,000 UNIT/ML VIAL IVP PRN (05:08)
[2018-06-08] MEDS ORDERED: Furosemide Oral Soln 40 MG/4 ML UDC PO SCH (09:00)
[2018-06-08] MEDS: Ipratropium/Albuterol Neb 3 ML IH PRN (09:36)
[2018-06-08] MEDS: Budesonide/Formoterol 160/4.5 1 PUFF INH IH SCH ×2 (09:36→21:48)
[2018-06-08] MEDS: Insulin LISPRO 300 UNITS/3 ML VIAL SQ SCH ×3 (10:04→16:37)
[2018-06-08] MEDS: amLODIPine 5 MG TABLET PO SCH (10:05)
[2018-06-08] MEDS: predniSONE 20 MG TABLET PO SCH (10:05)
[2018-06-08] MEDS: *HR* Amiodarone 200 MG TABLET PO SCH (10:05)
[2018-06-08] MEDS: Isosorbide MONOnitrate (24 HR) 30 MG TAB.ER.24H PO SCH (10:05)
[2018-06-08] MEDS: Metoprolol XL (24 HR) Succ 50 MG TAB.ER.24H PO SCH (10:05)
--- NOTE | 2018-06-08 14:31 | Internal Med Progress Note ---
Hospitalist Progress Note - Encounter Date of Encounter: 06/08/18 Time of Encounter: 08:45 - Subjective Interval History: Patient reports feeling better, with improved shortness of breath. Continues to have swelling in both her hands and legs, although redness is somewhat improving. No itching. No fever, chills. - Exam Vitals: Temp Pulse Resp BP Pulse Ox 98.2 F 63 16 118/54 98 06/08/18 11:48 06/08/18 11:48 06/08/18 11:48 06/08/18 11:48 06/08/18 11:48 Exam: General: Well-developed female lying comfortably in bed in no acute distress Chest: Faint bibasal crackles Heart: Normal S1 & S2; rhythmic. Systolic murmur+ Abdomen: Non-distended, soft and nontender Extremities: Significant peripheral edema, bilateral upper and lower extremities Skin- diffuse erythrodermic rash over trunk, B/L arms and Legs- improving Neurological: Awake, alert and oriented to person, place and time. No focal deficits. - Assessment and Plan (1) Deep vein thrombosis (DVT) of distal vein of left lower extremity Current Visit: Yes Status: Acute Assessment and Plan: Venous Doppler showed acute DVT in left posterior tibial vein. Patient has been on Pradaxa prior to this admission. Hematology consult appreciated, recommend switching anticoagulation to Eliquis at this time. Discontinue IV heparin drip and start Eliquis. Osman check completed. Supportive care. (2) Acute exacerbation of CHF (congestive heart failure) Current Visit: Yes Status: Acute Assessment and Plan: Improving. Increase oral Lasix to 40 mg 3 times a day. Continue fluid restriction and urine output monitoring. Patient does have significant peripheral edema, partly due to allergy reaction and partly due to CHF. Continue nitrate and beta danii. Echocardiogram from March 2018 shows preserved EF, moderate diastolic dysfunction. (3) Cellulitis Current Visit: Yes Status: Ruled-out Assessment and Plan: Less likely lower extremity cellulitis. Antibiotics have been discontinued. (4) LUDIN (acute kidney injury) Current Visit: Yes Status: Acute Assessment and Plan: Serum creatinine is currently stable. GFR noted to be in high 40s to high 50s during the last 6 months. (5) Allergic reaction Current Visit: Yes Status: Acute Assessment and Plan: Immunology consult appreciated. Continue topical triamcinolone, enteral steroids, stop oral potassium as this may be the causative agent for urticarial dermatitis, per Immunology; PRN Benadryl. and follow-up as outpatient in one week. (6) Aortic valve replaced Current Visit: Yes Status: Chronic (7) Atrial fibrillation Current Visit: Yes Status: Chronic Assessment and Plan: Rate controlled. Continue beta danii, anticoagulation has been changed to Eliquis as mentioned above. (8) COPD (chronic obstructive pulmonary disease) Current Visit: Yes Status: Chronic (9) Diabetes Current Visit: Yes Status: Chronic Assessment and Plan: Blood sugars noted to be well controlled. Continue sliding scale insulin as needed. Diabetic diet. (10) HTN (hypertension) Current Visit: Yes Status: Chronic - Time Spent with Patient Total time spent is greater than 50% in coordination of care (as documented) at patient's floor/unit and/or counseling patient: Plan of Care Discussed with: nurse Internal Medicine: Result - Labs CBC & Chem 7: 06/07/18 12:57 06/08/18 04:31 Labs: BMP 06/08/18 04:31 Sodium 133 L Potassium 4.1 Chloride 101 Carbon Dioxide 25 BUN 24 H Creatinine 1.07 Glucose 187 H Calcium 9.2 Liver Function 06/08/18 Range/Units 04:31 Total Bilirubin 0.5 (0.3-1.0) mg/dL AST 23 (13-39) Units/L ALT 32 (7-52) Units/L Alkaline Phosphatase 81 (34-104) Units/L Albumin 3.5 (3.5-5.7) g/dL - ABG Interpretation ABG results: PT/INR, D-dimer PT 14.7 Seconds (9.4-12.1) H 06/07/18 12:57 Consult Discharge Plan - Plan Referrals: Jessica Mata MD [Partnered Physician] - 06/25/18 3:20 pm (Please follow up as schedule...) Casandra Evans MD [Primary Care Provider] - (1) Deep vein thrombosis (DVT) of distal vein of left lower extremity Qualifiers: Chronicity: acute Qualified Code(s): I82.4Z2 - Acute embolism and thrombosis of unspecified deep veins of left distal lower extremity (2) Acute exacerbation of CHF (congestive heart failure) Qualifiers: Heart failure type: diastolic Qualified Code(s): I50.9 - Heart failure, unspecified (3) Cellulitis Qualifiers: Site of cellulitis: extremity Site of cellulitis of extremity: lower extremity Laterality: unspecified laterality Qualified Code(s): L03.119 - Cellulitis of unspecified part of limb (5) Allergic reaction Qualifiers: Encounter type: initial encounter Qualified Code(s): T78.40XA - Allergy, unspecified, initial encounter (7) Atrial fibrillation Qualifiers: Atrial fibrillation type: chronic Qualified Code(s): I48.2 - Chronic atrial fibrillation (8) COPD (chronic obstructive pulmonary disease) Qualifiers: COPD type: unspecified COPD Qualified Code(s): J44.9 - Chronic obstructive pulmonary disease, unspecified (9) Diabetes Qualifiers: Diabetes mellitus type: type 2 Diabetes mellitus retirement insulin use: without retirement use Diabetes mellitus complication status: with unspecified complications Qualified Code(s): E11.8 - Type 2 diabetes mellitus with unspecified complications (10) HTN (hypertension) Qualifiers: Hypertension type: essential hypertension Qualified Code(s): I10 - Essential (primary) hypertension
--- NOTE | 2018-06-08 16:14 | Allergy Progress Note ---
Date of Encounter: 06/08/18 Time of Encounter: 11:00 Subjective Patient reports: other (patient feels a little better. She is having less itching and her thinks her skin is not as red. ) Objective Vital Signs - Last 8 Hours Temp Pulse Resp BP Pulse Ox 06/08/18 15:37 98.0 F 62 18 126/52 100 06/08/18 11:48 98.2 F 63 16 118/54 98 06/08/18 09:38 17 100 Intake and Output 06/08/18 06/08/18 06/08/18 07:59 15:59 23:59 Intake Total 202.7 / 202.7 600 / 600 Output Total 300 / 300 600 / 600 Balance -97.3 / -97.3 0 / 0 Intake: IV Fluids 202.7 / 202.7 0 / 0 Heparin 25,000 UNIT/500 ML D5W 202.7 / 202.7 0 / 0 25,000 unit In 500 ml @ 14 UNIT /KG/HR 21.728 mls/hr IVC . Q23H1M [facility] Rx#:[id number] Oral 0 / 0 600 / 600 Output: Urine 300 / 300 600 / 600 Other: Meal Lunch Percent of Meal Consumed 80% # Voids 1 Weight 73 kg Blood Glucose* 156 175 229 Patient Weight 06/08/18 23:59 Weight 73 kg - General physical appearance no distress - Eyes normal ocular movement - ENT normal nares - Neck other (mild erythema) - Respiratory normal expansion, normal respiratory effort, clear to auscultation - Abdomen soft, non tender - Integumentary other (area of rash are less erythematous today. She has decreased swelling and seeping of her lower legs. Her left arm is more edematous and has a large hematoma at antecubital fossa.) - Neurologic confused - Musculoskeletal normal posture - Labs 06/07/18 12:57 06/08/18 04:31 Diabetes panel 06/08/18 Range/Units 04:31 Sodium 133 L (136-145) mEq/L Potassium 4.1 (3.5-5.1) mEq/L Chloride 101 (98-107) mEq/L Carbon Dioxide 25 (23-29) mEq/L BUN 24 H (8-23) mg/dL Creatinine 1.07 (0.60-1.20) mg/dL Glucose 187 H (70-105) mg/dL Calcium 9.2 (8.6-10.3) mg/dL AST 23 (13-39) Units/L ALT 32 (7-52) Units/L Alkaline Phosphatase 81 (34-104) Units/L Albumin 3.5 (3.5-5.7) g/dL Calcium panel 06/08/18 Range/Units 04:31 Calcium 9.2 (8.6-10.3) mg/dL Albumin 3.5 (3.5-5.7) g/dL Pituitary panel 06/08/18 Range/Units 04:31 Sodium 133 L (136-145) mEq/L Potassium 4.1 (3.5-5.1) mEq/L Chloride 101 (98-107) mEq/L Carbon Dioxide 25 (23-29) mEq/L BUN 24 H (8-23) mg/dL Creatinine 1.07 (0.60-1.20) mg/dL Glucose 187 H (70-105) mg/dL Calcium 9.2 (8.6-10.3) mg/dL Adrenal panel 06/08/18 Range/Units 04:31 Sodium 133 L (136-145) mEq/L Potassium 4.1 (3.5-5.1) mEq/L Chloride 101 (98-107) mEq/L Carbon Dioxide 25 (23-29) mEq/L BUN 24 H (8-23) mg/dL Creatinine 1.07 (0.60-1.20) mg/dL Glucose 187 H (70-105) mg/dL Calcium 9.2 (8.6-10.3) mg/dL Total Bilirubin 0.5 (0.3-1.0) mg/dL AST 23 (13-39) Units/L ALT 32 (7-52) Units/L Alkaline Phosphatase 81 (34-104) Units/L Albumin 3.5 (3.5-5.7) g/dL - Assessment and Plan (1) Urticarial dermatitis Current Visit: Yes Status: Acute Patient has severe dermatitis likely secondary to drug reaction from her potassium. Patient looks slightly better today. I am concerned about the swelling of her left arm. I am not sure if this is due to the picc line and dressing. 1. continue off potassium 2. Continue IV steroids 3. Continue topical steroids BID 4. Monitor rash closely 5. Elevate arm as much as possible. 6. Will follow with primary team. Consult Discharge Plan - Plan Referrals: Jessica Mata MD [Partnered Physician] - 06/25/18 3:20 pm (Please follow up as schedule...) Casandra Evans MD [Primary Care Provider] -
[2018-06-08] MEDS: Triamcinolone Acet 0.1% CRM 15 GM TUBE TP SCH ×2 (16:26→20:41)
[2018-06-08] MEDS: Furosemide 40 MG TABLET PO SCH (16:27)
--- NOTE | 2018-06-08 16:33 | Electrocardiograph Report ---
[place] [id number] Test Date: 2018-06-07 Pat Name: Umm Esteves Department: 112 Room: 2A Gender: F Merchandising Specialist: : 1940 Requested By: Maurice Hawkins Order Number: [id number] Reading MD: Marcia Shultz Measurements Intervals [place] Rate: 63 P: 73 NE: 182 QRS: -72 QRSD: 181 T: 81 QT: 491 QTc: 499 Interpretive Statements ELECTRONIC ATRIAL PACEMAKER ELECTRONIC VENTRICULAR PACEMAKER ABNORMAL RHYTHM ECG Electronically Signed On 06-08-2018 16:31:56 EDT by Marcia Shultz
--- NOTE | 2018-06-08 16:33 | Electrocardiograph Report ---
[place] [address] Test Date: 2018-06-07 Pat Name: Umm Esteves Department: 112 Room: 2A Gender: F Person Investigator: : 1940 Requested By: Ravindra Hall Order Number: [id number] Reading MD: Marcia Shultz Measurements Intervals [place] Rate: 55 P: 75 LA: 161 QRS: -81 QRSD: 190 T: 85 QT: 507 QTc: 497 Interpretive Statements ELECTRONIC VENTRICULAR PACEMAKER ABNORMAL RHYTHM ECG Electronically Signed On 06-08-2018 16:31:42 EDT by Marcia Shultz
[2018-06-08] MEDS: Apixaban 5 MG TABLET PO SCH (20:41)
[2018-06-09 05:01] LABS: BUN/Creatinine Ratio 22 (6-26); Blood Urea Nitrogen 23 mg/dL (8-23); Calcium 8.9 mg/dL (8.6-10.3); Carbon Dioxide 27 mEq/L (23-29); Chloride 101 mEq/L (98-107); Glucose 178 mg/dL (70-105); Magnesium 1.9 mg/dL (1.6-2.6); Osmolality,Calculated 288 (280-300); Potassium 3.9 mEq/L (3.5-5.1); Sodium 135 mEq/L (136-145); eGFR For Non-African Americans 51 (> 60)
[2018-06-09 07:35] VITALS: BP 152/81
[2018-06-09] MEDS: Budesonide/Formoterol 160/4.5 1 PUFF INH IH SCH (07:43)
[2018-06-09] MEDS: Ipratropium/Albuterol Neb 3 ML IH PRN ×2 (07:47→11:44)
[2018-06-09] MEDS: Insulin LISPRO 300 UNITS/3 ML VIAL SQ SCH ×3 (07:58→12:16)
[2018-06-09] MEDS: Heparin 25,000 UNIT/500 ML D5W 25,000 UNIT/500 ML BAG IVC SCH (07:59)
--- NOTE | 2018-06-09 09:19 | Discharge Summary ---
- NOTES TO OUTPATIENT PROVIDER Notes to Outpatient Provider: Admitted for acute CHF, improving; also has acute left leg DVT, anticoagulation changed to Eliquis per Hematology; developed allergic dermatitis, possibly to oral potassium, which is being stopped; needs Hematology and Immunology f/up; Date of Encounter: 06/09/18 Time of Encounter: 09:19 - Discharge Diagnosis (1) Deep vein thrombosis (DVT) of distal vein of left lower extremity Priority: Primary Status: Acute Qualifiers: Chronicity: acute Qualified Code(s): I82.4Z2 - Acute embolism and thrombosis of unspecified deep veins of left distal lower extremity (2) Acute exacerbation of CHF (congestive heart failure) Priority: Primary Status: Acute Qualifiers: Heart failure type: diastolic Qualified Code(s): I50.33 - Acute on chronic diastolic (congestive) heart failure (3) Cellulitis Priority: Primary Status: Ruled-out Qualifiers: Site of cellulitis: extremity Site of cellulitis of extremity: lower extremity Laterality: unspecified laterality Qualified Code(s): L03.119 - Cellulitis of unspecified part of limb (4) LUDIN (acute kidney injury) Priority: Primary Status: Acute (5) Allergic reaction Priority: Primary Status: Acute Qualifiers: Encounter type: initial encounter Qualified Code(s): T78.40XA - Allergy, unspecified, initial encounter (6) Aortic valve replaced Priority: Secondary Status: Chronic (7) Atrial fibrillation Priority: Secondary Status: Chronic Qualifiers: Atrial fibrillation type: chronic Qualified Code(s): I48.2 - Chronic atrial fibrillation (8) COPD (chronic obstructive pulmonary disease) Priority: Secondary Status: Chronic Qualifiers: COPD type: unspecified COPD Qualified Code(s): J44.9 - Chronic obstructive pulmonary disease, unspecified (9) Diabetes Priority: Secondary Status: Chronic Qualifiers: Diabetes mellitus type: type 2 Diabetes mellitus fpc insulin use: without fpc use Diabetes mellitus complication status: with unspecified complications Qualified Code(s): E11.8 - Type 2 diabetes mellitus with unspecified complications (10) HTN (hypertension) Priority: Secondary Status: Chronic Qualifiers: Hypertension type: essential hypertension Qualified Code(s): I10 - Essential (primary) hypertension Hospital course: Ms. Esteves is a 78 year old female with the above medical problems, who was admitted with worsening shortness of breath and leg swelling. She was treated for acute exacerbation of CHF with IV Lasix and showed some improvement, oxygen requirements at baseline. Echocardiogram from March 2018 showed preserved EF, moderate diastolic dysfunction. Venous Doppler of lower extremity revealed acute DVT in left posterior tibial vein. Patient has been on anticoagulation with Pradaxa at home. Hematology was consulted, anticoagulation is being changed to Eliquis at this time and patient will follow-up with hematology as outpatient. Osman check has been completed and patient is able to afford this medication. She also developed new onset of erythematous rash consistent with allergic dermatitis over her trunk and extremities. She was initially treated with antibiotics for suspected lower extremity cellulitis, which is now ruled out. Allergy/wire winder was consulted, started patient on topical steroids and oral prednisone, oral potassium was thought to be the inciting agent which is now being stopped. Patient showed significant improvement in her rash and she will follow-up with Immunology as an outpatient. Patient probably has an element of stage III chronic kidney disease, her creatinine was elevated from baseline at admission, which improved to baseline at this time. Patient is medically stable for discharge with outpatient follow-up. Discharge discussed with: patient, nurse, case management, market research consultant - Time Spent with Patient Total time spent providing and/or coordinating discharge services: Greater than 30 minutes (45 min) - Discharge Medications Prescriptions: predniSONE [PredniSONE] 40 mg PO DAILY #14 tablet Triamcinolone Acet 0.1% CRM [Kenalog] 1 appl TP BID #1 tube Home Medications: Furosemide [Lasix] 40 mg PO TID 10/13/16 [History] Amlodipine Besylate 10 mg PO DAILY 01/19/17 [History] Fluticasone/Salmeterol [Advair 500-50 Diskus] 1 each IH BID 01/19/17 [History] Amiodarone [Cordarone] 200 mg PO DAILY 10/04/17 [History] Lisinopril [Zestril] 5 mg PO DAILY 10/04/17 [History] Atorvastatin [Lipitor] 40 mg PO HS #90 tablet 10/07/17 [Rx] Isosorbide MONOnitrate (24 HR) [Imdur] 30 mg PO DAILY #30 tab.er.24h 10/07/17 [ Rx] Fluticasone/Vilanterol [Breo Ellipta 200-25 Mcg INH] 1 each IH DAILY 01/27/18 [ History] Metoprolol Succinate [Toprol Xl] 50 mg PO DAILY 01/27/18 [History] ALPRAZolam [Xanax 0.25 MG Tablet] 0.25 mg PO DAILY PRN 03/24/18 [History] Ipratropium/Albuterol Neb [Duoneb] 3 ml IH Q4HR PRN 06/06/18 [History] Apixaban [Eliquis] 5 mg PO BID tablet 06/09/18 [Rx] Apixaban [Eliquis] 10 mg PO BID tablet 06/09/18 [Rx] Triamcinolone Acet 0.1% CRM [Kenalog] 1 appl TP BID #1 tube 06/09/18 [Rx] predniSONE [PredniSONE] 40 mg PO DAILY #14 tablet 06/09/18 [Rx] Allergies/Adverse Reactions: 3 Allergy/AdvReac Type Severity Reaction Status Date / Time No Known Allergies Allergy Verified 06/06/18 10:21 Date of admission: 06/07/18 18:12 Primary care physician: Casandra Evans MD Discharging clinician: Laury Hus Anticipated date of discharge: 06/09/18 - Constitutional Vitals: Temp Pulse Resp BP Pulse Ox 97.7 F 76 17 152/81 95 06/09/18 07:34 06/09/18 07:34 06/09/18 07:34 06/09/18 07:34 06/09/18 07:34 General appearance: Present: cooperative, A&O X 3, answers questions appropriately Exam: . - Cardiovascular Cardiovascular exam: Present: irregular rhythm, +S1, +S2. Absent: diastolic murmur, gallop, rubs, systolic murmur Additional comments: B/L UE and LE edema- improving; left arm is more edematous with ecchymoses but no focal swelling/tenderness, probably related to EPIV line; - Patient Status Disposition: Home, Self-Care Condition: Fair Functional capacity at discharge: independent ambulation Overall status at discharge: patient is progressing back to baseline - Discharge Instructions Follow Up With: Jessica Mata MD [Partnered Physician] - 06/25/18 3:20 pm (Please follow up as schedule...) Casandra Evans MD [Primary Care Provider] - Additional Instructions: F/up with Dr.Dana Torres in 1 week - Diet and Activity Activity: resume usual activities as tolerated, wear oxygen at all times Diet: diabetic diet, low fat, low cholesterol, low salt diet
[2018-06-09] MEDS: Furosemide 40 MG TABLET PO SCH ×2 (10:02→12:20)
[2018-06-09] MEDS: Metoprolol XL (24 HR) Succ 50 MG TAB.ER.24H PO SCH (10:02)
[2018-06-09] MEDS: Isosorbide MONOnitrate (24 HR) 30 MG TAB.ER.24H PO SCH (10:02)
[2018-06-09] MEDS: Apixaban 5 MG TABLET PO SCH (10:02)
[2018-06-09] MEDS: predniSONE 20 MG TABLET PO SCH (10:02)
[2018-06-09] MEDS: *HR* Amiodarone 200 MG TABLET PO SCH (10:02)
[2018-06-09] MEDS: amLODIPine 5 MG TABLET PO SCH (10:03)
[2018-06-09] MEDS: Triamcinolone Acet 0.1% CRM 15 GM TUBE TP SCH (10:03)
--- NOTE | 2018-06-09 19:50 | Allergy Progress Note ---
Date of Encounter: 06/09/18 Time of Encounter: 08:00 Subjective Patient reports: feels better, other Narrative: Patient reports the swelling has decreased and her itching is not as bad. She would like to go home. Objective Intake and Output 06/09/18 06/09/18 06/09/18 07:59 15:59 23:59 Intake Total 200 / 200 Output Total 900 / 900 Balance -700 / -700 Intake: Oral 200 / 200 Output: Urine 900 / 900 Other: Weight 74.1 kg Blood Glucose* 179 Patient Weight 06/09/18 23:59 Weight 74.1 kg - General physical appearance no distress - Eyes normal ocular movement - ENT normal nares - Neck other (erythema and dryness of neck) - Respiratory normal expansion, normal respiratory effort, clear to auscultation - Abdomen soft, non tender - Integumentary other (still has edema of left arm but much improved from yesterday. SHe with erythematous rash on arms, legs, ankles and neck. Her rash is is red and no longer seeping. She has large hematoms on both arms and hands. ) - Labs 06/07/18 12:57 06/09/18 04:08 Diabetes panel 06/09/18 Range/Units 04:08 Sodium 135 L (136-145) mEq/L Potassium 3.9 (3.5-5.1) mEq/L Chloride 101 (98-107) mEq/L Carbon Dioxide 27 (23-29) mEq/L BUN 23 (8-23) mg/dL Creatinine 1.04 (0.60-1.20) mg/dL Glucose 178 H (70-105) mg/dL Calcium 8.9 (8.6-10.3) mg/dL Calcium panel 06/09/18 Range/Units 04:08 Calcium 8.9 (8.6-10.3) mg/dL Pituitary panel 06/09/18 Range/Units 04:08 Sodium 135 L (136-145) mEq/L Potassium 3.9 (3.5-5.1) mEq/L Chloride 101 (98-107) mEq/L Carbon Dioxide 27 (23-29) mEq/L BUN 23 (8-23) mg/dL Creatinine 1.04 (0.60-1.20) mg/dL Glucose 178 H (70-105) mg/dL Calcium 8.9 (8.6-10.3) mg/dL Adrenal panel 06/09/18 Range/Units 04:08 Sodium 135 L (136-145) mEq/L Potassium 3.9 (3.5-5.1) mEq/L Chloride 101 (98-107) mEq/L Carbon Dioxide 27 (23-29) mEq/L BUN 23 (8-23) mg/dL Creatinine 1.04 (0.60-1.20) mg/dL Glucose 178 H (70-105) mg/dL Calcium 8.9 (8.6-10.3) mg/dL - Assessment and Plan (1) Urticarial dermatitis Status: Acute Patient has severe dermatitis likely secondary to drug reaction from her potassium. Patient looks better today but still with rash, swelling and hematomas. Patient would like to go home. From a drug reaction stand point I think she is okay for discharge with close follow up. 1. continue off potassium and follow up with PCP to discuss if she needs to be on potassium 2. Discharge home on prednisone 40mg x 3 days, 30mg x 3 days , 20mg x 3 days, 10mg x 3 days, 5mg x 3 days 3. Continue topical steroids BID 4. She will need to call or go to ER if rash worsens 5. Elevate arms and legs as much as possible. 6. Will follow with primary team. 7. I will see patient early next week in my clinic Consult Discharge Plan - Plan Instructions: Heart Failure (DC), Peripheral Vascular Disorders (DC) Additional Instructions: F/up with Dr.Dana Torres in 1 week Referrals: Tete Torres MD [Partnered Physician] - 06/17/18 8:30 am (Please follow up as schedule....) Jessica Mata MD [Partnered Physician] - 06/25/18 3:20 pm (Please follow up as schedule...) Casandra Evans MD [Primary Care Provider] - (PCP office is close, call office tomorrow and schedule) Prescriptions: predniSONE [PredniSONE] 40 mg PO DAILY #14 tablet Triamcinolone Acet 0.1% CRM [Kenalog] 1 appl TP BID #1 tube
[2018-06-16] MEDS ORDERED: Apixaban 5 MG TABLET PO SCH (09:00)
== END 2018-06-09 12:43 | disposition home or self-care (01) | DRG 291 ==
LOC: EMEROOARM 10:15 → 2ANU 10:15 → SUATTDRO 06-07 18:12
PROVIDERS: ADMIT Internal Medicine; ATTEND Internal Medicine

== ENCOUNTER 2018-07-28 12:02 | Observation (INO) ==
[2018-07-28] MEDS ORDERED: Furosemide 40 MG/4 ML VIAL IVP ONE (15:31)
--- NOTE | 2018-07-28 15:33 | Emergency Department Note ---
Disposition Clinical Impression: Leg edema Acute exacerbation of CHF (congestive heart failure) Qualifiers: Heart failure type: unspecified Qualified Code(s): I50.9 - Heart failure, unspecified Disposition: Admitted As Inpatient Condition: Fair Referrals: Casandra Evans MD [Primary Care Provider] - Forms: ED Satisfaction Letter Time of Disposition: 17:01 Extremity Problem HPI - General Chief complaint: ED Extremity Problem,Nontraumatic Stated complaint: Legs are draining/fluid build up Time Seen by Provider: 07/28/18 15:07 Nursing Notes Reviewed: Yes Vital Signs Reviewed: Yes - History of Present Illness HPI Narrative: I have personally seen and evaluated the patient along with the Medical Student. I have reviewed and confirmed the history of present illness, review of systems, family, medical, and surgical history and agree with the documentation except as documented below. Pain Scale: 8 - Related Data Home Medications Medication Instructions Recorded Confirmed Furosemide [Lasix] 40 mg PO QAM 10/13/16 07/28/18 Amlodipine Besylate 10 mg PO DAILY 01/19/17 07/28/18 Fluticasone/Salmeterol [Advair 1 each IH BID 01/19/17 07/28/18 500-50 Diskus] Amiodarone [Cordarone] 200 mg PO DAILY 10/04/17 07/28/18 Lisinopril [Zestril] 5 mg PO DAILY 10/04/17 07/28/18 Fluticasone/Vilanterol [Breo 1 each IH DAILY 01/27/18 07/28/18 Ellipta 200-25 Mcg INH] Ipratropium/Albuterol Neb [Duoneb] 3 ml IH Q4HR PRN 06/06/18 07/28/18 Furosemide [Lasix] 80 mg PO 1200 07/28/18 07/28/18 Metoprolol Succinate [Toprol Xl] 25 mg PO DAILY 07/28/18 07/28/18 Previous Rx's Medication Instructions Recorded Atorvastatin [Lipitor] 40 mg PO HS #90 tablet 10/07/17 Isosorbide MONOnitrate (24 HR) 30 mg PO DAILY #30 tab.er.24h 10/07/17 [Imdur] Apixaban [Eliquis] 5 mg PO BID #60 tablet 06/28/18 Allergies Allergy/AdvReac Type Severity Reaction Status Date / Time No Known Allergies Allergy Verified 07/14/18 16:04 Review of Systems: As reviewed in the HPI. All other systems reviewed are negative or normal. Past Medical History - Past Medical History Attestation: Yes The following information was validated with the patient. Source: patient Medical history: Reports: asthma, atrial fibrillation, CHF, COPD, diabetes, hyperlipidemia, hypertension, other Surgical history: Reports: heart valve replacement, hysterectomy, pacemaker/AICD , pacemaker Psychiatric history: Reports: anxiety, depression - Social History Smoking Status: Former smoker Smokeless Tobacco Status: No Alcohol use: Reports: none Drug use: Reports: none Physical Exam CONSTITUTIONAL: [well , but chronically ill appearing, alert and in no acute distress] EYES: [EOMI, clear conjunctiva, PERRLA] HENT: [Normocephalic, atraumatic, moist mucus membranes, normal oropharynx] NECK: [normal inspection, full ROM, trachea midline, no obvious swelling] PULMONARY: [normal lung sounds bilaterally, normal chest rise and fall, no respiratory distress or stridor, no wheezes, no rales, no rhonchi, but does have decreased breath sounds bilaterally CARDIOVASCULAR: [regular rate, regular rhythm, normal heart sounds, no murmurs, distal extremities are warm and well perfused] GASTROINSTESTINAL: [soft, non-tender, non-rigid, non-distended, no guarding, no rebound, normal bowel sounds] GENITOURINARY/RECTAL: [deferred] NEUROLOGIC: [Alert, oriented x3, normal speech, moves all extremities] EXTREMITIES: [Normal inspection, full ROM, no tenderness, 3+ pedal edema with overlying erythema that appears chronic but no warmth or concern over cellulitis , normal capillary refill. Also, having some swelling to LUE but states has been ongoing ] MUSCULOSKELETAL: [no gross deformities, atraumatic] SKIN: [No cyanosis, no diaphoresis, normal color, warm, diffuse dry scaling rash to legs and arms] PSYCHIATRIC: [normal mood and affect] Course Course Narrative: patient's labs are back. Has mild leukocytosis, which could be secondary to her steroids. Lactic acid is 3.2. Chest x-ray with edema versus pneumonia. The think clinically, she is more CHF. Do not want to volume overload her. We will give her dose of antibiotics in the ED to cover for HCAP And will admit the hospitalist service for further workup and management. Vital Signs Temperature 98.0 F 07/28/18 12:08 Pulse Rate 73 07/28/18 12:08 Respiratory Rate 15 07/28/18 12:08 Blood Pressure 134/67 07/28/18 12:08 O2 Sat by Pulse Oximetry 95 07/28/18 12:08 Temperature 98.0 F 07/28/18 16:28 Pulse Rate 73 07/28/18 16:28 Respiratory Rate 15 07/28/18 16:28 Blood Pressure 134/67 07/28/18 16:28 O2 Sat by Pulse Oximetry 97 07/28/18 16:28 Oxygen Delivery Oxygen Delivery Room Air Extremity Problem, Nontraumati - MDM Narrative Medical decision making narrative: 1626 hrs.: Patient's lactic acid is high and her white counts 15. We will give her fluids but will have to be cautious and she does have CHF also. - Medical Records Medical records reviewed: Yes I reviewed the patient's medical records. - Lab Data Lab results reviewed: Yes I reviewed the patient's lab results. Result diagrams: 07/28/18 15:58 07/28/18 15:58 Lab Results 07/28/18 07/28/18 07/28/18 Range/Units 15:58 15:58 15:58 WBC 15.0 H (4.3-11.1) K/mcL RBC 3.91 (3.82-4.97) M/mcL Hgb 12.1 (11.5-15.4) g/dL Hct 35.7 (35.3-44.9) % MCV 91.3 (83.0-100.0) fL MCH 30.9 (28.0-33.3) pg MCHC 33.9 (31.6-35.5) g/dL RDW 13.9 (11.5-14.5) % Plt Count 210 (140-400) K/mcL MPV 10.7 (9.4-12.4) fL Immature Gran % 1.1 (0-4) % Seg Neutrophils % 90.9 % Lymphocytes % 3.1 % Monocytes % 4.7 % Eosinophils % 0.1 % Basophils % 0.1 % Neutrophils # 13.6 H (1.6-8.9) K/mcL Lymphocytes # 0.5 L (0.6-4.6) K/mcL Monocytes # 0.7 (0.0-1.3) K/mcL Eosinophils # 0.0 (0.0-0.6) K/mcL Basophils # 0.0 (0.0-0.2) K/mcL ESR (0-15) mm/hr PT (9.4-12.1) Seconds INR APTT (26.0-36.0) Seconds Sodium 125 L (136-145) mEq/L Potassium 4.6 (3.5-5.1) mEq/L Chloride 88 L (98-107) mEq/L Carbon Dioxide 26 (23-29) mEq/L BUN 36 H (8-23) mg/dL Creatinine 1.20 (0.60-1.20) mg/dL Est GFR ( Amer) 53 L (> 60) Est GFR (Non-Af Amer) 43 L (> 60) BUN/Creatinine Ratio 30 H (6-26) Glucose 473 H (70-105) mg/dL Calculated Osmolality 289 (280-300) Lactic Acid 3.2 H (0.5-2.2) mmol/L Calcium 9.6 (8.6-10.3) mg/dL Troponin I 0.03 (< 0.04) ng/mL C-Reactive Protein 169 H (Less than 10) mg/L B-Natriuretic Peptide (Less than 100) pg/mL 07/28/18 07/28/18 07/28/18 Range/Units 15:58 15:58 15:58 WBC (4.3-11.1) K/mcL RBC (3.82-4.97) M/mcL Hgb (11.5-15.4) g/dL Hct (35.3-44.9) % MCV (83.0-100.0) fL MCH (28.0-33.3) pg MCHC (31.6-35.5) g/dL RDW (11.5-14.5) % Plt Count (140-400) K/mcL MPV (9.4-12.4) fL Immature Gran % (0-4) % Seg Neutrophils % % Lymphocytes % % Monocytes % % Eosinophils % % Basophils % % Neutrophils # (1.6-8.9) K/mcL Lymphocytes # (0.6-4.6) K/mcL Monocytes # (0.0-1.3) K/mcL Eosinophils # (0.0-0.6) K/mcL Basophils # (0.0-0.2) K/mcL ESR 52 H (0-15) mm/hr PT 19.5 H (9.4-12.1) Seconds INR 1.7 APTT 30.6 (26.0-36.0) Seconds Sodium (136-145) mEq/L Potassium (3.5-5.1) mEq/L Chloride (98-107) mEq/L Carbon Dioxide (23-29) mEq/L BUN (8-23) mg/dL Creatinine (0.60-1.20) mg/dL Est GFR ( Amer) (> 60) Est GFR (Non-Af Amer) (> 60) BUN/Creatinine Ratio (6-26) Glucose (70-105) mg/dL Calculated Osmolality (280-300) Lactic Acid (0.5-2.2) mmol/L Calcium (8.6-10.3) mg/dL Troponin I (< 0.04) ng/mL C-Reactive Protein (Less than 10) mg/L B-Natriuretic Peptide 358 H (Less than 100) pg/mL - Radiology Data Radiology results reviewed: Yes I reviewed the patient's radiology results. - EKG Data EKG attestation: Yes I reviewed and interpreted this EKG. EKG results narrative: History with him, rate 72, left axis deviation, no change from previous Attestation Statement - Attestation Attestation: This documentation is done with the assistance of Dragon dictation. Despite efforts made to ensure accuracy, there may be inaccuracies in informatics analyst or spelling and typographical errors. I examined this patient and my medical decision-making was reviewed with the Resident Physician. I agree with the documented findings, disposition and treatment plan as described except to the extent set forth below. Patient seen and evaluated for lower extremity edema was seen on arrival with Dr. Ann and myself, I agree with his evaluation management plan, supervise care the patient' s stay. Patient has a history of CHF. Edema in her lower extremities. History of DVTs in her left lower extremity. She says that has resolved. And a rash that she gets on her lower extremities which seems to clear up with steroids. They had her on Lasix and escalating doses. Patient thinks it is working. She does not seem to be dyspneic at this time the more the concerns edema in her lower extremities. She does have areas that look like a vasculitis and lower extremities sees do not appear to be a cellulitis. Renagel workup on her most likely she will need admission. She is in agreement with this plan as is her family.
--- NOTE | 2018-07-28 16:05 | Emergency Department Note ---
Disposition Clinical Impression: Acute exacerbation of CHF (congestive heart failure), Leg edema Disposition: Admitted As Inpatient Condition: Fair Extremity Problem HPI - General Chief complaint: ED Extremity Problem,Nontraumatic Stated complaint: Legs are draining/fluid build up Time Seen by Provider: 07/28/18 15:07 Source: patient, family Mode of arrival: wheelchair Limitations: no limitations Nursing Notes Reviewed: Yes Vital Signs Reviewed: Yes - History of Present Illness HPI Narrative: 78 y/o F with history of aortic valve replacement, afib, CHF and diabetes presents with complaints of lower leg swelling and weeping along with lower leg and left arm rash for the past 4 days. Patient has been admitted here in the ED for CHF exacerbation last in May,. During her visit she increased her Furosemide dose from BID to TID and has been doing well with her lower extremity swelling until this time. She was set to have her dose decreased to BID today. Patient has also had a rash to her lower legs bilaterally and over her left arm for the last 2 days. This rash has also occurred in the past and responded to Prednisone per patient. She was recently started on Prednisone again but has not had relief of the rash. Patient called her field consultant, Dr. Aponte, earlier today who advised patient to come into the ED for further evaluation. She notes some increased SOB over the last 4 days along with some flu-like symptoms of chills and a DOAN but denies nausea, vomiting, numbness, LOC , abd pain, chest pain. Pain Scale: 8 - Related Data Home Medications Medication Instructions Recorded Confirmed Furosemide [Lasix] 40 mg PO QAM 10/13/16 07/28/18 Amlodipine Besylate 10 mg PO DAILY 01/19/17 07/28/18 Fluticasone/Salmeterol [Advair 1 each IH BID 01/19/17 07/28/18 500-50 Diskus] Amiodarone [Cordarone] 200 mg PO DAILY 10/04/17 07/28/18 Lisinopril [Zestril] 5 mg PO DAILY 10/04/17 07/28/18 Fluticasone/Vilanterol [Breo 1 each IH DAILY 01/27/18 07/28/18 Ellipta 200-25 Mcg INH] Ipratropium/Albuterol Neb [Duoneb] 3 ml IH Q4HR PRN 06/06/18 07/28/18 Furosemide [Lasix] 80 mg PO 1200 07/28/18 07/28/18 Metoprolol Succinate [Toprol Xl] 25 mg PO DAILY 07/28/18 07/28/18 Previous Rx's Medication Instructions Recorded Atorvastatin [Lipitor] 40 mg PO HS #90 tablet 10/07/17 Isosorbide MONOnitrate (24 HR) 30 mg PO DAILY #30 tab.er.24h 10/07/17 [Imdur] Apixaban [Eliquis] 5 mg PO BID #60 tablet 06/28/18 metFORMIN [Glucophage] 500 mg PO BID #60 tablet 07/29/18 predniSONE [PredniSONE] 10 mg PO DAILY #30 tablet 07/29/18 Allergies Allergy/AdvReac Type Severity Reaction Status Date / Time No Known Allergies Allergy Verified 07/14/18 16:04 Constitutional: Denies: fever, chills, weakness, weight change Cardiovascular: Reports: edema (lower extremities b/l, weeping in the lower legs R>L). Denies: chest pain, palpitations, dyspnea on exertion, syncope Respiratory: Reports: dyspnea (at rest and with exertion). Denies: cough, wheezes, hemoptysis Gastrointestinal: Denies: abdominal pain, nausea, vomiting, diarrhea, constipation, hematemesis, melena, hematochezia Genitourinary: Denies: dysuria, frequency, hematuria, discharge Musculoskeletal: Denies: back pain, neck pain, arthralgia, myalgia Integumentary: Reports: rash (lower legs b/l). Denies: abrasion, pruritus Neurological: Reports: headache. Denies: weakness, numbness, paresthesias, confusion, abnormal gait, vertigo Past Medical History - Past Medical History Medical history: Reports: asthma, atrial fibrillation, CHF, COPD, diabetes, hyperlipidemia, hypertension, other Surgical history: Reports: heart valve replacement, hysterectomy, pacemaker/AICD , pacemaker Psychiatric history: Reports: anxiety, depression - Social History Smoking Status: Former smoker Smokeless Tobacco Status: No Alcohol use: Reports: none Drug use: Reports: none Physical Exam - General Limitations: no limitations General appearance: alert, in no apparent distress - Head Head exam: atraumatic, normocephalic, normal inspection - Eye Eye exam: Present: normal appearance, PERRL - ENT ENT exam: normal exam, normal oropharynx, mucous membranes moist - Neck Neck exam: Present: normal inspection, full ROM, trachea midline - Chest Chest inspection: Present: normal inspection, symmetric chest wall rise - Respiratory Respiratory exam: Present: normal lung sounds bilaterally - Cardiovascular Cardiovascular exam: Present: regular rate, normal rhythm, systolic murmur - Abdominal Exam Abdominal exam: Present: soft, Non-Tender. Absent: tenderness, distention, guarding, rebound, rigidity - Extremities Exam Extremities exam: Present: full ROM, normal capillary refill, pedal edema ( lower extremities b/l distal to mid tibia, weeping of legs R>L). Absent: tenderness, joint swelling, calf tenderness - Neurological Exam Neurological exam: Present: alert, oriented X3 - Psychiatric Psychiatric exam: Present: normal affect, normal mood - Skin Skin exam: Present: warm, rash (b/l lower extremities over ankles, left arm distal to elbow). Absent: intact Course Vital Signs Temperature 98.0 F 07/28/18 12:08 Pulse Rate 73 07/28/18 12:08 Respiratory Rate 15 07/28/18 12:08 Blood Pressure 134/67 07/28/18 12:08 O2 Sat by Pulse Oximetry 95 07/28/18 12:08 Temperature 98.1 F 07/29/18 16:17 Pulse Rate 76 07/29/18 16:50 Respiratory Rate 16 07/29/18 16:50 Blood Pressure 118/58 07/29/18 16:50 O2 Sat by Pulse Oximetry 94 07/29/18 16:17 Oxygen Delivery Oxygen Delivery Room Air Extremity Problem, Nontraumati - Lab Data Result diagrams: 07/29/18 04:00 07/29/18 17:07 Lab Results 07/28/18 07/28/18 07/28/18 Range/Units 15:58 15:58 15:58 WBC 15.0 H (4.3-11.1) K/mcL RBC 3.91 (3.82-4.97) M/mcL Hgb 12.1 (11.5-15.4) g/dL Hct 35.7 (35.3-44.9) % MCV 91.3 (83.0-100.0) fL MCH 30.9 (28.0-33.3) pg MCHC 33.9 (31.6-35.5) g/dL RDW 13.9 (11.5-14.5) % Plt Count 210 (140-400) K/mcL MPV 10.7 (9.4-12.4) fL Immature Gran % 1.1 (0-4) % Seg Neutrophils % 90.9 % Lymphocytes % 3.1 % Monocytes % 4.7 % Eosinophils % 0.1 % Basophils % 0.1 % Neutrophils # 13.6 H (1.6-8.9) K/mcL Lymphocytes # 0.5 L (0.6-4.6) K/mcL Monocytes # 0.7 (0.0-1.3) K/mcL Eosinophils # 0.0 (0.0-0.6) K/mcL Basophils # 0.0 (0.0-0.2) K/mcL ESR (0-15) mm/hr PT (9.4-12.1) Seconds INR APTT (26.0-36.0) Seconds Sodium 125 L (136-145) mEq/L Potassium 4.6 (3.5-5.1) mEq/L Chloride 88 L (98-107) mEq/L Carbon Dioxide 26 (23-29) mEq/L BUN 36 H (8-23) mg/dL Creatinine 1.20 (0.60-1.20) mg/dL Est GFR ( Amer) 53 L (> 60) Est GFR (Non-Af Amer) 43 L (> 60) BUN/Creatinine Ratio 30 H (6-26) Glucose 473 H (70-105) mg/dL Calculated Osmolality 289 (280-300) Lactic Acid 3.2 H (0.5-2.2) mmol/L Calcium 9.6 (8.6-10.3) mg/dL Troponin I 0.03 (< 0.04) ng/mL C-Reactive Protein 169 H (Less than 10) mg/L B-Natriuretic Peptide (Less than 100) pg/mL 07/28/18 07/28/18 07/28/18 Range/Units 15:58 15:58 15:58 WBC (4.3-11.1) K/mcL RBC (3.82-4.97) M/mcL Hgb (11.5-15.4) g/dL Hct (35.3-44.9) % MCV (83.0-100.0) fL MCH (28.0-33.3) pg MCHC (31.6-35.5) g/dL RDW (11.5-14.5) % Plt Count (140-400) K/mcL MPV (9.4-12.4) fL Immature Gran % (0-4) % Seg Neutrophils % % Lymphocytes % % Monocytes % % Eosinophils % % Basophils % % Neutrophils # (1.6-8.9) K/mcL Lymphocytes # (0.6-4.6) K/mcL Monocytes # (0.0-1.3) K/mcL Eosinophils # (0.0-0.6) K/mcL Basophils # (0.0-0.2) K/mcL ESR 52 H (0-15) mm/hr PT 19.5 H (9.4-12.1) Seconds INR 1.7 APTT 30.6 (26.0-36.0) Seconds Sodium (136-145) mEq/L Potassium (3.5-5.1) mEq/L Chloride (98-107) mEq/L Carbon Dioxide (23-29) mEq/L BUN (8-23) mg/dL Creatinine (0.60-1.20) mg/dL Est GFR ( Amer) (> 60) Est GFR (Non-Af Amer) (> 60) BUN/Creatinine Ratio (6-26) Glucose (70-105) mg/dL Calculated Osmolality (280-300) Lactic Acid (0.5-2.2) mmol/L Calcium (8.6-10.3) mg/dL Troponin I (< 0.04) ng/mL C-Reactive Protein (Less than 10) mg/L B-Natriuretic Peptide 358 H (Less than 100) pg/mL 07/28/18 Range/Units 19:17 WBC (4.3-11.1) K/mcL RBC (3.82-4.97) M/mcL Hgb (11.5-15.4) g/dL Hct (35.3-44.9) % MCV (83.0-100.0) fL MCH (28.0-33.3) pg MCHC (31.6-35.5) g/dL RDW (11.5-14.5) % Plt Count (140-400) K/mcL MPV (9.4-12.4) fL Immature Gran % (0-4) % Seg Neutrophils % % Lymphocytes % % Monocytes % % Eosinophils % % Basophils % % Neutrophils # (1.6-8.9) K/mcL Lymphocytes # (0.6-4.6) K/mcL Monocytes # (0.0-1.3) K/mcL Eosinophils # (0.0-0.6) K/mcL Basophils # (0.0-0.2) K/mcL ESR (0-15) mm/hr PT (9.4-12.1) Seconds INR APTT (26.0-36.0) Seconds Sodium (136-145) mEq/L Potassium (3.5-5.1) mEq/L Chloride (98-107) mEq/L Carbon Dioxide (23-29) mEq/L BUN (8-23) mg/dL Creatinine (0.60-1.20) mg/dL Est GFR ( Amer) (> 60) Est GFR (Non-Af Amer) (> 60) BUN/Creatinine Ratio (6-26) Glucose (70-105) mg/dL Calculated Osmolality (280-300) Lactic Acid 3.7 H (0.5-2.2) mmol/L Calcium (8.6-10.3) mg/dL Troponin I (< 0.04) ng/mL C-Reactive Protein (Less than 10) mg/L B-Natriuretic Peptide (Less than 100) pg/mL
[2018-07-28 16:16] LABS: Basophils % 0.1 %; Eosinophils % 0.1 %; Hematocrit 35.7 % (35.3-44.9); Hemoglobin 12.1 g/dL (11.5-15.4); Immature Granulocytes % 1.1 % (0-4); Lymphocytes # 0.5 K/mcL (0.6-4.6); Lymphocytes % 3.1 %; Mean Corpuscular HGB Conc 33.9 g/dL (31.6-35.5); Mean Corpuscular Hemoglobin 30.9 pg (28.0-33.3); Mean Corpuscular Volume 91.3 fL (83.0-100.0); Mean Platelet Volume 10.7 fL (9.4-12.4); Monocytes # 0.7 K/mcL (0.0-1.3); Monocytes % 4.7 %; Neutrophils # 13.6 K/mcL (1.6-8.9); Platelet Count 210 K/mcL (140-400); Red Blood Count 3.91 M/mcL (3.82-4.97); Red Cell Distribution Width 13.9 % (11.5-14.5); Segmented Neutrophils % 90.9 %
[2018-07-28 16:22] LABS: INR 1.7; Prothrombin Time 19.5 Seconds (9.4-12.1)
[2018-07-28 16:25] LABS: Activated Partial Thrombo Time 30.6 Seconds (26.0-36.0)
[2018-07-28] MEDS ORDERED: Levofloxacin 750 MG/150 ML 750 MG/150 ML BAG IVPB ONE (16:34)
[2018-07-28] MEDS ORDERED: Piperacillin/Tazobactam 3.375 GM in 0.9 % Sodium Chloride Mini Bag 100 ML IVPB ONE (16:34)
[2018-07-28 16:35] LABS: Calcium 9.6 mg/dL (8.6-10.3); Potassium 4.6 mEq/L (3.5-5.1)
[2018-07-28 16:36] LABS: Troponin I 0.03 ng/mL (< 0.04)
[2018-07-28] MEDS ORDERED: 0.9 % Sodium Chloride 500 ML IVC ONE (16:44)
--- NOTE | 2018-07-28 18:04 | Internal Med History&Physical ---
Date of Encounter: 07/28/18 Time of Encounter: 11:00 Internal Medicine - H&P: HPI Chief complaint: Bilateral lower extremity edema Admitted From: Home History of present illness: Patient is a 78-year-old female with past medical history significant HTN, DM, CHF, HLD, A. fib, s/p Valve replacement, s/p Pacemaker, COPD (O2 dependent) and DVT presents to the ER on 08/05 due to bilateral worsening lower extremity edema. Patient is a poor historian but reports along with her family at bedside that she has experienced lower extremity swelling for the last several days that has gotten worse. Patient unclear if she has shortness of breath but reports of cold-like symptoms which family states that usually means she has CHF. In the ER, patient was found to have a BNP of 358 with bilateral lower extremity edema on exam with weeping fluids. Patient also with leukocytosis but has been on prednisone as an outpatient. She will be admitted to medical surgical floor for acute on chronic diastolic heart failure. Past Med Surg Social Fam HX - Past Medical History Medical history: asthma, atrial fibrillation, CHF, COPD, diabetes, hyperlipidemia, hypertension, other Additional medical history: iron deficiency anemia Psychiatric history: anxiety, depression - Past Surgical History Surgical History: heart valve replacement, hysterectomy, pacemaker/AICD, pacemaker - Social History Smoking Status: Former smoker Smokeless Tobacco Status: No Alcohol use: none Drug use: none - Family History Mother Family Member Ethnicity: Non- Living Status: Hx Family Endocrine Disorder: Yes (DM) Father Family Member Ethnicity: Non- Living Status: Hx Family Cardiac Disorders: Yes (enlarged heart) Hx Family Respiratory Disorders: Yes (emphazema) Brother Family Member Ethnicity: Non- Living Status: Hx Family Respiratory Disorders: Yes (COPD, Emphysema) Sister Family Member Ethnicity: Non- Living Status: Still Living Hx Family Cardiac Disorders: Yes Hx Family Respiratory Disorders: Yes Hx Family Endocrine Disorder: Yes Internal Medicine - H&P: Meds Furosemide [Lasix] 40 mg PO QAM 10/13/16 [History] Amlodipine Besylate 10 mg PO DAILY 01/19/17 [History] Fluticasone/Salmeterol [Advair 500-50 Diskus] 1 each IH BID 01/19/17 [History] Amiodarone [Cordarone] 200 mg PO DAILY 10/04/17 [History] Lisinopril [Zestril] 5 mg PO DAILY 10/04/17 [History] Atorvastatin [Lipitor] 40 mg PO HS #90 tablet 10/07/17 [Rx] Isosorbide MONOnitrate (24 HR) [Imdur] 30 mg PO DAILY #30 tab.er.24h 10/07/17 [ Rx] Fluticasone/Vilanterol [Breo Ellipta 200-25 Mcg INH] 1 each IH DAILY 01/27/18 [ History] Ipratropium/Albuterol Neb [Duoneb] 3 ml IH Q4HR PRN 06/06/18 [History] Apixaban [Eliquis] 5 mg PO BID #60 tablet 06/28/18 [Rx] Furosemide [Lasix] 80 mg PO 1200 07/28/18 [History] Metoprolol Succinate [Toprol Xl] 25 mg PO DAILY 07/28/18 [History] 3 Allergy/AdvReac Type Severity Reaction Status Date / Time No Known Allergies Allergy Verified 07/14/18 16:04 All Systems PM: A 10-system review of systems was performed and is negative for pertinent findings except as documented above in the HPI. - Constitutional Vitals: Temp Pulse Resp BP Pulse Ox 98.0 F 73 15 134/67 97 07/28/18 16:28 07/28/18 16:28 07/28/18 16:28 07/28/18 16:28 07/28/18 16:28 Exam: Gen.: Nonacute distress, alert and oriented 3 ENT: Mucosal membranes moist Respiratory: Lungs are clear to auscultation bilaterally without any wheezing rhonchi or rales Cardiovascular: Normal S1 and S2 regular rate rhythm no murmurs rubs or gallops Abdomen: Soft, nontender and nondistended with positive bowel sounds Extremities: Bilateral lower extremity edema Skin: Bilateral lower extremity erythema Neurology: No focal deficits noted Psych: Normal mood Internal Med - H&P Results - Labs CBC & Chem 7: 07/28/18 15:58 07/28/18 15:58 Labs: Short CBC 07/28/18 Range/Units 15:58 WBC 15.0 H (4.3-11.1) K/mcL Hgb 12.1 (11.5-15.4) g/dL Hct 35.7 (35.3-44.9) % Plt Count 210 (140-400) K/mcL Neutrophils # 13.6 H (1.6-8.9) K/mcL BMP 07/28/18 15:58 Sodium 125 L Potassium 4.6 Chloride 88 L Carbon Dioxide 26 BUN 36 H Creatinine 1.20 Glucose 473 H Calcium 9.6 Cardiac Enzymes 07/28/18 Range/Units 15:58 Troponin I 0.03 (< 0.04) ng/mL - Impressions ITS Impressions Chest X-Ray 07/28/18 15:31 IMPRESSION: Left basilar airspace disease, atelectasis or pneumonia, with suspected effusion. D/ / Tanya Bryant Cha, MD / Tanya Bryant Cha, MD Interpreting Provider: Tanya Bryant Cha, MD - Assessment and plan (1) Acute exacerbation of CHF (congestive heart failure) Current Visit: Yes Status: Acute Assessment and plan: In the ER, patient was found to have a BNP of 358 with bilateral lower extremity edema on exam with weeping fluids. Echocardiogram on 03/25/18 showed LVEF of 60-65% with atypical septal motion consistent with paced rhythm in addition to moderate left ventricular diastolic dysfunction and bioprosthetic aortic valve. Will start patient on IV diuresis and consult cardiology for any additional recommendations. Qualifiers: Heart failure type: diastolic Qualified Code(s): I50.33 - Acute on chronic diastolic (congestive) heart failure (2) Leg edema Current Visit: Yes Status: Acute Assessment and plan: Patient with bilateral lower extremity edema secondary to fluid overload due to heart failure as above Management as above (3) Leukocytosis Current Visit: No Status: Resolved Assessment and plan: Patient with white blood cell count of 15 on admission but has been on prednisone as an outpatient Patient afebrile therefore will not start antibiotics at this time Lactic acid elevated at 3.2 however will repeat make sure not an error Qualifiers: Leukocytosis type: unspecified Qualified Code(s): D72.829 - Elevated white blood cell count, unspecified (4) Hyponatremia Current Visit: No Status: Acute Assessment and plan: Patient with sodium of 125 on admission which is about at baseline due to chronic hyponatremia. Continue to monitor (5) Atrial fibrillation Current Visit: No Status: Chronic Assessment and plan: Rate controlled; continue beta danii and oral anticoagulation with Eliquis Qualifiers: Atrial fibrillation type: chronic Qualified Code(s): I48.2 - Chronic atrial fibrillation (6) COPD (chronic obstructive pulmonary disease) Current Visit: No Status: Chronic Assessment and plan: Not in exacerbation; continue Breop Ellipta and Advair Qualifiers: COPD type: unspecified COPD Qualified Code(s): J44.9 - Chronic obstructive pulmonary disease, unspecified (7) HTN (hypertension) Current Visit: No Status: Chronic Assessment and plan: Controlled; continue beta danii and RAJEEV inhibitor Qualifiers: Hypertension type: essential hypertension Qualified Code(s): I10 - Essential (primary) hypertension (8) Hyperlipidemia Current Visit: No Status: Chronic Assessment and plan: Continue statin Qualifiers: Hyperlipidemia type: pure hypercholesterolemia Qualified Code(s): E78.00 - Pure hypercholesterolemia, unspecified; E78.0 - Pure hypercholesterolemia (9) Obesity (BMI 30-39.9) Current Visit: No Status: Chronic Assessment and plan: Lifestyle modifications (10) DVT prophylaxis Current Visit: No Status: Acute Assessment and plan: Patient on Eliquis as above - Time Spent With Patient Total time spent is greater than 50% in coordination of care (as documented) at patient's floor/unit and/or counseling patient:
[2018-07-28] MEDS ORDERED: Naloxone 0.4 MG/ML INJ IVP PRN (18:14)
[2018-07-28] MEDS ORDERED: Furosemide 80 MG in 0.9 % Sodium Chloride 50 ML IVPB ONE (18:30)
[2018-07-28] MEDS: Apixaban 5 MG TABLET PO SCH (22:11)
[2018-07-28] MEDS ORDERED: D5% in Water 1,000 ML IVC PRN (23:15)
[2018-07-28] MEDS ORDERED: *HR* Dextrose 50 % in Water (Syg) 50 ML SYRINGE IVP PRN (23:15)
[2018-07-28] MEDS ORDERED: Dextrose Gel 15 GM/37.5 ML TUBE PO PRN ×2 (23:15)
[2018-07-28] MEDS: Ipratropium/Albuterol Neb 3 ML IH PRN (23:15)
[2018-07-28] MEDS: Acetaminophen 325 MG TABLET PO PRN (23:35)
[2018-07-28] MEDS: Insulin LISPRO 300 UNITS/3 ML VIAL SQ SCH (23:36)
[2018-07-29] MEDS: Ipratropium/Albuterol Neb 3 ML IH PRN ×2 (04:39→11:57)
[2018-07-29 04:40] LABS: Basophils % 0.1 %; Eosinophils # 0.2 K/mcL (0.0-0.6); Eosinophils % 1.6 %; Hematocrit 31.6 % (35.3-44.9); Hemoglobin 10.8 g/dL (11.5-15.4); Immature Granulocytes % 0.6 % (0-4); Lymphocytes # 1.1 K/mcL (0.6-4.6); Lymphocytes % 8.4 %; Mean Corpuscular HGB Conc 34.2 g/dL (31.6-35.5); Mean Corpuscular Hemoglobin 30.9 pg (28.0-33.3); Mean Corpuscular Volume 90.3 fL (83.0-100.0); Mean Platelet Volume 10.1 fL (9.4-12.4); Monocytes # 1.7 K/mcL (0.0-1.3); Monocytes % 12.6 %; Neutrophils # 10.1 K/mcL (1.6-8.9); Platelet Count 201 K/mcL (140-400); Red Cell Distribution Width 13.9 % (11.5-14.5); Segmented Neutrophils % 76.7 %
[2018-07-29 05:00] LABS: Calcium 9.1 mg/dL (8.6-10.3); Potassium 3.7 mEq/L (3.5-5.1)
[2018-07-29] MEDS ORDERED: metOLazone 2.5 MG TABLET PO SCH (07:30)
[2018-07-29] MEDS ORDERED: Metoprolol XL (24 HR) Succ 25 MG TAB.ER.24H PO SCH (09:00)
[2018-07-29] MEDS ORDERED: *HR* Amiodarone 200 MG TABLET PO SCH (09:00)
[2018-07-29] MEDS ORDERED: amLODIPine 5 MG TABLET PO SCH (09:00)
[2018-07-29] MEDS ORDERED: Isosorbide MONOnitrate (24 HR) 30 MG TAB.ER.24H PO SCH (09:00)
[2018-07-29] MEDS: Apixaban 5 MG TABLET PO SCH (09:01)
[2018-07-29] MEDS: Insulin LISPRO 300 UNITS/3 ML VIAL SQ SCH ×4 (09:02→17:01)
[2018-07-29] MEDS ORDERED: Budesonide/Formoterol 160/4.5 1 PUFF INH IH SCH (10:00)
--- NOTE | 2018-07-29 10:31 | Cardiology Consult Note ---
Date of Encounter: 07/29/18 Time of Encounter: 10:27 Assessment and Plan (1) CHF (congestive heart failure) Current Visit: No Status: Acute Acute on chronic diastolic CHF and right-sided CHF. EF on TTE 03/2018 was 65%. Moderate DD. CXR shows possible left sided effusion. BNP 385. SOme edema may be from steroid use. Reports compliance with dietary sodium intake and medications. Recommend IV Lasix 40 mg twice a day and starting metolazone 2.5 mg every other day. Monitor strict I&O and daily weights. Monitor kidney function. We will continue to follow. Qualifiers: Heart failure type: diastolic Heart failure chronicity: acute on chronic Qualified Code(s): I50.33 - Acute on chronic diastolic (congestive) heart failure (2) Aortic valve replaced Current Visit: No Status: Chronic H/o TAVR. (3) Atrial fibrillation Current Visit: No Status: Chronic H/o afib maintained on amiodarone. On eliquis for long time AC. Qualifiers: Atrial fibrillation type: chronic Qualified Code(s): I48.2 - Chronic atrial fibrillation Discussion w patient/family: The assessment and plan as outlined above was discussed with the patient and/or family members who expressed understanding and agreement. All questions were answered. Thank you for involving us in the care of your patient. Please call with any questions. History of Present Illness Consult date: 07/29/18 Requesting physician: Aniket Christianson Consult reason: CHFpEF Chief complaint: SOB, BLE edema, and weight gain, rash History of present illness: Ms. Esteves is a 78-year-old female with past medical history of moderate CAD seen on cardiac catheterization in January 2017, aortic stenosis status post TAVR 2016, atrial fibrillation on amiodarone, COPD, chronic diastolic CHF. She presented with the c/o 4lb weight gain. BLE edema with weeping, and orthopnea. She did increase her lasix from 40 mg BID to TID in the out-pt setting without improvement. Unfortunately, she also has experienced a severe rash for several months for which she was taking prednisone for. She recently noted 40 lb weight gain over the past year and felt some of the weight was secondary to steroid use. She also had 3-4 hospital admissions this year for CHF. She denies chest pain. Reports she is breathing better after IV lasix was given. Prior cardiac testing: TTE 03/2018- EF 65%, moderate diastolic dysfunction, the bioprosthetic aortic valve is well seated and appears to be functioning normally. No evidence of pulmonary hypertension. [facility] 04/2017: Moderate non-obstructive CAD. 50% stenosis in the proximal circumflex artery, 50% stenosis in the mid circumflex artery, 60% stenosis in the mid RCA. Past Med Surg Social Fam HX - Past Medical History Medical history: asthma, atrial fibrillation, CHF, COPD, coronary artery disease , diabetes, hyperlipidemia, hypertension, other Additional medical history: iron deficiency anemia Psychiatric history: anxiety, depression - Past Surgical History Surgical History: heart valve replacement, hysterectomy, pacemaker/AICD, pacemaker - Social History Smoking Status: Former smoker Smokeless Tobacco Status: No Alcohol use: none Drug use: none - Family History Mother Family Member Ethnicity: Non- Living Status: Hx Family Cardiac Disorders: Yes (hypertension) Hx Family Endocrine Disorder: Yes (DM) Father Family Member Ethnicity: Non- Living Status: Hx Family Cardiac Disorders: Yes (enlarged heart) Hx Family Respiratory Disorders: Yes (Emphysema) Brother Family Member Ethnicity: Non- Living Status: Hx Family Respiratory Disorders: Yes (COPD, Emphysema) Sister Family Member Ethnicity: Non- Living Status: Still Living Hx Family Cardiac Disorders: Yes Hx Family Respiratory Disorders: Yes Hx Family Endocrine Disorder: Yes Medications and Allergies Furosemide [Lasix] 40 mg PO QAM 10/13/16 [History] Amlodipine Besylate 10 mg PO DAILY 01/19/17 [History] Fluticasone/Salmeterol [Advair 500-50 Diskus] 1 each IH BID 01/19/17 [History] Amiodarone [Cordarone] 200 mg PO DAILY 10/04/17 [History] Lisinopril [Zestril] 5 mg PO DAILY 10/04/17 [History] Atorvastatin [Lipitor] 40 mg PO HS #90 tablet 10/07/17 [Rx] Isosorbide MONOnitrate (24 HR) [Imdur] 30 mg PO DAILY #30 tab.er.24h 10/07/17 [ Rx] Fluticasone/Vilanterol [Breo Ellipta 200-25 Mcg INH] 1 each IH DAILY 01/27/18 [ History] Ipratropium/Albuterol Neb [Duoneb] 3 ml IH Q4HR PRN 06/06/18 [History] Apixaban [Eliquis] 5 mg PO BID #60 tablet 06/28/18 [Rx] Furosemide [Lasix] 80 mg PO 1200 07/28/18 [History] Metoprolol Succinate [Toprol Xl] 25 mg PO DAILY 07/28/18 [History] 3 Allergy/AdvReac Type Severity Reaction Status Date / Time No Known Allergies Allergy Verified 07/14/18 16:04 All Systems Review: The remainder of the systems were reviewed and are negative Physical Examination Vital Signs, Last 4 Hours Temp Pulse Resp BP Pulse Ox 07/29/18 08:00 99.0 F 78 16 137/64 96 General: Conversant, No Apparent Distress HEENT: Atraumatic, Normocephaly, Mucus Membranes Moist Neck: No JVD, Normal carotid pulses Cardiac: Reg Rate and Rhythm, Normal S1 and S2, No Murmur, Other (av paced) Lungs: Other (Lungs sounds diminished in posterior bases bilaterally.) Neuro: Alert and responsive, No focal deficits noted Abdomen: Soft, Non-Tender Skin: Other (Bright red rash from head to toe with scaling on the legs noted.) Musculoskeletal: No Chest Wall Tenderness Extremities: No Clubbing, No Cyanosis, Normal Pulses, Other (Genralized edema, 1 + pitting in BLE. ) Results 07/29/18 04:00 07/29/18 04:00 Lab Results 07/29/18 07/29/18 04:00 04:00 WBC 13.1 H Hgb 10.8 L Hct 31.6 L Plt Count 201 Sodium 131 L Potassium 3.7 Chloride 95 L Carbon Dioxide 28 BUN 34 H Creatinine 1.15 Glucose 178 H Calcium 9.1 - EKG Interpretation EKG results cardiology: personally reviewed Consult Discharge Plan - Plan Referrals: Casandra Evans MD [Primary Care Provider] -
[2018-07-29 10:44] LABS: Bilirubin,Urine Negative (Negative); Blood,Urine Trace (Negative); Clarity,Urine Cloudy (Clear); Color,Urine Yellow (Yellow); Glucose,Urine (UA) 500 mg/dL (Normal); Ketones,Urine Negative (Negative); Leukocyte Esterase,Urine Large (Negative); Nitrite,Urine Negative (Negative); PH,Urine 6.5 pH Units (5.0-8.0); Protein,Urine Trace mg/dL (Neg-Trace); Specific Gravity,Urine 1.015 (1.010-1.025); Urobilinogen,Urine Normal (Normal)
[2018-07-29 10:47] LABS: Bacteria,Urine Few per hpf (None-Few); Hyaline Casts,Urine None Seen per lpf (None-Few); Squamous Epithelial Cell,Urine Many per lpf (None-Few); WBC,Urine TNTC per hpf (0-3)
--- NOTE | 2018-07-29 10:49 | Internal Med Progress Note ---
Hospitalist Progress Note - Encounter Date of Encounter: 07/29/18 - Exam Vitals: Temp Pulse Resp BP Pulse Ox 99.0 F 78 16 137/64 96 07/29/18 08:00 07/29/18 08:00 07/29/18 08:00 07/29/18 08:00 07/29/18 08:00 - Assessment and Plan (1) Acute exacerbation of CHF (congestive heart failure) Current Visit: Yes Status: Acute Assessment and Plan: In the ER, patient was found to have a BNP of 358 with bilateral lower extremity edema on exam with weeping fluids. Echocardiogram on 03/25/18 showed LVEF of 60-65% with atypical septal motion consistent with paced rhythm in addition to moderate left ventricular diastolic dysfunction and bioprosthetic aortic valve. Will continue IV diuresis Cardiology consulted and appreciate recommendations (2) Leg edema Current Visit: Yes Status: Acute Assessment and Plan: Patient with bilateral lower extremity edema secondary to fluid overload due to heart failure as above Management as above (3) Leukocytosis Current Visit: No Status: Resolved Assessment and Plan: Patient with white blood cell count of 15 on admission and is 13.1 this morning ; patient was on prednisone as an outpatient Patient continues to be afebrile therefore will not start antibiotics at this time (4) Hyponatremia Current Visit: No Status: Acute Assessment and Plan: Patient with sodium of 125 on admission and is 131 this morning Patient with chronic hyponatremia on EMR review Continue to monitor (5) Atrial fibrillation Current Visit: No Status: Chronic Assessment and Plan: Rate controlled; continue beta danii and oral anticoagulation with Eliquis (6) COPD (chronic obstructive pulmonary disease) Current Visit: No Status: Chronic Assessment and Plan: Not in exacerbation; continue Breop Ellipta and Advair (7) HTN (hypertension) Current Visit: No Status: Chronic Assessment and Plan: Controlled; continue beta danii and RAJEEV inhibitor (8) Hyperlipidemia Current Visit: No Status: Chronic Assessment and Plan: Continue statin (9) Obesity (BMI 30-39.9) Current Visit: No Status: Chronic Assessment and Plan: Lifestyle modifications (10) DVT prophylaxis Current Visit: No Status: Acute Assessment and Plan: Patient on Eliquis as above - Time Spent with Patient Total time spent is greater than 50% in coordination of care (as documented) at patient's floor/unit and/or counseling patient: Internal Medicine: Result - Labs CBC & Chem 7: 07/29/18 04:00 07/29/18 04:00 Labs: Short CBC 07/29/18 Range/Units 04:00 WBC 13.1 H (4.3-11.1) K/mcL Hgb 10.8 L (11.5-15.4) g/dL Hct 31.6 L (35.3-44.9) % Plt Count 201 (140-400) K/mcL Neutrophils # 10.1 H (1.6-8.9) K/mcL BMP 07/29/18 04:00 Sodium 131 L Potassium 3.7 Chloride 95 L Carbon Dioxide 28 BUN 34 H Creatinine 1.15 Glucose 178 H Calcium 9.1 - ABG Interpretation ABG results: PT/INR, D-dimer PT 19.5 Seconds (9.4-12.1) H 07/28/18 15:58 Consult Discharge Plan - Plan Referrals: Casandra Evans MD [Primary Care Provider] - (1) Acute exacerbation of CHF (congestive heart failure) Qualifiers: Heart failure type: diastolic Qualified Code(s): I50.33 - Acute on chronic diastolic (congestive) heart failure (3) Leukocytosis Qualifiers: Leukocytosis type: unspecified Qualified Code(s): D72.829 - Elevated white blood cell count, unspecified (5) Atrial fibrillation Qualifiers: Atrial fibrillation type: chronic Qualified Code(s): I48.2 - Chronic atrial fibrillation (6) COPD (chronic obstructive pulmonary disease) Qualifiers: COPD type: unspecified COPD Qualified Code(s): J44.9 - Chronic obstructive pulmonary disease, unspecified (7) HTN (hypertension) Qualifiers: Hypertension type: essential hypertension Qualified Code(s): I10 - Essential (primary) hypertension (8) Hyperlipidemia Qualifiers: Hyperlipidemia type: pure hypercholesterolemia Qualified Code(s): E78.00 - Pure hypercholesterolemia, unspecified; E78.0 - Pure hypercholesterolemia
[2018-07-29] MEDS: Furosemide 40 MG/4 ML VIAL IVP SCH ×2 (11:50→17:00)
[2018-07-29] MEDS: Acetaminophen 325 MG TABLET PO PRN (14:42)
--- NOTE | 2018-07-29 15:19 | Event Note ---
Date of Encounter: 07/29/18 Time of Encounter: 15:16 Please consider this might attest patient to the consultation performed earlier today. [facility] would not allow me to admit that consultation. Patient has a history of normal LV systolic function, moderate diastolic dysfunction, and COPD. Patient has had issues with diastolic heart failure. Of note, patient has this recurrent, inflammatory/redness that develops on her upper and lower extremities with associated skin breakdown. This issue has been responsive to prednisone therapy. Exact etiology remains unclear. Although there is likely a component of diastolic heart failure, her edema is not as big of an issue when she is on prednisone for these inflammatory/ autoimmune skin related issues. Consider inpatient allergy/dermatological evaluation given the severity of her symptoms. Otherwise, continue cautious diuresis from a heart failure standpoint. During my evaluation, lower extremity edema had resolved. Skin breakdown noted from issues described above. Left upper extremity redness and swelling noted. Low-sodium diet encouraged. All questions were answered. Thanks, David Serna DO, FACC
--- NOTE | 2018-07-29 15:22 | Allergy Consult Note ---
Date of Encounter: 07/29/18 Time of Encounter: 12:10 Assessment and Plan (1) Allergic reaction Status: Acute Patient is having dermatitis with edema. I believe this is secondary to drug. I would like her to stop her statin first. She will need to restart on prednisone 40mg x 4 days, 30mg x 4 days, 20mx 4 days, 10mg x 4 days. She will follow up with Dr. Moreno on 08/18. SHe will likely need treatment of her diabetes due to the prednisone. Labs were ordered and she is okay for discharge from my standpoint. Qualifiers: Encounter type: initial encounter Qualified Code(s): T78.40XA - Allergy, unspecified, initial encounter History of Present Illness Reason for consult: Rash History of present illness: Patient was readmitted for worsening rash. She was off the steroids x 3 days and rash began to return. I started her on prednisone 2 days ago but her rash has not improved yet. She has swelling of both legs and arms. Rash is on face, chest, back and worse on lower legs and left arm. Past Med Surg Social Fam HX - Past Medical History Medical history: asthma, atrial fibrillation, CHF, COPD, coronary artery disease, diabetes, hyperlipidemia, hypertension, other Additional medical history: iron deficiency anemia Psychiatric history: anxiety, depression - Past Surgical History Surgical History: heart valve replacement, hysterectomy, pacemaker/AICD, pacemaker - Social History Smoking Status: Former smoker Smokeless Tobacco Status: No Alcohol use: none Drug use: none - Family History Brother Family Member Ethnicity: Non- Living Status: Hx Family Respiratory Disorders: Yes (COPD, Emphysema) Father Family Member Ethnicity: Non- Living Status: Hx Family Cardiac Disorders: Yes (enlarged heart) Hx Family Respiratory Disorders: Yes (Emphysema) Mother Family Member Ethnicity: Non- Living Status: Hx Family Cardiac Disorders: Yes (hypertension) Hx Family Endocrine Disorder: Yes (DM) Sister Family Member Ethnicity: Non- Living Status: Still Living Hx Family Cardiac Disorders: Yes Hx Family Respiratory Disorders: Yes Hx Family Endocrine Disorder: Yes Medications and Allergies RX: Furosemide [Lasix] 40 mg PO QAM 10/13/16 [History] RX: Amlodipine Besylate 10 mg PO DAILY 01/19/17 [History] RX: Fluticasone/Salmeterol [Advair 500-50 Diskus] 1 each IH BID 01/19/17 [History] RX: Amiodarone [Cordarone] 200 mg PO DAILY 10/04/17 [History] RX: Lisinopril [Zestril] 5 mg PO DAILY 10/04/17 [History] RX: Atorvastatin [Lipitor] 40 mg PO HS #90 tablet 10/07/17 [Rx] RX: Isosorbide MONOnitrate (24 HR) [Imdur] 30 mg PO DAILY #30 tab.er.24h 10/07/17 [Rx] RX: Fluticasone/Vilanterol [Breo Ellipta 200-25 Mcg INH] 1 each IH DAILY 01/27/18 [History] RX: Ipratropium/Albuterol Neb [Duoneb] 3 ml IH Q4HR PRN 06/06/18 [History] RX: Apixaban [Eliquis] 5 mg PO BID #60 tablet 06/28/18 [Rx] RX: Furosemide [Lasix] 80 mg PO 1200 07/28/18 [History] RX: Metoprolol Succinate [Toprol Xl] 25 mg PO DAILY 07/28/18 [History] RX: metFORMIN [Glucophage] 500 mg PO BID #60 tablet 07/29/18 [Rx] predniSONE [PredniSONE] 10 mg PO DAILY #30 tablet 07/29/18 [Rx] Allergy/AdvReac Type Severity Reaction Status Date / Time No Known Allergies Allergy Verified 07/14/18 16:04 Allergy Exam Initial Vital Signs Temp Pulse Resp BP Pulse Ox 98.0 F 73 15 134/67 95 07/28/18 12:08 07/28/18 12:08 07/28/18 12:08 07/28/18 12:08 07/28/18 12:08 - Additional Findings Head: atraumatic, normocephalic, erythema around eyes and on cheeks Mouth/Throat-no swelling or ulcers Skin: bright erythem of face, back, upper chest, left arm >right arm and lower legs and heels bilaterally, edema of left arm and lower legs, skin breakdown with seeping of clear/yellowish fluid from shins. Results - Labs 07/29/18 04:00 07/29/18 17:07 Abnormal lab results WBC 13.1 K/mcL (4.3-11.1) H 07/29/18 04:00 RBC 3.50 M/mcL (3.82-4.97) L 07/29/18 04:00 Hgb 10.8 g/dL (11.5-15.4) L 07/29/18 04:00 Hct 31.6 % (35.3-44.9) L 07/29/18 04:00 Neutrophils # 10.1 K/mcL (1.6-8.9) H 07/29/18 04:00 Monocytes # 1.7 K/mcL (0.0-1.3) H 07/29/18 04:00 ESR 52 mm/hr (0-15) H 07/28/18 15:58 PT 19.5 Seconds (9.4-12.1) H 07/28/18 15:58 Sodium 131 mEq/L (136-145) L 07/29/18 04:00 Chloride 95 mEq/L (98-107) L 07/29/18 04:00 BUN 34 mg/dL (8-23) H 07/29/18 04:00 Est GFR ( Amer) 55 (> 60) L 07/29/18 04:00 Est GFR (Non-Af Amer) 46 (> 60) L 07/29/18 04:00 BUN/Creatinine Ratio 30 (6-26) H 07/29/18 04:00 Glucose 178 mg/dL (70-105) H 07/29/18 04:00 C-Reactive Protein 169 mg/L (Less than 10) H 07/28/18 15:58 B-Natriuretic Peptide 358 pg/mL (Less than 100) H 07/28/18 15:58 Urine Clarity Cloudy (Clear) A 07/29/18 09:40 Urine Glucose (UA) 500 mg/dL (Normal) H 07/29/18 09:40 Urine Blood Trace (Negative) H 07/29/18 09:40 Ur Leukocyte Esterase Large (Negative) H 07/29/18 09:40 Urine Microscopic RBC 5-15 per hpf (0-3) H 07/29/18 09:40 Urine Microscopic WBC TNTC per hpf (0-3) H 07/29/18 09:40 Ur Squamous Epith Cells Many per lpf (None-Few) H 07/29/18 09:40 Ur Culture Indicated? NO. (NO) A 07/29/18 09:40 Diabetes panel 07/29/18 Range/Units 04:00 Sodium 131 L (136-145) mEq/L Potassium 3.7 (3.5-5.1) mEq/L Chloride 95 L (98-107) mEq/L Carbon Dioxide 28 (23-29) mEq/L BUN 34 H (8-23) mg/dL Creatinine 1.15 (0.60-1.20) mg/dL Glucose 178 H (70-105) mg/dL Calcium 9.1 (8.6-10.3) mg/dL Calcium panel 07/29/18 Range/Units 04:00 Calcium 9.1 (8.6-10.3) mg/dL Pituitary panel 07/29/18 Range/Units 04:00 Sodium 131 L (136-145) mEq/L Potassium 3.7 (3.5-5.1) mEq/L Chloride 95 L (98-107) mEq/L Carbon Dioxide 28 (23-29) mEq/L BUN 34 H (8-23) mg/dL Creatinine 1.15 (0.60-1.20) mg/dL Glucose 178 H (70-105) mg/dL Calcium 9.1 (8.6-10.3) mg/dL Adrenal panel 07/29/18 Range/Units 04:00 Sodium 131 L (136-145) mEq/L Potassium 3.7 (3.5-5.1) mEq/L Chloride 95 L (98-107) mEq/L Carbon Dioxide 28 (23-29) mEq/L BUN 34 H (8-23) mg/dL Creatinine 1.15 (0.60-1.20) mg/dL Glucose 178 H (70-105) mg/dL Calcium 9.1 (8.6-10.3) mg/dL All other labs normal. Consult Discharge Plan - Plan Instructions: Prednisone (By mouth), Metformin (By mouth), Heart Failure (DC), Diabetes Mellitus Type 2 in Adults (DC) Referrals: Casandra Evans MD [Primary Care Provider] - (please call tomorrow to make a follow up appointment ) Prescriptions: RX: metFORMIN [Glucophage] 500 mg PO BID #60 tablet predniSONE [PredniSONE] 10 mg PO DAILY #30 tablet
[2018-07-29] MEDS ORDERED: predniSONE 20 MG TABLET PO ONE (16:04)
[2018-07-29 16:52] VITALS: BP 118/58
--- NOTE | 2018-07-29 16:52 | Discharge Summary ---
- NOTES TO OUTPATIENT PROVIDER Notes to Outpatient Provider: Follow up with potato picker Orders not resulted at time of discharge: Pending orders 07/29/18 16:42 Comprehensive Metabolic Panel Stat Hepatitis B Core Ab Total Stat Hepatitis B Surface Antibody Stat Hepatitis C Virus Antibody Stat QuantiFERON-TB Gold In-Tube Stat 07/29/18 16:49 Hepatitis B Surface Antigen Stat Date of Encounter: 07/29/18 Time of Encounter: 11:00 - Discharge Diagnosis (1) Acute exacerbation of CHF (congestive heart failure) Priority: Primary Status: Acute Qualifiers: Heart failure type: diastolic Qualified Code(s): I50.33 - Acute on chronic diastolic (congestive) heart failure (2) Leg edema Priority: Primary Status: Acute (3) Leukocytosis Priority: Secondary Status: Resolved Qualifiers: Leukocytosis type: unspecified Qualified Code(s): D72.829 - Elevated white blood cell count, unspecified (4) Hyponatremia Priority: Secondary Status: Acute (5) Atrial fibrillation Priority: Secondary Status: Chronic Qualifiers: Atrial fibrillation type: chronic Qualified Code(s): I48.2 - Chronic atrial fibrillation (6) COPD (chronic obstructive pulmonary disease) Priority: Secondary Status: Chronic Qualifiers: COPD type: unspecified COPD Qualified Code(s): J44.9 - Chronic obstructive pulmonary disease, unspecified (7) HTN (hypertension) Priority: Secondary Status: Chronic Qualifiers: Hypertension type: essential hypertension Qualified Code(s): I10 - Essential (primary) hypertension (8) Hyperlipidemia Priority: Secondary Status: Chronic Qualifiers: Hyperlipidemia type: pure hypercholesterolemia Qualified Code(s): E78.00 - Pure hypercholesterolemia, unspecified; E78.0 - Pure hypercholesterolemia (9) Obesity (BMI 30-39.9) Priority: Secondary Status: Chronic Hospital course: Patient is a 70-year-old male who presented to the ER tonight with complaints of hematuria and difficulty urinating. He first noticed it 2 nights ago and came in to the ER initially. At that point, he had a Patterson catheter placed and was discharged home with referral to urology. However, he had hematuria in the catheter, had decreased urine output, and was urinating around his catheter. He therefore came back to ER where he was seen and evaluated and then admitted for ongoing hematuria and need for continuous bladder irrigation. As such, he was admitted to hospitalist service with urology consultation. During patients hospital stay urology was consulted with recommendation for bladder stone extraction via cystoscopy. Patient will be discharged to follow- up with urologist. - Time Spent with Patient Total time spent providing and/or coordinating discharge services: - Discharge Medications Prescriptions: metFORMIN [Glucophage] 500 mg PO BID #60 tablet predniSONE [PredniSONE] 10 mg PO DAILY #30 tablet Home Medications: Furosemide [Lasix] 40 mg PO QAM 10/13/16 [History] Amlodipine Besylate 10 mg PO DAILY 01/19/17 [History] Fluticasone/Salmeterol [Advair 500-50 Diskus] 1 each IH BID 01/19/17 [History] Amiodarone [Cordarone] 200 mg PO DAILY 10/04/17 [History] Lisinopril [Zestril] 5 mg PO DAILY 10/04/17 [History] Atorvastatin [Lipitor] 40 mg PO HS #90 tablet 10/07/17 [Rx] Isosorbide MONOnitrate (24 HR) [Imdur] 30 mg PO DAILY #30 tab.er.24h 10/07/17 [ Rx] Fluticasone/Vilanterol [Breo Ellipta 200-25 Mcg INH] 1 each IH DAILY 01/27/18 [ History] Ipratropium/Albuterol Neb [Duoneb] 3 ml IH Q4HR PRN 06/06/18 [History] Apixaban [Eliquis] 5 mg PO BID #60 tablet 06/28/18 [Rx] Furosemide [Lasix] 80 mg PO 1200 07/28/18 [History] Metoprolol Succinate [Toprol Xl] 25 mg PO DAILY 07/28/18 [History] metFORMIN [Glucophage] 500 mg PO BID #60 tablet 07/29/18 [Rx] predniSONE [PredniSONE] 10 mg PO DAILY #30 tablet 07/29/18 [Rx] Allergies/Adverse Reactions: 3 Allergy/AdvReac Type Severity Reaction Status Date / Time No Known Allergies Allergy Verified 07/14/18 16:04 Date of admission: 07/28/18 19:19 Primary care physician: Casandra Evans MD - Constitutional Vitals: Temp Pulse Resp BP Pulse Ox 98.1 F 74 18 121/61 94 07/29/18 16:17 07/29/18 16:17 07/29/18 16:17 07/29/18 16:17 07/29/18 16:17 Exam: Gen.: Nonacute distress, alert and oriented 3 Psych: Normal mood - Patient Status Disposition: Home, Self-Care Condition: Fair - Discharge Instructions Instructions: Prednisone (By mouth), Metformin (By mouth), Heart Failure (DC), Diabetes Mellitus Type 2 in Adults (DC) Follow Up With: Casandra Evans MD [Primary Care Provider] - (please call tomorrow to make a follow up appointment )
[2018-07-29] MEDS ORDERED: Furosemide 40 MG TABLET PO ONE (16:58)
[2018-07-29] MEDS ORDERED: *HR* Metformin 500 MG TABLET PO ONE (17:03)
[2018-07-29 17:56] LABS: Albumin 3.3 g/dL (3.5-5.7); Albumin/Globulin Ratio 1.2 (1.1-2.2); Bilirubin,Total 0.7 mg/dL (0.3-1.0); Calcium 8.9 mg/dL (8.6-10.3); Globulin 2.8 g/dL (2.4-3.5); Potassium 3.8 mEq/L (3.5-5.1); Total Protein 6.1 g/dL (6.4-8.9)
[2018-07-30 01:22] LABS: Hepatitis C Virus Antibody Nonreactive (Nonreactive)
[2018-07-30] MEDS ORDERED: *HR* Metformin 500 MG TABLET PO ONE (16:04)
--- NOTE | 2018-07-31 11:17 | Electrocardiograph Report ---
[place] [id number] Test Date: 2018-07-28 Pat Name: Umm Esteves Department: [id number] Room: [id number] Gender: F Glue [employer] Bone: : 1940 Requested By: Munir Ann Order Number: [id number] Reading MD: Marcia Shultz Measurements Intervals [place] Rate: 72 P: 142 PA: 206 QRS: 257 QRSD: 161 T: -51 QT: 466 QTc: 564 Interpretive Statements Ventricular-paced complexes Electronically Signed On 07-31-2018 11:15:27 EDT by Marcia Shultz
[2018-08-03 11:00] LABS: QuantiFERON Mitogen minus NIL 8.26 IU/mL
[2018-08-03 13:34] LABS: QuantiFERON NIL 0.06 IU/mL; QuantiFERON-TB Gold In-Tube NEGATIVE (Negative)
== END 2018-07-29 19:02 | disposition home or self-care (01) ==
LOC: 2NENU 12:02 → EMEROOARM 12:02 → SUATTDRO 19:19 → 2NENU 20:34
PROVIDERS: ADMIT Internal Medicine; ATTEND Hospitalist

== ENCOUNTER 2018-11-19 16:39 | Observation (INO) ==
--- NOTE | 2018-11-19 17:45 | Emergency Department Note ---
Disposition Clinical Impression: Left upper extremity swelling, Swelling of both lower extremities Disposition: Admitted As Inpatient Condition: Fair Forms: ED Satisfaction Letter Time of Disposition: 20:56 General Adult HPI - General Chief complaint: ED Extremity Problem,Nontraumatic Stated complaint: Retaining Fluid Time Seen by Provider: 11/19/18 16:43 Source: patient, family Limitations: no limitations Nursing Notes Reviewed: Yes Vital Signs Reviewed: Yes - History of Present Illness HPI Narrative: 78 yo female with past medical history of COPD, CHF, diabetes, A. fib, and pso riasis presents to the emergency department with left upper extremity swelling. She states the swelling has been going on for the past 3 days but acutely worsened today. She has had swelling like this in the past but it has not been this extensive. She also has a history of blood clots in her legs and takes Eliquis twice daily. Her legs have become more sore and swollen as well over this time. She denies chest pain or shortness of breath, abdominal pain. She has no burning with urination or blood in her urine. She has not had any fevers at home. Pain Scale: 10 - Related Data Home Medications Medication Instructions Recorded Confirmed Amlodipine Besylate 10 mg PO DAILY 01/19/17 11/19/18 Fluticasone/Salmeterol [Advair 1 each IH BID 01/19/17 11/19/18 500-50 Diskus] Amiodarone [Cordarone] 200 mg PO DAILY 10/04/17 11/19/18 Lisinopril [Zestril] 5 mg PO DAILY 10/04/17 11/19/18 Ipratropium/Albuterol Neb [Duoneb] 3 ml IH Q4HR PRN 06/06/18 11/19/18 Metoprolol Succinate [Toprol Xl] 25 mg PO DAILY 07/28/18 11/19/18 Bumetanide 2 mg PO BID 10/04/18 11/19/18 Atorvastatin [Lipitor] 40 mg PO HS 11/19/18 11/19/18 Previous Rx's Medication Instructions Recorded Isosorbide MONOnitrate (24 HR) 30 mg PO DAILY #30 tab.er.24h 10/07/17 [Imdur] Apixaban [Eliquis] 5 mg PO BID #60 tablet 06/28/18 Allergies Allergy/AdvReac Type Severity Reaction Status Date / Time No Known Allergies Allergy Verified 10/04/18 15:29 All systems ED: reviewed and negative except as stated. Review of Systems: As Per HPI Constitutional: Denies: fever, chills, weakness Cardiovascular: Reports: dyspnea on exertion, edema. Denies: chest pain, palpitations, orthopnea, syncope Respiratory: Reports: dyspnea. Denies: cough, wheezes, hemoptysis Gastrointestinal: Denies: abdominal pain, nausea, vomiting, diarrhea, constipation Genitourinary: Denies: dysuria, hematuria Musculoskeletal: Denies: back pain, neck pain Integumentary: Denies: rash Past Medical History - Past Medical History Medical history: Reports: asthma, atrial fibrillation, CHF, COPD, coronary artery disease, diabetes, hyperlipidemia, hypertension, other Surgical history: Reports: heart valve replacement, hysterectomy, pacemaker/AICD, pacemaker Psychiatric history: Reports: anxiety, depression [employer] history: Reports: no [employer] history - Social History Smoking Status: Former smoker Smokeless Tobacco Status: No Alcohol use: Reports: none Drug use: Reports: none Physical Exam Grossly swollen left upper extremity with 3+ pitting edema of the entire extremity. Entire arm is redish purple. Patient has good radial and ulnar pulses. Able to move hand. Bilateral legs are swollen with pitting edema. Legs and left upper extremity are painful to palpation. - General Limitations: no limitations General appearance: alert, in no apparent distress - Head Head exam: atraumatic, normocephalic - Eye Eye exam: Present: normal appearance, PERRL, EOMI - ENT ENT exam: normal exam, normal oropharynx - Neck Neck exam: Present: normal inspection - Chest Chest inspection: Present: normal inspection, symmetric chest wall rise. Absent: tenderness, rash - Respiratory Respiratory exam: Present: other (diminished breath sounds bilaterally). Absent: wheezes - Cardiovascular Cardiovascular exam: Present: regular rate, normal rhythm - Abdominal Exam Abdominal exam: Present: soft, Non-Tender. Absent: distention, guarding, rebound, rigidity - Extremities Exam Extremities exam: Present: tenderness, pedal edema, other (LUE erythema and pitting edema) - Neurological Exam Neurological exam: Present: alert, oriented X3 - Psychiatric Psychiatric exam: Present: normal affect, normal mood - Skin Skin exam: Present: warm, dry, intact, erythema Course Vital Signs Temperature 97.8 F 11/19/18 16:44 Pulse Rate 84 11/19/18 16:44 Respiratory Rate 17 11/19/18 16:44 Blood Pressure 135/63 11/19/18 16:44 O2 Sat by Pulse Oximetry 98 11/19/18 16:44 Temperature 97.8 F 11/19/18 16:44 Pulse Rate 79 11/19/18 18:53 Respiratory Rate 18 11/19/18 18:53 Blood Pressure 131/52 11/19/18 18:53 O2 Sat by Pulse Oximetry 91 11/19/18 18:53 Oxygen Delivery Oxygen Delivery Room Air Medical Decision Making - MDM Narrative Medical decision making narrative: This patient with past medical history of blood clots and heart failure presents with left upper extremity swelling worse than in previous cases. We will do a heart failure workup and get a ultrasound of the left upper extremity to rule out blood clot. We will also give her fentanyl for pain. 1914 - ultrasound of the left upper extremity did not reveal a blood clot. Blood work was at patient's baseline with the exception of a slightly elevated creatinine. We are still waiting on a urinalysis before admission to the hospital. 2049 - urine is returned without any signs of infection. We will made to the hospitalist for further evaluation of this patient's edema. We will administer Solu-Medrol here has family states this has helped her swelling in the past. Dr. Nobles has accepted the patient for admission. - Medical Records Medical records reviewed: Yes I reviewed the patient's medical records. - Lab Data Lab results reviewed: Yes I reviewed the patient's lab results. Result diagrams: 11/19/18 17:32 11/19/18 17:32 Lab Results 11/19/18 11/19/18 11/19/18 Range/Units 17:32 17:32 17:32 WBC (4.3-11.1) K/mcL RBC (3.82-4.97) M/mcL Hgb (11.5-15.4) g/dL Hct (35.3-44.9) % MCV (83.0-100.0) fL MCH (28.0-33.3) pg MCHC (31.6-35.5) g/dL RDW (11.5-14.5) % Plt Count (140-400) K/mcL MPV (9.4-12.4) fL Immature Gran % (0-4) % Seg Neutrophils % % Lymphocytes % % Monocytes % % Eosinophils % % Basophils % % Neutrophils # (1.6-8.9) K/mcL Lymphocytes # (0.6-4.6) K/mcL Monocytes # (0.0-1.3) K/mcL Eosinophils # (0.0-0.6) K/mcL Basophils # (0.0-0.2) K/mcL PT 22.1 H (9.4-12.1) Seconds INR 2.0 APTT 35.4 (26.0-36.0) Seconds Sodium (136-145) mEq/L Potassium (3.5-5.1) mEq/L Chloride (98-107) mEq/L Carbon Dioxide (23-29) mEq/L BUN (8-23) mg/dL Creatinine (0.60-1.20) mg/dL Est GFR ( Amer) (> 60) Est GFR (Non-Af Amer) (> 60) BUN/Creatinine Ratio (6-26) Glucose (70-105) mg/dL Calculated Osmolality (280-300) Calcium (8.6-10.3) mg/dL Troponin I (< 0.04) ng/mL B-Natriuretic Peptide 212 H (Less than 100) pg/mL Albumin 3.7 (3.5-5.7) g/dL Urine Color (Yellow) Urine Clarity (Clear) Urine pH (5.0-8.0) pH Units Ur Specific [place] (1.010-1.025) Urine Protein (Neg-Trace) mg/dL Urine Glucose (UA) (Normal) mg/dL Urine Ketones (Negative) mg/dL Urine Blood (Negative) Urine Nitrite (Negative) Urine Bilirubin (Negative) Urine Urobilinogen (Normal) mg/dL Ur Leukocyte Esterase (Negative) Urine Microscopic RBC (0-3) per hpf Urine Microscopic WBC (0-3) per hpf Ur Squamous Epith Cells (None-Few) per lpf Urine Bacteria (None-Few) per hpf Hyaline Casts (None-Few) per lpf Ur Culture Indicated? (NO) 11/19/18 11/19/18 11/19/18 Range/Units 17:32 17:32 20:11 WBC 14.3 H (4.3-11.1) K/mcL RBC 3.69 L (3.82-4.97) M/mcL Hgb 11.5 (11.5-15.4) g/dL Hct 34.3 L (35.3-44.9) % MCV 93.0 (83.0-100.0) fL MCH 31.2 (28.0-33.3) pg MCHC 33.5 (31.6-35.5) g/dL RDW 15.2 H (11.5-14.5) % Plt Count 217 (140-400) K/mcL MPV 10.1 (9.4-12.4) fL Immature Gran % 0.7 (0-4) % Seg Neutrophils % 72.4 % Lymphocytes % 9.5 % Monocytes % 10.0 % Eosinophils % 7.2 % Basophils % 0.2 % Neutrophils # 10.3 H (1.6-8.9) K/mcL Lymphocytes # 1.4 (0.6-4.6) K/mcL Monocytes # 1.4 H (0.0-1.3) K/mcL Eosinophils # 1.0 H (0.0-0.6) K/mcL Basophils # 0.0 (0.0-0.2) K/mcL PT (9.4-12.1) Seconds INR APTT (26.0-36.0) Seconds Sodium 131 L (136-145) mEq/L Potassium 4.6 (3.5-5.1) mEq/L Chloride 94 L (98-107) mEq/L Carbon Dioxide 28 (23-29) mEq/L BUN 54 H (8-23) mg/dL Creatinine 2.01 H (0.60-1.20) mg/dL Est GFR ( Amer) 29 L (> 60) Est GFR (Non-Af Amer) 24 L (> 60) BUN/Creatinine Ratio 27 H (6-26) Glucose 222 H (70-105) mg/dL Calculated Osmolality 294 (280-300) Calcium 9.7 (8.6-10.3) mg/dL Troponin I < 0.03 (< 0.04) ng/mL B-Natriuretic Peptide (Less than 100) pg/mL Albumin (3.5-5.7) g/dL Urine Color Yellow (Yellow) Urine Clarity Clear (Clear) Urine pH 6.0 (5.0-8.0) pH Units Ur Specific [place] 1.008 L (1.010-1.025) Urine Protein Negative (Neg-Trace) mg/dL Urine Glucose (UA) Normal (Normal) mg/dL Urine Ketones Negative (Negative) mg/dL Urine Blood Negative (Negative) Urine Nitrite Negative (Negative) Urine Bilirubin Negative (Negative) Urine Urobilinogen Normal (Normal) mg/dL Ur Leukocyte Esterase Trace H (Negative) Urine Microscopic RBC 0-3 (0-3) per hpf Urine Microscopic WBC 0-3 (0-3) per hpf Ur Squamous Epith Cells Many H (None-Few) per lpf Urine Bacteria None Seen (None-Few) per hpf Hyaline Casts None Seen (None-Few) per lpf Ur Culture Indicated? NO. A (NO) - Radiology Data Radiology results reviewed: Yes I reviewed the patient's radiology results. - EKG Data EKG #1 EKG attestation: Yes I reviewed and interpreted this EKG. EKG results narrative: EKG obtained at 17:08/11/2018 Heart rate 91 bpm, VA interval 210, QRS duration 148, QTC 417, QTC 514 Ventricular paced rhythm without any significant ST segment elevations or depressions. No signs of ischemia. Unchanged from previous EKG dated 06/07/2018 with the exception of the rate. Attestation Statement - Attestation Attestation: I, Brad Sanchez, examined this patient and my medical decision-making was reviewed with the WASHERETTE MACHINE OPERATOR/PA/Advanced Practice Nurse/Resident Physician. I agree with the documented findings, disposition and treatment plan as described except to the extent set forth below. 78-year-old female presents emergency Department with concerns of extremity swelling and diffuse your edema. Patient is unable to give an adequate history regarding her case and presentation however the daughter is present in the room and is able to give a history. Patient's daughter states that she had similar symptoms in the past which improved with steroids. They were evaluated and told it was secondary to her psoriasis. They recently started treatment with a new injected medication after the initial presentation. Last dose was 2 weeks ago. Patient denies chest pain or shortness of breath. She has significant swelling of the left upper extremity and bilateral lower extremities. Pulses are equal in the bilateral upper and lower extremities. She is out of fever and does not have a significant leukocytosis. Patient was given steroids emergency departme nt. She will be admitted for further Evaluation secondary to her edema.
[2018-11-19 17:48] LABS: Basophils % 0.2 %; Eosinophils % 7.2 %; Hematocrit 34.3 % (35.3-44.9); Hemoglobin 11.5 g/dL (11.5-15.4); Immature Granulocytes % 0.7 % (0-4); Lymphocytes # 1.4 K/mcL (0.6-4.6); Lymphocytes % 9.5 %; Mean Corpuscular HGB Conc 33.5 g/dL (31.6-35.5); Mean Corpuscular Hemoglobin 31.2 pg (28.0-33.3); Mean Platelet Volume 10.1 fL (9.4-12.4); Monocytes # 1.4 K/mcL (0.0-1.3); Neutrophils # 10.3 K/mcL (1.6-8.9); Platelet Count 217 K/mcL (140-400); Red Blood Count 3.69 M/mcL (3.82-4.97); Red Cell Distribution Width 15.2 % (11.5-14.5); Segmented Neutrophils % 72.4 %
[2018-11-19 17:55] LABS: Prothrombin Time 22.1 Seconds (9.4-12.1)
[2018-11-19 17:58] LABS: Activated Partial Thrombo Time 35.4 Seconds (26.0-36.0)
[2018-11-19 18:12] LABS: BUN/Creatinine Ratio 27 (6-26); Blood Urea Nitrogen 54 mg/dL (8-23); Calcium 9.7 mg/dL (8.6-10.3); Carbon Dioxide 28 mEq/L (23-29); Chloride 94 mEq/L (98-107); Glucose 222 mg/dL (70-105); Osmolality,Calculated 294 (280-300); Potassium 4.6 mEq/L (3.5-5.1); Sodium 131 mEq/L (136-145); Troponin I < 0.03 ng/mL (< 0.04); eGFR For Non-African Americans 24 (> 60)
[2018-11-19] MEDS ORDERED: *HR* FentaNYL (PF) 100 MCG/2 ML VIAL IVP ONE (18:20)
[2018-11-19] MEDS ORDERED: methylPREDNISolone 125 MG/2 ML VIAL IVP ONE (20:34)
[2018-11-19 20:35] LABS: Bacteria,Urine None Seen per hpf (None-Few); Bilirubin,Urine Negative (Negative); Blood,Urine Negative (Negative); Clarity,Urine Clear (Clear); Color,Urine Yellow (Yellow); Glucose,Urine (UA) Normal (Normal); Hyaline Casts,Urine None Seen per lpf (None-Few); Ketones,Urine Negative (Negative); Leukocyte Esterase,Urine Trace (Negative); Nitrite,Urine Negative (Negative); Protein,Urine Negative (Neg-Trace); RBC,Urine 0-3 per hpf (0-3); Specific Gravity,Urine 1.008 (1.010-1.025); Squamous Epithelial Cell,Urine Many per lpf (None-Few); Urobilinogen,Urine Normal (Normal); WBC,Urine 0-3 per hpf (0-3)
[2018-11-19] MEDS ORDERED: Furosemide 40 MG/4 ML VIAL IVP ONE (21:22)
[2018-11-19] MEDS ORDERED: *HR* Nalbuphine 10 MG/ML AMPUL IVP ONE (21:25)
[2018-11-19] MEDS ORDERED: Naloxone 0.4 MG/ML INJ IVP PRN (21:26)
[2018-11-19] MEDS ORDERED: Dextrose Gel 15 GM/37.5 ML TUBE PO PRN ×2 (21:26)
[2018-11-19] MEDS ORDERED: *HR* Dextrose 50 % in Water (Syg) 50 ML SYRINGE IVP PRN (21:26)
[2018-11-19] MEDS ORDERED: *HR* OxyCODONE Immed Rel 5 MG TABLET PO PRN (21:26)
[2018-11-19] MEDS ORDERED: traMADol 50 MG TABLET PO PRN (21:26)
[2018-11-19] MEDS ORDERED: Acetaminophen 325 MG TABLET PO PRN (21:54)
--- NOTE | 2018-11-19 22:07 | Internal Med History&Physical ---
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 She presents today complaining of swelling in her legs and left arm over the past 3 days, erythematous and notably tender. She denies fever or chills and reports adherence to her anticoagulant therapy. As per her daughter, she continues to follow with a grain trimmer and was recently started on ustekinumab. She states that she had a biopsy done in the past which showed concerns for psoriasis as the underlying culprit. In the ER, her left arm was evaluated by ultrasound and was negative for DVT. She was given fentanyl and a dose of methylprednisolone and is admitted for further care. Past Med Surg Social Fam HX - Past Medical History Medical history: asthma, atrial fibrillation, CHF, COPD, coronary artery disease, diabetes, hyperlipidemia, hypertension, other Additional medical history: iron deficiency anemia Psychiatric history: anxiety, depression - Past Surgical History Surgical History: heart valve replacement, hysterectomy, pacemaker/AICD, pacemaker - Social History Smoking Status: Former smoker Smokeless Tobacco Status: No Alcohol use: none Drug use: none - Family History Mother Family Member Ethnicity: Non- Living Status: Hx Family Cardiac Disorders: Yes (hypertension) Hx Family Endocrine Disorder: Yes (DM) Father Family Member Ethnicity: Non- Living Status: Hx Family Cardiac Disorders: Yes (enlarged heart) Hx Family Respiratory Disorders: Yes (Emphysema) Brother Family Member Ethnicity: Non- Living Status: Hx Family Respiratory Disorders: Yes (COPD, Emphysema) Sister Family Member Ethnicity: Non- Living Status: Still Living Hx Family Cardiac Disorders: Yes Hx Family Respiratory Disorders: Yes Hx Family Endocrine Disorder: Yes Internal Medicine - H&P: Meds Amlodipine Besylate 10 mg PO DAILY 01/19/17 [History] Fluticasone/Salmeterol [Advair 500-50 Diskus] 1 each IH BID 01/19/17 [History] Amiodarone [Cordarone] 200 mg PO DAILY 10/04/17 [History] Lisinopril [Zestril] 5 mg PO DAILY 10/04/17 [History] Isosorbide MONOnitrate (24 HR) [Imdur] 30 mg PO DAILY #30 tab.er.24h 10/07/17 [Rx] Ipratropium/Albuterol Neb [Duoneb] 3 ml IH Q4HR PRN 06/06/18 [History] Apixaban [Eliquis] 5 mg PO BID #60 tablet 06/28/18 [Rx] Metoprolol Succinate [Toprol Xl] 25 mg PO DAILY 07/28/18 [History] Bumetanide 2 mg PO BID 10/04/18 [History] Atorvastatin [Lipitor] 40 mg PO HS 11/19/18 [History] Allergy/AdvReac Type Severity Reaction Status Date / Time No Known Allergies Allergy Verified 10/04/18 15:29 All Systems PM: A 10-system review of systems was performed and is negative for pertinent findings except as documented above in the HPI. - Constitutional Vitals: Temp Pulse Resp BP Pulse Ox 97.8 F 79 18 131/52 91 11/19/18 16:44 11/19/18 18:53 11/19/18 18:53 11/19/18 18:53 11/19/18 18:53 Exam: Vitals: Reviewed General: Obese white woman lying in bed in NAD Skin: Diffusely erythematous, blanching and warm to touch with scaly skin. HEENT: Moist mucous membranes. No conjunctivae pallor. Neck: No lymphadenopathy. No JVD. No carotid bruits. No palpable thyroid. Chest: Normal thoracic expansion. Diminished breath sounds. Heart: Normal S1 & S2; rhythmic. No rubs or murmurs. Abdomen: Non-distended, soft and non-tender to palpation. No peritoneal reaction. Extremities: 3+ pitting edema in both legs and left arm. Neurological: Awake, alert and oriented to person, place and time. No focal deficits. Psych: Affect appropriate. Internal Med - H&P Results - Labs CBC & Chem 7: 11/19/18 17:32 11/19/18 17:32 Labs: Short CBC 11/19/18 Range/Units 17:32 WBC 14.3 H (4.3-11.1) K/mcL Hgb 11.5 (11.5-15.4) g/dL Hct 34.3 L (35.3-44.9) % Plt Count 217 (140-400) K/mcL Neutrophils # 10.3 H (1.6-8.9) K/mcL BMP 11/19/18 17:32 Sodium 131 L Potassium 4.6 Chloride 94 L Carbon Dioxide 28 BUN 54 H Creatinine 2.01 H Glucose 222 H Calcium 9.7 Cardiac Enzymes 11/19/18 Range/Units 17:32 Troponin I < 0.03 (< 0.04) ng/mL Liver Function 11/19/18 Range/Units 17:32 Albumin 3.7 (3.5-5.7) g/dL Urine 11/19/18 Range/Units 20:11 Urine Color Yellow (Yellow) Urine Clarity Clear (Clear) Urine pH 6.0 (5.0-8.0) pH Units Ur Specific [place] 1.008 L (1.010-1.025) Urine Protein Negative (Neg-Trace) mg/dL Urine Glucose (UA) Normal (Normal) mg/dL - Impressions ITS Impressions Chest X-Ray 11/19/18 16:54 IMPRESSION: Mild interstitial prominence, similar appearance to the prior exam may reflect mild edema. D/ / Sonali Bennett MD / Sonali Bennett MD Interpreting Provider: Sonali Bennett MD - Assessment and plan (1) Edema extremities Current Visit: Yes Status: Acute Assessment and plan: Seems to be inflammatory in nature rather than related to heart failure given the concomitant blanching erythema and tenderness. Not cellulitic given the extensive presentation. Will start intravenous steroids to cool down her inflammation. Will also provide pain relievers for relief of her discomfort and high dose furosemide to reduce her edema while acknowledging that her current LUDIN may be secondary to intravascular depletion with 3rd spacing. She will require follow up with dermatology and immunology. (2) Urticarial dermatitis Current Visit: Yes Status: Acute Assessment and plan: Management as noted above. (3) LUDIN (acute kidney injury) Current Visit: Yes Status: Acute Assessment and plan: Concern that it may be related to intravascular depletion with extravasation of fluid to her interstitial space. Will attempt of trail of high dose diuretics and repeat BMP in the morning to see if it helps bring fluid out of her 3rd spaces and into her vascular space with subsequent diuresis. (4) Aortic valve replaced Current Visit: Yes Status: Chronic Assessment and plan: Stable. No signs of decompensation at this time. (5) Atrial fibrillation Current Visit: Yes Status: Chronic Assessment and plan: Currently rate controlled and on anticoagulant therapy. Qualifiers: Atrial fibrillation type: chronic Qualified Code(s): I48.2 - Chronic atrial fibrillation (6) COPD (chronic obstructive pulmonary disease) Current Visit: Yes Status: Chronic Assessment and plan: No signs of acute exacerbation at this time. Continue daily LABA/ICS and SILVESTRE prn. Qualifiers: COPD type: unspecified COPD Qualified Code(s): J44.9 - Chronic obstructive pulmonary disease, unspecified (7) DVT (deep venous thrombosis) Current Visit: Yes Status: Chronic Assessment and plan: Will continue anticoagulant therapy. Will also perform duplex on lower extremities to ensure there is no recurrence as it previously happened to her while on Pradaxa. Qualifiers: DVT location: lower extremity Affected thrombotic vein of extremity: other lower extremity vein Chronicity: acute Laterality: bilateral Qualified Code(s): I82.493 - Acute embolism and thrombosis of other specified deep vein of lower extremity, bilateral (8) HTN (hypertension) Current Visit: Yes Status: Chronic Assessment and plan: Will resume her oral antihypertensives. Qualifiers: Hypertension type: essential hypertension Qualified Code(s): I10 - Essential (primary) hypertension (9) Hyponatremia Current Visit: Yes Status: Chronic Assessment and plan: Chronic. Will monitor daily. (10) Obesity (BMI 30-39.9) Current Visit: Yes Status: Chronic Assessment and plan: Counseled and educated on therapeutic lifestyle changes for weight loss as it will be of benefit in controlling comorbidities. Migratory Worker evaluation advised. (11) Pulmonary edema with congestive heart failure with preserved left ve ntricular function Current Visit: Yes Status: Resolved Assessment and plan: Will give diuretic therapy to ensure euvolemic status. Continue beta danii and nitrate. - Time Spent With Patient Total time spent is greater than 50% in coordination of care (as documented) at patient's floor/unit and/or counseling patient: Greater than 35 minutes
[2018-11-19] MEDS: Apixaban 5 MG TABLET PO SCH (22:44)
[2018-11-20] MEDS: Insulin LISPRO 300 UNITS/3 ML VIAL SQ SCH ×5 (00:15→22:01)
[2018-11-20] MEDS: Ipratropium/Albuterol Neb 3 ML IH PRN ×3 (00:57→19:01)
[2018-11-20 04:29] LABS: Basophils % 0.2 %; Hematocrit 34.6 % (35.3-44.9); Hemoglobin 11.6 g/dL (11.5-15.4); Immature Granulocytes % 0.4 % (0-4); Lymphocytes # 0.5 K/mcL (0.6-4.6); Lymphocytes % 4.8 %; Mean Corpuscular HGB Conc 33.5 g/dL (31.6-35.5); Mean Corpuscular Hemoglobin 31.1 pg (28.0-33.3); Mean Corpuscular Volume 92.8 fL (83.0-100.0); Mean Platelet Volume 10.3 fL (9.4-12.4); Monocytes # 0.1 K/mcL (0.0-1.3); Monocytes % 0.8 %; Neutrophils # 9.3 K/mcL (1.6-8.9); Platelet Count 195 K/mcL (140-400); Red Blood Count 3.73 M/mcL (3.82-4.97); Red Cell Distribution Width 15.1 % (11.5-14.5); Segmented Neutrophils % 93.8 %
[2018-11-20 04:48] LABS: Calcium 9.8 mg/dL (8.6-10.3); Potassium 4.5 mEq/L (3.5-5.1)
[2018-11-20] MEDS: MethylPREDNISolone 40 MG/ML VIAL IVP SCH ×2 (05:13→19:14)
[2018-11-20] MEDS ORDERED: Furosemide 40 MG/4 ML VIAL IVP SCH (09:00)
[2018-11-20] MEDS: Metoprolol XL (24 HR) Succ 25 MG TAB.ER.24H PO SCH (09:30)
[2018-11-20] MEDS: Apixaban 5 MG TABLET PO SCH ×2 (09:30→21:57)
[2018-11-20] MEDS: Isosorbide MONOnitrate (24 HR) 30 MG TAB.ER.24H PO SCH (09:30)
[2018-11-20] MEDS: *HR* Amiodarone 200 MG TABLET PO SCH (09:30)
[2018-11-20] MEDS: amLODIPine 5 MG TABLET PO SCH (09:30)
[2018-11-20] MEDS: Budesonide/Formoterol 160/4.5 1 PUFF INH IH SCH ×2 (09:36→20:37)
--- NOTE | 2018-11-20 10:38 | Internal Med Progress Note ---
Hospitalist Progress Note - Encounter Date of Encounter: 11/20/18 Time of Encounter: 09:00 - Subjective Interval History: Patient still has left-sided arm swelling with whole-body skin redness/itching. Patient said symptoms has slightly improved after steroid use. Denies recent new medication use. Patient also complaining of shortness of breath. - Exam Vitals: Temp Pulse Resp BP Pulse Ox 97.9 F 79 20 151/71 99 11/20/18 07:08 11/20/18 07:08 11/20/18 09:36 11/20/18 07:08 11/20/18 09:36 Exam: Vitals: Reviewed General: Obese white woman lying in bed in NAD Skin: Diffusely erythematous, blanching and warm to touch with scaly skin. HEENT: Moist mucous membranes. No conjunctivae pallor. Neck: No lymphadenopathy. No JVD. No carotid bruits. No palpable thyroid. Chest: Normal thoracic expansion. Diminished breath sounds. Heart: Normal S1 & S2; rhythmic. No rubs or murmurs. Abdomen: Non-distended, soft and non-tender to palpation. No peritoneal reaction . Extremities: mild pitting edema in both legs and moderate edema on left arm. Neurological: Awake, alert and oriented to person, place and time. No focal deficits. Psych: Affect appropriate. - Assessment and Plan (1) COPD (chronic obstructive pulmonary disease) Current Visit: Yes Status: Chronic Assessment and Plan: No wheezing. No signs of acute exacerbation at this time. Continue daily LABA/ICS and SILVESTRE prn. (2) Atrial fibrillation Current Visit: Yes Status: Chronic Assessment and Plan: Currently rate controlled and on anticoagulant therapy. (3) Pulmonary edema with congestive heart failure with preserved left ventricular function Current Visit: Yes Status: Resolved Assessment and Plan: Chest x-ray shows mild pulmonary edema. - Will give iv diuretic therapy. Continue beta danii and nitrate. - Strict I/O, fluid restriction 1.5 L per day (4) HTN (hypertension) Current Visit: Yes Status: Chronic Assessment and Plan: Continue home medications (5) DVT (deep venous thrombosis) Current Visit: Yes Status: Chronic Assessment and Plan: History of DVT. Will continue anticoagulant therapy. Venous Doppler of left arm shows negative for DVT. We will also perform venous Doppler of bilateral legs (6) Obesity (BMI 30-39.9) Current Visit: Yes Status: Chronic Assessment and Plan: Counseled and educated on therapeutic lifestyle changes for weight loss as it will be of benefit in controlling comorbidities. Rigging Loft Mechanic evaluation advised. (7) Hyponatremia Current Visit: Yes Status: Chronic Assessment and Plan: Chronic. Will monitor daily. Sodium level 133 today (8) LUDIN (acute kidney injury) Current Visit: Yes Status: Acute Assessment and Plan: Patient has a history of CKD. Mild elevated creatinine level from baseline. Improved right now. - Closely monitor renal function - Gently diuretics use with close monitoring. (9) Aortic valve replaced Current Visit: Yes Status: Chronic Assessment and Plan: Stable. No signs of decompensation at this time. (10) Psoriasis Current Visit: Yes Status: Acute Assessment and Plan: Patient has history of psoriasis which was diagnosed by biopsy. Called patient's quarrying specialist Dr Mike. Pt has similar skin redness/itching previously. Consider psoriasis flare, agree with steroid treatment. - Continue steroid, may switch to by mouth if symptoms has improved. - Continue follow-up with dermatology as outpatient, inpatient consult available if symptoms not improved even after treatment. DVT Prophylaxis: On Eliquis. - Time Spent with Patient Total time spent is greater than 50% in coordination of care (as documented) at patient's floor/unit and/or counseling patient: 30 minutes 25 - 35 minutes Plan of Care Discussed with: patient Internal Medicine: Result - Labs CBC & Chem 7: 11/20/18 03:49 11/20/18 03:49 Labs: Short CBC 11/19/18 11/20/18 Range/Units 17:32 03:49 WBC 14.3 H 9.9 (4.3-11.1) K/mcL Hgb 11.5 11.6 (11.5-15.4) g/dL Hct 34.3 L 34.6 L (35.3-44.9) % Plt Count 217 195 (140-400) K/mcL Neutrophils # 10.3 H 9.3 H (1.6-8.9) K/mcL BMP 11/19/18 11/20/18 17:32 03:49 Sodium 131 L 133 L Potassium 4.6 4.5 Chloride 94 L 97 L Carbon Dioxide 28 26 BUN 54 H 51 H Creatinine 2.01 H 1.88 H Glucose 222 H 320 H Calcium 9.7 9.8 Cardiac Enzymes 11/19/18 Range/Units 17:32 Troponin I < 0.03 (< 0.04) ng/mL Liver Function 11/19/18 Range/Units 17:32 Albumin 3.7 (3.5-5.7) g/dL Urine 11/19/18 Range/Units 20:11 Urine Color Yellow (Yellow) Urine Clarity Clear (Clear) Urine pH 6.0 (5.0-8.0) pH Units Ur Specific [place] 1.008 L (1.010-1.025) Urine Protein Negative (Neg-Trace) mg/dL Urine Glucose (UA) Normal (Normal) mg/dL - ABG Interpretation ABG results: PT/INR, D-dimer PT 22.1 Seconds (9.4-12.1) H 11/19/18 17:32 - Impressions Impressions Chest X-Ray 11/19/18 16:54 IMPRESSION: Mild interstitial prominence, similar appearance to the prior exam may reflect mild edema. D/ / Sonali Bennett MD / Sonali Bennett MD Interpreting Provider: Sonali Bennett MD Consult Discharge Plan - Plan Referrals: Casandra Evans MD [Primary Care Provider] - (1) COPD (chronic obstructive pulmonary disease) Qualifiers: COPD type: unspecified COPD Qualified Code(s): J44.9 - Chronic obstructive pulmonary disease, unspecified (2) Atrial fibrillation Qualifiers: Atrial fibrillation type: chronic Qualified Code(s): I48.2 - Chronic atrial fibrillation (4) HTN (hypertension) Qualifiers: Hypertension type: essential hypertension Qualified Code(s): I10 - Essential (primary) hypertension (5) DVT (deep venous thrombosis) Qualifiers: DVT location: lower extremity Affected thrombotic vein of extremity: other lower extremity vein Chronicity: acute Laterality: bilateral Qualified Code(s): I82.493 - Acute embolism and thrombosis of other specified deep vein of lower extremity, bilateral
[2018-11-20] MEDS: ALPRAZolam 0.25 MG TABLET PO PRN ×2 (15:01→22:28)
[2018-11-20] MEDS ORDERED: Nystatin POWDER 30 GM BOTTLE TP PRN (15:40)
[2018-11-21] MEDS: Ipratropium/Albuterol Neb 3 ML IH PRN ×2 (03:14→09:15)
[2018-11-21] MEDS: MethylPREDNISolone 40 MG/ML VIAL IVP SCH ×2 (05:25→17:36)
[2018-11-21] MEDS ORDERED: Insulin LISPRO 300 UNITS/3 ML VIAL SQ SCH (07:27)
[2018-11-21] MEDS ORDERED: Furosemide 40 MG/4 ML VIAL IVP SCH (09:00)
[2018-11-21] MEDS: Budesonide/Formoterol 160/4.5 1 PUFF INH IH SCH ×2 (09:15→20:00)
[2018-11-21 09:23] LABS: Basophils % 0.2 %; Hematocrit 34.3 % (35.3-44.9); Immature Granulocytes % 0.9 % (0-4); Lymphocytes # 0.8 K/mcL (0.6-4.6); Lymphocytes % 4.4 %; Mean Corpuscular HGB Conc 32.1 g/dL (31.6-35.5); Mean Corpuscular Hemoglobin 30.5 pg (28.0-33.3); Mean Platelet Volume 10.3 fL (9.4-12.4); Monocytes # 0.4 K/mcL (0.0-1.3); Monocytes % 2.3 %; Platelet Count 201 K/mcL (140-400); Red Blood Count 3.61 M/mcL (3.82-4.97); Red Cell Distribution Width 15.1 % (11.5-14.5); Segmented Neutrophils % 92.2 %
[2018-11-21 09:24] LABS: Neutrophils # 16.2 K/mcL (1.6-8.9)
[2018-11-21 09:42] LABS: Calcium 9.4 mg/dL (8.6-10.3); Potassium 4.4 mEq/L (3.5-5.1)
[2018-11-21] MEDS: Apixaban 5 MG TABLET PO SCH ×2 (10:03→21:59)
[2018-11-21] MEDS: ALPRAZolam 0.25 MG TABLET PO PRN ×2 (10:03→21:59)
[2018-11-21] MEDS: Isosorbide MONOnitrate (24 HR) 30 MG TAB.ER.24H PO SCH (10:03)
[2018-11-21] MEDS: *HR* Amiodarone 200 MG TABLET PO SCH (10:03)
[2018-11-21] MEDS: amLODIPine 5 MG TABLET PO SCH (10:03)
[2018-11-21] MEDS: Metoprolol XL (24 HR) Succ 25 MG TAB.ER.24H PO SCH (10:03)
[2018-11-21] MEDS: Insulin LISPRO 300 UNITS/3 ML VIAL SQ SCH ×3 (10:07→17:36)
--- NOTE | 2018-11-21 11:41 | Internal Med Progress Note ---
Hospitalist Progress Note - Encounter Date of Encounter: 11/21/18 Time of Encounter: 09:00 - Subjective Interval History: The skin redness and itching has improved after treatment. Left arm still swelling but less now. Patient still complaining of mild shortness of breath, improved after DuoNeb treatment. - Exam Vitals: Temp Pulse Resp BP Pulse Ox 98.3 F 83 18 118/61 98 11/21/18 10:56 11/21/18 10:56 11/21/18 10:56 11/21/18 10:56 11/21/18 10:56 Exam: Vitals: Reviewed General: Obese white woman lying in bed in NAD Skin: Diffusely erythematous, blanching and warm to touch with scaly skin. HEENT: Moist mucous membranes. No conjunctivae pallor. Neck: No lymphadenopathy. No JVD. No carotid bruits. No palpable thyroid. Chest: Normal thoracic expansion. Diminished breath sounds. Trace wheezing occasionally Heart: Normal S1 & S2; rhythmic. No rubs or murmurs. Abdomen: Non-distended, soft and non-tender to palpation. No peritoneal reaction. Extremities: mild pitting edema in both legs and moderate edema on left arm. Neurological: Awake, alert and oriented to person, place and time. No focal deficits. Psych: Affect appropriate. - Assessment and Plan (1) COPD (chronic obstructive pulmonary disease) Current Visit: Yes Status: Chronic Assessment and Plan: Trace wheezing. No signs of acute exacerbation at this time. Continue daily LABA/ICS and SILVESTRE prn. Pt is also on steroid which is for psoriasis flare. (2) Atrial fibrillation Current Visit: Yes Status: Chronic Assessment and Plan: Currently rate controlled and on anticoagulant therapy. (3) Pulmonary edema with congestive heart failure with preserved left ventricular function Current Visit: Yes Status: Resolved Assessment and Plan: Chest x-ray shows mild pulmonary edema. - Will give iv diuretic therapy. Continue beta danii and nitrate. - Strict I/O, fluid restriction 1.5 L per day - Pt has good urine output, it is not accurate on I/O record. (4) HTN (hypertension) Current Visit: Yes Status: Chronic Assessment and Plan: Continue home medications (5) DVT (deep venous thrombosis) Current Visit: Yes Status: Chronic Assessment and Plan: History of DVT. Will continue anticoagulant therapy. Venous Doppler of left arm and b/l LE shows negative for DVT. (6) Obesity (BMI 30-39.9) Current Visit: Yes Status: Chronic Assessment and Plan: Counseled and educated on therapeutic lifestyle changes for weight loss as it will be of benefit in controlling comorbidities. Team Truck Driver evaluation advi sed. (7) Hyponatremia Current Visit: Yes Status: Chronic Assessment and Plan: Chronic. Will monitor daily. Sodium level 130 today with hyperglycemia, corrected sodium 138.4 (8) LUDIN (acute kidney injury) Current Visit: Yes Status: Acute Assessment and Plan: Patient has a history of CKD. Mild elevated creatinine level from baseline. Improved right now, at about baseline. - Closely monitor renal function - Gently diuretics use with close monitoring. (9) Aortic valve replaced Current Visit: Yes Status: Chronic Assessment and Plan: Stable. No signs of decompensation at this time. (10) Psoriasis Current Visit: Yes Status: Acute Assessment and Plan: Patient has history of psoriasis which was diagnosed by biopsy. Called patient's monitor and storage bin tender Dr Mike. Pt has similar skin redness/itching previously. Consider psoriasis flare, agree with steroid treatment. - Continue steroid, may switch to by mouth if symptoms has improved. - Continue follow-up with dermatology as outpatient. (11) Steroid-induced hyperglycemia Current Visit: Yes Status: Acute Assessment and Plan: Continue sliding scale insulin. Increase to high-dose sliding scale. Patient has previous hemoglobin A1c 6.7 and was on metformin previously, will repeat A1C tomorrow. (12) Leukocytosis Current Visit: No Status: Resolved Assessment and Plan: Likely secondary to steroid use. No signs of infection at this point DVT Prophylaxis: On Eliquis. - Time Spent with Patient Total time spent is greater than 50% in coordination of care (as documented) at patient's floor/unit and/or counseling patient: 30 minutes 25 - 35 minutes Plan of Care Discussed with: patient Internal Medicine: Result - Labs CBC & Chem 7: 11/21/18 09:11 11/21/18 09:11 Labs: Short CBC 11/21/18 Range/Units 09:11 WBC 17.6 H D (4.3-11.1) K/mcL Hgb 11.0 L (11.5-15.4) g/dL Hct 34.3 L (35.3-44.9) % Plt Count 201 (140-400) K/mcL Neutrophils # 16.2 H (1.6-8.9) K/mcL BMP 11/21/18 09:11 Sodium 130 L Potassium 4.4 Chloride 95 L Carbon Dioxide 24 BUN 49 H Creatinine 1.66 H Glucose 449 H Calcium 9.4 - ABG Interpretation ABG results: PT/INR, D-dimer PT 22.1 Seconds (9.4-12.1) H 11/19/18 17:32 Consult Discharge Plan - Plan Referrals: Casandra Evans MD [Primary Care Provider] - (1) COPD (chronic obstructive pulmonary disease) Qualifiers: COPD type: unspecified COPD Qualified Code(s): J44.9 - Chronic obstructive pulmonary disease, unspecified (2) Atrial fibrillation Qualifiers: Atrial fibrillation type: chronic Qualified Code(s): I48.2 - Chronic atrial fibrillation (4) HTN (hypertension) Qualifiers: Hypertension type: essential hypertension Qualified Code(s): I10 - Essential (primary) hypertension (5) DVT (deep venous thrombosis) Qualifiers: DVT location: lower extremity Affected thrombotic vein of extremity: other lower extremity vein Chronicity: acute Laterality: bilateral Qualified Code(s): I82.493 - Acute embolism and thrombosis of other specified deep vein of lower extremity, bilateral (12) Leukocytosis Qualifiers: Leukocytosis type: leukemoid reaction Qualified Code(s): D72.823 - Leukemoid reaction
[2018-11-21] MEDS: Ipratropium/Albuterol Neb 3 ML IH SCH ×2 (16:52→20:00)
[2018-11-21] MEDS: Insulin DETEMIR 100 UNIT/ML X5UNITS SQ SCH ×2 (17:36→22:03)
[2018-11-22] MEDS: Ipratropium/Albuterol Neb 3 ML IH SCH ×2 (03:24→10:00)
[2018-11-22 05:37] LABS: Basophils % 0.1 %; Hematocrit 32.2 % (35.3-44.9); Hemoglobin 10.4 g/dL (11.5-15.4); Immature Granulocytes % 0.9 % (0-4); Lymphocytes % 5.7 %; Mean Corpuscular HGB Conc 32.3 g/dL (31.6-35.5); Mean Corpuscular Hemoglobin 30.6 pg (28.0-33.3); Mean Corpuscular Volume 94.7 fL (83.0-100.0); Mean Platelet Volume 10.1 fL (9.4-12.4); Monocytes # 0.6 K/mcL (0.0-1.3); Monocytes % 3.1 %; Neutrophils # 15.8 K/mcL (1.6-8.9); Platelet Count 197 K/mcL (140-400); Segmented Neutrophils % 90.2 %
[2018-11-22 05:56] LABS: Calcium 9.4 mg/dL (8.6-10.3); Potassium 4.4 mEq/L (3.5-5.1)
[2018-11-22] MEDS: MethylPREDNISolone 40 MG/ML VIAL IVP SCH (06:28)
[2018-11-22 07:30] VITALS: BP 132/66
[2018-11-22] MEDS ORDERED: Bumetanide 1 MG TABLET PO SCH (08:00)
[2018-11-22 08:29] LABS: Estimated Average Glucose 206 mg/dl; Hemoglobin A1C 8.8 %
[2018-11-22] MEDS ORDERED: D5% in Water 1,000 ML IVC PRN (08:33)
[2018-11-22] MEDS: Apixaban 5 MG TABLET PO SCH (09:31)
[2018-11-22] MEDS: amLODIPine 5 MG TABLET PO SCH (09:31)
[2018-11-22] MEDS: Metoprolol XL (24 HR) Succ 25 MG TAB.ER.24H PO SCH (09:31)
[2018-11-22] MEDS: *HR* Amiodarone 200 MG TABLET PO SCH (09:31)
[2018-11-22] MEDS: Isosorbide MONOnitrate (24 HR) 30 MG TAB.ER.24H PO SCH (09:31)
[2018-11-22] MEDS: Insulin LISPRO 300 UNITS/3 ML VIAL SQ SCH ×2 (09:35→12:01)
[2018-11-22] MEDS: Budesonide/Formoterol 160/4.5 1 PUFF INH IH SCH (10:00)
--- NOTE | 2018-11-22 10:11 | Discharge Summary ---
- NOTES TO OUTPATIENT PROVIDER Notes to Outpatient Provider: 1. Continue po steroid, length and further dose adjustment per dermatology. Orders not resulted at time of discharge: Pending orders 11/19/18 16:54 ECG 12 lead ECG [ECG] Stat Date of Encounter: 11/22/18 Time of Encounter: 09:00 - Discharge Diagnosis (1) COPD (chronic obstructive pulmonary disease) Priority: Secondary Status: Chronic Qualifiers: COPD type: unspecified COPD Qualified Code(s): J44.9 - Chronic obstructive pulmonary disease, unspecified (2) Atrial fibrillation Priority: Secondary Status: Chronic Qualifiers: Atrial fibrillation type: chronic Qualified Code(s): I48.2 - Chronic atrial fibrillation (3) Pulmonary edema with congestive heart failure with preserved left ventricular function Priority: Primary Status: Resolved (4) HTN (hypertension) Priority: Secondary Status: Chronic Qualifiers: Hypertension type: essential hypertension Qualified Code(s): I10 - Essential (primary) hypertension (5) DVT (deep venous thrombosis) Priority: Secondary Status: Chronic Qualifiers: DVT location: lower extremity Affected thrombotic vein of extremity: other lower extremity vein Chronicity: acute Laterality: bilateral Qualified Code(s): I82.493 - Acute embolism and thrombosis of other specified deep vein of lower extremity, bilateral (6) Obesity (BMI 30-39.9) Priority: Secondary Status: Chronic (7) Hyponatremia Priority: Secondary Status: Chronic (8) LUDIN (acute kidney injury) Priority: Secondary Status: Acute (9) Aortic valve replaced Priority: Secondary Status: Chronic (10) Psoriasis Priority: Primary Status: Acute (11) Steroid-induced hyperglycemia Priority: Secondary Status: Acute (12) Leukocytosis Priority: Secondary Status: Resolved Qualifiers: Leukocytosis type: leukemoid reaction Qualified Code(s): D72.823 - Leukemoid reaction (13) Diabetes Priority: Secondary Status: Chronic Assessment and Plan: Patient has a history of diabetes. On no medication at home. Hemoglobin A1c 8.8. - Patient also on steroid with steroid induced hypoglycemia - We will place patient on Januvia 50 mg by mouth daily upon discharge - Continue diabetic diet - Patient has glucometer at home, she was educated to check glucose level and if it is not well controlled, go to see PCP or come to ER for further management. Qualifiers: Diabetes mellitus type: type 2 Diabetes mellitus penitentiary insulin use: without propeller engineer use Diabetes mellitus complication status: with unspecified complications Qualified Code(s): E11.8 - Type 2 diabetes mellitus with unspecified complications Hospital course: Ms. Esteves is a 78 year old female admitted for left arm redness/itching/swelling. Patient has a history of psoriasis which was diagnosed by biopsy. Patient's medical lab technologist was contacted and recommend continue steroid treatment. Patient also has mild shortness of breath with chest x-ray shows pulmonary edema. Patient was treated with diuretics for CHF exacerbation. After treatment, patient's shortness of breath has improved, at about at her baseline. Patient has home oxygen. Patient's skin redness and itching has improved and left arm swelling has improved. Patient has scheduled to see dermatology today as outpatient. Patient had left arm and bilateral leg venous Doppler to rule out DVT, results are negative for DVT. I have seen and examined the patient today. Patient is awake alert oriented 3, in no acute distress. Has mild dry cough. Shortness of breath at baseline. Bilateral leg swelling has improved. Hemoglobin A1c 8.8. Will started Januvia renal dose. Patient has glucometer at home already. Patient's creatinine level is at about her baseline. Will resume patient's by mouth diuretics. Continue home oxygen. Follow-up with dermatology today for psoriasis flare. Follow-up with PCP in 1 week to evaluate fluid status. Discharge discussed with: patient - Time Spent with Patient Total time spent providing and/or coordinating discharge services: 25 minutes Less than 30 minutes - Discharge Medications Prescriptions: GuaiFENesin Liq [Robitussin Liq] 200 mg PO Q6HR PRN 7 Days #28 mls PRN Reason: Cough PredniSONE [Deltasone] See Taper PO DAILY 9 Days #12 tablet Sitagliptin Phosphate [Januvia] 50 mg PO DAILY 30 Days #30 tab Home Medications: Fluticasone/Salmeterol [Advair 500-50 Diskus] 1 each IH BID 01/19/17 [History] Amiodarone [Cordarone] 200 mg PO DAILY 10/04/17 [History] Lisinopril [Zestril] 5 mg PO DAILY 10/04/17 [History] Isosorbide MONOnitrate (24 HR) [Imdur] 30 mg PO DAILY #30 tab.er.24h 10/07/17 [Rx] Ipratropium/Albuterol Neb [Duoneb] 3 ml IH Q4HR PRN 06/06/18 [History] Apixaban [Eliquis] 5 mg PO BID #60 tablet 06/28/18 [Rx] Metoprolol Succinate [Toprol Xl] 12.5 mg PO DAILY 07/28/18 [History] Bumetanide 2 mg PO BID 10/04/18 [History] Atorvastatin [Lipitor] 40 mg PO HS 11/19/18 [History] ALPRAZolam [Xanax 0.25 MG Tablet] 0.25 mg PO DAILY PRN 11/21/18 [History] Amlodipine Besylate 10 mg PO DAILY 11/21/18 [History] GuaiFENesin Liq [Robitussin Liq] 200 mg PO Q6HR PRN 7 Days #28 mls 11/22/18 [Rx] PredniSONE [Deltasone] See Taper PO DAILY 9 Days #12 tablet 11/22/18 [Rx] Sitagliptin Phosphate [Januvia] 50 mg PO DAILY 30 Days #30 tab 11/22/18 [Rx] Allergies/Adverse Reactions: Allergy/AdvReac Type Severity Reaction Status Date / Time No Known Allergies Allergy Verified 11/21/18 11:23 Date of admission: 11/19/18 22:05 Primary care physician: Casandra Evans MD Discharging clinician: Ravindra Hall Anticipated date of discharge: 11/22/18 - Constitutional Vitals: Temp Pulse Resp BP Pulse Ox 97.6 F 95 16 132/66 90 11/22/18 07:23 11/22/18 07:23 11/22/18 07:23 11/22/18 07:23 11/22/18 07:23 Exam: Pt is AAO x 3, in NAD HEENT: NC/AT, PERRL Neck: Supple, no JVD, no LAD Lungs: CTA b/l Heart: S1S2, RRR Abd: Soft, nontender, BS present Ext: ROM wnl, left arm swelling improved but still mild pitting edema. no pedal edema Neuro: No focal deficit - Patient Status Disposition: Home, Self-Care Condition: Fair Functional capacity at discharge: uses cane/walker Overall status at discharge: patient is progressing back to baseline - Discharge Instructions Follow Up With: Casandra Evans MD [Primary Care Provider] - 11/29/18 1:00 pm (Please follow up as schedule...) - Diet and Activity Activity: increase activity as tolerated Diet: diabetic diet, low fat, low cholesterol, low salt diet
[2018-11-22] MEDS: ALPRAZolam 0.25 MG TABLET PO PRN (11:59)
--- NOTE | 2018-11-26 08:46 | Electrocardiograph Report ---
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
== END 2018-11-22 13:28 | disposition home or self-care (01) ==
LOC: 2ANU 16:39 → EMEROOARM 16:39 → 2ANU 22:52
PROVIDERS: ADMIT Internal Medicine; ATTEND Internal Medicine

== ENCOUNTER 2019-06-08 06:52 | Inpatient (IN) ==
[2019-06-08 07:07] LABS: ABG Base Excess -1 mEq/L (-2 to 3); ABG HCO3 24 mEq/L (21-27); ABG Oxygen Saturation 100 % (95-98); ABG PCO2 41 mmHg (35-45); ABG PH 7.37 pH Units (7.32-7.45); ABG PO2 192 mmHg (85-104); ABG TCO2 25 mEq/L (20-26)
[2019-06-08] MEDS ORDERED: Piperacillin/Tazobactam 3.375 GM in 0.9 % Sodium Chloride Mini Bag 100 ML IVPB ONE (07:10)
--- NOTE | 2019-06-08 07:10 | Emergency Department Note ---
Disposition Clinical Impression: Multifocal pneumonia Sepsis Qualifiers: Sepsis type: sepsis due to unspecified organism Sepsis acute organ dysfunction status: unspecified Qualified Code(s): A41.9 - Sepsis, unspecified organism Disposition: Admitted As Inpatient Referrals: Casandra Evans MD [Primary Care Provider] - Forms: ED Satisfaction Letter Time of Disposition: 09:58 General Adult HPI - General Chief complaint: ED Shortness of Breath/Dyspnea Stated complaint: weakness Time Seen by Provider: 06/08/19 06:59 Source: family, EMS Mode of arrival: EMS Limitations: altered mental status Nursing Notes Reviewed: Yes Vital Signs Reviewed: Yes - History of Present Illness HPI Narrative: 79F presents via EMS due to AMS and hypoxia. Pt has a Hx of breast cancer on hormone therapy, CHF, COPD on 2L oxygen at home, DM, and CKD stage 3. Pts family states she has a history of hyponatremia and hyperkalemia due to her kidney disease. She has been on low dose steroids for a skin condition and takes prednisone 2.5 mg daily. This morning she was found unresponsive and soaked in sweat and family was concerned. She has been more confused over the past several weeks and has had decreased oral intake. She has not been vomiting and does not complain of chest pain or dysuria. She has noted a cough. Pt does take Eliquis at home for her afib. - Related Data Home Medications Medication Instructions Recorded Confirmed Fluticasone/Salmeterol [Advair 1 each IH BID 01/19/17 06/08/19 500-50 Diskus] Amiodarone [Cordarone] 200 mg PO DAILY 10/04/17 06/08/19 Ipratropium/Albuterol Neb [Duoneb] 3 ml IH Q4HR PRN 06/06/18 06/08/19 Atorvastatin [Lipitor] 40 mg PO HS 11/19/18 06/08/19 ALPRAZolam [Xanax 0.25 MG Tablet] 0.25 mg PO BID PRN 11/21/18 06/08/19 Metoprolol Succinate [Toprol Xl] 25 mg PO DAILY 01/15/19 06/08/19 Ferrous Sulfate [Iron] 325 mg PO TID 02/24/19 06/08/19 Ropinirole HCl [Requip] 0.25 mg PO HS 02/24/19 06/08/19 Bumetanide 2 mg PO DAILY 02/28/19 06/08/19 Cholecalciferol (Vitamin D3) 2,000 unit PO DAILY 04/05/19 06/08/19 [Vitamin D] Fluticasone/Vilanterol [Breo PO PRN 06/08/19 Ellipta 200-25 Mcg INH] Previous Rx's Medication Instructions Recorded Isosorbide MONOnitrate (24 HR) 30 mg PO DAILY #30 tab.er.24h 10/07/17 [Imdur] Apixaban [Eliquis] 2.5 mg PO BID #60 tablet 02/16/19 predniSONE [Prednisone] 2.5 mg PO DAILY #30 tablet 02/16/19 Letrozole [Femara] 2.5 mg PO DAILY #90 tablet 02/28/19 Allergies Allergy/AdvReac Type Severity Reaction Status Date / Time No Known Allergies Allergy Verified 06/08/19 06:57 Limitations: ROS unobtainable due to patients medical condition Past Medical History - Past Medical History Source: old records reviewed, obtained from family Medical history: Reports: asthma, atrial fibrillation, CHF, COPD, coronary artery disease, DVT, diabetes, hyperlipidemia, hypertension, renal disease, other Surgical history: Reports: heart valve replacement, hysterectomy, pacemaker Psychiatric history: Reports: anxiety, depression REGISTERED PHARMACY TECHNICIAN history: Reports: no REGISTERED PHARMACY TECHNICIAN history - Social History Smoking Status: Never smoker Smokeless Tobacco Status: No Alcohol use: Reports: none Drug use: Reports: none Physical Exam - General Limitations: altered mental status General appearance: other (somnolent) - Head Head exam: atraumatic, normocephalic - Eye Eye exam: Present: normal appearance, PERRL - Chest Chest inspection: Present: normal inspection. Absent: tenderness, rash - Respiratory Respiratory exam: Present: other (rhonchi bilaterally) - Cardiovascular Cardiovascular exam: Present: regular rate, normal rhythm - Abdominal Exam Abdominal exam: Present: soft, Non-Tender. Absent: distention, guarding, rebound, rigidity - Extremities Exam Extremities exam: Present: normal inspection. Absent: tenderness, pedal edema, calf tenderness - Neurological Exam Neurological exam: Present: other (pt is somnolent but can follow commands. GCS13) - Skin Skin exam: Present: warm, diaphoresis Course Vital Signs Temperature 104.2 F H 06/08/19 07:00 Pulse Rate 88 06/08/19 07:00 Respiratory Rate 41 06/08/19 07:00 Blood Pressure 121/66 06/08/19 07:00 O2 Sat by Pulse Oximetry 100 06/08/19 07:00 Temperature 101.0 F H 06/08/19 09:39 Pulse Rate 62 06/08/19 09:39 Respiratory Rate 24 06/08/19 09:39 Blood Pressure 105/88 06/08/19 08:46 O2 Sat by Pulse Oximetry 98 06/08/19 09:39 Oxygen Delivery Oxygen Delivery Oximizer Medical Decision Making - MDM Narrative Medical decision making narrative: Patient presents from home with hypoxia and altered mental status. We will pursue septic workup as well as obtain a CT scan of the head to rule out hemorrhagic stroke. The patient was initially placed on BiPAP and her mentation improved rapidly. She is still somnolent at this time but able to follow commands and answer questions appropriately. Initial ABG had a CO2 and pH within normal limits. Awaiting sepsis labs, chest x-ray and urinalysis at this time. EKG not suggestive of ACS. Pt will be started on vanc, zosyn and levaquin, given 1L of fluid and 100mg Solu-cortef. 827 - pts troponin is elevated at 1.6 and CXR shows opacities in bilateral lungs. Spoke with Cardiology about the patient's elevated troponin and they are agreeable that this is likely a sequela of sepsis and not from ACS. We will give the patient Aspirin while awaiting CTA to rule out PE and heparinize the patient once we received results from this test. Pts lab work shows a WBC of 29. 6 and an elevated lactic of 3.6. Pt will get another liter of normal saline and then be placed on maintenance fluids. 852 - CTA show signs of pneumonia without a pulmonary embolus. CT scan of the head did not demonstrate acute stroke. We will start the patient on low-dose heparin. Awaiting urinalysis results - urinalysis was sent when Patterson catheter was placed but labs states they did not receive a urine sample therefore we will send another one at this time. 922 - pts urine was positive for leukocyte esterase. We will admit the patient for treatment with IV abx for her pneumonia. Hospitalist has been paged. [phone] - pt has been accepted by the hospitalist Dr. Wooten - Medical Records Medical records reviewed: Yes I reviewed the patient's medical records. - Lab Data Lab results reviewed: Yes I reviewed the patient's lab results. Result diagrams: 06/08/19 07:25 06/08/19 07:25 Lab Results 06/08/19 06/08/19 06/08/19 Range/Units 07:04 07:25 07:25 WBC 29.7 H (4.3-11.1) K/mcL RBC 4.59 (3.82-4.97) M/mcL Hgb 14.1 (11.5-15.4) g/dL Hct 42.3 (35.3-44.9) % MCV 92.2 (83.0-100.0) fL MCH 30.7 (28.0-33.3) pg MCHC 33.3 (31.6-35.5) g/dL RDW 13.2 (11.5-14.5) % Plt Count 246 (140-400) K/mcL MPV 10.5 (9.4-12.4) fL Immature Gran % 1.1 (0-4) % Seg Neutrophils % 88.6 % Lymphocytes % 3.6 % Monocytes % 6.3 % Eosinophils % 0.2 % Basophils % 0.2 % Neutrophils # 26.3 H (1.6-8.9) K/mcL Lymphocytes # 1.1 (0.6-4.6) K/mcL Monocytes # 1.9 H (0.0-1.3) K/mcL Eosinophils # 0.1 (0.0-0.6) K/mcL Basophils # 0.1 (0.0-0.2) K/mcL Platelet Estimate Normal (Normal) PT (9.4-12.1) Seconds INR Heparin Anti-Xa, Unfract (0.30-0.70) IU/mL Sample Site R Brach ABG pH 7.37 (7.32-7.45) pH Units ABG pCO2 41 (35-45) mmHg ABG pO2 192 H (85-104) mmHg ABG HCO3 24 (21-27) mEq/L ABG Total CO2 25 (20-26) mEq/L ABG O2 Saturation 100 H (95-98) % ABG Base Excess -1 (-2 to 3) mEq/L Omi Test N/A O2 Delivery Device NRB Sodium 132 L (136-145) mEq/L Potassium 4.0 (3.5-5.1) mEq/L Chloride 95 L (98-107) mEq/L Carbon Dioxide 26 (23-29) mEq/L BUN 26 H (8-23) mg/dL Creatinine 1.55 H (0.60-1.20) mg/dL Est GFR ( Amer) 39 L (> 60) Est GFR (Non-Af Amer) 32 L (> 60) BUN/Creatinine Ratio 17 (6-26) Glucose 255 H (70-105) mg/dL Calculated Osmolality 287 (280-300) Lactic Acid (0.5-2.2) mmol/L Calcium 9.4 (8.6-10.3) mg/dL Total Bilirubin 0.7 (0.3-1.0) mg/dL AST 61 H (13-39) Units/L ALT 60 H (7-52) Units/L Alkaline Phosphatase 76 (34-104) Units/L Troponin I 1.60 H* (< 0.04) ng/mL Serum Total Protein 6.9 (6.4-8.9) g/dL Albumin 4.0 (3.5-5.7) g/dL Globulin 2.9 (2.4-3.5) g/dL Albumin/Globulin Ratio 1.4 (1.1-2.2) Urine Color (Yellow) Urine Clarity (Clear) Urine pH (5.0-8.0) pH Units Ur Specific [place] (1.010-1.025) Urine Protein (Neg-Trace) mg/dL Urine Glucose (UA) (Normal) mg/dL Urine Ketones (Negative) mg/dL Urine Blood (Negative) Urine Nitrite (Negative) Urine Bilirubin (Negative) Urine Urobilinogen (Normal) mg/dL Ur Leukocyte Esterase (Negative) Urine Microscopic RBC (0-3) per hpf Urine Microscopic WBC (0-3) per hpf Ur Squamous Epith Cells (None-Few) per lpf Urine Bacteria (None-Few) per hpf Hyaline Casts (None-Few) per lpf Ur Culture Indicated? (NO) Urine Opiates Screen (Ppbeur=065) ng/mL Ur Buprenorphine Scrn (Cutoff=5) ng/mL Ur Barbiturates Screen (Npdkbd=078) ng/mL Ur Phencyclidine Scrn (Cutoff=25) ng/mL Ur Amphetamines Screen (Shujuh=3109) ng/mL U Benzodiazepines Scrn (Wpcsum=909) ng/mL Urine Cocaine Screen (Cutoff= 300) ng/mL U Marijuana (THC) Screen (Cutoff = 50) ng/mL Ur Drug Screen Interp 06/08/19 06/08/19 06/08/19 Range/Units 07:25 07:25 08:17 WBC (4.3-11.1) K/mcL RBC (3.82-4.97) M/mcL Hgb (11.5-15.4) g/dL Hct (35.3-44.9) % MCV (83.0-100.0) fL MCH (28.0-33.3) pg MCHC (31.6-35.5) g/dL RDW (11.5-14.5) % Plt Count (140-400) K/mcL MPV (9.4-12.4) fL Immature Gran % (0-4) % Seg Neutrophils % % Lymphocytes % % Monocytes % % Eosinophils % % Basophils % % Neutrophils # (1.6-8.9) K/mcL Lymphocytes # (0.6-4.6) K/mcL Monocytes # (0.0-1.3) K/mcL Eosinophils # (0.0-0.6) K/mcL Basophils # (0.0-0.2) K/mcL Platelet Estimate (Normal) PT 17.7 H (9.4-12.1) Seconds INR 1.6 Heparin Anti-Xa, Unfract (0.30-0.70) IU/mL Sample Site ABG pH (7.32-7.45) pH Units ABG pCO2 (35-45) mmHg ABG pO2 (85-104) mmHg ABG HCO3 (21-27) mEq/L ABG Total CO2 (20-26) mEq/L ABG O2 Saturation (95-98) % ABG Base Excess (-2 to 3) mEq/L Omi Test O2 Delivery Device Sodium (136-145) mEq/L Potassium (3.5-5.1) mEq/L Chloride (98-107) mEq/L Carbon Dioxide (23-29) mEq/L BUN (8-23) mg/dL Creatinine (0.60-1.20) mg/dL Est GFR ( Amer) (> 60) Est GFR (Non-Af Amer) (> 60) BUN/Creatinine Ratio (6-26) Glucose (70-105) mg/dL Calculated Osmolality (280-300) Lactic Acid 3.2 H (0.5-2.2) mmol/L Calcium (8.6-10.3) mg/dL Total Bilirubin (0.3-1.0) mg/dL AST (13-39) Units/L ALT (7-52) Units/L Alkaline Phosphatase (34-104) Units/L Troponin I (< 0.04) ng/mL Serum Total Protein (6.4-8.9) g/dL Albumin (3.5-5.7) g/dL Globulin (2.4-3.5) g/dL Albumin/Globulin Ratio (1.1-2.2) Urine Color (Yellow) Urine Clarity (Clear) Urine pH (5.0-8.0) pH Units Ur Specific [place] (1.010-1.025) Urine Protein (Neg-Trace) mg/dL Urine Glucose (UA) (Normal) mg/dL Urine Ketones (Negative) mg/dL Urine Blood (Negative) Urine Nitrite (Negative) Urine Bilirubin (Negative) Urine Urobilinogen (Normal) mg/dL Ur Leukocyte Esterase (Negative) Urine Microscopic RBC (0-3) per hpf Urine Microscopic WBC (0-3) per hpf Ur Squamous Epith Cells (None-Few) per lpf Urine Bacteria (None-Few) per hpf Hyaline Casts (None-Few) per lpf Ur Culture Indicated? (NO) Urine Opiates Screen Negative (Exyawh=706) ng/mL Ur Buprenorphine Scrn Negative (Cutoff=5) ng/mL Ur Barbiturates Screen Negative (Fytttj=279) ng/mL Ur Phencyclidine Scrn Negative (Cutoff=25) ng/mL Ur Amphetamines Screen Negative (Xsfkwv=7394) ng/mL U Benzodiazepines Scrn Positive H (Sqqsha=316) ng/mL Urine Cocaine Screen Negative (Cutoff= 300) ng/mL U Marijuana (THC) Screen Negative (Cutoff = 50) ng/mL Ur Drug Screen Interp See Below 06/08/19 06/08/19 Range/Units 08:58 09:30 WBC (4.3-11.1) K/mcL RBC (3.82-4.97) M/mcL Hgb (11.5-15.4) g/dL Hct (35.3-44.9) % MCV (83.0-100.0) fL MCH (28.0-33.3) pg MCHC (31.6-35.5) g/dL RDW (11.5-14.5) % Plt Count (140-400) K/mcL MPV (9.4-12.4) fL Immature Gran % (0-4) % Seg Neutrophils % % Lymphocytes % % Monocytes % % Eosinophils % % Basophils % % Neutrophils # (1.6-8.9) K/mcL Lymphocytes # (0.6-4.6) K/mcL Monocytes # (0.0-1.3) K/mcL Eosinophils # (0.0-0.6) K/mcL Basophils # (0.0-0.2) K/mcL Platelet Estimate (Normal) PT (9.4-12.1) Seconds INR Heparin Anti-Xa, Unfract 1.36 H* (0.30-0.70) IU/mL Sample Site ABG pH (7.32-7.45) pH Units ABG pCO2 (35-45) mmHg ABG pO2 (85-104) mmHg ABG HCO3 (21-27) mEq/L ABG Total CO2 (20-26) mEq/L ABG O2 Saturation (95-98) % ABG Base Excess (-2 to 3) mEq/L Omi Test O2 Delivery Device Sodium (136-145) mEq/L Potassium (3.5-5.1) mEq/L Chloride (98-107) mEq/L Carbon Dioxide (23-29) mEq/L BUN (8-23) mg/dL Creatinine (0.60-1.20) mg/dL Est GFR ( Amer) (> 60) Est GFR (Non-Af Amer) (> 60) BUN/Creatinine Ratio (6-26) Glucose (70-105) mg/dL Calculated Osmolality (280-300) Lactic Acid (0.5-2.2) mmol/L Calcium (8.6-10.3) mg/dL Total Bilirubin (0.3-1.0) mg/dL AST (13-39) Units/L ALT (7-52) Units/L Alkaline Phosphatase (34-104) Units/L Troponin I (< 0.04) ng/mL Serum Total Protein (6.4-8.9) g/dL Albumin (3.5-5.7) g/dL Globulin (2.4-3.5) g/dL Albumin/Globulin Ratio (1.1-2.2) Urine Color Yellow (Yellow) Urine Clarity Clear (Clear) Urine pH 6.5 (5.0-8.0) pH Units Ur Specific [place] 1.013 (1.010-1.025) Urine Protein 100 H (Neg-Trace) mg/dL Urine Glucose (UA) Normal (Normal) mg/dL Urine Ketones Negative (Negative) mg/dL Urine Blood Negative (Negative) Urine Nitrite Negative (Negative) Urine Bilirubin Negative (Negative) Urine Urobilinogen Normal (Normal) mg/dL Ur Leukocyte Esterase Moderate H (Negative) Urine Microscopic RBC 0-3 (0-3) per hpf Urine Microscopic WBC 3-5 H (0-3) per hpf Ur Squamous Epith Cells Few (None-Few) per lpf Urine Bacteria None Seen (None-Few) per hpf Hyaline Casts None Seen (None-Few) per lpf Ur Culture Indicated? YES A (NO) Urine Opiates Screen (Xbodln=626) ng/mL Ur Buprenorphine Scrn (Cutoff=5) ng/mL Ur Barbiturates Screen (Kxyoqd=921) ng/mL Ur Phencyclidine Scrn (Cutoff=25) ng/mL Ur Amphetamines Screen (Jwmqfk=9576) ng/mL U Benzodiazepines Scrn (Qponuo=630) ng/mL Urine Cocaine Screen (Cutoff= 300) ng/mL U Marijuana (THC) Screen (Cutoff = 50) ng/mL Ur Drug Screen Interp - Radiology Data Radiology results reviewed: Yes I reviewed the patient's radiology results. - EKG Data EKG #1 EKG attestation: Yes I reviewed and interpreted this EKG. EKG results narrative: EKG obtained at 700 on 06/08/2019 Heart rate 76 bpm, AK interval 209, QRS duration 143, QT 385, QTc 466 Ventricular paced complexes without any significant ST segment elevation or depression meeting sgarbossa criteria. No other notable abnormalities. No old EKG for comparison at this time. Attestation Statement - Attestation Attestation: I, Andrea Luis DO, examined this patient [id number] and my medical decision-making was reviewed with Carole Celestin DO, Resident Physician. I agree with the documented findings, disposition and treatment plan as described except to the extent set forth below. I personally supervised and was present for the reaves/critical portions of the procedures completed by the resident documented below. Please see my progress notes for details.
[2019-06-08] MEDS ORDERED: levoFLOXacin 750 MG/150 ML 750 MG/150 ML BAG IVPB ONE (07:11)
[2019-06-08] MEDS ORDERED: 0.9 % Sodium Chloride 1,000 ML IVC ONE ×2 (07:13→07:50)
[2019-06-08] MEDS ORDERED: Acetaminophen 650 MG RECTAL SUPP RC ONE (07:13)
[2019-06-08] MEDS ORDERED: 0.9 % Sodium Chloride 1,000 ML ONE (07:24)
[2019-06-08] MEDS ORDERED: Hydrocortisone Sodium Succ 100 MG/2 ML VIAL IVP ONE (07:34)
--- NOTE | 2019-06-08 07:38 | Emergency Department Note ---
Disposition Clinical Impression: Multifocal pneumonia, Elevated troponin, Acute kidney injury Sepsis Qualifiers: Sepsis type: sepsis due to unspecified organism Sepsis acute organ dysfunction status: unspecified Qualified Code(s): A41.9 - Sepsis, unspecified organism Disposition: Admitted As Inpatient Condition: Fair Referrals: Casandra Evans MD [Primary Care Provider] - Forms: ED Satisfaction Letter Time of Disposition: 10:17 General Adult HPI - General Chief complaint: ED Weakness Stated complaint: weakness Time Seen by Provider: 06/08/19 06:59 Source: EMS Limitations: altered mental status - History of Present Illness Pain Scale: 0 - Related Data Home Medications Medication Instructions Recorded Confirmed Fluticasone/Salmeterol [Advair 1 each IH BID 01/19/17 06/08/19 500-50 Diskus] Amiodarone [Cordarone] 200 mg PO DAILY 10/04/17 06/08/19 Ipratropium/Albuterol Neb [Duoneb] 3 ml IH Q4HR PRN 06/06/18 06/08/19 Atorvastatin [Lipitor] 40 mg PO HS 11/19/18 06/08/19 ALPRAZolam [Xanax 0.25 MG Tablet] 0.25 mg PO BID PRN 11/21/18 06/08/19 Metoprolol Succinate [Toprol Xl] 25 mg PO DAILY 01/15/19 06/08/19 Ferrous Sulfate [Iron] 325 mg PO TID 02/24/19 06/08/19 Ropinirole HCl [Requip] 0.25 mg PO HS 02/24/19 06/08/19 Bumetanide 2 mg PO DAILY 02/28/19 06/08/19 Cholecalciferol (Vitamin D3) 2,000 unit PO DAILY 04/05/19 06/08/19 [Vitamin D] Fluticasone/Vilanterol [Breo PO PRN 06/08/19 Ellipta 200-25 Mcg INH] Previous Rx's Medication Instructions Recorded Isosorbide MONOnitrate (24 HR) 30 mg PO DAILY #30 tab.er.24h 10/07/17 [Imdur] Apixaban [Eliquis] 2.5 mg PO BID #60 tablet 02/16/19 predniSONE [Prednisone] 2.5 mg PO DAILY #30 tablet 02/16/19 Letrozole [Femara] 2.5 mg PO DAILY #90 tablet 02/28/19 Allergies Allergy/AdvReac Type Severity Reaction Status Date / Time No Known Allergies Allergy Verified 06/08/19 06:57 Past Medical History - Past Medical History Medical history: Reports: asthma, atrial fibrillation, cancer, CHF, COPD, coronary artery disease, DVT, diabetes, hyperlipidemia, hypertension, renal disease, other Surgical history: Reports: heart valve replacement, hysterectomy, pacemaker Psychiatric history: Reports: anxiety, depression HUMANITIES INSTRUCTOR history: Reports: no HUMANITIES INSTRUCTOR history - Social History Smoking Status: Never smoker Smokeless Tobacco Status: No Alcohol use: Reports: none Drug use: Reports: none Physical Exam - General Limitations: altered mental status Course Vital Signs Temperature 104.2 F H 06/08/19 07:00 Pulse Rate 88 06/08/19 07:00 Respiratory Rate 41 06/08/19 07:00 Blood Pressure 121/66 06/08/19 07:00 O2 Sat by Pulse Oximetry 100 06/08/19 07:00 Temperature 101.0 F H 06/08/19 09:39 Pulse Rate 62 06/08/19 09:39 Respiratory Rate 24 06/08/19 09:56 Blood Pressure 105/88 06/08/19 09:56 O2 Sat by Pulse Oximetry 98 06/08/19 09:56 Oxygen Delivery Oxygen Delivery Oximizer Medical Decision Making - Lab Data Result diagrams: 06/08/19 07:25 06/08/19 07:25 Lab Results 06/08/19 06/08/19 06/08/19 Range/Units 07:04 07:25 07:25 WBC 29.7 H (4.3-11.1) K/mcL RBC 4.59 (3.82-4.97) M/mcL Hgb 14.1 (11.5-15.4) g/dL Hct 42.3 (35.3-44.9) % MCV 92.2 (83.0-100.0) fL MCH 30.7 (28.0-33.3) pg MCHC 33.3 (31.6-35.5) g/dL RDW 13.2 (11.5-14.5) % Plt Count 246 (140-400) K/mcL MPV 10.5 (9.4-12.4) fL Immature Gran % 1.1 (0-4) % Seg Neutrophils % 88.6 % Lymphocytes % 3.6 % Monocytes % 6.3 % Eosinophils % 0.2 % Basophils % 0.2 % Neutrophils # 26.3 H (1.6-8.9) K/mcL Lymphocytes # 1.1 (0.6-4.6) K/mcL Monocytes # 1.9 H (0.0-1.3) K/mcL Eosinophils # 0.1 (0.0-0.6) K/mcL Basophils # 0.1 (0.0-0.2) K/mcL Platelet Estimate Normal (Normal) PT (9.4-12.1) Seconds INR Heparin Anti-Xa, Unfract (0.30-0.70) IU/mL Sample Site R Brach ABG pH 7.37 (7.32-7.45) pH Units ABG pCO2 41 (35-45) mmHg ABG pO2 192 H (85-104) mmHg ABG HCO3 24 (21-27) mEq/L ABG Total CO2 25 (20-26) mEq/L ABG O2 Saturation 100 H (95-98) % ABG Base Excess -1 (-2 to 3) mEq/L Omi Test N/A O2 Delivery Device NRB Sodium 132 L (136-145) mEq/L Potassium 4.0 (3.5-5.1) mEq/L Chloride 95 L (98-107) mEq/L Carbon Dioxide 26 (23-29) mEq/L BUN 26 H (8-23) mg/dL Creatinine 1.55 H (0.60-1.20) mg/dL Est GFR ( Amer) 39 L (> 60) Est GFR (Non-Af Amer) 32 L (> 60) BUN/Creatinine Ratio 17 (6-26) Glucose 255 H (70-105) mg/dL Calculated Osmolality 287 (280-300) Lactic Acid (0.5-2.2) mmol/L Calcium 9.4 (8.6-10.3) mg/dL Total Bilirubin 0.7 (0.3-1.0) mg/dL AST 61 H (13-39) Units/L ALT 60 H (7-52) Units/L Alkaline Phosphatase 76 (34-104) Units/L Troponin I 1.60 H* (< 0.04) ng/mL Serum Total Protein 6.9 (6.4-8.9) g/dL Albumin 4.0 (3.5-5.7) g/dL Globulin 2.9 (2.4-3.5) g/dL Albumin/Globulin Ratio 1.4 (1.1-2.2) Urine Color (Yellow) Urine Clarity (Clear) Urine pH (5.0-8.0) pH Units Ur Specific [place] (1.010-1.025) Urine Protein (Neg-Trace) mg/dL Urine Glucose (UA) (Normal) mg/dL Urine Ketones (Negative) mg/dL Urine Blood (Negative) Urine Nitrite (Negative) Urine Bilirubin (Negative) Urine Urobilinogen (Normal) mg/dL Ur Leukocyte Esterase (Negative) Urine Microscopic RBC (0-3) per hpf Urine Microscopic WBC (0-3) per hpf Ur Squamous Epith Cells (None-Few) per lpf Urine Bacteria (None-Few) per hpf Hyaline Casts (None-Few) per lpf Ur Culture Indicated? (NO) Urine Opiates Screen (Vnprsp=010) ng/mL Ur Buprenorphine Scrn (Cutoff=5) ng/mL Ur Barbiturates Screen (Ghnxze=797) ng/mL Ur Phencyclidine Scrn (Cutoff=25) ng/mL Ur Amphetamines Screen (Joqggr=3629) ng/mL U Benzodiazepines Scrn (Ytsujb=395) ng/mL Urine Cocaine Screen (Cutoff= 300) ng/mL U Marijuana (THC) Screen (Cutoff = 50) ng/mL Ur Drug Screen Interp 06/08/19 06/08/19 06/08/19 Range/Units 07:25 07:25 08:17 WBC (4.3-11.1) K/mcL RBC (3.82-4.97) M/mcL Hgb (11.5-15.4) g/dL Hct (35.3-44.9) % MCV (83.0-100.0) fL MCH (28.0-33.3) pg MCHC (31.6-35.5) g/dL RDW (11.5-14.5) % Plt Count (140-400) K/mcL MPV (9.4-12.4) fL Immature Gran % (0-4) % Seg Neutrophils % % Lymphocytes % % Monocytes % % Eosinophils % % Basophils % % Neutrophils # (1.6-8.9) K/mcL Lymphocytes # (0.6-4.6) K/mcL Monocytes # (0.0-1.3) K/mcL Eosinophils # (0.0-0.6) K/mcL Basophils # (0.0-0.2) K/mcL Platelet Estimate (Normal) PT 17.7 H (9.4-12.1) Seconds INR 1.6 Heparin Anti-Xa, Unfract (0.30-0.70) IU/mL Sample Site ABG pH (7.32-7.45) pH Units ABG pCO2 (35-45) mmHg ABG pO2 (85-104) mmHg ABG HCO3 (21-27) mEq/L ABG Total CO2 (20-26) mEq/L ABG O2 Saturation (95-98) % ABG Base Excess (-2 to 3) mEq/L Omi Test O2 Delivery Device Sodium (136-145) mEq/L Potassium (3.5-5.1) mEq/L Chloride (98-107) mEq/L Carbon Dioxide (23-29) mEq/L BUN (8-23) mg/dL Creatinine (0.60-1.20) mg/dL Est GFR ( Amer) (> 60) Est GFR (Non-Af Amer) (> 60) BUN/Creatinine Ratio (6-26) Glucose (70-105) mg/dL Calculated Osmolality (280-300) Lactic Acid 3.2 H (0.5-2.2) mmol/L Calcium (8.6-10.3) mg/dL Total Bilirubin (0.3-1.0) mg/dL AST (13-39) Units/L ALT (7-52) Units/L Alkaline Phosphatase (34-104) Units/L Troponin I (< 0.04) ng/mL Serum Total Protein (6.4-8.9) g/dL Albumin (3.5-5.7) g/dL Globulin (2.4-3.5) g/dL Albumin/Globulin Ratio (1.1-2.2) Urine Color (Yellow) Urine Clarity (Clear) Urine pH (5.0-8.0) pH Units Ur Specific [place] (1.010-1.025) Urine Protein (Neg-Trace) mg/dL Urine Glucose (UA) (Normal) mg/dL Urine Ketones (Negative) mg/dL Urine Blood (Negative) Urine Nitrite (Negative) Urine Bilirubin (Negative) Urine Urobilinogen (Normal) mg/dL Ur Leukocyte Esterase (Negative) Urine Microscopic RBC (0-3) per hpf Urine Microscopic WBC (0-3) per hpf Ur Squamous Epith Cells (None-Few) per lpf Urine Bacteria (None-Few) per hpf Hyaline Casts (None-Few) per lpf Ur Culture Indicated? (NO) Urine Opiates Screen Negative (Mssdoc=011) ng/mL Ur Buprenorphine Scrn Negative (Cutoff=5) ng/mL Ur Barbiturates Screen Negative (Jclify=789) ng/mL Ur Phencyclidine Scrn Negative (Cutoff=25) ng/mL Ur Amphetamines Screen Negative ([place]=9319) ng/mL U Benzodiazepines Scrn Positive H (Idnnzh=228) ng/mL Urine Cocaine Screen Negative (Cutoff= 300) ng/mL U Marijuana (THC) Screen Negative (Cutoff = 50) ng/mL Ur Drug Screen Interp See Below 06/08/19 06/08/19 Range/Units 08:58 09:30 WBC (4.3-11.1) K/mcL RBC (3.82-4.97) M/mcL Hgb (11.5-15.4) g/dL Hct (35.3-44.9) % MCV (83.0-100.0) fL MCH (28.0-33.3) pg MCHC (31.6-35.5) g/dL RDW (11.5-14.5) % Plt Count (140-400) K/mcL MPV (9.4-12.4) fL Immature Gran % (0-4) % Seg Neutrophils % % Lymphocytes % % Monocytes % % Eosinophils % % Basophils % % Neutrophils # (1.6-8.9) K/mcL Lymphocytes # (0.6-4.6) K/mcL Monocytes # (0.0-1.3) K/mcL Eosinophils # (0.0-0.6) K/mcL Basophils # (0.0-0.2) K/mcL Platelet Estimate (Normal) PT (9.4-12.1) Seconds INR Heparin Anti-Xa, Unfract 1.36 H* (0.30-0.70) IU/mL Sample Site ABG pH (7.32-7.45) pH Units ABG pCO2 (35-45) mmHg ABG pO2 (85-104) mmHg ABG HCO3 (21-27) mEq/L ABG Total CO2 (20-26) mEq/L ABG O2 Saturation (95-98) % ABG Base Excess (-2 to 3) mEq/L Omi Test O2 Delivery Device Sodium (136-145) mEq/L Potassium (3.5-5.1) mEq/L Chloride (98-107) mEq/L Carbon Dioxide (23-29) mEq/L BUN (8-23) mg/dL Creatinine (0.60-1.20) mg/dL Est GFR ( Amer) (> 60) Est GFR (Non-Af Amer) (> 60) BUN/Creatinine Ratio (6-26) Glucose (70-105) mg/dL Calculated Osmolality (280-300) Lactic Acid (0.5-2.2) mmol/L Calcium (8.6-10.3) mg/dL Total Bilirubin (0.3-1.0) mg/dL AST (13-39) Units/L ALT (7-52) Units/L Alkaline Phosphatase (34-104) Units/L Troponin I (< 0.04) ng/mL Serum Total Protein (6.4-8.9) g/dL Albumin (3.5-5.7) g/dL Globulin (2.4-3.5) g/dL Albumin/Globulin Ratio (1.1-2.2) Urine Color Yellow (Yellow) Urine Clarity Clear (Clear) Urine pH 6.5 (5.0-8.0) pH Units Ur Specific [place] 1.013 (1.010-1.025) Urine Protein 100 H (Neg-Trace) mg/dL Urine Glucose (UA) Normal (Normal) mg/dL Urine Ketones Negative (Negative) mg/dL Urine Blood Negative (Negative) Urine Nitrite Negative (Negative) Urine Bilirubin Negative (Negative) Urine Urobilinogen Normal (Normal) mg/dL Ur Leukocyte Esterase Moderate H (Negative) Urine Microscopic RBC 0-3 (0-3) per hpf Urine Microscopic WBC 3-5 H (0-3) per hpf Ur Squamous Epith Cells Few (None-Few) per lpf Urine Bacteria None Seen (None-Few) per hpf Hyaline Casts None Seen (None-Few) per lpf Ur Culture Indicated? YES A (NO) Urine Opiates Screen (Rvkals=834) ng/mL Ur Buprenorphine Scrn (Cutoff=5) ng/mL Ur Barbiturates Screen (Hnfdwh=507) ng/mL Ur Phencyclidine Scrn (Cutoff=25) ng/mL Ur Amphetamines Screen (Vkauic=7187) ng/mL U Benzodiazepines Scrn (Usyfji=724) ng/mL Urine Cocaine Screen (Cutoff= 300) ng/mL U Marijuana (THC) Screen (Cutoff = 50) ng/mL Ur Drug Screen Interp Critical Care Time Critical Care Time: Yes Total Critical Care Time: 60 Attestation: Critical care performed: Time is exclusive of separately billable procedures. Time includes: direct patient care, patient reassessment, coordination of patient care, interpretation of data (laboratory data, radiology data, and respiratory data), review of patient's medical records, medical consultation and documentation of patient care. Procedures included in critical care time: Procedures excluded from critical care time: Attestation Statement - Attestation Attestation: I, Andrea Luis DO, examined this patient [id number] and my medical de cision-making was reviewed with Carole Celestin DO, Resident Physician. I agree with the documented findings, disposition and treatment plan as described except to the extent set forth below. I personally supervised and was present for the reaves/critical portions of the procedures completed by the resident documented below. Please see my progress notes for details. 79-year-old female presents from home for evaluation of confusion somnolence and potential unresponsive presentation. EMS was called to the home secondary the patient not being able to move or take care of herself. Family had said that over the last several days she has not been feeling well. She does have a hist ory of breast cancer and is currently in treatment. Patient denies any falls trauma or injury. Denies any headache or vision change. Has not had any nausea or vomiting. Patient has had a productive cough and sputum. Denies any chest pain. She has had intermittent shortness of breath. EMS transported the patient said that she was initially hypoxic in the low 80s on arrival. Glucose is 200 during transport. Patient arrived to the emergency room approximately 30 minutes prior to the beginning of my shift. On my initial evaluation the patient the bedside, the patient's skin is damp and wet. She appears to be diaphoretic. She is able to fall commands including sticking out her tongue getting her thumbs up but she is somnolent. BiPAP was placed. ABG was collected and ABG does not show any profound signs of acidosis or metabolic derangement at this point. Patient is concerning for septic-like presentation. One IV was obtained by EMS and fluids were started but only approximately 200 mL of fluid were given. Patient is second IV placed. Rectal temperature was collected in the rectal temperature was 1/104. Appropriate sepsis intervention in place so sepsis alert was not called at this time but the patient will be provided with 2 L of fluid as well as prophylactic antibiotics including vancomycin and Zosyn and Levaquin. This will be a fluid intake of over 2200 mL which is consistent with her 30 mg/kg fluid bolus. Patient is otherwise stable. She is much more awake and responsive on my repeat evaluation. She does have coarse crackles on the bilateral breath sounds. Heart is regular but she does have a pacemaker in place. Abdomen is soft. She does have swelling of lower extremities but no signs of significant pitting edema redness warmth or cellulitic-like presentation this time. Patient will most likely require admission once a full workup and treatment course have been established. The remainder of the physical exam appears to be unremarkable. Mental status appears to be improving with fluids and stabilization. Rectal Tylenol will be given. Patterson catheter will be placed in-year-old be sent for evaluation. Cultures and lactic acid have been ordered. CT imaging of the head will be completed. It is any concerning findings on chest x-ray potential CT angiography the chest will be completed as well. Patient is currently on blood thinners secondary to history of DVT. Disposition pending. See detailed documentation the physical exam, medical intervention, medical decision-making and disposition the resident physician's note. 60 minutes of critical care provider the patient's treatment course secondary to multidisciplinary intervention medical management. EKG was reviewed by myself documented in the resident physician's note. 0745 Family did disclose that the patient is currently on steroids and hormone replacement. Stress dose steroids will be given. Close monitoring and stabilization to be established. Patient does have [address] at this point does not require central access. 0900 Patient is mentating better at this time. She does have what appears to be multifocal pneumonia and is been appropriately treated with antibiotics. She does have signs of sepsis borderline septic shock. She does not have all the lab abnormalities and vital sign concerns at this point and should not appropriately medically managed. Hospitalist has been contacted for admission. Cardiology was also contacted and they recommended starting her on heparin. CT angiography the chest does not show any acute signs of pulmonary emboli so ACS low-dose heparin will be started at this time. Admission process to be esta blished for what appears to be profound sepsis causing organ dysfunction and derangement. Patient is otherwise doing better this point. Family and the patient both agree that if need be she could be intubated to protect her airway the right now she is not clinically showing decline in fact is getting better at this point. Admission process to be established 0945 Patient was discussed with the hospitalist Dr. Wooten. Detailed review the presentation symptoms medical history were discussed. Patient is otherwise stable now on BiPAP again at this time. She is sleeping in her blood pressure is stable. Wheezing has cleared up with the breathing treatment as well as the BiPAP. Patient does not show any acute signs of profound fluid overload. She will be admitted at this point what appears to be sepsis secondary to pneumonia causing altered mentation and hypoxia. Family was informed and they are comfortable the plan. Patient is otherwise stable. She will be monitored here in the emergency department until admission is completed.
[2019-06-08 07:57] LABS: Basophils # 0.1 K/mcL (0.0-0.2); Basophils % 0.2 %; Eosinophils # 0.1 K/mcL (0.0-0.6); Eosinophils % 0.2 %; Hematocrit 42.3 % (35.3-44.9); Hemoglobin 14.1 g/dL (11.5-15.4); Immature Granulocytes % 1.1 % (0-4); Lymphocytes # 1.1 K/mcL (0.6-4.6); Lymphocytes % 3.6 %; Mean Corpuscular HGB Conc 33.3 g/dL (31.6-35.5); Mean Corpuscular Hemoglobin 30.7 pg (28.0-33.3); Mean Corpuscular Volume 92.2 fL (83.0-100.0); Mean Platelet Volume 10.5 fL (9.4-12.4); Monocytes # 1.9 K/mcL (0.0-1.3); Monocytes % 6.3 %; Neutrophils # 26.3 K/mcL (1.6-8.9); Platelet Count 246 K/mcL (140-400); Red Blood Count 4.59 M/mcL (3.82-4.97); Red Cell Distribution Width 13.2 % (11.5-14.5); Segmented Neutrophils % 88.6 %; White Blood Count 29.7 K/mcL (4.3-11.1)
[2019-06-08 08:03] LABS: INR 1.6; Prothrombin Time 17.7 Seconds (9.4-12.1)
[2019-06-08 08:16] LABS: Albumin/Globulin Ratio 1.4 (1.1-2.2); Bilirubin,Total 0.7 mg/dL (0.3-1.0); Calcium 9.4 mg/dL (8.6-10.3); Globulin 2.9 g/dL (2.4-3.5); Total Protein 6.9 g/dL (6.4-8.9); Troponin I 1.6 ng/mL (< 0.04)
[2019-06-08] MEDS ORDERED: Isovue-370 500 ML BOTTLE IVP ONE (08:17)
[2019-06-08 08:24] LABS: Platelet Estimate Normal (Normal)
[2019-06-08] MEDS ORDERED: Aspirin 81 MG TAB.CHEW PO ONE (08:25)
[2019-06-08] MEDS ORDERED: *HR* Heparin 5,000 UNIT/ML VIAL IVP ONE (08:53)
[2019-06-08] MEDS ORDERED: *HR* Heparin 5,000 UNIT/ML VIAL IVP PRN (08:53)
[2019-06-08] MEDS ORDERED: Heparin 25,000 UNIT/250 ML D5W 25,000 UNIT/250 ML IV.SOLN IVC SCH (09:00)
[2019-06-08 09:17] LABS: Bilirubin,Urine Negative (Negative); Blood,Urine Negative (Negative); Clarity,Urine Clear (Clear); Color,Urine Yellow (Yellow); Glucose,Urine (UA) Normal (Normal); Ketones,Urine Negative (Negative); Leukocyte Esterase,Urine Moderate (Negative); Nitrite,Urine Negative (Negative); PH,Urine 6.5 pH Units (5.0-8.0); Protein,Urine 100 mg/dL (Neg-Trace); Specific Gravity,Urine 1.013 (1.010-1.025); Urobilinogen,Urine Normal (Normal)
[2019-06-08 09:19] LABS: Bacteria,Urine None Seen per hpf (None-Few); Hyaline Casts,Urine None Seen per lpf (None-Few); RBC,Urine 0-3 per hpf (0-3)
[2019-06-08 09:22] LABS: Amphetamine Screen,Urine Negative ng/mL (Cutoff=1000); Barbiturate Screen,Urine Negative ng/mL (Cutoff=200); Benzodiazepines Screen,Urine Positive ng/mL (Cutoff=200); Cannabinoid Screen,Urine Negative ng/mL (Cutoff = 50); Cocaine Screen,Urine Negative ng/mL (Cutoff= 300); Opiate Screen,Urine Negative ng/mL (Cutoff=300); Phencyclidine Screen,Urine Negative ng/mL (Cutoff=25)
[2019-06-08 09:38] LABS: Squamous Epithelial Cell,Urine Few per lpf (None-Few)
[2019-06-08] MEDS ORDERED: Ipratropium/Albuterol Neb 3 ML IH ONE (09:45)
[2019-06-08] MEDS ORDERED: 0.9 % Sodium Chloride 1,000 ML IVC SCH (10:00)
[2019-06-08] MEDS ORDERED: Naloxone 0.4 MG/ML INJ IVP PRN (10:54)
[2019-06-08] MEDS ORDERED: D5% in Water 1,000 ML IVC PRN (11:00)
[2019-06-08] MEDS ORDERED: *HR* Dextrose 50 % in Water (Syg) 50 ML SYRINGE IVP PRN (11:00)
[2019-06-08] MEDS ORDERED: Dextrose Gel 15 GM/37.5 ML TUBE PO PRN ×2 (11:00)
--- NOTE | 2019-06-08 12:22 | Electrocardiograph Report ---
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
[2019-06-08] MEDS: Insulin LISPRO 300 UNITS/3 ML VIAL SQ SCH ×2 (12:38→18:09)
[2019-06-08] MEDS ORDERED: Perflutren Lipid Microsphere 1.3 ML in 0.9 % Sodium Chloride 8.7 ML IVP ONE (12:42)
--- NOTE | 2019-06-08 13:24 | Internal Med History&Physical ---
<Andrew Rojas - Last Filed: 06/08/19 16:02> Date of Encounter: 06/08/19 Time of Encounter: 12:30 Internal Medicine - H&P: HPI Chief complaint: Altered mental status Admitted From: Emergency Dept History of present illness: Ms. Esteves is a 79 year old female with a history of Afib on Eliquis, multiple DVTs, ductal carcinoma of the breast, CHF, and COPD requiring 2L O2 at home prn who presented to the ED with her family with AMS and weakness. Her family provided the majority of the history for this interview. Family reports that early this morning they found her slumped over her bed and virtually unresponsive, saying that she was very cold and clammy to the touch. EMS arrived and found her to be hypoxic in the 80s per the ED report. Family additionally states that they have noticed over the past several weeks that she has had decreased appetite and has been acting more subdued than her baseline. Of note she was diagnosed with breast cancer in January 2019 and has been taking Letrozole but is not receiving chemo or radiation. In the ED her BP was 121/66, HR 88, RR 40 on BIPAP FiO2 50% saturating 98%, temperature 104.2F. Blood glucose was 200, ABG was normal with no anion gap. She was given 2L sepsis fluids and started on vancomycin, zosyn, and levaquin. She reportedly became much more responsive after the BiPAP was started. On my visit with her several hours later she seemed to be doing much better. She was on 2L NC and had no complaints of dyspnea, chest pain, fevers, or chills Review of Systems Gen- admits to chills on admission, currently denying fever, chills HENT- positive for mild headache, negative for sinus congestion Neuro- positive for headache, negative for vision changes Eyes- negative for vision changes CV- negative for chest pain, palpitations Lungs- negative for dyspnea or pleurisy GI- negative for NVD, abdominal pain - negative for hematuria, dysuria Skin- negative for skin rashes or new lesions Ext- negative for edema PMH- see history PSH- bioprosthetic aortic valve replacement 3 years prior, hysterectomy, pacemaker implantation Allergies- NKDA Medications Prednisone 2.5mg PO QD Ropinirole 0.25mg PO HS Metoprolol succinate 25mg PO QD Letrozole 2.5mg PO QD Imdur 30mg PO QD Duonebs Q4H PRN Advair BID Ferrous sulfate 325m PO TID Cholecalciferol 2000 units PO QD Bumetanide 2mg PO QD Lipitor 40mg PO HS Eliquis 2.5mg PO BID Amiodarone 200mg PO QD Xanax 0.25mg BID PRN Breo Ellipta Social History- prior history of smoking "many years ago", no recreational drug use or alcohol use Past Med Surg Social Fam HX - Past Medical History Medical history: asthma, atrial fibrillation, cancer, CHF, COPD, coronary artery disease, DVT, diabetes, hyperlipidemia, hypertension, renal disease, other Additional medical history: iron deficiency anemia Psychiatric history: anxiety, depression - Past Surgical History Surgical History: heart valve replacement, hysterectomy, pacemaker - Social History Smoking Status: Former smoker Smokeless Tobacco Status: No Alcohol use: none Drug use: none - Family History Mother Family Member Ethnicity: Non- Living Status: Hx Family Cardiac Disorders: Yes (hypertension) Hx Family Endocrine Disorder: Yes (DM) Father Family Member Ethnicity: Non- Living Status: Hx Family Cardiac Disorders: Yes Hx Family Respiratory Disorders: Yes Hx Family Cancer: Yes Brother Family Member Ethnicity: Non- Living Status: Hx Family Respiratory Disorders: Yes (COPD, Emphysema) Sister Family Member Ethnicity: Non- Living Status: Still Living Hx Family Cardiac Disorders: Yes Hx Family Respiratory Disorders: Yes Hx Family Endocrine Disorder: Yes Internal Medicine - H&P: Meds Fluticasone/Salmeterol [Advair 500-50 Diskus] 1 each IH BID 01/19/17 [History] Amiodarone [Cordarone] 200 mg PO DAILY 10/04/17 [History] Isosorbide MONOnitrate (24 HR) [Imdur] 30 mg PO DAILY #30 tab.er.24h 10/07/17 [Rx] Atorvastatin [Lipitor] 40 mg PO HS 11/19/18 [History] ALPRAZolam [Xanax 0.25 MG Tablet] 0.25 mg PO QPM PRN 11/21/18 [History] Metoprolol Succinate [Toprol Xl] 25 mg PO DAILY 01/15/19 [History] Apixaban [Eliquis] 2.5 mg PO BID #60 tablet 02/16/19 [Rx] predniSONE [Prednisone] 2.5 mg PO DAILY #30 tablet 02/16/19 [Rx] Ferrous Sulfate [Iron] 325 mg PO TID 02/24/19 [History] Ropinirole HCl [Requip] 0.25 mg PO HS 02/24/19 [History] Bumetanide 2 mg PO DAILY 02/28/19 [History] Letrozole [Femara] 2.5 mg PO DAILY #90 tablet 02/28/19 [Rx] Cholecalciferol (Vitamin D3) [Vitamin D] 2,000 unit PO DAILY 04/05/19 [History] ALPRAZolam [Xanax 0.25 MG Tablet] 0.125 mg PO QAM PRN 06/08/19 [History] Albuterol Neb [Proventil Neb] 2.5 mg IH Q4H PRN 06/08/19 [History] Allergy/AdvReac Type Severity Reaction Status Date / Time No Known Allergies Allergy Verified 06/08/19 06:57 All Systems PM: A 10-system review of systems was performed and is negative for pertinent findings except as documented above in the HPI. - Constitutional Vitals: Temp Pulse Resp BP Pulse Ox 98.6 F 60 19 108/58 97 06/08/19 11:21 06/08/19 11:57 06/08/19 11:57 06/08/19 11:57 06/08/19 11:57 Exam: Gen- pleasant elderly female not currently in any distress. AO x3 HENT- Nasal cannula in place. Mucus membranes somewhat dry. Eyes- no scleral icterus present, conjunctivae pink Neuro- AO x3, PERRL CV- regular rate and rhythm, no murmurs rubs or gallops appreciated Lungs- crackles in lower and middle lung canales on the right with basilar crackles on the left GI- soft, nontender. normoactive bowel sounds Skin- no rashes or lesions appreciated Psych- normal mood and affect Ext- 1+ pitting edema in lower extremities, distal pulses 2+ Internal Med - H&P Results - Labs CBC & Chem 7: 06/08/19 07:25 06/08/19 07:25 Labs: Short CBC 06/08/19 Range/Units 07:25 WBC 29.7 H (4.3-11.1) K/mcL Hgb 14.1 (11.5-15.4) g/dL Hct 42.3 (35.3-44.9) % Plt Count 246 (140-400) K/mcL Neutrophils # 26.3 H (1.6-8.9) K/mcL BMP 06/08/19 07:25 Sodium 132 L Potassium 4.0 Chloride 95 L Carbon Dioxide 26 BUN 26 H Creatinine 1.55 H Glucose 255 H Calcium 9.4 Cardiac Enzymes 06/08/19 Range/Units 07:25 Troponin I 1.60 H* (< 0.04) ng/mL Liver Function 06/08/19 Range/Units 07:25 Total Bilirubin 0.7 (0.3-1.0) mg/dL AST 61 H (13-39) Units/L ALT 60 H (7-52) Units/L Alkaline Phosphatase 76 (34-104) Units/L Albumin 4.0 (3.5-5.7) g/dL Urine 06/08/19 Range/Units 08:58 Urine Color Yellow (Yellow) Urine Clarity Clear (Clear) Urine pH 6.5 (5.0-8.0) pH Units Ur Specific [place] 1.013 (1.010-1.025) Urine Protein 100 H (Neg-Trace) mg/dL Urine Glucose (UA) Normal (Normal) mg/dL - ABG Interpretation ABG results: 06/08/19 07:04 ABG pH 7.37 ABG pCO2 41 ABG pO2 192 H ABG HCO3 24 ABG Total CO2 25 ABG O2 Saturation 100 H ABG Base Excess -1 - Impressions ITS Impressions Chest X-Ray 06/08/19 06:59 IMPRESSION: Patchy opacification throughout the right lung as well as the left mid lung. D/ / Ivan Bautista MD / Ivan Bautista MD Interpreting Provider: Ivan Bautista MD Head CT 06/08/19 07:07 IMPRESSION: 1. No acute intracranial abnormality. 2. Chronic small vessel ischemic white matter disease and diffuse cerebral volume loss. D/ / Wayne Bennett MD / Wayne Bennett MD Interpreting Provider: Wayne Bennett MD Chest CTA 06/08/19 08:17 IMPRESSION: 1. No pulmonary embolus. 2. Diffuse airspace opacities throughout the lungs most compatible with infection. 3. Cardiomegaly. Status post TAVR. 4. Severe coronary artery atherosclerosis. 5. Probable right adrenal adenoma given the stability since 10/21/2017. D/ / 06/08/2019 09:04:11 Liane Ozuna MD / Apoorva Gandhi Interpreting Provider: Liane Ozuna MD - Assessment and Plan (1) Severe sepsis Current Visit: Yes Status: Acute Assessment and plan: Patient presented SIRS positive with RR 41, severe leukocytosis of 29.7. CXR and CT chest showed diffuse airspace opacities suggestive of infection. Lactic acid was 3.2, troponins 1.6 and 2.7. Patient's family reports that she was most recently at another hospital 2 weeks prior, and has been in and out of the hospital "frequently" for the last several months, so this is likely secondary to HAP. Patient was started on vancomycin, zosyn, and levaquin in the ED. Continue antibiotics and adjust dose for most current creatinine clearance. A urine strep/legionella panel has been ordered; Levaquin can likely be discontinued before the next dose on thursday if the panel is negativeas there is also concern for causing QT prolongation with combining her levaquin and amiodarone. Urine and blood cultures have been gathered; MRSA nares has also been obtained. If negative then vancomycin can be discontinued as well. Trend lactic acid Q6H until less than 2. Patient received 2+ liters of fluids in the ED; due to today's echo results showing new EF of 20-25% hold fluids. (2) HAP (hospital-acquired pneumonia) Current Visit: Yes Status: Acute Assessment and plan: See notes above (3) NSTEMI (non-ST elevated myocardial infarction) Current Visit: No Status: Acute Assessment and plan: Patient's initial troponin was 1.6 followed by a 2.7. Last echo was Fall late 2017 which showed an EF of 55-60%. Echo done bedside today showed an EF of 20- 25%. EKG showed ventricular pacing but did not meet Sgarbossa's criteria; patient is not complaining of chest pain. At this point suspect type 1 NSTEMI due to the significant echo changes. Patient was given aspirin and is on a heparin drip. Home metoprolol is being held due to low BP. Continue to trend troponins. Cardiology has been consulted. (4) Urinary tract infection Current Visit: No Status: Suspected Assessment and plan: UTI suspected given presence of leukocyte esterase in the UA. Patient denies urinary symptoms. Urine culture is pending. Patient is on broad coverage for HAP which will cover a possible UTI. Qualifiers: Urinary tract infection type: acute cystitis Hematuria presence: without hematuria Qualified Code(s): N30.00 - Acute cystitis without hematuria (5) Atrial fibrillation Current Visit: No Status: Chronic Assessment and plan: Currently in a ventricularly-paced rhythm without atrial fibrillation. Eliquis currently being held. Continue home amiodarone. QTc 466 on most recent EKG. Closely monitor while being given Levaquin. Qualifiers: Atrial fibrillation type: paroxysmal Qualified Code(s): I48.0 - Paroxysmal atrial fibrillation (6) Hyponatremia Current Visit: No Status: Chronic Assessment and plan: Mild hyponatremia at 132m which appears to be her baseline. Continue to monitor (7) CKD (chronic kidney disease) Current Visit: Yes Status: Acute Assessment and plan: Family states that she was formerly CKD stage IV but "improved to stage III". Chart history shows a very wide ranging creatinine value so actual stage is unclear. Fluids are being held due to echo results. Continue home Bumex today and reevaluate fluid status tomorrow. Monitor creatinine with daily BMP and avoid nephrotoxic medications when possible. Adjust medication dosages according to current creatinine clearance Qualifiers: Chronic kidney disease stage: stage 3 (moderate) Qualified Code(s): N18.3 - Chronic kidney disease, stage 3 (moderate) (8) CHF (congestive heart failure) Current Visit: No Status: Acute Assessment and plan: Echo done today showed a new EF of 20-25%; prior echo last year was 55-60%. Etiology suspected to be related to rising troponins suggestive of NSTEMI type 1. Cardiology has been consulted. Likely plan on left heart cath once her pneumonia has been treated. Troponins are being trended. Continue the Bumex today and reevaluate tomorrow. Continue home Lipitor Qualifiers: Heart failure type: combined systolic and diastolic Heart failure chronicity: chronic Qualified Code(s): I50.42 - Chronic combined systolic (congestive) and diastolic (congestive) heart failure (9) COPD (chronic obstructive pulmonary disease) Current Visit: No Status: Chronic Assessment and plan: patient is saturating well on her home oxygen. Continue home medications Qualifiers: COPD type: unspecified COPD Qualified Code(s): J44.9 - Chronic obstructive pulmonary disease, unspecified (10) Diabetes Current Visit: No Status: Chronic Assessment and plan: Most recent glucose 255. Patient is placed on low dose sliding scale insulin with Accucheks Q6H Qualifiers: Diabetes mellitus type: type 2 Diabetes mellitus detention insulin use: without detention use Diabetes mellitus complication status: without complication Qualified Code(s): E11.9 - Type 2 diabetes mellitus without complications (11) HTN (hypertension) Current Visit: No Status: Chronic Assessment and plan: BP has been soft in the 90s to low 100s systolic. Metoprolol is being held; continue to monitor vitals Qualifiers: Hypertension type: essential hypertension Qualified Code(s): I10 - Essential (primary) hypertension (12) History of DVT (deep vein thrombosis) Current Visit: No Status: Chronic Assessment and plan: Home eliquis being held for now. Patient is on heparin drip for concern for ACS. (13) DVT prophylaxis Current Visit: No Status: Acute Assessment and plan: Heparin drip - Time Spent With Patient Total time spent is greater than 50% in coordination of care (as documented) at patient's floor/unit and/or counseling patient: <Jovanna Wooten - Last Filed: 06/09/19 09:44> Internal Medicine - H&P: HPI History of present illness: Ms. Esteves is a 79 year old female All Systems PM: A 10-system review of systems was performed and is negative for pertinent findings except as documented above in the HPI. - Constitutional Vitals: Temp Pulse Resp BP Pulse Ox 97.5 F L 60 16 92/75 98 06/09/19 03:34 06/09/19 06:00 06/09/19 06:00 06/09/19 06:00 06/09/19 06:00 Internal Med - H&P Results - Labs CBC & Chem 7: 06/09/19 06:51 06/09/19 06:51 Labs: Short CBC 06/08/19 Range/Units 07:25 WBC 29.7 H (4.3-11.1) K/mcL Hgb 14.1 (11.5-15.4) g/dL Hct 42.3 (35.3-44.9) % Plt Count 246 (140-400) K/mcL Neutrophils # 26.3 H (1.6-8.9) K/mcL BMP 06/08/19 07:25 Sodium 132 L Potassium 4.0 Chloride 95 L Carbon Dioxide 26 BUN 26 H Creatinine 1.55 H Glucose 255 H Calcium 9.4 Cardiac Enzymes 06/08/19 06/08/19 06/08/19 Range/Units 07:25 13:22 19:46 Troponin I 1.60 H* 2.71 H* 4.10 H* (< 0.04) ng/mL Liver Function 06/08/19 Range/Units 07:25 Total Bilirubin 0.7 (0.3-1.0) mg/dL AST 61 H (13-39) Units/L ALT 60 H (7-52) Units/L Alkaline Phosphatase 76 (34-104) Units/L Albumin 4.0 (3.5-5.7) g/dL Urine 06/08/19 Range/Units 08:58 Urine Color Yellow (Yellow) Urine Clarity Clear (Clear) Urine pH 6.5 (5.0-8.0) pH Units Ur Specific [place] 1.013 (1.010-1.025) Urine Protein 100 H (Neg-Trace) mg/dL Urine Glucose (UA) Normal (Normal) mg/dL - ABG Interpretation ABG results: 06/08/19 07:04 ABG pH 7.37 ABG pCO2 41 ABG pO2 192 H ABG HCO3 24 ABG Total CO2 25 ABG O2 Saturation 100 H ABG Base Excess -1 - Impressions ITS Impressions Chest X-Ray 06/08/19 06:59 IMPRESSION: Patchy opacification throughout the right lung as well as the left mid lung. D/ / Ivan Bautista MD / Ivan Bautista MD Interpreting Provider: Ivan Bautista MD Head CT 06/08/19 07:07 IMPRESSION: 1. No acute intracranial abnormality. 2. Chronic small vessel ischemic white matter disease and diffuse cerebral volume loss. D/ / Wayne Bennett MD / Wayne Bennett MD Interpreting Provider: Wayne Bennett MD Chest CTA 06/08/19 08:17 IMPRESSION: 1. No pulmonary embolus. 2. Diffuse airspace opacities throughout the lungs most compatible with infection. 3. Cardiomegaly. Status post TAVR. 4. Severe coronary artery atherosclerosis. 5. Probable right adrenal adenoma given the stability since 10/21/2017. D/ / 06/08/2019 09:04:11 Liane Ozuna MD / Apoorva Gandhi Interpreting Provider: Liane Ozuna MD Echocardiogram 06/08/19 11:13 Impressions: LVEF 25%. Mildly dilated left ventricle. Severe global left ventricular systolic dysfunction. Atypical septal motion consistent with paced rhythm. Normal right ventricular size with mildly reduced function. Bioprosthetic AV appears well seated in the LVOT. Leaflets not well visualized. Normal function by Doppler analysis. Mild mitral regurgitation. Mild tricuspid regurgitation. Mild pulmonary hypertension. Estimated RVSP is 36-40 mmHg. The IVC is dilated. < 50% respiratory change. Device lead visualized in the right sided chambers. Ordering physician notified via [employer]. Left Ventricular Wall Motion: Rest Echo Findings The apex, apical inferior, mid inferior, basal inferior, apical anterior, mid anterior, basal anterior, apical septal, mid inferior septal, basal inferior septal, apical lateral, mid anterior lateral, basal anterior lateral, mid anterior septal, mid inferior lateral, basal anterior septal and basal inferior lateral frausto were hypokinetic. Findings: Study Quality * Technically sub-optimal due to poor echocardiographic windows. ECG Findings * Paced rhythm. Left Ventricle * LVEF 25%. * Mildly dilated left ventricle. * Severe global left ventricular systolic dysfunction. * Atypical septal motion consistent with paced rhythm. Right Ventricle * Normal right ventricular size with mildly reduced function. Left Atrium * Moderately dilated left atrium. Right Atrium * Mildly dilated right atrium. Interatrial Septum * Interatrial septum not well evaluated. Aortic Valve * Bioprosthetic AV appears well seated in the LVOT. Leaflets not well visualized. Normal function by Doppler analysis. * No aortic regurgitation. * No aortic stenosis. Mitral Valve * Mild mitral annular calcification an subvalvular apparatus. * Mild mitral regurgitation. * No mitral stenosis. Tricuspid Valve * Normal tricuspid valve structure and function. * Mild tricuspid regurgitation. * Mild pulmonary hypertension. * Estimated RVSP is 36-40 mmHg. * Estimated RA pressure is 15-20 mmHg. Pulmonic Valve * Normal pulmonic valve structure and function. * No pulmonic regurgitation. Aorta * Normally sized aortic root. Pericardium * The pericardium appears normal. IVC * The IVC is dilated. * < 50% respiratory change. Pulmonary Artery * Pulmonary artery not well visualized. - Time Spent With Patient Total time spent is greater than 50% in coordination of care (as documented) at patient's floor/unit and/or counseling patient: - Attending Attestation I performed a history and physical examination of the patient and discussed his management with the resident and MS. I reviewed the residents and MS note and agree with the documented findings and plan of care. Ms. Esteves is a 79 year old female with a history of Afib on Eliquis, multiple DVTs, ductal carcinoma of the breast, CHF, and COPD requiring 2L O2 at home prn who presented to the ED with her family with AMS and weakness. She was evalu ated by the ER and she was admitted for sepsis 2/2 pneumonia and elevated troponin. Plan - Starting hydration with isotonic fluid, Strict I/Os to avoid volume overload in the sitting of new drop of EF - Trend cardiac enzyms - Heparin drip - Blood Cx - Urine Legionella antigen - Antibiotics - CBCD, CMP in AM - Cardiology consult
--- NOTE | 2019-06-08 15:01 | Cardiology Consult Note ---
<Javier Mendenhall - Last Filed: 06/08/19 16:51> Date of Encounter: 06/08/19 Time of Encounter: 14:54 Assessment and Plan (1) NSTEMI (non-ST elevated myocardial infarction) Current Visit: No Status: Acute NSTEMI- Troponin elevation at 1.6, 2.7. She c/o chest pain this morning in the setting of PNA. EKG with ventricular pacing. TTE shows new cardiomyopathy. EF 25%. Mildly dilated left ventricle.Severe global left ventricular systolic dysfunction. Atypical septal motion consistent with paced rhythm. Normal right ventricular size with mildly reduced function. Bioprosthetic AV appears well seated in the LVOT. Leaflets not well visualized. Normal function by Doppler analysis. Mild mitral regurgitation. Mild tricuspid regurgitation. Mild pulmonary hypertension.Estimated RVSP is 36-40 mmHg. The IVC is dilated. < 50% respiratory change. Device lead visualized in the right sided chambers. Prior echo in 2018 showed EF 55%. Last LHC 2017 showed moderate 2 vessel CAD. 50% stenosis pLcx artery. 50% stenosis mLcx. 60% stenosis mRCA. [facility] recommended once stable from PNA standpoint. Continue heparin gtt IV. Asa, statin, and bb. (2) Cardiomyopathy Current Visit: Yes Status: Acute Acute systolic CHF. EF 25%. new compared to TTE 2018. Currently euvolemic. [facility] recommended once stable from PNA standpoint. Discussed with Dr. Finch, start toprol xl and d/c amiodarone. No aceI due to kidney disease. Strict I&O and daily weights. Low sodium diet. Qualifiers: Cardiomyopathy type: unspecified Qualified Code(s): I42.9 - Cardiomyopathy, unspecified (3) Atrial fibrillation Current Visit: No Status: Chronic PAF, currently V paced. On eliquis. Stop amiodarone and start toprol for CMP. Qualifiers: Atrial fibrillation type: paroxysmal Qualified Code(s): I48.0 - Paroxysmal atrial fibrillation History of Present Illness Consult date: 06/08/19 Requesting physician: Alejandro Webster Consult reason: elevated troponin Chief complaint: AMS, SOB History of present illness: Ms. Esteves is a 79 year old female with past medical history of moderate non- obstructive CAD, TAVR in 2017, s/p PPM 2017, atrial fibrillation on eliquis, COPD, and CKD. She presents from home after she was found to be confused and SOB this morning by her family. SPO2 was 83% per her daughter. Oxygen was applied. She was also found to have fever. CTA completed in ED showed no PE. There was diffuse airspace disease that suggested infection. She was diagnosed with PNA and sepsis. Cardiology consulted for elevated troponin up to 1.6. On my exam patient is alert and oriented. She c/o midsternal chest heaviness and SOB this morning. Unable to describe pain, states she does not remember. She is now pain free. Past Med Surg Social Fam HX - Past Medical History Medical history: asthma, atrial fibrillation, cancer, CHF, COPD, coronary artery disease, DVT, diabetes, hyperlipidemia, hypertension, renal disease, other Additional medical history: iron deficiency anemia Psychiatric history: anxiety, depression - Past Surgical History Surgical History: heart valve replacement, hysterectomy, pacemaker - Social History Smoking Status: Former smoker Smokeless Tobacco Status: No Alcohol use: none Drug use: none - Family History Mother Family Member Ethnicity: Non- Living Status: Hx Family Cardiac Disorders: Yes (hypertension) Hx Family Endocrine Disorder: Yes (DM) Father Family Member Ethnicity: Non- Living Status: Hx Family Cardiac Disorders: Yes Hx Family Respiratory Disorders: Yes Hx Family Cancer: Yes Brother Family Member Ethnicity: Non- Living Status: Hx Family Respiratory Disorders: Yes (COPD, Emphysema) Sister Family Member Ethnicity: Non- Living Status: Still Living Hx Family Cardiac Disorders: Yes Hx Family Respiratory Disorders: Yes Hx Family Endocrine Disorder: Yes Medications and Allergies Fluticasone/Salmeterol [Advair 500-50 Diskus] 1 each IH BID 01/19/17 [History] Amiodarone [Cordarone] 200 mg PO DAILY 10/04/17 [History] Isosorbide MONOnitrate (24 HR) [Imdur] 30 mg PO DAILY #30 tab.er.24h 10/07/17 [Rx] Ipratropium/Albuterol Neb [Duoneb] 3 ml IH Q4HR PRN 06/06/18 [History] Atorvastatin [Lipitor] 40 mg PO HS 11/19/18 [History] ALPRAZolam [Xanax 0.25 MG Tablet] 0.25 mg PO BID PRN 11/21/18 [History] Metoprolol Succinate [Toprol Xl] 25 mg PO DAILY 01/15/19 [History] Apixaban [Eliquis] 2.5 mg PO BID #60 tablet 02/16/19 [Rx] predniSONE [Prednisone] 2.5 mg PO DAILY #30 tablet 02/16/19 [Rx] Ferrous Sulfate [Iron] 325 mg PO TID 02/24/19 [History] Ropinirole HCl [Requip] 0.25 mg PO HS 02/24/19 [History] Bumetanide 2 mg PO DAILY 02/28/19 [History] Letrozole [Femara] 2.5 mg PO DAILY #90 tablet 02/28/19 [Rx] Cholecalciferol (Vitamin D3) [Vitamin D] 2,000 unit PO DAILY 04/05/19 [History] Fluticasone/Vilanterol [Breo Ellipta 200-25 Mcg INH] PO PRN 06/08/19 [History] Allergy/AdvReac Type Severity Reaction Status Date / Time No Known Allergies Allergy Verified 06/08/19 06:57 All Systems Review: The remainder of the systems were reviewed and are negative Physical Examination Vital Signs, Last 4 Hours Temp Pulse Resp BP Pulse Ox 06/08/19 14:00 60 23 117/70 96 06/08/19 11:57 60 19 108/58 97 06/08/19 11:47 62 06/08/19 11:21 98.6 F 63 21 96/49 98 General: Conversant, No Apparent Distress HEENT: Atraumatic, Normocephaly, Mucus Membranes Moist Neck: No JVD, Normal carotid pulses Cardiac: Reg Rate and Rhythm, Normal S1 and S2, No Murmur Lungs: Other (Rales BLL) Neuro: Alert and responsive, No focal deficits noted Abdomen: Soft, Non-Tender Skin: No rashes noted on visualized skin Musculoskeletal: No Chest Wall Tenderness Extremities: No Clubbing, No Cyanosis, No Edema, Normal Pulses Results 06/08/19 07:25 06/08/19 07:25 Lab Results 06/08/19 06/08/19 06/08/19 07:25 07:25 07:25 WBC 29.7 H Hgb 14.1 Hct 42.3 Plt Count 246 INR 1.6 Sodium 132 L Potassium 4.0 Chloride 95 L Carbon Dioxide 26 BUN 26 H Creatinine 1.55 H Glucose 255 H Calcium 9.4 Total Bilirubin 0.7 AST 61 H ALT 60 H Alkaline Phosphatase 76 Troponin I 1.60 H* 06/08/19 13:22 WBC Hgb Hct Plt Count INR Sodium Potassium Chloride Carbon Dioxide BUN Creatinine Glucose Calcium Total Bilirubin AST ALT Alkaline Phosphatase Troponin I 2.71 H* - Imaging and Cardiology Echo: report reviewed Cardiac cath: report reviewed - EKG Interpretation EKG results cardiology: personally reviewed Consult Discharge Plan - Plan Referrals: Casandra Evans MD [Primary Care Provider] - < A - Last Filed: 06/08/19 19:12> Date of Encounter: 06/08/19 - Attending Attestation I have personally performed a face to face evaluation on this patient. I have reviewed and agree with the documented findings and care plan as documented by the FL[employer] SERVICE [employer]ENT. History and Exam by me shows: This is a-year-old pleasant female admitted with shortness of breath, confusion, fever, found to have a right lobar pneumonia. Additionally she has elevated troponin and echo showed LVEF of 25%. She has history of CAD, severe aortic stenosis status post TAVR, tachybradycardia syndrome status post pacemaker, atrial fibrillation, CKD stage 3 AAOX3 in NAD at the bedside Hemodynamically stable Cardiopulmonary exam revealed S1, S2, no murmur; bronchial breath sounds Rhythm reviewed - paced ventricular rhythm Echo EF 25%. Mildly dilated left ventricle.Severe global left ventricular systolic dysfunction. Atypical septal motion consistent with paced rhythm. Normal right ventricular size with mildly reduced function. Bioprosthetic AV appears well seated in the LVOT. Leaflets not well visualized. Normal function by Doppler analysis. Mild mitral regurgitation. Mild tricuspid regurgitation. Mild pulmonary hypertension.Estimated RVSP is 36-40 mmHg. The IVC is dilated. < 50% respiratory change. Device lead visualized in the right sided chambers. Prior echo in 2018 showed EF 55%. Impression/plan: 1. Sepsis secondary to severe pneumonia 2. NSTEMI 3. CAD 4. Cardiomyopathy, likely ischemic. 5. Tachybrady syndrome 6. Cardiac pacemaker in place 7. s/p TAVR 8. CKD stage 3 Continue broad-spectrum antibiotics for pneumonia. Once stabilized from that standpoint, we will proceed with cardiac catheterization. Continue aspirin 81 mg daily, IV heparin, moderate to high intensity statin. Start Toprol-XL 25 mg daily, discontinue amiodarone. Recommend nephrology consultation prior to cardiac catheterization. Thanks for the consult, please call with questions. Vladislav Finch MD [facility] Assessment and Plan Discussion w patient/family: The assessment and plan as outlined above was discussed with the patient and/or family members who expressed understanding and agreement. All questions were answered. Thank you for involving us in the care of your patient. Please call with any questions. History of Present Illness History of present illness: Ms. Esteves is a 79 year old female All Systems Review: The remainder of the systems were reviewed and are negative Physical Examination Vital Signs, Last 4 Hours Temp Pulse Resp BP Pulse Ox 06/08/19 18:00 60 22 96/64 96 06/08/19 17:00 60 22 111/67 96 06/08/19 16:05 60 06/08/19 16:01 98.5 F 06/08/19 15:58 21 98 06/08/19 15:00 97.8 F 60 21 115/86 99 Results 06/08/19 07:25 06/08/19 07:25 Lab Results 06/08/19 06/08/19 06/08/19 07:25 07:25 07:25 WBC 29.7 H Hgb 14.1 Hct 42.3 Plt Count 246 INR 1.6 APTT Sodium 132 L Potassium 4.0 Chloride 95 L Carbon Dioxide 26 BUN 26 H Creatinine 1.55 H Glucose 255 H Calcium 9.4 Total Bilirubin 0.7 AST 61 H ALT 60 H Alkaline Phosphatase 76 Troponin I 1.60 H* 06/08/19 06/08/19 13:22 15:43 WBC Hgb Hct Plt Count INR APTT 161.6 H* Sodium Potassium Chloride Carbon Dioxide BUN Creatinine Glucose Calcium Total Bilirubin AST ALT Alkaline Phosphatase Troponin I 2.71 H*
[2019-06-08] MEDS: Ipratropium/Albuterol Neb 3 ML IH PRN (15:58)
[2019-06-08 16:49] LABS: Activated Partial Thrombo Time 161.6 Seconds (26.0-36.0)
[2019-06-08 17:01] LABS: Heparin anti-factor XA UFH > 2.00 IU/mL (0.30-0.70)
[2019-06-08] MEDS: Heparin 25,000 UNIT/250 ML D5W 25,000 UNIT/250 ML IV.SOLN IVC SCH (17:11)
[2019-06-08] MEDS: Piperacillin/Tazobactam 3.375 GM in 0.9 % Sodium Chloride Mini Bag 100 ML IVPB SCH (17:18)
[2019-06-08 19:32] LABS: Acinetobacter baumannii by PCR Not Detected (Not Detect); Candida albicans by PCR Not Detected (Not Detect); Candida glabrata by PCR Not Detected (Not Detect); Candida krusei by PCR Not Detected (Not Detect); Candida parapsilosis by PCR Not Detected (Not Detect); Candida tropicalis by PCR Not Detected (Not Detect); Enterobacter cloacae Cmplx PCR Not Detected (Not Detect); Enterobacteriaceae by PCR Not Detected (Not Detect); Enterococcus by PCR Not Detected (Not Detect); Escherichia coli by PCR Not Detected (Not Detect); Klebsiella oxytoca by PCR Not Detected (Not Detect); Klebsiella pneumoniae by PCR Not Detected (Not Detect); Proteus by PCR Not Detected (Not Detect); Pseudomonas aeruginosa by PCR Not Detected (Not Detect); Serratia marcescens by PCR Not Detected (Not Detect); Staphylococcus aureus by PCR DETECTED (Not Detect); Streptococcus agalactiae(B)PCR Not Detected (Not Detect); Streptococcus by PCR Not Detected (Not Detect); Streptococcus pneumoniae PCR Not Detected (Not Detect); Streptococcus pyogenes (A) PCR Not Detected (Not Detect); blaKPC Carbapenem-Resist Gene Not Detected (Not Detect); mecA Methicillin-Resist Gene DETECTED (Not Detect); vanA/B Vancomycin-Resist Genes Not Detected (Not Detect)
[2019-06-08] MEDS: ALPRAZolam 0.25 MG TABLET PO PRN (20:07)
[2019-06-08] MEDS ORDERED: Budesonide/Formoterol 160/4.5 1 PUFF INH IH SCH (21:00)
[2019-06-08] MEDS: Budesonide/Formoterol 160/4.5 1 PUFF INH IH SCH (22:25)
[2019-06-09] MEDS: Insulin LISPRO 300 UNITS/3 ML VIAL SQ SCH ×5 (00:17→23:59)
[2019-06-09] MEDS: Piperacillin/Tazobactam 3.375 GM in 0.9 % Sodium Chloride Mini Bag 100 ML IVPB SCH ×4 (00:18→23:50)
[2019-06-09] MEDS: ALPRAZolam 0.25 MG TABLET PO PRN ×2 (05:13→21:47)
[2019-06-09 07:12] LABS: Basophils # 0.1 K/mcL (0.0-0.2); Basophils % 0.3 %; Eosinophils # 0.2 K/mcL (0.0-0.6); Eosinophils % 0.8 %; Hematocrit 39.1 % (35.3-44.9); Hemoglobin 12.7 g/dL (11.5-15.4); Immature Granulocytes % 0.6 % (0-4); Lymphocytes # 1.4 K/mcL (0.6-4.6); Lymphocytes % 7.4 %; Mean Corpuscular HGB Conc 32.5 g/dL (31.6-35.5); Mean Corpuscular Hemoglobin 30.1 pg (28.0-33.3); Mean Corpuscular Volume 92.7 fL (83.0-100.0); Mean Platelet Volume 10.6 fL (9.4-12.4); Monocytes # 0.9 K/mcL (0.0-1.3); Monocytes % 4.3 %; Neutrophils # 16.9 K/mcL (1.6-8.9); Platelet Count 159 K/mcL (140-400); Red Blood Count 4.22 M/mcL (3.82-4.97); Red Cell Distribution Width 13.8 % (11.5-14.5); Segmented Neutrophils % 86.6 %; White Blood Count 19.6 K/mcL (4.3-11.1)
[2019-06-09 07:28] LABS: Calcium 8.9 mg/dL (8.6-10.3); Magnesium 1.9 mg/dL (1.6-2.6); Potassium 4.1 mEq/L (3.5-5.1)
[2019-06-09] MEDS: Budesonide/Formoterol 160/4.5 1 PUFF INH IH SCH ×2 (07:54→20:31)
[2019-06-09] MEDS: predniSONE 5 MG TABLET PO SCH (08:39)
[2019-06-09] MEDS: Metoprolol XL (24 HR) Succ 25 MG TAB.ER.24H PO SCH (08:39)
--- NOTE | 2019-06-09 08:43 | Internal Med Progress Note ---
<Mallika Barillas - Last Filed: 06/09/19 14:30> Hospitalist Progress Note - Encounter Date of Encounter: 06/09/19 - Exam Vitals: Temp Pulse Resp BP Pulse Ox 99.1 F 60 18 128/63 97 06/09/19 12:21 06/09/19 14:00 06/09/19 14:00 06/09/19 11:00 06/09/19 14:00 - Time Spent with Patient Total time spent is greater than 50% in coordination of care (as documented) at patient's floor/unit and/or counseling patient: Internal Medicine: Result - Labs CBC & Chem 7: 06/09/19 06:51 06/09/19 06:51 Labs: Short CBC 06/09/19 Range/Units 06:51 WBC 19.6 H (4.3-11.1) K/mcL Hgb 12.7 (11.5-15.4) g/dL Hct 39.1 (35.3-44.9) % Plt Count 159 (140-400) K/mcL Neutrophils # 16.9 H (1.6-8.9) K/mcL BMP 06/09/19 06:51 Sodium 135 L Potassium 4.1 Chloride 101 Carbon Dioxide 24 BUN 31 H Creatinine 1.54 H Glucose 99 Calcium 8.9 Cardiac Enzymes 06/08/19 06/09/19 Range/Units 19:46 07:24 Troponin I 4.10 H* 3.60 H* (< 0.04) ng/mL - ABG Interpretation ABG results: ABG ABG pH 7.37 pH Units (7.32-7.45) 06/08/19 07:04 ABG pCO2 41 mmHg (35-45) 06/08/19 07:04 ABG pO2 192 mmHg (85-104) H 06/08/19 07:04 ABG O2 Saturation 100 % (95-98) H 06/08/19 07:04 PT/INR, D-dimer PT 17.7 Seconds (9.4-12.1) H 06/08/19 07:25 - Impressions Impressions Chest CTA 06/08/19 08:17 IMPRESSION: 1. No pulmonary embolus. 2. Diffuse airspace opacities throughout the lungs most compatible with infection. 3. Cardiomegaly. Status post TAVR. 4. Severe coronary artery atherosclerosis. 5. Probable right adrenal adenoma given the stability since 10/21/2017. D/ / 06/08/2019 09:04:11 Liane Ozuna MD / Apoorva Gandhi Interpreting Provider: Liane Ozuna MD Echocardiogram 06/08/19 11:13 Impressions: LVEF 25%. Mildly dilated left ventricle. Severe global left ventricular systolic dysfunction. Atypical septal motion consistent with paced rhythm. Normal right ventricular size with mildly reduced function. Bioprosthetic AV appears well seated in the LVOT. Leaflets not well visualized. Normal function by Doppler analysis. Mild mitral regurgitation. Mild tricuspid regurgitation. Mild pulmonary hypertension. Estimated RVSP is 36-40 mmHg. The IVC is dilated. < 50% respiratory change. Device lead visualized in the right sided chambers. Ordering physician notified via [employer]. Left Ventricular Wall Motion: Rest Echo Findings The apex, apical inferior, mid inferior, basal inferior, apical anterior, mid anterior, basal anterior, apical septal, mid inferior septal, basal inferior septal, apical lateral, mid anterior lateral, basal anterior lateral, mid anterior septal, mid inferior lateral, basal anterior septal and basal inferior lateral frausto were hypokinetic. Findings: Study Quality * Technically sub-optimal due to poor echocardiographic windows. ECG Findings * Paced rhythm. Left Ventricle * LVEF 25%. * Mildly dilated left ventricle. * Severe global left ventricular systolic dysfunction. * Atypical septal motion consistent with paced rhythm. Right Ventricle * Normal right ventricular size with mildly reduced function. Left Atrium * Moderately dilated left atrium. Right Atrium * Mildly dilated right atrium. Interatrial Septum * Interatrial septum not well evaluated. Aortic Valve * Bioprosthetic AV appears well seated in the LVOT. Leaflets not well visualized. Normal function by Doppler analysis. * No aortic regurgitation. * No aortic stenosis. Mitral Valve * Mild mitral annular calcification an subvalvular apparatus. * Mild mitral regurgitation. * No mitral stenosis. Tricuspid Valve * Normal tricuspid valve structure and function. * Mild tricuspid regurgitation. * Mild pulmonary hypertension. * Estimated RVSP is 36-40 mmHg. * Estimated RA pressure is 15-20 mmHg. Pulmonic Valve * Normal pulmonic valve structure and function. * No pulmonic regurgitation. Aorta * Normally sized aortic root. Pericardium * The pericardium appears normal. IVC * The IVC is dilated. * < 50% respiratory change. Pulmonary Artery * Pulmonary artery not well visualized. Consult Discharge Plan - Plan Referrals: Casandra Evans MD [Primary Care Provider] - - Attending Attestation I examined this patient and my medical decision-making was reviewed with the Resident Physician Dr Eagle. I agree with the documented findings, disposition and treatment plan as described except to the extent set forth below. Ms Esteves is admitted with sepsis, multifocal pna, bacteremia and nstemi awake, family at bedside, she is pleasantly confused but significantly improved from admission per family. She denies fevers, chills, n/v. She feels sob though she is comfortably resting on o2 nc without distress and with good oxygen sats. She has had intermittent chest pain. none currently. gen- alert, awake,appears stated age eyes- pupils equal round cv- reg rate and rhythm, normal s1,s2, no murmurs appreciated, no pitting le edema, no jvd lungs- course bs throughout, normal resp effort on o2 nc, no wheezing abd- soft, non tender, non distended, + bs, louis draining clear yellow urine neuro- AAOxperson, place, situation, CN grossly intact, strength 4/5 throughout all ext Sepsis 2/2 MRSA bacteremia, Multifocal pna, suspected UTI- s/p sepsis fluids, now held with new EF reduciton, lactate wnl, afebrile and WBC improving- follow ing cxs, cont vanc + zosyn, may dc levaquin multifocal pna, org uk as visualized on cTA- attempt to ID organism, cont vanc + zosyn, levaquin stopped to avoid qtc prolongation MRSA bacteremia- repeat cxs now, given bioprosthetic valve she will likely need ZAKI prior to dc Suspected UTI- ucx pending Acute on chonic Hypoxic resp failure- home o2 is 2L prn- 2/2 multifocal pna, ruled out PE- abx + nebs Acute Encephalopathy, improving- was likely infectious + related to hypoxia- CT head negative and no focal neuro deficits- cont to monitor with treatment NSTEMI- apreciate cards input, will need [facility] this admit, cont hep gtt New EF reduction to 25 %- BB initiated, no acei/arb due to CKD CKD stage unknown, unable to determine- holding further diuresis, monitor and renal dose abx, may need nephro assistance this admission if does not cont to improve as will need LHC Afib on NOAC- hold noac as on hep gtt, cards stopped amio and began BB further dx and plan as noted by resident <Erick Eagle - Last Filed: 06/09/19 15:25> Hospitalist Progress Note - Encounter Date of Encounter: 06/09/19 Time of Encounter: 08:43 - Subjective Interval History: Patient was seen and examined at bedside. She was pleasant and conversational. She was unable to tell me what year or month or season it was. She was unable to remember her history of breast cancer and current ongoing hormonal therapy treatment for it. Otherwise she was oriented to self, place and situation. No acute events overnight. - Exam Vitals: Temp Pulse Resp BP Pulse Ox 98.2 F 60 22 125/74 97 06/09/19 07:34 06/09/19 08:32 06/09/19 08:32 06/09/19 08:32 06/09/19 08:32 Exam: Constitutional: alert, in no acute distress, oriented X 3, not oriented to time, well nourished, well-developed Head: normocephalic, atraumatic Eyes: EOMI, pupils equal and reactive bilaterally Heart: normal, regular rate and rhythm, no murmurs, S1, S2 normal Lungs: clear to auscultation, no wheezes, rales, rhonchi Abdomen: soft, nontender, nondistended, no masses palpable, bowel sounds present and normal, no hepatosplenomegaly, no guarding or rigidity, no CVA tenderness Extremities: no clubbing, cyanosis, or edema, pulses +3/4 in all 4 extremities Skin: dry, intact, no bruising. Has erythema and warmth of her shins bilaterally, chronic condition. Psych: alert, oriented, cooperative with exam, good eye contact, cognitive function intact, speech clear - Assessment and Plan (1) Severe sepsis Current Visit: Yes Status: Acute Assessment and Plan: 79f presented SIRS positive with RR 41, severe leukocytosis of 29.7. CXR and CT chest showed diffuse airspace opacities suggestive of infection. LA 3.2, Troponins 1.6>2.7>4.1>3.6 Patient's family reports that she was recently at another hospital 2 wks prior, and has been in and out of the hospital "frequently" for the last several months, so this is likely secondary to HAP. Urine Legionella and strep panel negative. Blood cultures positive for MRSA - Continue vancomycin, Zosyn - Discontinue Levaquin as atypical testing was negative and there is concern for QT prolongation as he is on amiodarone at home - Urine cultures pending - Repeat blood cultures pending - Trend LA Q6H until less than 2. (2) HAP (hospital-acquired pneumonia) Current Visit: Yes Status: Acute Assessment and Plan: See notes above (3) NSTEMI (non-ST elevated myocardial infarction) Current Visit: No Status: Acute Assessment and Plan: Patient's Troponins 1.6>2.7>4.1>3.6. Echo in late fall of 2017 showed EF 5560%. Echo at admission on 06/09 showed EF of 20-25%. EKG showed QTc 466, and ventricular pacing, patient did not complain of chest pain. Changes likely secondary to NSTEMI. Patient started on heparin drip ED. - Can stop trending troponins as troponins have peaked and are downtrending. - Cardio: [facility] recommended once stable from PNA standpoint. Likely early next week. Continue heparin gtt IV. Asa, statin, and bb. - Will do ZAKI before hospital discharge (4) Acute on chronic respiratory failure Current Visit: Yes Status: Acute Assessment and Plan: Hypoxic in 80s at admission. Currently 97% on 3 L, home requirement is 2 L. Family says that she often does not wear her oxygen. - Currently on BiPAP - Patient gets very agitated when BiPAP mask is present on her, consider IV Ativan PRN (5) Urinary tract infection Current Visit: No Status: Suspected Assessment and Plan: UA: Leukocyte Est. UTI suspected. Patient denies urinary symptoms. - Urine culture pending - Patient on broad spectrum coverage for HAP which will cover a possible UTI (6) Atrial fibrillation Current Visit: Yes Status: Acute Assessment and Plan: Currently in a ventricularly-paced rhythm without atrial fibrillation. QTc 466 on most recent EKG. - Eliquis currently being held. - Amiodarone held - Levaquin discontinued. - Continue to monitor with a.m. EKG (7) Hyponatremia Current Visit: Yes Status: Acute Assessment and Plan: AM Na 135 Continue to monitor (8) CKD (chronic kidney disease) Current Visit: Yes Status: Acute Assessment and Plan: Family states that she was formerly CKD stage IV but "improved to stage III". Chart history shows a very wide ranging creatinine value so actual stage is unclear. Fluids are being held due to echo results. A.m. creatinine 1.54 (previous 1.55) - Bumex discontinued - Continue to monitor creatinine with daily BMP - Avoid nephrotoxic medications when possible. Adjust medication dosages according to current creatinine clearance (9) CHF (congestive heart failure) Current Visit: Yes Status: Acute Assessment and Plan: Echo done today showed a new EF of 20-25%; prior echo last year was 55-60%. Etiology suspected to be related to rising troponins suggestive of NSTEMI type 1. - Cardio: [facility] recommended once stable from PNA standpoint. Likely early next week. Continue heparin gtt IV. Asa, statin, and bb. - Will do ZAKI before hospital discharge - Continue home Lipitor - Bumex discontinued (10) COPD (chronic obstructive pulmonary disease) Current Visit: Yes Status: Acute Assessment and Plan: Hypoxic on arrival. On 2 L at home, but often noncompliant. - Bi-Pap, patient gets agitated when BiPAP mask applied, consider IV Ativan PRN - Continue home medications (11) Diabetes mellitus Current Visit: Yes Status: Acute Assessment and Plan: SSI, Accucheks Q6H (12) HTN (hypertension) Current Visit: Yes Status: Acute Assessment and Plan: Metoprolol XL per cardiology Continue to monitor vitals (13) History of DVT (deep vein thrombosis) Current Visit: Yes Status: Acute Assessment and Plan: Home eliquis being held for now. Patient is on heparin drip for concern for ACS. DVT Prophylaxis: heparin gtt - Time Spent with Patient Total time spent is greater than 50% in coordination of care (as documented) at patient's floor/unit and/or counseling patient: Internal Medicine: Result - Labs CBC & Chem 7: 06/09/19 06:51 06/09/19 06:51 Labs: Short CBC 06/09/19 Range/Units 06:51 WBC 19.6 H (4.3-11.1) K/mcL Hgb 12.7 (11.5-15.4) g/dL Hct 39.1 (35.3-44.9) % Plt Count 159 (140-400) K/mcL Neutrophils # 16.9 H (1.6-8.9) K/mcL BMP 06/09/19 06:51 Sodium 135 L Potassium 4.1 Chloride 101 Carbon Dioxide 24 BUN 31 H Creatinine 1.54 H Glucose 99 Calcium 8.9 Cardiac Enzymes 06/08/19 06/08/19 06/09/19 Range/Units 13:22 19:46 07:24 Troponin I 2.71 H* 4.10 H* 3.60 H* (< 0.04) ng/mL Urine 06/08/19 Range/Units 08:58 Urine Color Yellow (Yellow) Urine Clarity Clear (Clear) Urine pH 6.5 (5.0-8.0) pH Units Ur Specific [place] 1.013 (1.010-1.025) Urine Protein 100 H (Neg-Trace) mg/dL Urine Glucose (UA) Normal (Normal) mg/dL - ABG Interpretation ABG results: ABG ABG pH 7.37 pH Units (7.32-7.45) 06/08/19 07:04 ABG pCO2 41 mmHg (35-45) 06/08/19 07:04 ABG pO2 192 mmHg (85-104) H 06/08/19 07:04 ABG O2 Saturation 100 % (95-98) H 06/08/19 07:04 PT/INR, D-dimer PT 17.7 Seconds (9.4-12.1) H 06/08/19 07:25 - Impressions Impressions Head CT 06/08/19 07:07 IMPRESSION: 1. No acute intracranial abnormality. 2. Chronic small vessel ischemic white matter disease and diffuse cerebral volume loss. D/ / Wayne Bennett MD / Wayne Bennett MD Interpreting Provider: Wayne Bennett MD Chest CTA 06/08/19 08:17 IMPRESSION: 1. No pulmonary embolus. 2. Diffuse airspace opacities throughout the lungs most compatible with infection. 3. Cardiomegaly. Status post TAVR. 4. Severe coronary artery atherosclerosis. 5. Probable right adrenal adenoma given the stability since 10/21/2017. D/ / 06/08/2019 09:04:11 Liane Ozuna MD / Apoorva Gandhi Interpreting Provider: Liane Ozuna MD Echocardiogram 06/08/19 11:13 Impressions: LVEF 25%. Mildly dilated left ventricle. Severe global left ventricular systolic dysfunction. Atypical septal motion consistent with paced rhythm. Normal right ventricular size with mildly reduced function. Bioprosthetic AV appears well seated in the LVOT. Leaflets not well visualized. Normal function by Doppler analysis. Mild mitral regurgitation. Mild tricuspid regurgitation. Mild pulmonary hypertension. Estimated RVSP is 36-40 mmHg. The IVC is dilated. < 50% respiratory change. Device lead visualized in the right sided chambers. Ordering physician notified via [employer]. Left Ventricular Wall Motion: Rest Echo Findings The apex, apical inferior, mid inferior, basal inferior, apical anterior, mid anterior, basal anterior, apical septal, mid inferior septal, basal inferior septal, apical lateral, mid anterior lateral, basal anterior lateral, mid anterior septal, mid inferior lateral, basal anterior septal and basal inferior lateral frausto were hypokinetic. Findings: Study Quality * Technically sub-optimal due to poor echocardiographic windows. ECG Findings * Paced rhythm. Left Ventricle * LVEF 25%. * Mildly dilated left ventricle. * Severe global left ventricular systolic dysfunction. * Atypical septal motion consistent with paced rhythm. Right Ventricle * Normal right ventricular size with mildly reduced function. Left Atrium * Moderately dilated left atrium. Right Atrium * Mildly dilated right atrium. Interatrial Septum * Interatrial septum not well evaluated. Aortic Valve * Bioprosthetic AV appears well seated in the LVOT. Leaflets not well visualized. Normal function by Doppler analysis. * No aortic regurgitation. * No aortic stenosis. Mitral Valve * Mild mitral annular calcification an subvalvular apparatus. * Mild mitral regurgitation. * No mitral stenosis. Tricuspid Valve * Normal tricuspid valve structure and function. * Mild tricuspid regurgitation. * Mild pulmonary hypertension. * Estimated RVSP is 36-40 mmHg. * Estimated RA pressure is 15-20 mmHg. Pulmonic Valve * Normal pulmonic valve structure and function. * No pulmonic regurgitation. Aorta * Normally sized aortic root. Pericardium * The pericardium appears normal. IVC * The IVC is dilated. * < 50% respiratory change. Pulmonary Artery * Pulmonary artery not well visualized. <Erick Eagle S - Last Filed: 06/09/19 15:25> (5) Urinary tract infection Qualifiers: Urinary tract infection type: acute cystitis Hematuria presence: without hematuria Qualified Code(s): N30.00 - Acute cystitis without hematuria
[2019-06-09] MEDS ORDERED: Bumetanide 1 MG TABLET PO SCH (09:00)
[2019-06-09] MEDS ORDERED: *HR* Amiodarone 200 MG TABLET PO SCH (09:00)
[2019-06-09] MEDS: Ipratropium/Albuterol Neb 3 ML IH PRN ×2 (09:45→23:06)
[2019-06-09] MEDS: Aspirin Enteric Coated 81 MG Tablet PO SCH (09:52)
--- NOTE | 2019-06-09 10:14 | Cardiology Progress Note ---
Date of Encounter: 06/09/19 Time of Encounter: 08:30 Assessment and Plan (1) NSTEMI (non-ST elevated myocardial infarction) Current Visit: No Status: Acute NSTEMI- Troponin elevation at 1.6, 2.7, 4.10, 3 She c/o chest pain after admission once alert. She is found to have PNA and sepsis. EKG with ventricular pacing. TTE shows new cardiomyopathy. EF 25%. Mildly dilated left ventricle.Severe global left ventricular systolic dysfunction. Atypical septal motion consistent with paced rhythm. Normal right ventricular size with mildly reduced function. Bioprosthetic AV appears well seated in the LVOT. Leaflets not well visualized. Normal function by Doppler analysis. Mild mitral regurgitation. Mild tricuspid regurgitation. Mild pulmonary hypertension.Estimated RVSP is 36-40 mmHg. The IVC is dilated. < 50% respiratory change. Device lead visualized in the right sided chambers. Prior echo in 2018 showed EF 55%. Last [facility] 2017 showed moderate 2 vessel CAD. 50% stenosis pLcx artery. 50% stenosis mLcx. 60% stenosis mRCA. [facility] recommended once stable from PNA standpoint. Likely early next week. Continue heparin gtt IV. Asa, statin, and bb. (2) Cardiomyopathy Current Visit: Yes Status: Acute Acute systolic CHF. EF 25%. new compared to TTE 2018. Currently euvolemic. CXR with no pleural effusion or edema. Monitor closely with IV fluid. Positive 3L currently. [facility] recommended once stable from PNA standpoint. Continue toprol xl. No aceI due to kidney disease. Strict I&O and daily weights. Low sodium diet. Qualifiers: Cardiomyopathy type: unspecified Qualified Code(s): I42.9 - Cardiomyopathy, unspecified (3) Atrial fibrillation Current Visit: No Status: Chronic PAF, currently V paced. On eliquis. Amiodarone stopped 06/08/19 and started toprol xl for CMP. Qualifiers: Atrial fibrillation type: paroxysmal Qualified Code(s): I48.0 - Paroxysmal atrial fibrillation Discussion w patient/family: The assessment and plan as outlined above was discussed with the patient and/or family members who expressed understanding and agreement. All questions were answered. Thank you for involving us in the care of your patient. Please call with any questions. 1) 2) PAF, currently V paced. On eliquis. Subjective Principal diagnosis: NSTEMI, PNA Interval history: Ms. Esteves states she is still SOB. Denies chest pain. Objective Vital Signs, Last 4 Hours Temp Pulse Resp BP Pulse Ox 06/09/19 09:47 17 93 06/09/19 08:32 60 22 125/74 97 06/09/19 08:00 60 06/09/19 07:57 17 91 06/09/19 07:56 60 20 131/75 99 06/09/19 07:34 98.2 F General: Conversant, No Apparent Distress HEENT: Atraumatic, Normocephaly, Mucus Membranes Moist Neck: No JVD, Normal carotid pulses Cardiac: Other (rhonci through out) Lungs: Normal Breath Sounds, No Wheeze, Rales, Rhonchi Neuro: Alert and responsive, No focal deficits noted Abdomen: Soft, Non-Tender Skin: No rashes noted on visualized skin Musculoskeletal: No Chest Wall Tenderness Extremities: No Clubbing, No Cyanosis, No Edema, Normal Pulses Results 06/09/19 06:51 06/09/19 06:51 Lab Results 06/08/19 06/08/19 06/08/19 13:22 15:43 19:46 WBC Hgb Hct Plt Count APTT 161.6 H* Sodium Potassium Chloride Carbon Dioxide BUN Creatinine Glucose Calcium Magnesium Troponin I 2.71 H* 4.10 H* 06/09/19 06/09/19 06/09/19 00:17 06:51 06:51 WBC 19.6 H Hgb 12.7 Hct 39.1 Plt Count 159 APTT 60.5 H D Sodium 135 L Potassium 4.1 Chloride 101 Carbon Dioxide 24 BUN 31 H Creatinine 1.54 H Glucose 99 Calcium 8.9 Magnesium 1.9 Troponin I 06/09/19 06/09/19 06:51 07:24 WBC Hgb Hct Plt Count APTT 75.1 H Sodium Potassium Chloride Carbon Dioxide BUN Creatinine Glucose Calcium Magnesium Troponin I 3.60 H* - Imaging and Cardiology Echo: report reviewed - EKG Interpretation EKG results cardiology: personally reviewed Consult Discharge Plan - Plan Referrals: Casandra Evans MD [Primary Care Provider] -
[2019-06-09] MEDS ORDERED: Albuterol 2.5 MG/3 ML NEBULIZER ONE (12:10)
[2019-06-09] MEDS: Albuterol 2.5 MG/3 ML NEBULIZER IH PRN ×2 (12:10→18:35)
[2019-06-09] MEDS ORDERED: *HR* LORazepam 2 MG/ML VIAL IVP ONE (12:24)
[2019-06-09] MEDS ORDERED: *HR* LORazepam 2 MG/ML VIAL ONE (12:25)
[2019-06-09] MEDS: Heparin 25,000 UNIT/250 ML D5W 25,000 UNIT/250 ML IV.SOLN IVC SCH (19:14)
[2019-06-10 05:51] LABS: Basophils % 0.2 %; Eosinophils # 0.4 K/mcL (0.0-0.6); Eosinophils % 3.2 %; Hematocrit 38.2 % (35.3-44.9); Hemoglobin 12.3 g/dL (11.5-15.4); Immature Granulocytes % 0.4 % (0-4); Lymphocytes # 1.2 K/mcL (0.6-4.6); Mean Corpuscular HGB Conc 32.2 g/dL (31.6-35.5); Mean Corpuscular Hemoglobin 30.6 pg (28.0-33.3); Mean Platelet Volume 10.8 fL (9.4-12.4); Monocytes # 0.6 K/mcL (0.0-1.3); Monocytes % 5.2 %; Neutrophils # 9.6 K/mcL (1.6-8.9); Platelet Count 149 K/mcL (140-400); Red Blood Count 4.02 M/mcL (3.82-4.97); White Blood Count 11.9 K/mcL (4.3-11.1)
[2019-06-10 06:15] LABS: Calcium 8.7 mg/dL (8.6-10.3); Magnesium 1.9 mg/dL (1.6-2.6)
[2019-06-10] MEDS: *HR* Heparin 5,000 UNIT/ML VIAL IVP PRN ×2 (06:41→13:40)
[2019-06-10] MEDS: Insulin LISPRO 300 UNITS/3 ML VIAL SQ SCH ×4 (06:42→23:31)
[2019-06-10] MEDS: Budesonide/Formoterol 160/4.5 1 PUFF INH IH SCH ×2 (07:28→20:04)
[2019-06-10] MEDS: Ipratropium/Albuterol Neb 3 ML IH PRN (07:28)
[2019-06-10] MEDS ORDERED: levoFLOXacin 750 MG/150 ML 750 MG/150 ML BAG IVPB SCH (08:00)
[2019-06-10] MEDS: predniSONE 5 MG TABLET PO SCH (08:43)
[2019-06-10] MEDS: Piperacillin/Tazobactam 3.375 GM in 0.9 % Sodium Chloride Mini Bag 100 ML IVPB SCH ×2 (08:44→20:41)
[2019-06-10] MEDS: Metoprolol XL (24 HR) Succ 25 MG TAB.ER.24H PO SCH (08:44)
[2019-06-10] MEDS: Aspirin Enteric Coated 81 MG Tablet PO SCH (08:44)
--- NOTE | 2019-06-10 08:47 | Internal Med Progress Note ---
<Mallika Barillas - Last Filed: 06/10/19 12:44> Hospitalist Progress Note - Encounter Date of Encounter: 06/10/19 - Exam Vitals: Temp Pulse Resp BP Pulse Ox 98.9 F 68 18 136/51 93 06/10/19 12:18 06/10/19 12:18 06/10/19 12:18 06/10/19 12:18 06/10/19 12:18 - Time Spent with Patient Total time spent is greater than 50% in coordination of care (as documented) at patient's floor/unit and/or counseling patient: Internal Medicine: Result - Labs CBC & Chem 7: 06/10/19 05:10 06/10/19 05:10 Labs: Short CBC 06/10/19 Range/Units 05:10 WBC 11.9 H (4.3-11.1) K/mcL Hgb 12.3 (11.5-15.4) g/dL Hct 38.2 (35.3-44.9) % Plt Count 149 (140-400) K/mcL Neutrophils # 9.6 H (1.6-8.9) K/mcL BMP 06/10/19 05:10 Sodium 134 L Potassium 4.0 Chloride 100 Carbon Dioxide 22 L BUN 34 H Creatinine 1.68 H Glucose 113 H Calcium 8.7 - ABG Interpretation ABG results: ABG ABG pH 7.37 pH Units (7.32-7.45) 06/08/19 07:04 ABG pCO2 41 mmHg (35-45) 06/08/19 07:04 ABG pO2 192 mmHg (85-104) H 06/08/19 07:04 ABG O2 Saturation 100 % (95-98) H 06/08/19 07:04 PT/INR, D-dimer PT 17.7 Seconds (9.4-12.1) H 06/08/19 07:25 Consult Discharge Plan - Plan Referrals: Casandra Evans MD [Primary Care Provider] - 06/21/19 1:15 pm - Attending Attestation I examined this patient and my medical decision-making was reviewed with the Resident Physician Dr Sadler. I agree with the documented findings, disposition and treatment plan as described except to the extent set forth below. Ms Esteves is admitted with sepsis, multifocal pna, bacteremia and nstemi awake, family at bedside, sno cp, pressure, + sob and some wheezing. family notes she has some mild dementia at baseline and they feel she is returned to baseline mental status encouraged oral intake gen- alert, awake,appears stated age cv- reg rate and rhythm, normal s1,s2, no murmurs appreciated, no pitting le edema lungs- course bs throughout, normal resp effort on o2 nc, no wheezing abd- soft, non tender, non distended neuro- AAOxperson, place, situation, CN grossly intact Sepsis 2/2 MRSA bacteremia, Multifocal pna- resolved s/p sepsis fluids, now held with new EF reduction, lactate wnl, afebrile and WBC improving- following cxs, cont vanc + zosyn multifocal pna, org uk as visualized on cTA- cont vanc + zosyn MRSA bacteremia- repeat cxs ngtd, given bioprosthetic valve she will likely need ZAKI prior to dc UTI ruled out, ucx neg Acute on chonic Hypoxic resp failure- home o2 is 2L prn- 2/2 multifocal pna, resolved Acute Encephalopathy, resolved- was likely infectious + related to hypoxia- CT head negative and no focal neuro deficits- cont to monitor with treatment Baseline dementia NSTEMI- appreciate cards input, will need LHC this admit, cont hep gtt, will fu recs today New EF reduction to 25 %- BB initiated, no acei/arb due to CKD CKD stage unknown, unable to determine- stable -holding further diuresis and holding fluids, monitor and renal dose abx, may need nephro assistance this admission if does not cont to improve as will need LHC Afib on NOAC- hold noac as on hep gtt, cards stopped amio and began BB further dx and plan as noted by resident obtain pt/ot recs and OOB to chair <Karey Sadler N - Last Filed: 06/10/19 16:32> Hospitalist Progress Note - Encounter Date of Encounter: 06/10/19 Time of Encounter: 08:47 - Subjective Interval History: Ms. Esteves was seen and evaluated at the bedside this morning. She endorses continued shortness of breath, but denies any chest pain or discomfort. She voices that she would like to get out of bed today to the bedside recliner. Nursing staff reports that family would like to have her home medication of letrozole restarted due to her previously diagnosed breast cancer. No other significant events or complaints voiced by patient or her family. - Exam Vitals: Temp Pulse Resp BP Pulse Ox 98.9 F 65 19 133/77 100 06/10/19 07:51 06/10/19 07:51 06/10/19 07:51 06/10/19 07:51 06/10/19 07:51 Exam: GENERAL: Ill-appearing adult female sitting up in bed in no acute distress. HEENT: Atraumatic and normocephalic. Nasal cannula in place. CARDIOVASCULAR: Regular rate and rhythm. S1 and S2 present. No murmurs, gallops, or rubs. RESPIRATORY: Diffusely decreased breath sounds bilaterally with mild scattered wheezes. Chest rises and falls symmetrically without accessory muscle use. GASTROINTESTINAL: Abdomen is soft, nontender, nondistended. Bowel sounds present 4 quadrants. EXTREMITIES: No clubbing, cyanosis, or edema. SKIN: Warm, dry, and intact. NEUROLOGIC: Alert and oriented x3. Patient is cooperative with exam and answers questions appropriately. No apparent focal deficits. PSYCHIATRIC: Appropriate mood and affect. - Assessment and Plan (1) Acute and chronic respiratory failure Current Visit: Yes Status: Acute Assessment and Plan: Improving. Patient was reportedly hypoxic at the time of admission, and did require BiPAP; however, she has been maintaining appropriate oxygen saturation with supplemental oxygen via nasal cannula. - Continue supplemental oxygen titrated to maintain saturation 88-92%. - Duonbebs Q4H scheduled, with albuterol nebs Q2H PRN. - Continue antimicrobial treatment for pneumonia as detailed below. (2) Healthcare-associated pneumonia Current Visit: Yes Status: Acute Assessment and Plan: Imaging studies demonstrated presence of diffuse airspace opacities concerning for infection. Patient did present initially with sepsis, presumably secondary to this acute pneumonia. Patient has reportedly been in and out of hospitals frequently for the last several months; therefore, this is likely a healthcare associated infection. Patient was initially started on broad-spectrum antimicrobial therapy with vancomycin, Zosyn, and Levaquin; Levaquin was discontinued yesterday. Urine strep pneumo and legionella antigens were negative. Initial blood cultures were positive for MRSA 2 sets; therefore, highly suspect MRSA pneumonia. - Continue vancomycin and Zosyn. - Repeat blood cultures pending. Continue to monitor and trend daily CBC. (3) MRSA bacteremia Current Visit: Yes Status: Acute Assessment and Plan: Initial blood cultures positive for MRSA 2 sets. TTE performed on 06/08/2019 did not demonstrate presence of vegetations. - Continue vancomycin. - Repeat blood cultures pending. - Patient will require ZAKI for further evaluation prior to hospital discharge. (4) Acute CHF Current Visit: Yes Status: Acute Assessment and Plan: Echocardiogram performed on 06/08/2019 demonstrated LVEF 25% with a mildy dilated left ventricle and severe global left ventricular systolic dysfunction. This was noted to be significantly different from previous echocardiogram in fall, which demonstrated EF 55-60%. - Continue aspirin, statin, and beta danii. - Anticipate C early next week if clinically stable. - Appreciate cardiology recommendations regarding management of this prompted. (5) History of atrial fibrillation Current Visit: Yes Status: Acute Assessment and Plan: History of atrial fibrillation. Patient was previously on amiodarone and apixaban for management in the outpatient setting. - Amiodarone discontinued at time of hospital admission; continue metoprolol. - Continue heparin drip; apixaban discontinued at time of hospital admission. (6) CKD (chronic kidney disease) Current Visit: Yes Status: Chronic Assessment and Plan: History of CK D, with unknown baseline. Serum creatinine at the time of admission was noted to be 1.55, which has increased today to 1.68. - Continue to monitor and trend daily serum creatinine. - Avoid nephrotoxins and renally dose medications. - Consider nephrology consult if serum creatinine continues to trend up. (7) DVT prophylaxis Current Visit: No Status: Acute Assessment and Plan: - Heparin gtt. - Time Spent with Patient Total time spent is greater than 50% in coordination of care (as documented) at patient's floor/unit and/or counseling patient: Internal Medicine: Result - Labs CBC & Chem 7: 06/10/19 05:10 06/10/19 05:10 Labs: Short CBC 06/10/19 Range/Units 05:10 WBC 11.9 H (4.3-11.1) K/mcL Hgb 12.3 (11.5-15.4) g/dL Hct 38.2 (35.3-44.9) % Plt Count 149 (140-400) K/mcL Neutrophils # 9.6 H (1.6-8.9) K/mcL BMP 06/10/19 05:10 Sodium 134 L Potassium 4.0 Chloride 100 Carbon Dioxide 22 L BUN 34 H Creatinine 1.68 H Glucose 113 H Calcium 8.7 - ABG Interpretation ABG results: ABG ABG pH 7.37 pH Units (7.32-7.45) 06/08/19 07:04 ABG pCO2 41 mmHg (35-45) 06/08/19 07:04 ABG pO2 192 mmHg (85-104) H 06/08/19 07:04 ABG O2 Saturation 100 % (95-98) H 06/08/19 07:04 PT/INR, D-dimer PT 17.7 Seconds (9.4-12.1) H 06/08/19 07:25 <Karey Sadler N - Last Filed: 06/10/19 16:32> (1) Acute and chronic respiratory failure Qualifiers: Respiratory failure complication: hypoxia Qualified Code(s): J96.21 - Acute and chronic respiratory failure with hypoxia (4) Acute CHF Qualifiers: Heart failure type: unspecified Qualified Code(s): I50.9 - Heart failure, unspecified (6) CKD (chronic kidney disease) Qualifiers: Chronic kidney disease stage: unspecified stage Qualified Code(s): N18.9 - Chronic kidney disease, unspecified
[2019-06-10] MEDS: ALPRAZolam 0.25 MG TABLET PO PRN (09:43)
--- NOTE | 2019-06-10 12:53 | Cardiology Progress Note ---
Date of Encounter: 06/10/19 Time of Encounter: 10:45 Assessment and Plan (1) NSTEMI (non-ST elevated myocardial infarction) Current Visit: No Status: Acute NSTEMI- Troponin elevation at 1.6, 2.7, 4.10, 3 She c/o chest pain after admission once alert. She is found to have PNA and sepsis. EKG with ventricular pacing. TTE shows new cardiomyopathy. EF 25%. Mildly dilated left ventricle.Severe global left ventricular systolic dysfunction. Atypical septal motion consistent with paced rhythm. Normal right ventricular size with mildly reduced function. Bioprosthetic AV appears well seated in the LVOT. Leaflets not well visualized. Normal function by Doppler analysis. Mild mitral regurgitation. Mild tricuspid regurgitation. Mild pulmonary hypertension.Estimated RVSP is 36-40 mmHg. The IVC is dilated. < 50% respiratory change. Device lead visualized in the right sided chambers. Prior echo in 2018 showed EF 55%. Last [facility] 2017 showed moderate 2 vessel CAD. 50% stenosis pLcx artery. 50% stenosis mLcx. 60% stenosis mRCA. [facility] recommended once stable from PNA standpoint. Likely early next week. ZAKI recommended by primary team for MRSA bacteremia. Pt currently SOB and will need done once stable. Continue heparin gtt IV. Asa, statin, and bb. (2) Cardiomyopathy Current Visit: Yes Status: Acute Acute systolic CHF. EF 25%. new compared to TTE 2018. CXR with no pleural effusion or edema. Monitor closely with IV fluid. Positive 3.5L currently. [facility] recommended once stable from PNA standpoint. Continue toprol xl. No aceI due to kidney disease. Strict I&O and daily weights. Low sodium diet. Today patient with continued orthopnea and abdominal bloating. Will give IV lasix 20 mg x1. Qualifiers: Cardiomyopathy type: unspecified Qualified Code(s): I42.9 - Cardiomyopathy, unspecified (3) Atrial fibrillation Current Visit: No Status: Chronic PAF, currently V paced. On eliquis. Amiodarone stopped 06/08/19 and started toprol xl for CMP. Qualifiers: Atrial fibrillation type: paroxysmal Qualified Code(s): I48.0 - Paroxysmal atrial fibrillation Discussion w patient/family: The assessment and plan as outlined above was discussed with the patient and/or family members who expressed understanding and agreement. All questions were answered. Thank you for involving us in the care of your patient. Please call with any questions. 1) 2) PAF, currently V paced. On eliquis. Subjective Principal diagnosis: NSTEMI, PNA Interval history: Ms. Esteves states she is still SOB. C/o abdominal bloating and orthopnea. Denies chest pain. Objective Vital Signs, Last 4 Hours Temp Pulse Resp BP Pulse Ox 06/10/19 12:18 98.9 F 68 18 136/51 93 General: Conversant, No Apparent Distress HEENT: Atraumatic, Normocephaly, Mucus Membranes Moist Neck: No JVD, Normal carotid pulses Cardiac: Reg Rate and Rhythm, Normal S1 and S2, No Murmur Lungs: Other (rhonci scattered throughout. Respirations labored.) Neuro: Alert and responsive, No focal deficits noted Abdomen: Soft, Other (distended, c/o distention) Skin: No rashes noted on visualized skin Musculoskeletal: No Chest Wall Tenderness Extremities: No Clubbing, No Cyanosis, No Edema, Normal Pulses, Other (leg wraps on) Results 06/10/19 05:10 06/10/19 05:10 Lab Results 06/10/19 06/10/19 06/10/19 05:10 05:10 05:10 WBC 11.9 H Hgb 12.3 Hct 38.2 Plt Count 149 APTT 42.5 H Sodium 134 L Potassium 4.0 Chloride 100 Carbon Dioxide 22 L BUN 34 H Creatinine 1.68 H Glucose 113 H Calcium 8.7 Magnesium 1.9 - Imaging and Cardiology Echo: report reviewed - EKG Interpretation EKG results cardiology: personally reviewed Consult Discharge Plan - Plan Referrals: Casandra Evans MD [Primary Care Provider] - 06/21/19 1:15 pm
[2019-06-10] MEDS ORDERED: Furosemide 20 MG/2 ML VIAL IVP ONE ×2 (12:59→19:00)
[2019-06-10 13:19] LABS: Heparin anti-factor XA UFH 0.68 IU/mL (0.30-0.70)
[2019-06-10 13:21] LABS: Activated Partial Thrombo Time 53.6 Seconds (26.0-36.0)
[2019-06-10] MEDS: Letrozole 2.5 MG TABLET PO SCH (13:33)
[2019-06-10] MEDS: Ipratropium/Albuterol Neb 3 ML IH SCH ×4 (15:45→23:33)
[2019-06-10] MEDS: Acetaminophen 325 MG TABLET PO PRN (19:18)
[2019-06-10] MEDS: rOPINIRole 0.25 MG TABLET PO SCH (20:38)
[2019-06-10] MEDS: Heparin 25,000 UNIT/250 ML D5W 25,000 UNIT/250 ML IV.SOLN IVC SCH (23:20)
[2019-06-11 03:01] LABS: Basophils % 0.2 %; Eosinophils # 0.4 K/mcL (0.0-0.6); Eosinophils % 4.6 %; Hemoglobin 11.1 g/dL (11.5-15.4); Immature Granulocytes % 0.2 % (0-4); Lymphocytes # 0.9 K/mcL (0.6-4.6); Lymphocytes % 10.5 %; Mean Corpuscular HGB Conc 32.6 g/dL (31.6-35.5); Mean Corpuscular Hemoglobin 30.2 pg (28.0-33.3); Mean Corpuscular Volume 92.4 fL (83.0-100.0); Monocytes # 0.5 K/mcL (0.0-1.3); Monocytes % 6.1 %; Neutrophils # 6.6 K/mcL (1.6-8.9); Platelet Count 150 K/mcL (140-400); Red Blood Count 3.68 M/mcL (3.82-4.97); Red Cell Distribution Width 13.6 % (11.5-14.5); Segmented Neutrophils % 78.4 %; White Blood Count 8.4 K/mcL (4.3-11.1)
[2019-06-11 03:18] LABS: Calcium 8.5 mg/dL (8.6-10.3); Magnesium 1.9 mg/dL (1.6-2.6); Phosphorous 3.4 mg/dL (2.7-4.5); Potassium 3.5 mEq/L (3.5-5.1)
[2019-06-11] MEDS: Ipratropium/Albuterol Neb 3 ML IH SCH ×6 (04:01→23:56)
[2019-06-11] MEDS: *HR* Heparin 5,000 UNIT/ML VIAL IVP PRN ×2 (04:56→19:18)
[2019-06-11] MEDS: Insulin LISPRO 300 UNITS/3 ML VIAL SQ SCH ×3 (06:05→17:38)
--- NOTE | 2019-06-11 07:07 | Internal Med Progress Note ---
Hospitalist Progress Note - Encounter Date of Encounter: 06/11/19 Time of Encounter: 09:00 - Subjective Interval History: awake in chair on room air, daughter at bedside. States she is looking and feeling much better today and pt agrees. Denies sob, fevers, chills. has had no cp, pressure or palpitations. improved oral intake and activity level - Exam Vitals: Temp Pulse Resp BP Pulse Ox 97.9 F 68 18 136/74 100 06/11/19 07:03 06/11/19 07:03 06/11/19 07:03 06/11/19 07:03 06/11/19 07:03 Exam: gen- alert, awake,appears stated age cv- reg rate and rhythm, normal s1,s2, no murmurs appreciated, no pitting le edema, no jvd lungs- diminsihed throughout, faint crackles in bases bl, no wheezing or rhonchi , normal resp effort on room air abd- soft, non tender, non distended neuro- AAOxperson, place, situation - Assessment and Plan (1) Encephalopathy Current Visit: Yes Status: Resolved (2) CKD (chronic kidney disease) Current Visit: Yes Status: Chronic (3) MRSA bacteremia Current Visit: Yes Status: Acute (4) Multifocal pneumonia Current Visit: Yes Status: Acute (5) Sepsis Current Visit: Yes Status: Resolved (6) Acute exacerbation of CHF (congestive heart failure) Current Visit: Yes Status: Acute (7) NSTEMI (non-ST elevated myocardial infarction) Current Visit: Yes Status: Acute (8) Atrial fibrillation Current Visit: No Status: Chronic (9) Acute on chronic respiratory failure with hypoxemia Current Visit: Yes Status: Resolved - Summary of Assessment and Plan Summary of Assessment and Plan: Sepsis 2/2 MRSA bacteremia, Multifocal pna- resolved s/p sepsis fluids, now held with new EF reduction, lactate wnl, afebrile and WBC improving - following cxs, cont vanc + zosyn multifocal pna, org [place] as visualized on CTA Legionella/Strep Ag neg, no sputum to send to cx - cont vanc + zosyn MRSA bacteremia- repeat cxs ngtd, given bioprosthetic valve she will likely need ZAKI prior to dc, cardiology aware Acute on chonic Hypoxic resp failure, 2/2 multifocal pna and Acute HFrEF, resolved- home o2 is 2L prn Acute Encephalopathy, resolved- was likely infectious + related to hypoxia- CT head negative and no focal neuro deficits Baseline dementia NSTEMI- appreciate cards input, will need [facility] tentatively [place] 06/14/19 -cont hep gtt, asa, statin, BB Acute HFrEF New EF reduction to 25 % this admission -on BB, no acei/arb due to CKD, given creat stable dose of lasix today by cards CKD stage unknown, unable to determine- stable -monitor and renal dose abx, may need nephro assistance this admission if does not cont to improve Afib on NOAC- hold noac as on hep gtt, cards stopped amio and began BB Of note, [employer] notes black bowel movement, I have discussed with pt RN, stoold have been soft and green, no melanotic stools transfer to [facility] floor pt/ot evals pending Internal Medicine: Result - Labs CBC & Chem 7: 06/11/19 02:40 06/11/19 02:40 Labs: Short CBC 06/11/19 Range/Units 02:40 WBC 8.4 (4.3-11.1) K/mcL Hgb 11.1 L (11.5-15.4) g/dL Hct 34.0 L (35.3-44.9) % Plt Count 150 (140-400) K/mcL Neutrophils # 6.6 (1.6-8.9) K/mcL BMP 06/11/19 02:40 Sodium 133 L Potassium 3.5 Chloride 102 Carbon Dioxide 23 BUN 28 H Creatinine 1.27 H Glucose 122 H Calcium 8.5 L - ABG Interpretation ABG results: ABG ABG pH 7.37 pH Units (7.32-7.45) 06/08/19 07:04 ABG pCO2 41 mmHg (35-45) 06/08/19 07:04 ABG pO2 192 mmHg (85-104) H 06/08/19 07:04 ABG O2 Saturation 100 % (95-98) H 06/08/19 07:04 PT/INR, D-dimer PT 17.7 Seconds (9.4-12.1) H 06/08/19 07:25 Consult Discharge Plan - Plan Referrals: Casandra Evans MD [Primary Care Provider] - 06/21/19 1:15 pm (2) CKD (chronic kidney disease) Qualifiers: Chronic kidney disease stage: unspecified stage Qualified Code(s): N18.9 - C hronic kidney disease, unspecified (5) Sepsis Qualifiers: Sepsis type: methicillin resistant Staphylococcus aureus Sepsis acute organ dysfunction status: with acute organ dysfunction Severe sepsis acute organ dysfunction type: acute respiratory failure Acute respiratory failure type: with hypoxia Severe sepsis shock status: without septic shock Qualified Code(s): A41.02 - Sepsis due to Methicillin resistant Staphylococcus aureus; R65.20 - Severe sepsis without septic shock; J96.01 - Acute respiratory failure with hypoxia (6) Acute exacerbation of CHF (congestive heart failure) Qualifiers: Qualified Code(s): I50.9 - Heart failure, unspecified (8) Atrial fibrillation Qualifiers: Atrial fibrillation type: paroxysmal Qualified Code(s): I48.0 - Paroxysmal atrial fibrillation
[2019-06-11] MEDS: Budesonide/Formoterol 160/4.5 1 PUFF INH IH SCH ×2 (07:36→19:33)
[2019-06-11] MEDS: predniSONE 5 MG TABLET PO SCH (08:55)
[2019-06-11] MEDS: Aspirin Enteric Coated 81 MG Tablet PO SCH (08:55)
[2019-06-11] MEDS: Letrozole 2.5 MG TABLET PO SCH (08:55)
[2019-06-11] MEDS: Piperacillin/Tazobactam 3.375 GM in 0.9 % Sodium Chloride Mini Bag 100 ML IVPB SCH ×2 (08:56→20:20)
[2019-06-11] MEDS: Pantoprazole 40 MG VIAL IVP SCH (08:56)
[2019-06-11] MEDS: Metoprolol XL (24 HR) Succ 25 MG TAB.ER.24H PO SCH (08:57)
[2019-06-11 10:16] LABS: Activated Partial Thrombo Time 153.6 Seconds (26.0-36.0)
[2019-06-11 10:21] LABS: Heparin anti-factor XA UFH 0.84 IU/mL (0.30-0.70)
--- NOTE | 2019-06-11 10:53 | Cardiology Progress Note ---
Date of Encounter: 06/11/19 Time of Encounter: 09:10 Assessment and Plan (1) NSTEMI (non-ST elevated myocardial infarction) Current Visit: No Status: Acute NSTEMI- Troponin elevation at 1.6, 2.7, 4.10, 3 She c/o chest pain after admission once alert. She is found to have PNA and sepsis. EKG with ventricular pacing. TTE shows new cardiomyopathy. EF 25%. Mildly dilated left ventricle.Severe global left ventricular systolic dysfunction. Atypical septal motion consistent with paced rhythm. Normal right ventricular size with mildly reduced function. Bioprosthetic AV appears well seated in the LVOT. Leaflets not well visualized. Normal function by Doppler analysis. Mild mitral regurgitation. Mild tricuspid regurgitation. Mild pulmonary hypertension.Estimated RVSP is 36-40 mmHg. The IVC is dilated. < 50% respiratory change. Device lead visualized in the right sided chambers. Prior echo in 2018 showed EF 55%. Last [facility] 2017 showed moderate 2 vessel CAD. 50% stenosis pLcx artery. 50% stenosis mLcx. 60% stenosis mRCA. [facility] recommended once stable from PNA standpoint. Likely early next week. ZAKI recommended by primary team for MRSA bacteremia. Pt currently SOB and will need done once stable. NPO after midnight thursday. Continue heparin gtt IV. Asa, statin, and bb. (2) Cardiomyopathy Current Visit: Yes Status: Acute Acute systolic CHF. EF 25%. new compared to TTE 2018. CXR with no pleural effusion or edema. Monitor closely with IV fluid. Positive 3.5L currently. [facility] recommended once stable from PNA standpoint. Continue toprol xl. No aceI due to kidney disease. Strict I&O and daily weights. Low sodium diet. Lasix given yesterday and symptoms improved. Kidney function also improved. She does continue to have orthopnea so we will give another dose lasix today. Qualifiers: Cardiomyopathy type: unspecified Qualified Code(s): I42.9 - Cardiomyopathy, unspecified (3) Atrial fibrillation Current Visit: No Status: Chronic PAF, currently V paced. On eliquis. Amiodarone stopped 06/08/19 and started toprol xl for CMP. Qualifiers: Atrial fibrillation type: paroxysmal Qualified Code(s): I48.0 - Paroxysmal atrial fibrillation Discussion w patient/family: The assessment and plan as outlined above was discussed with the patient and/or family members who expressed understanding and agreement. All questions were answered. Thank you for involving us in the care of your patient. Please call with any questions. 1) 2) PAF, currently V paced. On eliquis. Subjective Principal diagnosis: NSTEMI, PNA Interval history: Ms. Esteves states she is still SOB. C/o abdominal bloating and orthopnea but improved. Denies chest pain. Objective Vital Signs, Last 4 Hours Temp Pulse Resp BP Pulse Ox 06/11/19 10:46 97.7 F 71 20 131/62 97 06/11/19 07:37 18 96 06/11/19 07:03 97.9 F 68 18 136/74 100 General: Conversant, No Apparent Distress HEENT: Atraumatic, Normocephaly, Mucus Membranes Moist Neck: No JVD, Normal carotid pulses Cardiac: Reg Rate and Rhythm, Normal S1 and S2, No Murmur Lungs: Normal Breath Sounds, No Wheeze, Rales, Rhonchi Neuro: Alert and responsive, No focal deficits noted Abdomen: Soft, Non-Tender Skin: No rashes noted on visualized skin Musculoskeletal: No Chest Wall Tenderness Extremities: No Clubbing, No Cyanosis, No Edema, Normal Pulses Results 06/11/19 02:40 06/11/19 02:40 Lab Results 06/10/19 06/10/19 06/11/19 12:56 19:28 02:40 WBC 8.4 Hgb 11.1 L Hct 34.0 L Plt Count 150 APTT 53.6 H 74.1 H Sodium Potassium Chloride Carbon Dioxide BUN Creatinine Glucose Calcium Magnesium 06/11/19 06/11/19 06/11/19 02:40 03:50 09:35 WBC Hgb Hct Plt Count APTT 50.0 H 153.6 H* D Sodium 133 L Potassium 3.5 Chloride 102 Carbon Dioxide 23 BUN 28 H Creatinine 1.27 H Glucose 122 H Calcium 8.5 L Magnesium 1.9 - Imaging and Cardiology Echo: report reviewed - EKG Interpretation EKG results cardiology: personally reviewed Consult Discharge Plan - Plan Referrals: Casandra Evans MD [Primary Care Provider] - 06/21/19 1:15 pm
[2019-06-11] MEDS ORDERED: Furosemide 40 MG/4 ML VIAL IVP ONE (10:54)
[2019-06-11] MEDS: Acetaminophen 325 MG TABLET PO PRN ×2 (13:11→22:50)
[2019-06-11] MEDS: rOPINIRole 0.25 MG TABLET PO SCH (20:18)
[2019-06-11] MEDS: Heparin 25,000 UNIT/250 ML D5W 25,000 UNIT/250 ML IV.SOLN IVC SCH (23:53)
[2019-06-12] MEDS: Albuterol 2.5 MG/3 ML NEBULIZER IH PRN (00:40)
[2019-06-12] MEDS: Insulin LISPRO 300 UNITS/3 ML VIAL SQ SCH ×4 (01:59→17:57)
[2019-06-12 02:01] LABS: Basophils % 0.1 %; Eosinophils # 0.3 K/mcL (0.0-0.6); Eosinophils % 4.3 %; Hematocrit 33.2 % (35.3-44.9); Hemoglobin 10.9 g/dL (11.5-15.4); Immature Granulocytes % 0.4 % (0-4); Lymphocytes # 0.9 K/mcL (0.6-4.6); Lymphocytes % 12.4 %; Mean Corpuscular HGB Conc 32.8 g/dL (31.6-35.5); Mean Corpuscular Volume 91.5 fL (83.0-100.0); Mean Platelet Volume 10.8 fL (9.4-12.4); Monocytes # 0.4 K/mcL (0.0-1.3); Monocytes % 5.9 %; Neutrophils # 5.8 K/mcL (1.6-8.9); Platelet Count 161 K/mcL (140-400); Red Blood Count 3.63 M/mcL (3.82-4.97); Red Cell Distribution Width 13.5 % (11.5-14.5); Segmented Neutrophils % 76.9 %; White Blood Count 7.5 K/mcL (4.3-11.1)
[2019-06-12 02:20] LABS: BUN/Creatinine Ratio 21 (6-26); Blood Urea Nitrogen 21 mg/dL (8-23); Calcium 8.7 mg/dL (8.6-10.3); Carbon Dioxide 27 mEq/L (23-29); Chloride 99 mEq/L (98-107); Glucose 157 mg/dL (70-105); Magnesium 1.7 mg/dL (1.6-2.6); Osmolality,Calculated 284 (280-300); Potassium 3.4 mEq/L (3.5-5.1); Sodium 134 mEq/L (136-145); Vancomycin,Random 18 mcg/mL; eGFR For African Americans > 60 (> 60); eGFR For Non-African Americans 53 (> 60)
[2019-06-12] MEDS: Ipratropium/Albuterol Neb 3 ML IH SCH ×5 (04:11→19:53)
--- NOTE | 2019-06-12 07:46 | Internal Med Progress Note ---
Hospitalist Progress Note - Encounter Date of Encounter: 06/12/19 Time of Encounter: 09:00 - Subjective Interval History: awake, eating breakfast, daughter at bedside. no sob on room air, + cough no sputum, no fevers or chills. denies cp, pressure or palpitations - Exam Vitals: Temp Pulse Resp BP Pulse Ox 97.3 F L 73 14 150/76 95 06/12/19 07:31 06/12/19 07:31 06/12/19 07:31 06/12/19 07:31 06/12/19 07:31 Exam: gen- alert, awake,appears stated age cv- reg rate and rhythm, normal s1,s2, no murmurs appreciated,trace pitting le edema, no jvd lungs- ctabl, dimisnihed bl bases, normal resp effort on room air abd- soft, non tender, non distended neuro- AAOxperson, place, situation - Assessment and Plan (1) Encephalopathy Current Visit: Yes Status: Resolved (2) CKD (chronic kidney disease) Current Visit: Yes Status: Chronic (3) MRSA bacteremia Current Visit: Yes Status: Acute (4) Multifocal pneumonia Current Visit: Yes Status: Acute (5) Sepsis Current Visit: Yes Status: Resolved (6) Acute exacerbation of CHF (congestive heart failure) Current Visit: Yes Status: Acute (7) NSTEMI (non-ST elevated myocardial infarction) Current Visit: Yes Status: Acute (8) Atrial fibrillation Current Visit: No Status: Chronic (9) Acute on chronic respiratory failure with hypoxemia Current Visit: Yes Status: Resolved - Summary of Assessment and Plan Summary of Assessment and Plan: Sepsis 2/2 MRSA bacteremia, Multifocal pna- resolved - cont vanc + zosyn until ZAKI and repeat bl cxs progress further then hope to de escalate soon multifocal pna, org uk Legionella/Strep Ag neg, no sputum to send to cx - cont vanc + zosyn MRSA bacteremia- repeat cxs 06/09 ngtd, given bioprosthetic valve she will need ZAKI as leaflets not well visualized on TTE, as d/w cardiology today we will attempt to have this done tomorrow with [facility] Acute on chonic Hypoxic resp failure, 2/2 multifocal pna and Acute HFrEF, resolved- home o2 is 2L prn Acute Encephalopathy, resolved- was likely infectious + related to hypoxia- CT head negative and no focal neuro deficits Baseline dementia NSTEMI- appreciate cards input, [facility] IN AM -cont hep gtt, HEP GTT CAN BE CONT TIL PROCEDURE D/W CARDS, asa, statin, BB Acute HFrEF New EF reduction to 25 % this admission -on BB, no acei/arb due to CKD, diuresis daily as per cards -near net even yesterday CKD stage unknown, unable to determine- stable Creat is now normal -monitor and renal dose abx, monitor post cath Afib on NOAC- hold noac as on hep gtt, cards stopped amio and began BB this admit with new HFrEF pt/ot evals pending Internal Medicine: Result - Labs CBC & Chem 7: 06/12/19 01:50 06/12/19 01:50 Labs: Short CBC 06/12/19 Range/Units 01:50 WBC 7.5 (4.3-11.1) K/mcL Hgb 10.9 L (11.5-15.4) g/dL Hct 33.2 L (35.3-44.9) % Plt Count 161 (140-400) K/mcL Neutrophils # 5.8 (1.6-8.9) K/mcL BMP 06/12/19 01:50 Sodium 134 L Potassium 3.4 L Chloride 99 Carbon Dioxide 27 BUN 21 Creatinine 1.01 Glucose 157 H Calcium 8.7 - ABG Interpretation ABG results: ABG ABG pH 7.37 pH Units (7.32-7.45) 06/08/19 07:04 ABG pCO2 41 mmHg (35-45) 06/08/19 07:04 ABG pO2 192 mmHg (85-104) H 06/08/19 07:04 ABG O2 Saturation 100 % (95-98) H 06/08/19 07:04 PT/INR, D-dimer PT 17.7 Seconds (9.4-12.1) H 06/08/19 07:25 Consult Discharge Plan - Plan Referrals: Casandra Evans MD [Primary Care Provider] - 06/21/19 1:15 pm (2) CKD (chronic kidney disease) Qualifiers: Chronic kidney disease stage: unspecified stage Qualified Code(s): N18.9 - Chronic kidney disease, unspecified (5) Sepsis Qualifiers: Sepsis type: methicillin resistant Staphylococcus aureus Sepsis acute organ dysfunction status: with acute organ dysfunction Severe sepsis acute organ dysfunction type: acute respiratory failure Acute respiratory failure type: with hypoxia Severe sepsis shock status: without septic shock Qualified Code(s): A41.02 - Sepsis due to Methicillin resistant Staphylococcus aureus; R65.20 - Severe sepsis without septic shock; J96.01 - Acute respiratory failure with hypoxia (8) Atrial fibrillation Qualifiers: Atrial fibrillation type: paroxysmal Qualified Code(s): I48.0 - Paroxysmal atrial fibrillation
[2019-06-12] MEDS ORDERED: Potassium Chloride Elixir 20 MEQ/15 ML UDC PO ONE (07:48)
[2019-06-12] MEDS: Budesonide/Formoterol 160/4.5 1 PUFF INH IH SCH ×2 (08:09→19:53)
[2019-06-12] MEDS: Letrozole 2.5 MG TABLET PO SCH (08:51)
[2019-06-12] MEDS: Magnesium Oxide 400 MG TABLET PO SCH (08:51)
[2019-06-12] MEDS: predniSONE 5 MG TABLET PO SCH (08:51)
[2019-06-12] MEDS: Aspirin Enteric Coated 81 MG Tablet PO SCH (08:51)
[2019-06-12] MEDS: ALPRAZolam 0.25 MG TABLET PO PRN ×2 (08:52→17:57)
[2019-06-12] MEDS: Metoprolol XL (24 HR) Succ 25 MG TAB.ER.24H PO SCH (08:52)
[2019-06-12] MEDS: Pantoprazole 40 MG VIAL IVP SCH (08:52)
[2019-06-12] MEDS: Piperacillin/Tazobactam 3.375 GM in 0.9 % Sodium Chloride Mini Bag 100 ML IVPB SCH ×2 (08:52→20:04)
[2019-06-12] MEDS: Acetaminophen 325 MG TABLET PO PRN (12:18)
--- NOTE | 2019-06-12 13:09 | Event Note ---
Date of Encounter: 06/12/19 Time of Encounter: 13:07 - Cardiology Event Note Plan for [facility] tomorrow as discussed. Risks, alternatives, and benefits reviewed. Patient has significantly improved from shortness of breath standpoint. Daughter at bedside and all questions answered. HAS-BLED Score - Score Elderly: Age>65 years Medication usage predisposing to bleeding: Antiplatelet agents, NSAIDs, Anticoagulants Score: 2
[2019-06-12] MEDS: Heparin 25,000 UNIT/250 ML D5W 25,000 UNIT/250 ML IV.SOLN IVC SCH (17:13)
[2019-06-12] MEDS: rOPINIRole 0.25 MG TABLET PO SCH (20:10)
[2019-06-12 23:52] LABS: Activated Partial Thrombo Time 179.8 Seconds (26.0-36.0)
[2019-06-12 23:59] LABS: Heparin anti-factor XA UFH 0.71 IU/mL (0.30-0.70)
[2019-06-13] MEDS: Ipratropium/Albuterol Neb 3 ML IH SCH ×7 (00:12→19:39)
[2019-06-13] MEDS: Insulin LISPRO 300 UNITS/3 ML VIAL SQ SCH ×4 (00:23→18:25)
[2019-06-13 01:51] LABS: Basophils % 0.3 %; Eosinophils # 0.5 K/mcL (0.0-0.6); Eosinophils % 6.3 %; Hematocrit 33.2 % (35.3-44.9); Hemoglobin 10.9 g/dL (11.5-15.4); Immature Granulocytes % 0.6 % (0-4); Lymphocytes # 1.4 K/mcL (0.6-4.6); Lymphocytes % 17.6 %; Mean Corpuscular HGB Conc 32.8 g/dL (31.6-35.5); Mean Corpuscular Hemoglobin 30.5 pg (28.0-33.3); Mean Platelet Volume 10.8 fL (9.4-12.4); Monocytes # 0.5 K/mcL (0.0-1.3); Monocytes % 6.1 %; Neutrophils # 5.5 K/mcL (1.6-8.9); Platelet Count 178 K/mcL (140-400); Red Blood Count 3.57 M/mcL (3.82-4.97); Red Cell Distribution Width 13.9 % (11.5-14.5); Segmented Neutrophils % 69.1 %
[2019-06-13 01:55] LABS: BUN/Creatinine Ratio 18 (6-26); Blood Urea Nitrogen 16 mg/dL (8-23); Calcium 8.8 mg/dL (8.6-10.3); Carbon Dioxide 24 mEq/L (23-29); Chloride 101 mEq/L (98-107); Glucose 135 mg/dL (70-105); Magnesium 1.8 mg/dL (1.6-2.6); Osmolality,Calculated 279 (280-300); Potassium 3.6 mEq/L (3.5-5.1); Sodium 133 mEq/L (136-145); eGFR For African Americans > 60 (> 60); eGFR For Non-African Americans > 60 (> 60)
[2019-06-13 01:59] LABS: INR 1.2; Prothrombin Time 13.3 Seconds (9.4-12.1)
[2019-06-13] MEDS: Budesonide/Formoterol 160/4.5 1 PUFF INH IH SCH ×2 (07:18→19:39)
[2019-06-13] MEDS: Piperacillin/Tazobactam 3.375 GM in 0.9 % Sodium Chloride Mini Bag 100 ML IVPB SCH ×2 (09:11→22:51)
--- NOTE | 2019-06-13 09:44 | Internal Med Progress Note ---
<Mallika Barillas - Last Filed: 06/13/19 12:32> Hospitalist Progress Note - Encounter Date of Encounter: 06/13/19 - Exam Vitals: Temp Pulse Resp BP Pulse Ox 97.4 F L 87 30 170/100 95 06/13/19 10:43 06/13/19 10:43 06/13/19 12:00 06/13/19 10:43 06/13/19 12:00 - Assessment and Plan (1) Encephalopathy Current Visit: Yes Status: Resolved (2) CKD (chronic kidney disease) Current Visit: Yes Status: Chronic (3) MRSA bacteremia Current Visit: Yes Status: Acute (4) Multifocal pneumonia Current Visit: Yes Status: Acute (5) Sepsis Current Visit: Yes Status: Resolved (6) Acute exacerbation of CHF (congestive heart failure) Current Visit: Yes Status: Acute (7) NSTEMI (non-ST elevated myocardial infarction) Current Visit: Yes Status: Acute (8) Atrial fibrillation Current Visit: No Status: Chronic (9) Acute on chronic respiratory failure with hypoxemia Current Visit: Yes Status: Resolved - Time Spent with Patient Total time spent is greater than 50% in coordination of care (as documented) at patient's floor/unit and/or counseling patient: Internal Medicine: Result - Labs CBC & Chem 7: 06/13/19 01:17 06/13/19 01:17 Labs: Short CBC 06/13/19 Range/Units 01:17 WBC 8.0 (4.3-11.1) K/mcL Hgb 10.9 L (11.5-15.4) g/dL Hct 33.2 L (35.3-44.9) % Plt Count 178 (140-400) K/mcL Neutrophils # 5.5 (1.6-8.9) K/mcL BMP 06/13/19 01:17 Sodium 133 L Potassium 3.6 Chloride 101 Carbon Dioxide 24 BUN 16 Creatinine 0.89 Glucose 135 H Calcium 8.8 - ABG Interpretation ABG results: ABG ABG pH 7.37 pH Units (7.32-7.45) 06/08/19 07:04 ABG pCO2 41 mmHg (35-45) 06/08/19 07:04 ABG pO2 192 mmHg (85-104) H 06/08/19 07:04 ABG O2 Saturation 100 % (95-98) H 06/08/19 07:04 PT/INR, D-dimer PT 13.3 Seconds (9.4-12.1) H 06/13/19 01:10 Consult Discharge Plan - Plan Referrals: Casandra Evans MD [Primary Care Provider] - 06/21/19 1:15 pm - Attending Attestation I examined this patient and my medical decision-making was reviewed with the Resident Physician Dr Gonzalez. I agree with the documented findings, disposition and treatment plan as described except to the extent set forth below. Ms Esteves is admitted with sepsis, pna, bacteremia and nstemi awake, family at bedside, very nervous about testing today. no cp, pressure, + sob but comfortable on o2 nc. gen- alert, awake,appears stated age cv- reg rate and rhythm, normal s1,s2, no murmurs appreciated,trace pitting le edema, no jvd lungs- ctabl, normal resp effort on o2 nc skin- warm, dry, no pallor neuro- AAOxperson, place, situation, CN grossly intact Sepsis 2/2 MRSA bacteremia, Multifocal pna- resolved - cont vanc + zosyn until ZAKI and repeat bl cxs progress further then hope to de escalate soon multifocal pna, org [place] Legionella/Strep Ag neg, no sputum to send to cx - cont vanc + zosyn MRSA bacteremia- repeat cxs 06/09 ngtd, given bioprosthetic valve ZAKI today Acute on chonic Hypoxic resp failure, 2/2 multifocal pna and Acute HFrEF, resolved- home o2 is 2L prn Acute Encephalopathy, resolved- was likely infectious + related to hypoxia- CT head negative and no focal neuro deficits Baseline dementia NSTEMI- appreciate cards input, [facility] IN AM -cont hep gtt,asa, statin, BB, [facility] today Acute HFrEF New EF reduction to 25 % this admission -on BB, no acei/arb due to CKD, diuresis daily as per cards CKD stage unknown, unable to determine- stable Creat is now normal -monitor and renal dose abx, monitor post cath, pre cath gentle fluids given EF Afib on NOAC- hold noac as on hep gtt, cards stopped amio and began BB this admit with new HFrEF pt/ot evals pending <Willi Gonzalez - Last Filed: 06/13/19 17:21> Hospitalist Progress Note - Encounter Date of Encounter: 06/13/19 Time of Encounter: 08:15 - Subjective Interval History: Patient endorses continued SOB, improving slightly with nebs. Otherwise appears well. She is anxious about her upcoming cath and ZAKI. - Exam Vitals: Temp Pulse Resp BP Pulse Ox 97.4 F L 75 17 153/93 99 06/13/19 07:54 06/13/19 07:54 06/13/19 07:54 06/13/19 07:54 06/13/19 07:54 Exam: gen- A &O x 3, appears stated age cv- reg rate and rhythm, normal s1,s2, no murmurs appreciated, trace +1 BLE edema, no jvd lungs- CTA bilaterally, diminished breath sounds throughout, mild increase of resp effort on 2L abd- soft, non tender, non distended, bowel sounds normal neuro- no focal deficits, CN 2-12 grossly intact - Assessment and Plan (1) Multifocal pneumonia Current Visit: Yes Status: Resolved Assessment and Plan: Resolved. Negative for legionella/strep antigen. - Continue vancomycin and Zosyn IV. - CXR demonstrates worsening multifocal PNA or edema. (2) Sepsis Current Visit: Yes Status: Resolved Assessment and Plan: Secondary to MRSA bacteremia. Will continue Zosyn and Vanc. ZAKI was cancelled today secondary to SOB and wheezing. Likely anxiety component. - Ativan prior to next scheduled ZAKI. (3) MRSA bacteremia Current Visit: Yes Status: Resolved Assessment and Plan: Repeat cultures on 06/09/19, no cultures to date. - Continue vanc and Zosyn. Will maximize respiratory status prior to performing ZAKI if possible. (4) NSTEMI (non-ST elevated myocardial infarction) Current Visit: Yes Status: Acute Assessment and Plan: Left heart cath scheduled for today. - Continue heparin GTT. - Continue Toprol, ASA, atorvastatin. (5) Heart failure with reduced ejection fraction Current Visit: Yes Status: Acute Assessment and Plan: New LVEF of 25%. ZAKI and left heart cath cancelled today secondary to acute SOB. Likely anxiety component. Cath re-scheduled for tomorrow afternoon. - Ativan prior to catheterization tomorrow. - Will continue Lasix 20 mg IV per cardio. - Unable to tolerate RAJEEV inhibitor secondary to CKD. (6) Atrial fibrillation Current Visit: Yes Status: Acute Assessment and Plan: Stable. NOAC was d/c and patient started on heparin GTT. (7) CKD (chronic kidney disease) Current Visit: Yes Status: Acute Assessment and Plan: Creatine 0.89 currently. Monitor renal function following catheterization tomorrow. - avoid nephrotoxic drugs, renal dose abx. - will again give fluids prior to cath tomorrow. DVT Prophylaxis: heparin gtt - Time Spent with Patient Total time spent is greater than 50% in coordination of care (as documented) at patient's floor/unit and/or counseling patient: Plan of Care Discussed with: patient Internal Medicine: Result - Labs CBC & Chem 7: 06/13/19 01:17 06/13/19 01:17 Labs: Short CBC 06/13/19 Range/Units 01:17 WBC 8.0 (4.3-11.1) K/mcL Hgb 10.9 L (11.5-15.4) g/dL Hct 33.2 L (35.3-44.9) % Plt Count 178 (140-400) K/mcL Neutrophils # 5.5 (1.6-8.9) K/mcL BMP 06/13/19 01:17 Sodium 133 L Potassium 3.6 Chloride 101 Carbon Dioxide 24 BUN 16 Creatinine 0.89 Glucose 135 H Calcium 8.8 - ABG Interpretation ABG results: ABG ABG pH 7.37 pH Units (7.32-7.45) 06/08/19 07:04 ABG pCO2 41 mmHg (35-45) 06/08/19 07:04 ABG pO2 192 mmHg (85-104) H 06/08/19 07:04 ABG O2 Saturation 100 % (95-98) H 06/08/19 07:04 PT/INR, D-dimer PT 13.3 Seconds (9.4-12.1) H 06/13/19 01:10 Interpretation: normal <[email or web address] M - Last Filed: 06/13/19 12:32> (2) CKD (chronic kidney disease) Qualifiers: Chronic kidney disease stage: unspecified stage Qualified Code(s): N18.9 - Chronic kidney disease, unspecified (5) Sepsis Qualifiers: Sepsis type: methicillin resistant Staphylococcus aureus Sepsis acute organ dysfunction status: with acute organ dysfunction Severe sepsis acute organ dysfunction type: acute respiratory failure Acute respiratory failure type: with hypoxia Severe sepsis shock status: without septic shock Qualified Code(s): A41.02 - Sepsis due to Methicillin resistant Staphylococcus aureus; R65.20 - Severe sepsis without septic shock; J96.01 - Acute respiratory failure with hypoxia (8) Atrial fibrillation Qualifiers: Atrial fibrillation type: paroxysmal Qualified Code(s): I48.0 - Paroxysmal atrial fibrillation <Willi Gonzalez M - Last Filed: 06/13/19 17:21> (2) Sepsis Qualifiers: Sepsis type: methicillin resistant Staphylococcus aureus Sepsis acute organ dysfunction status: with acute organ dysfunction Severe sepsis acute organ dysfunction type: acute respiratory failure Acute respiratory failure type: with hypoxia Severe sepsis shock status: without septic shock Qualified Code(s): A41.02 - Sepsis due to Methicillin resistant Staphylococcus aureus; R65.20 - Severe sepsis without septic shock; J96.01 - Acute respiratory failure with hypoxia (7) CKD (chronic kidney disease) Qualifiers: Chronic kidney disease stage: stage 3 (moderate) Qualified Code(s): N18.3 - Chronic kidney disease, stage 3 (moderate)
[2019-06-13] MEDS ORDERED: Lidocaine Viscous Oral Soln 15 ML SOLUTION MM PRN (10:35)
[2019-06-13] MEDS ORDERED: *HR* FentaNYL (PF) 100 MCG/2 ML VIAL IVP PRN (10:35)
[2019-06-13] MEDS ORDERED: *HR* Midazolam HCl 5 MG/5 ML VIAL IVP PRN (10:36)
[2019-06-13] MEDS ORDERED: 0.9 % Sodium Chloride 500 ML IVC ONE (10:36)
[2019-06-13] MEDS ORDERED: Verapamil 5 MG/2 ML VIAL ONE (11:10)
[2019-06-13] MEDS ORDERED: 0.9 % Sodium Chloride 1,000 ML ONE (11:11)
[2019-06-13] MEDS ORDERED: *HR* Heparin 10,000 UNIT/10 ML VIAL ONE (11:11)
[2019-06-13] MEDS ORDERED: Heparin 1,000 UNITS/500 mL 0 ML ONE (11:11)
[2019-06-13] MEDS ORDERED: Nitroglycerin 1,000 MCG/10 ML VIAL IV ONE (11:11)
[2019-06-13] MEDS ORDERED: *HR* LORazepam 2 MG/ML VIAL IVP ONE (12:05)
[2019-06-13] MEDS: Metoprolol XL (24 HR) Succ 25 MG TAB.ER.24H PO SCH (15:57)
[2019-06-13] MEDS: Letrozole 2.5 MG TABLET PO SCH (15:57)
[2019-06-13] MEDS: Magnesium Oxide 400 MG TABLET PO SCH (15:57)
[2019-06-13] MEDS: Aspirin Enteric Coated 81 MG Tablet PO SCH (15:57)
[2019-06-13] MEDS: predniSONE 5 MG TABLET PO SCH (15:57)
[2019-06-13] MEDS: Furosemide 20 MG/2 ML VIAL IVP SCH ×2 (16:09→22:51)
[2019-06-13] MEDS: Pantoprazole 40 MG VIAL IVP SCH (16:09)
[2019-06-13] MEDS: *HR* Heparin 5,000 UNIT/ML VIAL IVP PRN (16:09)
[2019-06-13] MEDS: Heparin 25,000 UNIT/250 ML D5W 25,000 UNIT/250 ML IV.SOLN IVC SCH (16:11)
[2019-06-13] MEDS: rOPINIRole 0.25 MG TABLET PO SCH (22:51)
[2019-06-14] MEDS: Ipratropium/Albuterol Neb 3 ML IH SCH ×7 (00:26→23:46)
[2019-06-14] MEDS: Insulin LISPRO 300 UNITS/3 ML VIAL SQ SCH ×4 (00:47→18:37)
[2019-06-14 05:58] LABS: Basophils % 0.4 %; Eosinophils # 0.5 K/mcL (0.0-0.6); Eosinophils % 6.5 %; Hematocrit 33.2 % (35.3-44.9); Immature Granulocytes % 1.1 % (0-4); Lymphocytes # 1.2 K/mcL (0.6-4.6); Lymphocytes % 14.5 %; Mean Corpuscular HGB Conc 33.1 g/dL (31.6-35.5); Mean Corpuscular Hemoglobin 30.1 pg (28.0-33.3); Mean Corpuscular Volume 90.7 fL (83.0-100.0); Mean Platelet Volume 10.6 fL (9.4-12.4); Monocytes # 0.7 K/mcL (0.0-1.3); Neutrophils # 5.6 K/mcL (1.6-8.9); Platelet Count 174 K/mcL (140-400); Red Blood Count 3.66 M/mcL (3.82-4.97); Red Cell Distribution Width 14.4 % (11.5-14.5); Segmented Neutrophils % 68.5 %; White Blood Count 8.1 K/mcL (4.3-11.1)
[2019-06-14 06:17] LABS: BUN/Creatinine Ratio 13 (6-26); Blood Urea Nitrogen 12 mg/dL (8-23); Calcium 9.1 mg/dL (8.6-10.3); Carbon Dioxide 27 mEq/L (23-29); Chloride 99 mEq/L (98-107); Glucose 128 mg/dL (70-105); Osmolality,Calculated 285 (280-300); Potassium 3.6 mEq/L (3.5-5.1); Sodium 137 mEq/L (136-145); eGFR For African Americans > 60 (> 60); eGFR For Non-African Americans 56 (> 60)
[2019-06-14] MEDS: Budesonide/Formoterol 160/4.5 1 PUFF INH IH SCH ×2 (07:29→19:45)
--- NOTE | 2019-06-14 07:39 | Cardiology Progress Note ---
Date of Encounter: 06/14/19 Time of Encounter: 07:30 Assessment and Plan (1) NSTEMI (non-ST elevated myocardial infarction) Current Visit: Yes Status: Acute NSTEMI- Troponin elevation at 1.6, 2.7, 4.10, 3 She c/o chest pain after admission. She is found to have PNA and sepsis. EKG with ventricular pacing. TTE shows new cardiomyopathy. EF 25%. Mildly dilated left ventricle. Severe global left ventricular systolic dysfunction. Atypical septal motion consistent with paced rhythm. Normal right ventricular size with mildly reduced function. Bioprosthetic AV appears well seated in the LVOT. Leaflets not well visualized. Normal function by Doppler analysis. Mild mitral regurgitation. Mild tricuspid regurgitation. Mild pulmonary hypertension.Estimated RVSP is 36-40 mmHg. The IVC is dilated. < 50% respiratory change. Device lead visualized in the right sided chambers. Prior echo in 2018 showed EF 55%. Last [facility] 2017 showed moderate 2 vessel CAD. 50% stenosis pLcx artery. 50% stenosis mLcx. 60% stenosis mRCA. [facility] recommended once stable from PNA standpoint/CHF. ZAKI recommended by primary team for MRSA bacteremia. Pt currently SOB and will need done once stable. Both test cancelled yesterday secondary to sudden onset SOB when prepping for ZAKI. SHe was treated with IV lasix and breathing treatment with some imp rovement. CXR shows worsening PNA/pulmonary edema. IV lasix increased. Continue Asa, statin, and bb. (2) Cardiomyopathy Current Visit: Yes Status: Acute Acute systolic CHF. EF 25%. new compared to TTE 2018. CXR with no pleural effusion or edema. Monitor closely with IV fluid. Positive 5L currently. No output documented , I&O not accurate. Strict I&O ordered. [facility] recommended once stable from PNA/CHF standpoint. Continue toprol xl. No aceI due to kidney disease. Start if kidney function remains stable. Strict I&O and daily weights. Low sodium diet. Continue IV lasix. Qualifiers: Qualified Code(s): I42.9 - Cardiomyopathy, unspecified (3) Atrial fibrillation Current Visit: No Status: Chronic PAF, currently V paced. On eliquis. Amiodarone stopped 06/08/19 and started toprol xl for CMP. Qualifiers: Qualified Code(s): I48.0 - Paroxysmal atrial fibrillation Discussion w patient/family: The assessment and plan as outlined above was discussed with the patient and/or family members who expressed understanding and agreement. All questions were answered. Thank you for involving us in the care of your patient. Please call with any questions. 1) 2) PAF, currently V paced. On eliquis. Subjective Principal diagnosis: NSTEMI, PNA Interval history: Ms. Esteves states she is still SOB this morning, appears to be more frail. Shaking. Objective Vital Signs, Last 4 Hours Temp Pulse Resp BP Pulse Ox 06/14/19 07:09 73 20 168/93 99 06/14/19 05:51 98.9 F 80 17 142/93 98 06/14/19 03:39 16 98 General: Conversant, Other (ill appearing) HEENT: Atraumatic, Normocephaly, Mucus Membranes Moist Neck: No JVD, Normal carotid pulses Cardiac: Reg Rate and Rhythm, Normal S1 and S2, No Murmur Lungs: Other (respirations easy, rales BLL posteriorly) Neuro: Alert and responsive, No focal deficits noted Abdomen: Soft, Non-Tender Skin: No rashes noted on visualized skin Musculoskeletal: No Chest Wall Tenderness Extremities: No Clubbing, No Cyanosis, Normal Pulses, Other (1+ edema bilateral ankles) Results 06/14/19 05:34 06/14/19 05:34 Lab Results 06/13/19 06/13/19 06/13/19 07:00 14:34 22:30 WBC Hgb Hct Plt Count APTT 65.7 H 53.1 H 104.8 H D Sodium Potassium Chloride Carbon Dioxide BUN Creatinine Glucose Calcium 06/14/19 06/14/19 06/14/19 05:34 05:34 05:34 WBC 8.1 Hgb 11.0 L Hct 33.2 L Plt Count 174 APTT 29.0 D Sodium 137 Potassium 3.6 Chloride 99 Carbon Dioxide 27 BUN 12 Creatinine 0.96 Glucose 128 H Calcium 9.1 - Imaging and Cardiology Chest Xray: report reviewed Echo: report reviewed - EKG Interpretation EKG results cardiology: personally reviewed Consult Discharge Plan - Plan Referrals: Casandra Evans MD [Primary Care Provider] - 06/21/19 1:15 pm
--- NOTE | 2019-06-14 07:42 | Event Note ---
Date of Encounter: 06/13/19 Time of Encounter: 11:00 - Cardiology Event Note Late entry: ZAKI cancelled due to increasing SOB this morning. Patient noted to have new pursed lip breathing and rhonci. She was given breathing treatment, IV lasix. Order from hospitalist for anti-anxiety medication. CXR completed. Continue treatment of CHF and PNA.
[2019-06-14] MEDS ORDERED: *HR* LORazepam 2 MG/ML VIAL IVP ONE (08:08)
--- NOTE | 2019-06-14 08:59 | Internal Med Progress Note ---
<Mallika Barillas - Last Filed: 06/14/19 12:11> Hospitalist Progress Note - Encounter Date of Encounter: 06/14/19 - Exam Vitals: Temp Pulse Resp BP Pulse Ox 98.9 F 68 18 160/91 100 06/14/19 05:51 06/14/19 11:25 06/14/19 11:25 06/14/19 11:25 06/14/19 11:25 - Assessment and Plan (1) Encephalopathy Current Visit: Yes Status: Resolved (2) CKD (chronic kidney disease) Current Visit: Yes Status: Chronic (3) MRSA bacteremia Current Visit: Yes Status: Resolved (4) Multifocal pneumonia Current Visit: Yes Status: Resolved (5) Sepsis Current Visit: Yes Status: Resolved (6) Acute exacerbation of CHF (congestive heart failure) Current Visit: Yes Status: Acute (7) NSTEMI (non-ST elevated myocardial infarction) Current Visit: Yes Status: Acute (8) Atrial fibrillation Current Visit: No Status: Chronic (9) Acute on chronic respiratory failure with hypoxemia Current Visit: Yes Status: Resolved - Time Spent with Patient Total time spent is greater than 50% in coordination of care (as documented) at patient's floor/unit and/or counseling patient: Internal Medicine: Result - Labs CBC & Chem 7: 06/14/19 05:34 06/14/19 05:34 Labs: Short CBC 06/14/19 Range/Units 05:34 WBC 8.1 (4.3-11.1) K/mcL Hgb 11.0 L (11.5-15.4) g/dL Hct 33.2 L (35.3-44.9) % Plt Count 174 (140-400) K/mcL Neutrophils # 5.6 (1.6-8.9) K/mcL BMP 06/14/19 05:34 Sodium 137 Potassium 3.6 Chloride 99 Carbon Dioxide 27 BUN 12 Creatinine 0.96 Glucose 128 H Calcium 9.1 - ABG Interpretation ABG results: ABG ABG pH 7.37 pH Units (7.32-7.45) 06/08/19 07:04 ABG pCO2 41 mmHg (35-45) 06/08/19 07:04 ABG pO2 192 mmHg (85-104) H 06/08/19 07:04 ABG O2 Saturation 100 % (95-98) H 06/08/19 07:04 PT/INR, D-dimer PT 13.3 Seconds (9.4-12.1) H 06/13/19 01:10 - Impressions Impressions Chest X-Ray 06/13/19 12:49 IMPRESSION: Worsening diffuse bilateral lung opacities may represent worsening multifocal pneumonia and/or pulmonary edema. Cardiomegaly. Small bilateral pleural effusions. D/ / Larry Villa MD / Larry Villa MD Interpreting Provider: Larry Villa MD Consult Discharge Plan - Plan Referrals: Casandra Evans MD [Primary Care Provider] - 06/21/19 1:15 pm - Attending Attestation I examined this patient and my medical decision-making was reviewed with the Resident Physician Dr Gonzalez. I agree with the documented findings, disposition and treatment plan as described except to the extent set forth below. Ms Esteves is admitted with sepsis, pna, bacteremia and nstemi awake, family at bedside, eating breakfast and resting comfortably on o2 nc. no sob at this time, + cough overall improved, no cp gen- alert, awake,appears stated age cv- reg rate and rhythm, normal s1,s2, trace pitting le edema lungs- ctabl, normal resp effort on o2 nc neuro- AAOxperson, place, situation Sepsis 2/2 MRSA bacteremia, Multifocal pna- resolved - cont vanc + zosyn until ZAKI and repeat bl cxs progress further then hope to de escalate soon MRSA bacteremia- repeat cxs 06/09 ngtd, given bioprosthetic valve ZAKI, in AM Acute on chonic Hypoxic resp failure, 2/2 multifocal pna and Acute HFrEF, resolved- home o2 is 2L prn NSTEMI- appreciate cards input, [facility] IN AM Acute HFrEF, New EF reduction to 25 % this admission-on BB, no acei/arb due to CKD, diuresis daily as per cards CKD stage unknown, unable to determine- stable further dx and plan as ntoed by resident <Willi Gonzalez - Last Filed: 06/14/19 15:23> Hospitalist Progress Note - Encounter Date of Encounter: 06/14/19 Time of Encounter: 09:20 - Subjective Interval History: Family present in room. Pt reports feeling fatigued, otherwise feels well and comfortable. SOB has improved. Continues to have anxiety about her upcoming procedure. - Exam Vitals: Temp Pulse Resp BP Pulse Ox 98.9 F 73 18 168/93 99 06/14/19 05:51 06/14/19 07:09 06/14/19 07:29 06/14/19 07:09 06/14/19 07:29 Exam: gen- A &O x 3, appears stated age cv- reg rate and rhythm, normal s1,s2, no murmurs appreciated, no jvd lungs- CTA bilaterally, diminished breath sounds throughout, no increased resp effort at rest on 2L. abd- soft, non tender, non distended, bowel sounds normal ext: tender, trace +1 pitting edema BLE, stable. skin: venous stasis and discoloration of BLE. Chronic. neuro- no focal deficits, CN 2-12 grossly intact - Assessment and Plan (1) Multifocal pneumonia Current Visit: Yes Status: Resolved Assessment and Plan: PNA has resolved. Recent CXR demonstrated worsening of pulmonary edema. This is unlikely to be infectious in etiology. - Continue vancomycin and Zosyn until ZAKI results. - Awaiting repeat Bcx. (2) Sepsis Current Visit: Yes Status: Resolved Assessment and Plan: Sepsis is secondary to MRSA bacteremia. We will continue vancomycin and zosyn until ZAKI and Bcx results. (3) MRSA bacteremia Current Visit: Yes Status: Resolved Assessment and Plan: NGTD on repeat blood cultures. Awaiting further results from ZAKI. (4) NSTEMI (non-ST elevated myocardial infarction) Current Visit: Yes Status: Acute Assessment and Plan: LHC and ZAKI were cancelled yesterday secondary to acute SOB while supine. Cardiology would like to maximize resp status prior to repeat procedure. Renal function improving significantly. BUN 12, Cr 0.96 today. - Lasix increased to 40 mg per cardiology. - Monitor renal function. - Start cardiac diet today. NPO at midnight for procedure. (5) Heart failure with reduced ejection fraction Current Visit: Yes Status: Acute Assessment and Plan: EF 25%. Treated with 40 mg lasix per cardiology to maximize respiratory status prior to procedure. - monitor renal function. (6) Atrial fibrillation Current Visit: Yes Status: Acute Assessment and Plan: Currently stable. NOAC was d/c at admission. - Continue Heparin GTT. (7) CKD (chronic kidney disease) Current Visit: Yes Status: Acute Assessment and Plan: Lasix increased to 40 mg IV per cardio. Renal function has been stable. - Time Spent with Patient Total time spent is greater than 50% in coordination of care (as documented) at patient's floor/unit and/or counseling patient: Plan of Care Discussed with: patient Internal Medicine: Result - Labs CBC & Chem 7: 06/14/19 05:34 06/14/19 05:34 Labs: Short CBC 06/14/19 Range/Units 05:34 WBC 8.1 (4.3-11.1) K/mcL Hgb 11.0 L (11.5-15.4) g/dL Hct 33.2 L (35.3-44.9) % Plt Count 174 (140-400) K/mcL Neutrophils # 5.6 (1.6-8.9) K/mcL BMP 06/14/19 05:34 Sodium 137 Potassium 3.6 Chloride 99 Carbon Dioxide 27 BUN 12 Creatinine 0.96 Glucose 128 H Calcium 9.1 - ABG Interpretation ABG results: ABG ABG pH 7.37 pH Units (7.32-7.45) 06/08/19 07:04 ABG pCO2 41 mmHg (35-45) 06/08/19 07:04 ABG pO2 192 mmHg (85-104) H 06/08/19 07:04 ABG O2 Saturation 100 % (95-98) H 06/08/19 07:04 PT/INR, D-dimer PT 13.3 Seconds (9.4-12.1) H 06/13/19 01:10 - Impressions Impressions Chest X-Ray 06/13/19 12:49 IMPRESSION: Worsening diffuse bilateral lung opacities may represent worsening multifocal pneumonia and/or pulmonary edema. Cardiomegaly. Small bilateral pleural effusions. D/ / Larry Villa MD / Larry Villa MD Interpreting Provider: Larry Villa MD <Mallika Barillas M - Last Filed: 06/14/19 12:11> (2) CKD (chronic kidney disease) Qualifiers: Chronic kidney disease stage: unspecified stage Qualified Code(s): N18.9 - Chronic kidney disease, unspecified (5) Sepsis Qualifiers: Sepsis type: methicillin resistant Staphylococcus aureus Sepsis acute organ dysfunction status: with acute organ dysfunction Severe sepsis acute organ dysfunction type: acute respiratory failure Acute respiratory failure type: with hypoxia Severe sepsis shock status: without septic shock Qualified Code(s): A41.02 - Sepsis due to Methicillin resistant Staphylococcus aureus; R65.20 - Severe sepsis without septic shock; J96.01 - Acute respiratory failure with hypoxia (8) Atrial fibrillation Qualifiers: Atrial fibrillation type: paroxysmal Qualified Code(s): I48.0 - Paroxysmal atrial fibrillation <Willi Gonzalez M - Last Filed: 06/14/19 15:23> (2) Sepsis Qualifiers: Sepsis type: methicillin resistant Staphylococcus aureus Sepsis acute organ dysfunction status: with acute organ dysfunction Severe sepsis acute organ dysfunction type: acute respiratory failure Acute respiratory failure type: with hypoxia Severe sepsis shock status: without septic shock Qualified Code(s): A41.02 - Sepsis due to Methicillin resistant Staphylococcus aureus; R65.20 - Severe sepsis without septic shock; J96.01 - Acute respiratory failure with hypoxia (7) CKD (chronic kidney disease) Qualifiers: Chronic kidney disease stage: stage 3 (moderate) Qualified Code(s): N18.3 - Chronic kidney disease, stage 3 (moderate)
[2019-06-14] MEDS: predniSONE 5 MG TABLET PO SCH (10:36)
[2019-06-14] MEDS: Letrozole 2.5 MG TABLET PO SCH (10:36)
[2019-06-14] MEDS: Metoprolol XL (24 HR) Succ 25 MG TAB.ER.24H PO SCH (10:36)
[2019-06-14] MEDS: Magnesium Oxide 400 MG TABLET PO SCH (10:37)
[2019-06-14] MEDS: Piperacillin/Tazobactam 3.375 GM in 0.9 % Sodium Chloride Mini Bag 100 ML IVPB SCH ×3 (10:38→20:29)
[2019-06-14] MEDS: Aspirin Enteric Coated 81 MG Tablet PO SCH (10:43)
[2019-06-14] MEDS: Furosemide 20 MG/2 ML VIAL IVP SCH ×2 (10:44→18:36)
[2019-06-14] MEDS: Acetaminophen 325 MG TABLET PO PRN (11:36)
[2019-06-14] MEDS: Heparin 25,000 UNIT/250 ML D5W 25,000 UNIT/250 ML IV.SOLN IVC SCH (11:38)
[2019-06-14] MEDS: Pantoprazole 40 MG VIAL IVP SCH (12:40)
[2019-06-14 15:09] LABS: Heparin anti-factor XA UFH 0.77 IU/mL (0.30-0.70)
[2019-06-14] MEDS: rOPINIRole 0.25 MG TABLET PO SCH (20:29)
[2019-06-14] MEDS: ALPRAZolam 0.25 MG TABLET PO PRN (20:29)
[2019-06-14] MEDS: *HR* Heparin 5,000 UNIT/ML VIAL IVP PRN (22:15)
[2019-06-15] MEDS: Insulin LISPRO 300 UNITS/3 ML VIAL SQ SCH ×4 (00:31→21:58)
[2019-06-15] MEDS: Ipratropium/Albuterol Neb 3 ML IH SCH ×6 (04:06→23:54)
[2019-06-15 04:25] LABS: Basophils % 0.3 %; Eosinophils # 0.7 K/mcL (0.0-0.6); Eosinophils % 6.6 %; Hematocrit 32.7 % (35.3-44.9); Immature Granulocytes % 1.4 % (0-4); Lymphocytes # 1.5 K/mcL (0.6-4.6); Lymphocytes % 15.1 %; Mean Corpuscular HGB Conc 33.6 g/dL (31.6-35.5); Mean Corpuscular Hemoglobin 30.4 pg (28.0-33.3); Mean Corpuscular Volume 90.3 fL (83.0-100.0); Mean Platelet Volume 10.6 fL (9.4-12.4); Monocytes # 0.8 K/mcL (0.0-1.3); Monocytes % 8.3 %; Neutrophils # 6.9 K/mcL (1.6-8.9); Platelet Count 186 K/mcL (140-400); Red Blood Count 3.62 M/mcL (3.82-4.97); Red Cell Distribution Width 14.3 % (11.5-14.5); Segmented Neutrophils % 68.3 %; White Blood Count 10.1 K/mcL (4.3-11.1)
[2019-06-15 04:44] LABS: BUN/Creatinine Ratio 10 (6-26); Blood Urea Nitrogen 10 mg/dL (8-23); Carbon Dioxide 28 mEq/L (23-29); Chloride 97 mEq/L (98-107); Glucose 119 mg/dL (70-105); Osmolality,Calculated 278 (280-300); Potassium 3.9 mEq/L (3.5-5.1); Sodium 134 mEq/L (136-145); eGFR For African Americans > 60 (> 60); eGFR For Non-African Americans 51 (> 60)
[2019-06-15 04:52] LABS: Activated Partial Thrombo Time 136.8 Seconds (26.0-36.0)
[2019-06-15 04:57] LABS: Heparin anti-factor XA UFH 0.71 IU/mL (0.30-0.70)
[2019-06-15] MEDS: Piperacillin/Tazobactam 3.375 GM in 0.9 % Sodium Chloride Mini Bag 100 ML IVPB SCH ×3 (05:09→22:00)
[2019-06-15] MEDS: Acetaminophen 325 MG TABLET PO PRN (06:28)
[2019-06-15] MEDS: Budesonide/Formoterol 160/4.5 1 PUFF INH IH SCH ×2 (07:26→19:34)
--- NOTE | 2019-06-15 09:41 | Internal Med Progress Note ---
Hospitalist Progress Note - Encounter Date of Encounter: 06/15/19 Time of Encounter: 09:41 - Subjective Interval History: Ms. Esteves is a 79 y/o female who is on day 7 of admission. She is currently being treated for MRSA sepsis and awaiting LHC and ZAKI from cardiology. She feels better today than she has previously and is sitting comfortably bedside. She states that she is not currently in pain. She confirms that she has a cough and some slight wheezing. She denies chest pain, headaches, and dizziness. She states that her legs are tender to the touch. Pt. states that she is ready to have her procedure. - Exam Vitals: Temp Pulse Resp BP Pulse Ox 97.7 F 67 17 155/86 100 06/15/19 07:00 06/15/19 07:00 06/15/19 07:27 06/15/19 07:00 06/15/19 07:27 Gen: AOx3, pleasant affect, no acute distress Chest: CTA b/l, no wheezing or crackles Cardio: RRR no m/r/g Skin: dry and warm Abd: soft, non-tender, bowel sounds present Extremities: b/l lower extremity non-pitting edema, sensation present Neuro: answers appropriate, no focal deficits Pulses: present on all extremities - Time Spent with Patient Total time spent is greater than 50% in coordination of care (as documented) at patient's floor/unit and/or counseling patient: Internal Medicine: Result - Labs CBC & Chem 7: 06/15/19 04:13 06/15/19 04:13 Labs: Short CBC 06/15/19 Range/Units 04:13 WBC 10.1 (4.3-11.1) K/mcL Hgb 11.0 L (11.5-15.4) g/dL Hct 32.7 L (35.3-44.9) % Plt Count 186 (140-400) K/mcL Neutrophils # 6.9 (1.6-8.9) K/mcL BMP 06/15/19 04:13 Sodium 134 L Potassium 3.9 Chloride 97 L Carbon Dioxide 28 BUN 10 Creatinine 1.04 Glucose 119 H Calcium 9.0 - ABG Interpretation ABG results: ABG ABG pH 7.37 pH Units (7.32-7.45) 06/08/19 07:04 ABG pCO2 41 mmHg (35-45) 06/08/19 07:04 ABG pO2 192 mmHg (85-104) H 06/08/19 07:04 ABG O2 Saturation 100 % (95-98) H 06/08/19 07:04 PT/INR, D-dimer PT 13.3 Seconds (9.4-12.1) H 06/13/19 01:10 Consult Discharge Plan - Plan Referrals: Casandra Evans MD [Primary Care Provider] - 06/21/19 1:15 pm
[2019-06-15] MEDS: ALPRAZolam 0.25 MG TABLET PO PRN ×2 (11:51→22:00)
[2019-06-15] MEDS: Heparin 25,000 UNIT/250 ML D5W 25,000 UNIT/250 ML IV.SOLN IVC SCH (11:54)
--- NOTE | 2019-06-15 12:10 | Pre-Sedation Evaluation ---
Pre-sedation evaluation - Pre-sedation checklist Date of procedure: 06/15/19 Procedure: [facility] Recent Vitals: Last Vital Signs Temp 97.7 F 06/15/19 11:00 Pulse 67 06/15/19 11:00 Resp 18 06/15/19 11:27 BP 138/74 06/15/19 11:00 Pulse Ox 97 06/15/19 11:27 H&P (including ROS) documented in medical record: Yes Previous reaction to sedatives/anesthetics: No Dietary Status: NPO after Midnight Dentition: No loose teeth or bridges ASA Classification *see protocol: CLASS II-Mild systemic disease Plan of Care: Pt appropriate candidate for procedure/moderate/conscious sedation, Risks/benefits of procedure/sedation discussed w/ patient/family Cardiac Registry (Cardio Only) - Functional Capacity Functional Capacity: >=4 METS with symptoms - Clincal Frailty Scale Clinical Frailty Scale: Managing Well
--- NOTE | 2019-06-15 12:15 | Event Note ---
Date of Encounter: 06/15/19 Time of Encounter: 12:12 - Cardiology Event Note Plan for LHC today for NSTEMI, new cardiomyopathy. Patient with improved respiratory status today. Patient tolerated laying flat. Risks versus benefits of LHC explained to patient and family, states understanding and agreeable to proceed. Patient was recommended for ZAKI per ID. Will plan ZAKI for later date. Further recs pending LHC. HAS-BLED Score - Score Elderly: Age>65 years Medication usage predisposing to bleeding: Antiplatelet agents, NSAIDs, Anticoagulants Score: 2
[2019-06-15] MEDS: Magnesium Oxide 400 MG TABLET PO SCH (12:27)
[2019-06-15] MEDS: predniSONE 5 MG TABLET PO SCH (12:27)
[2019-06-15] MEDS: Pantoprazole 40 MG VIAL IVP SCH (12:28)
[2019-06-15] MEDS: Letrozole 2.5 MG TABLET PO SCH (12:28)
[2019-06-15] MEDS: Furosemide 20 MG/2 ML VIAL IVP SCH ×2 (12:28→18:04)
[2019-06-15] MEDS: Aspirin Enteric Coated 81 MG Tablet PO SCH (12:28)
[2019-06-15] MEDS: Metoprolol XL (24 HR) Succ 25 MG TAB.ER.24H PO SCH (12:28)
[2019-06-15] MEDS ORDERED: 0.9 % Sodium Chloride 1,000 ML ONE (15:31)
[2019-06-15] MEDS ORDERED: Nitroglycerin 1,000 MCG/10 ML VIAL IV ONE (15:32)
[2019-06-15] MEDS ORDERED: *HR* Heparin 10,000 UNIT/10 ML VIAL ONE (15:32)
[2019-06-15] MEDS ORDERED: Heparin 1,000 UNITS/500 mL 500 ML ONE (15:32)
[2019-06-15] MEDS ORDERED: Iopamidol 125 ML INFUS..BTL ONE (15:32)
[2019-06-15] MEDS ORDERED: *HR* Midazolam HCl 2 MG/2 ML VIAL ONE (15:39)
[2019-06-15] MEDS ORDERED: *HR* FentaNYL (PF) 100 MCG/2 ML VIAL ONE (15:39)
--- NOTE | 2019-06-15 16:01 | Internal Med Progress Note ---
<Gerson Morales - Last Filed: 06/15/19 16:21> Hospitalist Progress Note - Encounter Date of Encounter: 06/15/19 Time of Encounter: 16:01 - Subjective Interval History: No acute events overnight. Patient complains of fatigue this morning. She was informed of plan for left heart catheterization today. She stated she understo od and agreed with the plan of care. - Exam Vitals: Temp Pulse Resp BP Pulse Ox 97.7 F 67 18 138/74 97 06/15/19 11:00 06/15/19 11:00 06/15/19 11:27 06/15/19 11:00 06/15/19 11:27 Exam: gen- A &O x 3, appears stated age cv- reg rate and rhythm, normal s1,s2, no murmurs appreciated, no jvd lungs- CTA bilaterally, diminished breath sounds throughout, no increased resp effort at rest on 2L. abd- soft, non tender, non distended, bowel sounds normal ext: tender, trace +1 pitting edema BLE, stable. skin: venous stasis and discoloration of BLE. Chronic. neuro- no focal deficits, CN 2-12 grossly intact - Assessment and Plan (1) NSTEMI (non-ST elevated myocardial infarction) Current Visit: Yes Status: Acute Assessment and Plan: Patient originally admitted with sepsis secondary to multifocal pneumonia and MRSA bacteremia She was also found to have an STEMI and acute exacerbation of heart failure with reduced ejection fraction She has been treated with IV vancomycin and Zosyn for pneumonia and MRSA bacteremia She is on heparin drip and is receiving left heart catheterization today for NSTEMI Because of MRSA bacteremia and known aortic valve replacement ZAKI is pending Heart failure has been treated with Lasix diuresis and beta danii Further recommendations per cardiology after [facility] (2) Acute exacerbation of CHF (congestive heart failure) Current Visit: Yes Status: Acute Assessment and Plan: Continue medical management with beta danii, Lasix diuresis. ZAKI pending and further cardiology recommendations pending (3) Aortic valve replaced Current Visit: No Status: Chronic Assessment and Plan: ZAKI pending (4) CKD (chronic kidney disease) Current Visit: No Status: Chronic Assessment and Plan: Known chronic kidney disease not currently in LUDIN, continue to monitor (5) MRSA bacteremia Current Visit: Yes Status: Resolved Assessment and Plan: Treated with vancomycin, repeat blood cultures negative, infectious disease following, appreciate recommendations (6) Pneumonia Current Visit: Yes Status: Resolved (7) Atrial fibrillation Current Visit: No Status: Chronic Assessment and Plan: Rate controlled beta danii, anticoagulated with heparin drip, NOAC held during admission (8) DVT prophylaxis Current Visit: Yes Status: Acute Assessment and Plan: Heparin drip - Time Spent with Patient Total time spent is greater than 50% in coordination of care (as documented) at patient's floor/unit and/or counseling patient: Internal Medicine: Result - Labs CBC & Chem 7: 06/15/19 04:13 06/15/19 04:13 Labs: Short CBC 06/15/19 Range/Units 04:13 WBC 10.1 (4.3-11.1) K/mcL Hgb 11.0 L (11.5-15.4) g/dL Hct 32.7 L (35.3-44.9) % Plt Count 186 (140-400) K/mcL Neutrophils # 6.9 (1.6-8.9) K/mcL BMP 06/15/19 04:13 Sodium 134 L Potassium 3.9 Chloride 97 L Carbon Dioxide 28 BUN 10 Creatinine 1.04 Glucose 119 H Calcium 9.0 - ABG Interpretation ABG results: ABG ABG pH 7.37 pH Units (7.32-7.45) 06/08/19 07:04 ABG pCO2 41 mmHg (35-45) 06/08/19 07:04 ABG pO2 192 mmHg (85-104) H 06/08/19 07:04 ABG O2 Saturation 100 % (95-98) H 06/08/19 07:04 PT/INR, D-dimer PT 13.3 Seconds (9.4-12.1) H 06/13/19 01:10 Consult Discharge Plan - Plan Referrals: Casandra Evans MD [Primary Care Provider] - 06/21/19 1:15 pm <Trey Mcleod - Last Filed: 06/15/19 18:05> Hospitalist Progress Note - Encounter Date of Encounter: 06/15/19 - Exam Vitals: Temp Pulse Resp BP Pulse Ox 97.7 F 59 16 151/89 97 06/15/19 11:00 06/15/19 17:00 06/15/19 17:00 06/15/19 17:00 06/15/19 11:27 - Assessment and Plan (1) Atrial fibrillation Current Visit: No Status: Chronic (2) Acute on chronic respiratory failure with hypoxemia Current Visit: Yes Status: Resolved (3) NSTEMI (non-ST elevated myocardial infarction) Current Visit: Yes Status: Acute (4) Multifocal pneumonia Current Visit: Yes Status: Resolved (5) Sepsis Current Visit: Yes Status: Resolved (6) MRSA bacteremia Current Visit: Yes Status: Resolved (7) Encephalopathy Current Visit: Yes Status: Resolved (8) CHF (congestive heart failure) Current Visit: Yes Status: Chronic - Time Spent with Patient Total time spent is greater than 50% in coordination of care (as documented) at patient's floor/unit and/or counseling patient: Internal Medicine: Result - Labs CBC & Chem 7: 06/15/19 04:13 06/15/19 04:13 Labs: Short CBC 06/15/19 Range/Units 04:13 WBC 10.1 (4.3-11.1) K/mcL Hgb 11.0 L (11.5-15.4) g/dL Hct 32.7 L (35.3-44.9) % Plt Count 186 (140-400) K/mcL Neutrophils # 6.9 (1.6-8.9) K/mcL BMP 06/15/19 04:13 Sodium 134 L Potassium 3.9 Chloride 97 L Carbon Dioxide 28 BUN 10 Creatinine 1.04 Glucose 119 H Calcium 9.0 - ABG Interpretation ABG results: ABG ABG pH 7.37 pH Units (7.32-7.45) 06/08/19 07:04 ABG pCO2 41 mmHg (35-45) 06/08/19 07:04 ABG pO2 192 mmHg (85-104) H 06/08/19 07:04 ABG O2 Saturation 100 % (95-98) H 06/08/19 07:04 PT/INR, D-dimer PT 13.3 Seconds (9.4-12.1) H 06/13/19 01:10 - Attending Attestation I examined this patient and my medical decision-making was reviewed with the Resident Physician on 06/15/19. I agree with the documented findings, disposition and treatment plan as described except to the extent set forth below. Ms Esteves is currently admitted for MRSA bacteremia. She remains moderate to high risk due to potential for worsening clinical status. Ms Esteves is up in chair. No fever or chills. Awaiting C. No CP. Tolerating IV abx. Exam: Alert. Comfortable. EOMI. NC. Mucus membranes dry. Heart distant and regular. No wheeze. Abd soft. No edema. No rash. Moves all extremities. Plan: Continue IV abx. C today. Needs ZAKI. ID consult for abx guidance and following. <Gerson Morales - Last Filed: 06/15/19 16:21> (2) Acute exacerbation of CHF (congestive heart failure) Qualifiers: Heart failure type: diastolic Qualified Code(s): I50.33 - Acute on chronic diastolic (congestive) heart failure (4) CKD (chronic kidney disease) Qualifiers: Chronic kidney disease stage: unspecified stage Qualified Code(s): N18.9 - Chronic kidney disease, unspecified (6) Pneumonia Qualifiers: Pneumonia type: due to Pneumococcus Laterality: right Lung location: lower lobe of lung Qualified Code(s): J13 - Pneumonia due to Streptococcus pneumoniae (7) Atrial fibrillation Qualifiers: Atrial fibrillation type: paroxysmal Qualified Code(s): I48.0 - Paroxysmal atrial fibrillation <Trey Mcleod - Last Filed: 06/15/19 18:05> (1) Atrial fibrillation Qualifiers: Atrial fibrillation type: paroxysmal Qualified Code(s): I48.0 - Paroxysmal atrial fibrillation (5) Sepsis Qualifiers: Sepsis type: methicillin resistant Staphylococcus aureus Sepsis acute organ dysfunction status: with acute organ dysfunction Severe sepsis acute organ dysfunction type: acute respiratory failure Acute respiratory failure type: with hypoxia Severe sepsis shock status: without septic shock Qualified Code(s): A41.02 - Sepsis due to Methicillin resistant Staphylococcus aureus; R65.20 - Severe sepsis without septic shock; J96.01 - Acute respiratory failure with hypoxia (8) CHF (congestive heart failure) Qualifiers: Heart failure type: combined systolic and diastolic Heart failure chronicity: chronic Qualified Code(s): I50.42 - Chronic combined systolic (congestive) and diastolic (congestive) heart failure
--- NOTE | 2019-06-15 16:18 | Invasive Diagnostic Lab Proc ---
Name: Umm Esteves Date of Study: 06/15/2019 Date: 1940 Ht: 59.8in Medical Record#: [id number] Age: 79 Wt: 167.55lb Gender: Female BSA: 1.73 Order #: [id number] BMI: 32.89 Physicians Procedure Physician: [facility] Aponte [facility] Referring MD: Referring MD: Staff Name Position Time [facility] Monitor 03:50 PM Mil Noonan RN Blanking Machine Operator 03:50 PM Ivan Carballo RT (R) Scrub 03:50 PM Procedures Performed Procedure L HRT ARTERY/VENTRICLE ANGIO Pre-Procedure Checklist Informed consent is complete signed and on chart. H&P is on chart. ID band is on and ID verified with patient. Patient NPO for procedure The procedure was described for the patient and questions were answered. ECG is on chart. Plan of Care Patient will tolerate the procedure without complications. Adequate level of comfort will be maintained. Hemodynamics will remain stable Patient will recover from procedure without complications. Respiratory function will be maintained. Cardiac rhythm will remain stable. Patient temperature will be maintained. Patient and/or family have verbalized understanding of the procedure. Patient Education Chief Complaint/Reason for Test: Cardiac Cath Developmental Category: Geriatric (65+ years) Developmentally Appropriate for Age: Yes Learning Barriers: None Education Needs: Procedure Education Method: Verbal Information Taught: Cardiac Cath Educational Evaluation: Able to repeat information Intravenous Access Time IV Size Location DC'd Fluid/Drip Rate Units RN 20g 1 /" Patent On Arrival Lt Arm 0.9NaCl ml/hr Allergies No Known Allergies Vital Signs Time BP (mmHg) HR (bpm) O2 Sat. RR (bpm) LOC 03:47 PM 172 / 99 68 100 % 26 03:51 PM 156 / 94 72 100 % 20 03:56 PM 149 / 78 61 100 % 21 04:01 PM 146 / 85 61 100 % 31 04:06 PM 149 / 89 60 100 % 20 Procedural Medications Time Medication Dose Units Method Given By 03:52 PM Oxygen 2 L/min nasal cannula Mil Noonan RN 03:52 PM Versed 2 mg Intravenous Mil Noonan RN 03:52 PM Fentanyl 25 mcg Intravenous Mil Noonan RN 03:53 PM Lidocaine 2% 20 ml Subcutaneous Jai Aponte MD, [facility] ASA Classification: CLASS II- Mild systemic disease (i.e. well-controlled diabetes, hypertension, asthma, cigarette smoking) Leda Score Preprocedure Postprocedure Activity 2- Moves 4 extremities sustained head lift Activity 2- Moves 4 extremities sustained head lift Circulation 2- SBP +/= 20 points of pre-anesthetic level Circulation 2- SBP +/= 20 points of pre-anesthetic level Consciousness 2- Awake and alert oriented x 3 Consciousness 2- Awake and alert oriented x 3 O2 Saturation 2- Able to maintain O2 satruation of 92% on room air O2 Saturation 2- Able to maintain O2 satruation of 92% on room air Respiratory 2- Able to deep breathe and cough well Respiratory 2- Able to deep breathe and cough well Total Score 10 Total Score 10 Contrast Agent: Isovue Diagnostic Contrast: 75 ml Total Contrast: 75 ml Fluoro Dose: 16 mGy Procedure Log Time Note Enter By 03:45 PM Vitals capture started with the following parameters, Patient=Adult, Interval=5 min, Initial Tkxsntms=514 mmHg, Deflation Rate=3 mmHg, Cuff placed on Right Arm 03:45 PM CathStat 03:46 PM Recorded ECG: HR=72 Condition=Condition 1 03:47 PM HR=68 bpm, RIFE=990/99 mmhg, SmA3=639.0 %, Resp=26 B/min 03:50 PM 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 Informed consent was obtained. mm 03:52 PM Procedure start 15:52 mm 03:52 PM Hair removed from procedure site in procedure lab using clippers. Bilateral groin prepped with Chloraprep by Milagro Saab RN, then patient was draped. Skin intact. 03:52 PM Time: 15:52 Oxygen on at 2 L/min per nasal cannula by Mil Noonan RN 03:52 PM Time: 15:52 Versed 2 mg Intravenous Given by Mil Noonan RN [email or web address] 03:52 PM Time: 15:52 Fentanyl 25 mcg Intravenous Given by Mil Noonan RN 03:53 PM Recorded ECG: HR=68 Condition=Condition 1 03:53 PM Time out was performed according to hospital policy. Conscious sedation and anesthesia was achieved (see medication log with in this report above) mm 03:53 PM ASA Class CLASS II- Mild systemic disease (i.e. well-controlled diabetes, hypertension, asthma, cigarette smoking) 03:54 PM Time: 15:53 20 ml Lidocaine 2% to right groin Subcutaneous Given by Jai Aponte MD, [facility] 03:54 PM Pressure channel 1 zeroed. 03:54 PM Access obtained by percutaneous puncture. 5Fr 10cm Terumo Carlyle sheath placed in right Femoral artery. [id number] mm 03:54 PM 0.035 145cm Navilyst 3mmJ wire [id number] mm 03:54 PM 5Fr FL 4 catheter inserted over the wire [facility] 03:55 PM wire removed [facility] 03:56 PM LCA angiography performed in multiple views. 03:56 PM Recorded Pressure: Ao, HR=63, Condition=Condition 1 (Aorta) Ao 117/72/93 03:56 PM HR=61 bpm, XDKU=709/78 mmhg, QmX6=464.0 %, Resp=21 B/min 03:57 PM Catheter removed [facility] 03:57 PM 5Fr FR 4 catheter inserted over the wire [facility] 03:58 PM Coronary Dominance: right tsmm 03:58 PM Lesion found in Mid LAD. Pre Stenosis: 60 Pre BERNADETTE Flow: mm 03:58 PM RCA angiography performed in multiple views. 03:59 PM Lesion found in Mid RCA. Pre Stenosis: 50 Pre BERNADETTE Flow: [email or web address] 03:59 PM Lesion found in Proximal Circumflex. Pre Stenosis: 30 Pre BERNADETTE Flow: [email or web address] 03:59 PM Lesion found in Mid Circumflex. Pre Stenosis: 40 Pre BERNADETTE Flow: [email or web address] 03:59 PM Mid/Distal Left Anterior Descending Coronary Artery and diagonal branches with 60% stenosis. If graft is supplying this area, 0 % stenosis tsoummers 03:59 PM Circumflex, Obtuse Marginal, Left Posterior Descending, and Left Posterolateral Coronary Arteries with 40 % stenosis. If graft is supplying this area, 0 % stenosis tsoummers 03:59 PM Right Coronary, Right Posterior Descending Arteries with Right Posterolateral and Acute Marginal branches with 50 % stenosis. If graft is supplying this area, 0 % stenosis tsoummers 03:59 PM Recorded Pressure: Ao, HR=62, Condition=Condition 1 (Aorta) Ao 106/67/86 04:00 PM Catheter removed tsoumm 04:00 PM 5Fr Pigtail catheter inserted over the wire [facility] tsoummers 04:01 PM Catheter crossed the aortic valve and was selectively placed in the left ventricle. Pressures recorded on pullback for left heart catheterization. tsoummers 04:01 PM Recorded Pressure: LV, HR=62, Condition=Condition 1 (Left Ventricle) LV 146/13/19 04:01 PM Bolus angiogram of left Ventricle complete: 12 ml/sec for a total of 30 mls tsoummers 04:01 PM HR=61 bpm, WUCT=619/85 mmhg, LwX0=815.0 %, Resp=31 B/min 04:01 PM Recorded Pressure: LV, Ao, HR=62, Condition=Condition 1 (Left Ventricle) LV 147/17/23, (Aorta) Ao 142/60/89 04:02 PM Catheter removed tsoummers 04:02 PM Bolus angiogram of right Femoral complete: 4 ml/sec for a total of 7 mls tsoummers 04:02 PM Procedure completed at 16:02 06/15/2019 [email or web address] 04:03 PM Did you address BERNADETTE flow and Dominance? YesCoronary Dominance: right [email or web address] 04:04 PM Sign out completed: Radiation Dose 106.91 mGy, 15.5 Gy/cm2 Fluoro Time: 1.4 Isovue 370 - 200ml contrast 75 ml given by Jai Aponte MD, [facility]. Complications: None. 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 Sedation minutes 12. Cardiac Rehab Consult needed: No. Confirmed administered medications: Yes tsoummers 04:04 PM Isovue 370 - 200ml,1 Bottle(s) used. tsoummers 04:05 PM Arterial sheath pulled, Mynx closure device used and was Successful [id number] S/N. tsoummers 04:05 PM Estimated Blood Loss: minimal tsoummers 04:05 PM Post ECG Paced tsoummers 04:05 PM Post Blood Pressure 146/85 tsoummers 04:05 PM Information taught Cardiac Cath and Mynx tsoummers 04:05 PM Education needs Procedure, Plan of Care, and Responsibilities of Patient in Care tsoummers 04:05 PM Learning barriers :None tsoummers 04:05 PM Education Methods Verbal tsoummers 04:05 PM Education evaluation Able to repeat information tsoummers 04:06 PM Plavix, Effient or Brilinta given No tsoummers 04:06 PM Delay to floor No tsoummers 04:06 PM Family placed in consult room. tsoummers 04:06 PM HR=60 bpm, CCJD=922/89 mmhg, WwQ4=343 %, Resp=20 B/min 04:08 PM Report given to Nati MARTINEZ Pt taken to E Room #35. 16:07 tsoummers 04:08 PM Site status No bleeding/ No Hematoma - Rt Groin as reported by Ivan Carballo RT (R) at 16:08 tsoummers 04:08 PM Opsite applied tsoummers 04:10 PM Patient out of room: 16:09 tsoummers Complications Complication None Hemodynamics Pressures Site Systolic/A Wave Diastolic/V Wave Mean AO 117 72 93 AO 106 67 86 LV 146 13 19 LV 147 17 23 AO 142 60 89 Post Procedure Information Blood Pressure: 146/85 mmHg Rhythm: Paced Post procedural instructions were given Closure Device Time Device Success/Fail 06/15/2019 4:06:00 PM MynxGrip Successful Site Checks Time Location Status Staff Sheath In? Note 04:08 PM Rt Groin No bleeding/ No Hematoma Ivan Carballo RT (R) Pulses Time Site Pre-Procedure Post-Procedure Note Bilateral DP & PT 1+ Bilateral radial 2+ Updated by Milagro Saab RN on 06/15/2019 4:12:11 PM electronically signed on 06/15/2019 4:13:41 PM with status of Final
[2019-06-15] MEDS ORDERED: *HR* Heparin 5,000 UNIT/ML VIAL IVP ONE ×2 (18:44→21:45)
[2019-06-15] MEDS ORDERED: *HR* Heparin 5,000 UNIT/ML VIAL IVP PRN ×2 (18:44)
[2019-06-15] MEDS ORDERED: Heparin 25,000 UNIT/250 ML D5W 25,000 UNIT/250 ML IV.SOLN IVC SCH ×2 (18:45→22:13)
--- NOTE | 2019-06-15 18:49 | Event Note ---
Date of Encounter: 06/16/19 Time of Encounter: 18:50 - Cardiology Event Note EF 30% mLAD 50-60% stenosis. <2mm small vessel LCx nonsevere disease RCA - did not visualize previously as TAVR obscures and covers the right coronary sinus but after magnified review on workstation it appears ostial RCA has severe disease 90-95% Will continue heparin and discuss medical/revascularization options with our heart team vs. evaluation by her TAVR team
[2019-06-15 20:30] LABS: Hematocrit 33.7 % (35.3-44.9); Hemoglobin 11.2 g/dL (11.5-15.4); Mean Corpuscular HGB Conc 33.2 g/dL (31.6-35.5); Mean Corpuscular Hemoglobin 30.4 pg (28.0-33.3); Mean Corpuscular Volume 91.3 fL (83.0-100.0); Mean Platelet Volume 10.9 fL (9.4-12.4); Platelet Count 192 K/mcL (140-400); Red Blood Count 3.69 M/mcL (3.82-4.97); Red Cell Distribution Width 14.4 % (11.5-14.5); White Blood Count 8.6 K/mcL (4.3-11.1)
[2019-06-15 20:39] LABS: INR 1.1; Prothrombin Time 12.4 Seconds (9.4-12.1)
[2019-06-15 20:41] LABS: Heparin anti-factor XA UFH 0.02 IU/mL (0.30-0.70)
[2019-06-15 21:52] LABS: Activated Partial Thrombo Time 30.4 Seconds (26.0-36.0)
--- NOTE | 2019-06-15 21:53 | Infectious Disease Consult ---
Infectious Disease-Consult - Encounter Date/Time Date of Encounter: 06/15/19 Time of Encounter: 21:33 - Data of Consult Patient: new to practice Reason for consult: MRSA bacteremia Consult date: 06/15/19 Requesting Physician: Trey Mcleod DO Primary Care Provider: Casandra Evans MD - [facility] HPI: Patient is a 79 year old woman who presented to [place] ED on 06/08 with AMS. I was asked to see patient by Dr. Mcleod on 06/15 for complicated MRSA bacteremia. Patient is a 79 year old woman with PMH significant for breast cancer diagnosed in January of this year not on chemo/radiation, history of AVR and pacemaker placement at [facility] in 2016, CHF, DM 2 non insulin dependent and COPD was brought to the ED by EMS for AMS and found almost unresponsive on her bed by her . Most of the information was taken from medical records and daughter who is at bedside. Patient does not have a good recollection of what happened. In the ED, patient had a temp of 104.2F, RR 41 and HR of 88. She was normotensi ve and was saturating 100% on 10 L. initial labs revealed a WBC of 30 with 89%N. BUN 26, Cr 1.55 and lactic acid of 3.2. Patient also had a troponin of 4.1. U/A was not impressive. imaging revealed a CT head with no acute process. CT chest noted diffuse airspace opacities throught both lungs compatible with infection. Blood cultures x 2 06/08 were positive for MRSA. urine legionella and S. pneumo antigen were negative. patient was started on vancomycin/zosyn and levofloxacin empirically. Repeat blood cultures 06/09 2/2 sets no growth . We were asked to see the patient and make further recommendations. Patient currently laying in bed. Denies any DOAN. no CP, No SOB. no abdominal pain and no urinary symptoms. Patient continues on vancomycin and zosyn. - ROS Review of Systems: 10 point ROS done, negative other for what's mentioned in the HPI - Results CBC & Chem 7: 06/15/19 20:05 06/15/19 04:13 - Exam Vitals: Temp Pulse Resp BP Pulse Ox 97.8 F 63 14 139/69 100 06/15/19 20:45 06/15/19 20:45 06/15/19 20:45 06/15/19 20:45 06/15/19 20:45 Exam: GENERAL: Laying in bed, appears comfortable. HEAD: Normocephalic atraumatic EYES: PERRLA, EOMI, no conjunctival hemorrhage, sclera anicteric ENT: Mucous membranes moist, no oral thrush NECK: Supple. No meningeal signs. No masses LUNGS: Chest expanding symmetrically. Lungs sounds audible both lung canales. no wheezing, diffuse ronchi CV: Irregularly irregular , S1S2, no murmum CHEST: pacemaker pocket intact with no signs of infection ABDOMEN: Soft, nontender, nondistended. Bowel sounds audible and hyperactive BACK: No CVA tenderness. Normal inspection. No tenderness over the spine EXTREMITY: Adequate perfusion. R knee surgical wound intact without drainage, erythema SKIN: Normal color. No rash.no endocarditis stigmata NEURO: Awake alert oriented 3. No obvious focal deficit PSYCH: Calm and appropriate. No agitation. Fluticasone/Salmeterol [Advair 500-50 Diskus] 1 each IH BID 01/19/17 [History] Amiodarone [Cordarone] 200 mg PO DAILY 10/04/17 [History] Isosorbide MONOnitrate (24 HR) [Imdur] 30 mg PO DAILY #30 tab.er.24h 10/07/17 [Rx] Atorvastatin [Lipitor] 40 mg PO HS 11/19/18 [History] ALPRAZolam [Xanax 0.25 MG Tablet] 0.25 mg PO QPM PRN 11/21/18 [History] Metoprolol Succinate [Toprol Xl] 25 mg PO DAILY 01/15/19 [History] Apixaban [Eliquis] 2.5 mg PO BID #60 tablet 02/16/19 [Rx] predniSONE [Prednisone] 2.5 mg PO DAILY #30 tablet 02/16/19 [Rx] Ferrous Sulfate [Iron] 325 mg PO TID 02/24/19 [History] Ropinirole HCl [Requip] 0.25 mg PO HS 02/24/19 [History] Bumetanide 2 mg PO DAILY 02/28/19 [History] Letrozole [Femara] 2.5 mg PO DAILY #90 tablet 02/28/19 [Rx] Cholecalciferol (Vitamin D3) [Vitamin D] 2,000 unit PO DAILY 04/05/19 [History] ALPRAZolam [Xanax 0.25 MG Tablet] 0.125 mg PO QAM PRN 06/08/19 [History] Albuterol Neb [Proventil Neb] 2.5 mg IH Q4H PRN 06/08/19 [History] Allergy/AdvReac Type Severity Reaction Status Date / Time No Known Allergies Allergy Verified 06/08/19 06:57 - Assessment and Plan (1) Severe sepsis Current Visit: Yes Status: Acute patient had 3 SIRS criteria plus lactic acidosis plus End organ damage secondary to MRSA bacteremia and pneumonia SNOMED Code(s): 32725718 (2) MRSA bacteremia Current Visit: Yes Status: Resolved complicated due to AVR and pacemaker no other hardware present source not clear - pneumonia? blood cultures 06/08 2/2 sets positive for MRSA repeat cultures 06/09 negative no endocarditis stigmata on physical exam currently on vancomycin/zosyn SNOMED Code(s): 03532161595730937 (3) Pneumonia Current Visit: Yes Status: Resolved on CT 06/08 causative organism unclear - negative S. pneumo and legionella antigen could be due to MRSA pneumonia? currently on zosyn/vancomycin Qualifiers: Pneumonia type: due to Pneumococcus Laterality: right Lung location: lower lobe of lung Qualified Code(s): J13 - Pneumonia due to Streptococcus pneumoniae SNOMED Code(s): 866493267 (4) Left leg DVT Current Visit: No Status: Acute Qualifiers: Affected thrombotic vein of extremity: tibial Chronicity: acute Qualified Code(s): I82.442 - Acute embolism and thrombosis of left tibial vein SNOMED Code(s): 715468896 (5) NSTEMI (non-ST elevated myocardial infarction) Current Visit: Yes Status: Acute SNOMED Code(s): 64984554 (6) LUDIN (acute kidney injury) Current Visit: No Status: Acute likley secondary to severe sepsis improving SNOMED Code(s): 88963955, 10181645 (7) Aortic valve replaced Current Visit: No Status: Chronic in 2015 TAVR at [facility] SNOMED Code(s): 1403008625862, 88169285, 0891081643369 (8) Left breast mass Current Visit: No Status: Acute breast cancer diagnosed in January 2019 no chemo/radiation no surgery no port SNOMED Code(s): 76742508 (9) COPD (chronic obstructive pulmonary disease) Current Visit: No Status: Chronic Qualifiers: COPD type: unspecified COPD Qualified Code(s): J44.9 - Chronic obstructive pulmonary disease, unspecified SNOMED Code(s): 77794813 (10) Diabetes Current Visit: No Status: Chronic Qualifiers: Diabetes mellitus type: type 2 Diabetes mellitus half-way insulin use: without terminal supervisor use Diabetes mellitus complication status: without complication Qualified Code(s): E11.9 - Type 2 diabetes mellitus without complications SNOMED Code(s): 47876920 (11) Atrial fibrillation Current Visit: No Status: Chronic Qualifiers: Atrial fibrillation type: paroxysmal Qualified Code(s): I48.0 - Paroxysmal atrial fibrillation SNOMED Code(s): 28545511 - Recommendations Recommendations: Patient clinically significantly improved not sure what the source of MRSA bacteremia is but high index of suspicision that it was the pneumonia patient will need a ZAKI to rule out endocarditis if endocarditis is present, patient will need to be transferred to [facility] IF ZAKI is negative, we will treat this as complicated MRSA Bacteremia with 6-8 weeks of IV vancomycin and Rifampin 450 mg bid patient is on day 8 of zosyn, will consider stopping zosyn on Thursday. monitor labs closely and for drug toxicity goal vancomycin trough around 15 d/w Dr. Mcleod we will follow up with the patient as outpatient in 2 weeks Past Med Surg Social Fam HX - Past Medical History Medical history: asthma, atrial fibrillation, cancer, CHF, COPD, coronary artery disease, DVT, diabetes, hyperlipidemia, hypertension, renal disease, valvular heart disease, other Additional medical history: iron deficiency anemia Psychiatric history: anxiety, depression - Past Surgical History Surgical History: heart valve replacement, hysterectomy, pacemaker - Social History Smoking Status: Former smoker Smokeless Tobacco Status: No Alcohol use: none Drug use: none - Family History Mother Family Member Ethnicity: Non- Living Status: Hx Family Cardiac Disorders: Yes (hypertension) Hx Family Endocrine Disorder: Yes (DM) Father Family Member Ethnicity: Non- Living Status: Hx Family Cardiac Disorders: Yes Hx Family Respiratory Disorders: Yes Hx Family Cancer: Yes Brother Family Member Ethnicity: Non- Living Status: Hx Family Respiratory Disorders: Yes (COPD, Emphysema) Sister Family Member Ethnicity: Non- Living Status: Still Living Hx Family Cardiac Disorders: Yes Hx Family Respiratory Disorders: Yes Hx Family Endocrine Disorder: Yes Consult Discharge Plan - Plan Referrals: Casandra Evans MD [Primary Care Provider] - 06/21/19 1:15 pm
[2019-06-15] MEDS: rOPINIRole 0.25 MG TABLET PO SCH (22:00)
[2019-06-16] MEDS: Insulin LISPRO 300 UNITS/3 ML VIAL SQ SCH ×4 (00:51→21:46)
[2019-06-16] MEDS: Ipratropium/Albuterol Neb 3 ML IH SCH ×5 (03:59→20:08)
[2019-06-16 04:29] LABS: Basophils % 0.5 %; Eosinophils # 0.7 K/mcL (0.0-0.6); Eosinophils % 8.2 %; Hematocrit 34.5 % (35.3-44.9); Hemoglobin 11.5 g/dL (11.5-15.4); Immature Granulocytes % 1.4 % (0-4); Lymphocytes # 1.3 K/mcL (0.6-4.6); Lymphocytes % 15.9 %; Mean Corpuscular HGB Conc 33.3 g/dL (31.6-35.5); Mean Corpuscular Hemoglobin 30.3 pg (28.0-33.3); Mean Corpuscular Volume 90.8 fL (83.0-100.0); Mean Platelet Volume 10.2 fL (9.4-12.4); Monocytes # 0.7 K/mcL (0.0-1.3); Monocytes % 8.6 %; Neutrophils # 5.5 K/mcL (1.6-8.9); Platelet Count 196 K/mcL (140-400); Red Cell Distribution Width 14.5 % (11.5-14.5); Segmented Neutrophils % 65.4 %; White Blood Count 8.4 K/mcL (4.3-11.1)
[2019-06-16 04:48] LABS: Calcium 9.2 mg/dL (8.6-10.3); Potassium 3.7 mEq/L (3.5-5.1)
[2019-06-16] MEDS: Piperacillin/Tazobactam 3.375 GM in 0.9 % Sodium Chloride Mini Bag 100 ML IVPB SCH ×3 (05:49→22:05)
[2019-06-16] MEDS: Budesonide/Formoterol 160/4.5 1 PUFF INH IH SCH ×2 (07:28→20:08)
--- NOTE | 2019-06-16 07:55 | Internal Med Progress Note ---
Hospitalist Progress Note - Encounter Date of Encounter: 06/16/19 Time of Encounter: 07:55 - Exam Vitals: Temp Pulse Resp BP Pulse Ox 97.7 F 70 14 148/74 100 06/16/19 05:31 06/16/19 05:31 06/16/19 07:28 06/16/19 05:31 06/16/19 07:28 - Time Spent with Patient Total time spent is greater than 50% in coordination of care (as documented) at patient's floor/unit and/or counseling patient: Internal Medicine: Result - Labs CBC & Chem 7: 06/16/19 04:16 06/16/19 04:16 Labs: Short CBC 06/15/19 06/16/19 Range/Units 20:05 04:16 WBC 8.6 8.4 (4.3-11.1) K/mcL Hgb 11.2 L 11.5 (11.5-15.4) g/dL Hct 33.7 L 34.5 L (35.3-44.9) % Plt Count 192 196 (140-400) K/mcL Neutrophils # 5.5 (1.6-8.9) K/mcL BMP 06/16/19 04:16 Sodium 137 Potassium 3.7 Chloride 94 L Carbon Dioxide 33 H BUN 11 Creatinine 1.20 Glucose 105 Calcium 9.2 - ABG Interpretation ABG results: ABG ABG pH 7.37 pH Units (7.32-7.45) 06/08/19 07:04 ABG pCO2 41 mmHg (35-45) 06/08/19 07:04 ABG pO2 192 mmHg (85-104) H 06/08/19 07:04 ABG O2 Saturation 100 % (95-98) H 06/08/19 07:04 PT/INR, D-dimer PT 12.4 Seconds (9.4-12.1) H 06/15/19 20:05 Consult Discharge Plan - Plan Referrals: Casandra Evans MD [Primary Care Provider] - 06/21/19 1:15 pm
[2019-06-16] MEDS ORDERED: Lidocaine -MPF 1% 5 ML AMPUL INFILT ONE (08:56)
[2019-06-16] MEDS: Furosemide 20 MG/2 ML VIAL IVP SCH ×2 (11:03→21:55)
[2019-06-16] MEDS: Aspirin Enteric Coated 81 MG Tablet PO SCH (11:03)
[2019-06-16] MEDS: Metoprolol XL (24 HR) Succ 25 MG TAB.ER.24H PO SCH (11:03)
[2019-06-16] MEDS: Pantoprazole 40 MG VIAL IVP SCH (11:03)
[2019-06-16] MEDS: predniSONE 5 MG TABLET PO SCH (11:03)
[2019-06-16] MEDS: Magnesium Oxide 400 MG TABLET PO SCH (11:04)
[2019-06-16] MEDS: Letrozole 2.5 MG TABLET PO SCH (11:04)
--- NOTE | 2019-06-16 11:11 | Event Note ---
Date of Encounter: 06/16/19 Time of Encounter: 10:00 - Cardiology Event Note Discussed and reviewed with regarding [facility] results with TAVR covering RCA with severe stenosis, who recommends transfer to [place], where TAVR was performed. spoke with family regarding potential transfer. I personally attempted to speak with family, however not currently in the room. Discussed with hospitalist regarding need for transfer, will start transfer process. Will attempt to discuss further with family.
[2019-06-16] MEDS: *HR* Heparin 5,000 UNIT/ML VIAL IVP PRN (13:22)
--- NOTE | 2019-06-16 16:34 | Discharge Summary ---
<Gerson Morales Kinjal - Last Filed: 06/16/19 17:18> - NOTES TO OUTPATIENT PROVIDER Notes to Outpatient Provider: Patient was admitted and treated for sepsis with MRSA bacteremia secondary to pneumonia. She was also admitted and treated for NSTEMI. She was treated with 8 days of IV vancomycin and Zosyn. Cardiology and infectious disease specialty is followed. Cardiology performed left heart catheterization with plan for ZAKI. Left heart catheterization determined previous aortic valve replacement was affecting right RCA and recommended transfer to [facility] where TAVR was performed. Orders not resulted at time of discharge: Pending orders 06/09/19 08:37 Sputum Culture [Culture,Sputum with Gram Stain] [] Stat Date of Encounter: 06/16/19 Time of Encounter: 09:00 - Discharge Diagnosis (1) MRSA bacteremia Priority: Primary Status: Acute (2) NSTEMI (non-ST elevated myocardial infarction) Priority: Primary Status: Acute (3) Acute exacerbation of CHF (congestive heart failure) Priority: Secondary Status: Acute Qualifiers: Heart failure type: diastolic Qualified Code(s): I50.33 - Acute on chronic diastolic (congestive) heart failure (4) Aortic valve replaced Priority: Secondary Status: Chronic (5) CKD (chronic kidney disease) Priority: Secondary Status: Chronic Qualifiers: Chronic kidney disease stage: unspecified stage Qualified Code(s): N18.9 - Chronic kidney disease, unspecified (6) Pneumonia Priority: Secondary Status: Resolved Qualifiers: Pneumonia type: due to Pneumococcus Laterality: right Lung location: lower lobe of lung Qualified Code(s): J13 - Pneumonia due to Streptococcus pneumoniae (7) Atrial fibrillation Priority: Secondary Status: Chronic Qualifiers: Atrial fibrillation type: paroxysmal Qualified Code(s): I48.0 - Paroxysmal atrial fibrillation (8) DVT prophylaxis Priority: Secondary Status: Acute Hospital course: Ms. Esteves is a 79 year old female Ms. Esteves is a 79 year old female with a hi story of Afib on Eliquis, multiple DVTs, ductal carcinoma of the breast, CHF, TAVR, and COPD requiring 2L O2 at home prn who presented to the ED with her family with AMS and weakness. Patient was admitted with severe sepsis, acute encephalopathy, NSTEMI, pneumonia and UTI. Cardiology evaluated and recommended LHC when stable. She was found to have MRSA bacteremia, likely secondary to pneumonia, she was started on vancomycin and Zosyn. Infectious disease evaluated the patient and agreed with regimen, and also recommended transesophageal echocardiogram. Patient was medically managed over a week, and was eventually clinically stable for left heart catheterization. LHC demonstrated: (EF 30%, mLAD 50-60% stenosis, <2mm small vessel LCx nonsevere disease. RCA - did not visualize previously as TAVR obscures and covers the right coronary sinus but after magnified review on workstation it appears ostial RCA has severe disease 90-95%.) Cardiology team recommended transfer to [facility] for evaluation by team who previously did TAVR, for possibility of valvular involvement with RCA disease as well as possibility of endocarditis of valve considering MRSA bacteremia. Patient was accepted, will be transferred in stable medical condition. Patient was also treated for chronic medical conditions, received 8 days of vancomycin and Zosyn. Discharge discussed with: patient, family - Time Spent with Patient Total time spent providing and/or coordinating discharge services: - Discharge Medications Prescriptions: No Action Fluticasone/Salmeterol [Advair 500-50 Diskus] 1 each IH BID Amiodarone [Cordarone] 200 mg PO DAILY Isosorbide MONOnitrate (24 HR) [Imdur] 30 mg PO DAILY #30 tab.er.24h Atorvastatin [Lipitor] 40 mg PO HS ALPRAZolam [Xanax 0.25 MG Tablet] 0.25 mg PO QPM PRN PRN Reason: Anxiety Metoprolol Succinate [Toprol Xl] 25 mg PO DAILY Apixaban [Eliquis] 2.5 mg PO BID #60 tablet predniSONE [Prednisone] 2.5 mg PO DAILY #30 tablet Ferrous Sulfate [Iron] 325 mg PO TID Ropinirole HCl [Requip] 0.25 mg PO HS Bumetanide 2 mg PO DAILY Letrozole [Femara] 2.5 mg PO DAILY #90 tablet Cholecalciferol (Vitamin D3) [Vitamin D] 2,000 unit PO DAILY Albuterol Neb [Proventil Neb] 2.5 mg IH Q4H PRN PRN Reason: Shortness Of Breath ALPRAZolam [Xanax 0.25 MG Tablet] 0.125 mg PO QAM PRN PRN Reason: Anxiety Home Medications: Fluticasone/Salmeterol [Advair 500-50 Diskus] 1 each IH BID 01/19/17 [History] Amiodarone [Cordarone] 200 mg PO DAILY 10/04/17 [History] Isosorbide MONOnitrate (24 HR) [Imdur] 30 mg PO DAILY #30 tab.er.24h 10/07/17 [Rx] Atorvastatin [Lipitor] 40 mg PO HS 11/19/18 [History] ALPRAZolam [Xanax 0.25 MG Tablet] 0.25 mg PO QPM PRN 11/21/18 [History] Metoprolol Succinate [Toprol Xl] 25 mg PO DAILY 01/15/19 [History] Apixaban [Eliquis] 2.5 mg PO BID #60 tablet 02/16/19 [Rx] predniSONE [Prednisone] 2.5 mg PO DAILY #30 tablet 02/16/19 [Rx] Ferrous Sulfate [Iron] 325 mg PO TID 02/24/19 [History] Ropinirole HCl [Requip] 0.25 mg PO HS 02/24/19 [History] Bumetanide 2 mg PO DAILY 02/28/19 [History] Letrozole [Femara] 2.5 mg PO DAILY #90 tablet 02/28/19 [Rx] Cholecalciferol (Vitamin D3) [Vitamin D] 2,000 unit PO DAILY 04/05/19 [History] ALPRAZolam [Xanax 0.25 MG Tablet] 0.125 mg PO QAM PRN 06/08/19 [History] Albuterol Neb [Proventil Neb] 2.5 mg IH Q4H PRN 06/08/19 [History] Allergies/Adverse Reactions: Allergy/AdvReac Type Severity Reaction Status Date / Time No Known Allergies Allergy Verified 06/08/19 06:57 Date of admission: 06/08/19 10:28 Primary care physician: Casandra Evans MD Consults: 06/08/19 11:02 Consult to Cardiology [CONS] Routine Comment: Consulting Provider: Cardiology Brooke Reason for Consult: Elevated troponin Call Completed: Yes 06/09/19 08:30 Consult to Cardiac Rehabilitation-Phase1 [CONS] Routine Comment: Reason for Consult: NSTEMI Call Completed: Yes 06/09/19 08:53 Consult to Nurse Navigator [CONS] Routine Comment: 06/10/19 11:36 Consult to Occupational Therapy [CONS] Routine Comment: Evaluate, develop and implement POC Reason for Consult: ambulatory dysfunction Does patient have active BEDREST order?: No Is patient medically & hemodynamically stable?: Yes Patient assessed for mobility or mobilized this visit?: No Consult to Physical Therapy [CONS] Routine Comment: Evaluate, develop and implement POC Reason for Consult: ambulatory dysfunction Does patient have active BEDREST order?: No Is patient medically & hemodynamically stable?: Yes Patient assessed for mobility or mobilized this visit?: No 06/15/19 13:31 Consult to Infectious Diseases [CONS] Routine Consulting Provider: Infectious Disease Brooke Reason for Consult: IV antibiotic recommendations for discharge Time Notified: 13:31 Call Completed: Yes 06/16/19 08:56 Consult to Invasive Line Access Team [CONS] Routine Reason for Consult: Picc Line Insertion Line Type: PICC Discharging clinician: Gerson Morales Anticipated date of discharge: 06/16/19 - Constitutional Vitals: Temp Pulse Resp BP Pulse Ox 98.0 F 73 14 150/74 100 06/16/19 15:50 06/16/19 15:50 06/16/19 15:50 06/16/19 15:50 06/16/19 15:50 Exam: gen- A &O x 3, appears stated age cv- reg rate and rhythm, normal s1,s2, no murmurs appreciated, no jvd lungs- CTA bilaterally, diminished breath sounds throughout, no increased resp effort at rest on 2L. abd- soft, non tender, non distended, bowel sounds normal ext: tender, trace +1 pitting edema BLE, stable. skin: venous stasis and discoloration of BLE. Chronic. neuro- no focal deficits, CN 2-12 grossly intact - Patient Status Disposition: Transfer Intermediate Care Fac Condition: Good Overall status at discharge: patient is progressing back to baseline - Discharge Instructions Follow Up With: Casandra Evans MD [Primary Care Provider] - 06/21/19 1:15 pm - Diet and Activity Activity: as per physical therapy Diet: advance to your usual diet <Trey Mcleod - Last Filed: 06/16/19 19:23> Orders not resulted at time of discharge: Pending orders 06/09/19 08:37 Sputum Culture [Culture,Sputum with Gram Stain] [RM] Stat Date of Encounter: 06/16/19 - Discharge Diagnosis (1) Atrial fibrillation Status: Chronic Qualifiers: Atrial fibrillation type: paroxysmal Qualified Code(s): I48.0 - Paroxysmal atrial fibrillation (2) Acute on chronic respiratory failure with hypoxemia Status: Resolved (3) NSTEMI (non-ST elevated myocardial infarction) Status: Acute (4) Multifocal pneumonia Status: Resolved (5) Sepsis Status: Resolved Qualifiers: Sepsis type: methicillin resistant Staphylococcus aureus Sepsis acute organ dysfunction status: with acute organ dysfunction Severe sepsis acute organ dysfunction type: acute respiratory failure Acute respiratory failure type: with hypoxia Severe sepsis shock status: without septic shock Qualified Code(s): A41.02 - Sepsis due to Methicillin resistant Staphylococcus aureus; R65.20 - Severe sepsis without septic shock; J96.01 - Acute respiratory failure with hypoxia (6) MRSA bacteremia Status: Acute (7) Encephalopathy Status: Resolved (8) CHF (congestive heart failure) Status: Chronic Qualifiers: Heart failure type: combined systolic and diastolic Heart failure chronicity: chronic Qualified Code(s): I50.42 - Chronic combined systolic (congestive) and diastolic (congestive) heart failure Hospital course: Ms. Esteves is a 79 year old female - Time Spent with Patient Total time spent providing and/or coordinating discharge services: Date of admission: 06/08/19 10:28 Primary care physician: Casandra Evans MD Consults: 06/08/19 11:02 Consult to Cardiology [CONS] Routine Comment: Consulting Provider: Parker Cox Reason for Consult: Elevated troponin Call Completed: Yes 06/09/19 08:30 Consult to Cardiac Rehabilitation-Phase1 [CONS] Routine Comment: Reason for Consult: NSTEMI Call Completed: Yes 06/09/19 08:53 Consult to Nurse Navigator [CONS] Routine Comment: 06/10/19 11:36 Consult to Occupational Therapy [CONS] Routine Comment: Evaluate, develop and implement POC Reason for Consult: ambulatory dysfunction Does patient have active BEDREST order?: No Is patient medically & hemodynamically stable?: Yes Patient assessed for mobility or mobilized this visit?: No Consult to Physical Therapy [CONS] Routine Comment: Evaluate, develop and implement POC Reason for Consult: ambulatory dysfunction Does patient have active BEDREST order?: No Is patient medically & hemodynamically stable?: Yes Patient assessed for mobility or mobilized this visit?: No 06/15/19 13:31 Consult to Infectious Diseases [CONS] Routine Consulting Provider: Infectious Disease Brooke Reason for Consult: IV antibiotic recommendations for discharge Time Notified: 13:31 Call Completed: Yes 06/16/19 08:56 Consult to Invasive Line Access Team [CONS] Routine Reason for Consult: Picc Line Insertion Line Type: PICC - Constitutional Vitals: Temp Pulse Resp BP Pulse Ox 98.0 F 73 14 150/74 100 06/16/19 15:50 06/16/19 15:50 06/16/19 15:50 06/16/19 15:50 06/16/19 15:50 - Attending Attestation I examined this patient and my medical decision-making was reviewed with the Resident Physician on 06/15/19. I agree with the documented findings, disposition and treatment plan as described except to the extent set forth below. Ms Esteves has been admitted for acute NSTEMI. She was found to have pneumonia and MRSA bacteremia. She had issues with pulmonary edema and was diuresed. 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 SHe also needs ZAKI. PICC placed today. Cardiology recommended transfer for eval of TAVR and obstruction. Exam Alert Comfortable NC Mucus membrane dry Heart distant No wheeze Moves all extremities Plan D/C to [facility]. D/C time 36min Not on RAJEEV/ARB due to BP.
[2019-06-16 20:02] VITALS: BP 138/71
[2019-06-16 20:49] LABS: Activated Partial Thrombo Time 126.7 Seconds (26.0-36.0)
[2019-06-16 20:53] LABS: Heparin anti-factor XA UFH 0.61 IU/mL (0.30-0.70)
[2019-06-16] MEDS: ALPRAZolam 0.25 MG TABLET PO PRN (21:51)
[2019-06-16] MEDS: Acetaminophen 325 MG TABLET PO PRN (21:51)
[2019-06-16] MEDS: rOPINIRole 0.25 MG TABLET PO SCH (21:52)
[2019-06-17] MEDS: Ipratropium/Albuterol Neb 3 ML IH SCH (00:03)
[2019-06-17] MEDS ORDERED: Aminoglycoside Consult 1 EACH MC ONE (03:04)
== END 2019-06-17 03:05 | DRG 871 ==
LOC: EMEROOARM 06:52 → SUATTDRO 10:28 → ICNU 10:28 → 2NNU 06-09 15:52 → 2NENU 06-11 14:32 → UNDODISIN 06-15 22:36
PROVIDERS: ADMIT Internal Medicine Nephrology; ATTEND Internal Medicine